=== PATIENT | male | born 1950 | race Caucasian/White ===

== ENCOUNTER 2020-04-18 15:51 | Observation (INO) ==
[2020-04-18] MEDS ORDERED: SODIUM CHLORIDE 0.9% 500 ML IV SCH (16:15)
--- NOTE | 2020-04-18 16:15 | Emergency Department Note ---
Impression & Plan Diverticulitis, Abdominal pain, Hernia, umbilical ED Provider Note NAME: EMILY NARAYANAN AGE: 69 SEX: M : 1950 ARRIVES VIA: Walk-In INFORMANT: Patient, ED PROVIDER(S): Mati Hubbard DO CHIEF COMPLAINT: Abdominal pain HPI: The patient is a 69-year-old male who presented to the emergency department for an evaluation of abdominal pain. The patient started noticing periumbilical abdominal pain approximately 3 days ago. He states his abdominal pain appears to be centered over his abdomen but also radiates into his lower abdomen. He denies having any vomiting but does have nausea. He is noticed decreased bowel movements. He also has been noticing some difficulty urinating. He does not have any fever. He denies having any back pain or chest pain. He called his primary care physician and was referred to the emergency department. The patient states the pain is moderate to severe especially with ambulating and palpation over the lower abdomen. He denies having any hematuria. The patient did not take any medication for this pain. ROS: See above HPI for pertinent positives & negatives. A total of 10 systems reviewed and were otherwise negative. PAST MEDICAL HISTORY: See Below PAST SURGICAL HISTORY: See Below FAMILY HISTORY: See Below SOCIAL HISTORY: See Below HOME MEDICATIONS: See Below ALLERGIES: See Below VITALS: See Below PHYSICAL EXAMINATION: GENERAL: The patient is awake and alert. He is very uncomfortable appearing. EYES: The conjunctivae are clear. The pupils are round and reactive. EARS, NOSE, MOUTH AND THROAT: The nose is without any evidence of any deformity. Mucous membranes are moist. Tongue is midline. NECK: The neck is nontender and supple. RESPIRATORY: Normal respiratory effort is noted there is no evidence of wheezing rhonchi or rales CARDIOVASCULAR: Regular rate and rhythm noted there no murmurs rubs or gallops normal S1 normal S2. GASTROINTESTINAL: The abdomen is moderately distended and diffusely tender. There is specific periumbilical tenderness as well as umbilical tenderness. No definite hernia could be appreciated but the patient is having severe pain which limits the exam. MUSCULOSKELETAL/EXTREMITIES: There is no evidence of gross deformity full range of motion is noted in the hips and shoulders. SKIN: There is no obvious evidence of any rash. Trace pedal edema was noted bilaterally. NEUROLOGIC: Patient is awake alert and oriented x3. MEDICAL DECISION MAKING: The patient is a 69-year-old male who presented to the emergency department for an evaluation of upper abdominal pain. The patient had periumbilical abdominal pain and a possible small umbilical hernia. He also had lower abdominal tenderness to palpation as well. Radiographic studies appear to be consistent with diverticulitis. He also has a slight umbilical hernia but there is no bowel involvement according to the CT report. I discussed the patient's laboratory and radiographic studies with him. He did not want to have any pain medication. He was treated with IV antibiotics. Given his use of methotrexate for his rheumatoid arthritis I felt it may be prudent for the patient to be observed for IV antibiotics. I discussed his case with the on-call [facility] hospitalist group as well as the on-call surgeon. The patient was agreeable to this plan. Triage Nursing notes reviewed. Prior medical records reviewed Vital Signs: reviewed and remarkable for elevated blood pressure. Differential diagnosis: Etiologies such as appendicitis, diverticulitis, obstruction, inflammatory bowel disease, renal colic, PUD, biliary pathology, pancreatitis, mesenteric ischemia, aortic pathology, infections, genitourinary, UTI, perforated viscus, as well as others were entertained. ER treatment provided: See below Diagnostics interpreted by me: ECG: EKG was obtained in the emergency department. My interpretation is sinus rhythm at 69 bpm. Frequent PVCs were noted. LVH was noted by voltage criteria. No previous EKG was available for comparison. Cardiac Monitoring: An order was placed for continuous cardiac monitoring. The monitor shows a rate of 62 bpm with sinus rhythm. Laboratory studies: As stated above and show below. Imaging studies: See below Consultation(s): 1710: I discussed this case with the on-call general surgeon, Dr. Jonas. 1800: I discussed this case with the [facility] hospitalist group. Past Med/Surg History Medical History (Updated 04/18/20 @ 21:59 by Mati Hubbard DO) CAD (coronary artery disease) CKD (chronic kidney disease), stage III High cholesterol History of heart attack Hyperlipidemia Hypertension Rheumatoid arthritis Sigmoid diverticulitis Surgical History (Updated 04/18/20 @ 18:18 by Keyanna Kovacs PA-C) H/O carotid endarterectomy S/P tonsillectomy Status post surgical removal of neoplasm of skin Family History (Updated 04/18/20 @ 18:18 by Keyanna Kovacs PA-C) Mother Coronary heart disease Father Cancer Brain- at age 36 Social History (Updated 04/18/20 @ 18:19 by Keyanna Kovacs PA-C) Smoking Status: Former smoker Hx Alcohol Use: No Hx Substance Use: No Preferred Language: Belarusian Communication Ability: Effective Page Designer Required: No Beliefs That Will Affect Care: None Current Living Situation: Significant Other Feels Safe at Home: Yes Safety Concerns: Feels Safe At This Time Allergies Allergies Allergy/AdvReac Type Severity Reaction Status Date / Time evolocumab AdvReac Severe Dizziness Unverified 04/18/20 17:08 [From Repatha SureClick] icosapent ethyl AdvReac Severe Dizziness Unverified 04/18/20 17:08 [From Vascepa] lidocaine AdvReac Severe patient Verified 04/18/20 18:26 "dies" Edksujb-Vna-Bux Reductase AdvReac Severe arthritis Unverified 04/18/20 17:08 Inhibitor Home Meds Home Medications Medication Instructions Recorded Confirmed amlodipine 5 mg PO QAM 04/18/20 04/18/20 ascorbic acid (vitamin C) [Vitamin 500 mg PO DAILY 04/18/20 04/18/20 C] aspirin 325 mg PO HS 04/18/20 04/18/20 folic acid 1 mg PO BID 04/18/20 04/18/20 losartan 25 mg PO QAM 04/18/20 04/18/20 methotrexate sodium 15 mg PO MO 04/18/20 04/18/20 tijgokew-hqu-EL-lycopen-lutein 1 tab PO QAM 04/18/20 04/18/20 [Centrum Silver Ultra Men's] omega 9-nys-jho-fish oil [Fish Oil] 1 cap PO BID 04/18/20 04/18/20 vitamin E 400 unit PO HS 04/18/20 04/18/20 Results & Data (ED) Vital Signs Vital Signs - 24 hr 04/18/20 15:55 04/18/20 17:04 04/18/20 17:39 Temperature 36.7 C Temperature Source Oral Pulse Rate 67 Pulse Rate [Right Finger] 64 60 Respiratory Rate 20 19 19 Respiratory Effort / Characteristics Non-Labored Spontaneous Respiratory Depth Normal Respiratory Pattern Regular Blood Pressure 170/76 H Blood Pressure [Right Arm] 132/91 155/76 H Blood Pressure Mean 107 Blood Pressure Mean [Right Arm] 104 102 Pulse Oximetry 98 100 97 Oxygen Delivery Method Room Air Sepsis Recent Fever Within 48 Hours No Sepsis New/Unexplained Change in Mental Status No Sepsis Action Taken by Nursing No Action Required Home Medications Current Medication List: was personally reviewed by me Laboratory Data Attestation: I reviewed the patient's lab results. Result diagrams: 04/18/20 16:03 04/18/20 16:03 Lab Results 04/18/20 04/18/20 04/18/20 Range/Units 16:03 16:03 16:03 WBC 8.14 (4.8-10.8) K/uL RBC 4.57 L (4.7-6.1) M/uL Hgb 15.0 (14.0-18.0) g/dL POC Hgb (14.0-18.0) g/dl Hct 43.8 (42-52) % POC Hct (42-52) % MCV 95.8 (80-100) fL MCH 32.8 (25-34) pg MCHC 34.2 (32-36) g/dL RDW Std Deviation 50.4 H (36.4-46.3) fL RDW Coeff of Ottoniel 14.5 (11.5-14.5) % Plt Count 193 (130-400) K/uL MPV 9.9 (7.4-10.4) fL Immature Gran % (Auto) 0.4 % Neut % (Auto) 58.0 % Lymph % (Auto) 20.5 % [place] % (Auto) 19.4 % Eos % (Auto) 1.6 % Baso % (Auto) 0.1 % Neut # (Auto) 4.72 (1.4-6.5) K/uL Lymph # (Auto) 1.67 (1.2-3.4) K/uL [place] # (Auto) 1.58 H (0.11-0.59) K/uL Eos # (Auto) 0.13 (0-0.5) K/uL Baso # (Auto) 0.01 (0-0.2) K/uL Immature Gran # (Auto) 0.03 H (0.00-0.02) K/uL PT 10.7 (9.0-12.0) Seconds INR 1.0 (0.9-1.1) APTT 31.5 H (21.0-31.0) Seconds PTT Ratio 1.1 POC Sodium (135-144) mmol/L Sodium 141 (136-145) mmol/L POC Potassium (3.3-5.0) mmol/L Potassium 3.9 (3.5-5.1) mmol/L POC Chloride (101-112) mmol/L Chloride 105 (98-107) mmol/L Carbon Dioxide 26 (21-32) mmol/L POC Total CO2 (24-31) mmol/L Anion Gap 10.0 (3-11) POC Anion Gap (16-25) mmol/L POC BUN (7-18) mg/dl BUN 20 H (7-18) mg/dl Creatinine 1.30 (0.6-1.4) mg/dl POC Creatinine (0.6-1.3) mg/dl Est Cr Clr Drug Dosing 63.4 ml/min Est GFR ( Amer) 63.6 Est GFR (Non-Af Amer) 54.9 BUN/Creatinine Ratio 15.1 (10-20) Glucose 99 (70-99) mg/dl POC Glucose (other) (70-99) mg/dl Calcium 9.5 (8.5-10.1) mg/dl POC Ioniz Calcium Morteza (1.12-1.32) mmol/l Total Bilirubin 0.5 (0.2-1) mg/dl AST 11 L (15-37) U/L ALT 18 (12-78) U/L Alkaline Phosphatase 65 (45-117) U/L Troponin I < 0.015 (0-0.045) ng/ml Total Protein 7.1 (6.4-8.2) gm/dl Albumin 3.3 L (3.4-5.0) gm/dl Globulin 3.8 (2.5-4.0) gm/dl Albumin/Globulin Ratio 0.9 (0.9-2) Lipase 102 (73-393) U/L Urine Color Urine Appearance (Clear) Urine pH (4.5-7.5) Ur Specific [place] (1.000-1.030) Urine Protein (Negative) Urine Glucose (UA) (Negative) Urine Ketones (Negative) Urine Blood (Negative) Urine Nitrite (Negative) Urine Bilirubin (Negative) Urine Urobilinogen (Negative) Ur Leukocyte Esterase (Negative) 04/18/20 04/18/20 Range/Units 16:14 16:19 WBC (4.8-10.8) K/uL RBC (4.7-6.1) M/uL Hgb (14.0-18.0) g/dL POC Hgb 14.6 (14.0-18.0) g/dl Hct (42-52) % POC Hct 43 (42-52) % MCV (80-100) fL MCH (25-34) pg MCHC (32-36) g/dL RDW Std Deviation (36.4-46.3) fL RDW Coeff of Ottoniel (11.5-14.5) % Plt Count (130-400) K/uL MPV (7.4-10.4) fL Immature Gran % (Auto) % Neut % (Auto) % Lymph % (Auto) % [place] % (Auto) % Eos % (Auto) % Baso % (Auto) % Neut # (Auto) (1.4-6.5) K/uL Lymph # (Auto) (1.2-3.4) K/uL [place] # (Auto) (0.11-0.59) K/uL Eos # (Auto) (0-0.5) K/uL Baso # (Auto) (0-0.2) K/uL Immature Gran # (Auto) (0.00-0.02) K/uL PT (9.0-12.0) Seconds INR (0.9-1.1) APTT (21.0-31.0) Seconds PTT Ratio POC Sodium 139 (135-144) mmol/L Sodium (136-145) mmol/L POC Potassium 3.9 (3.3-5.0) mmol/L Potassium (3.5-5.1) mmol/L POC Chloride 104 (101-112) mmol/L Chloride (98-107) mmol/L Carbon Dioxide (21-32) mmol/L POC Total CO2 25 (24-31) mmol/L Anion Gap (3-11) POC Anion Gap 16.0 (16-25) mmol/L POC BUN 20 H (7-18) mg/dl BUN (7-18) mg/dl Creatinine (0.6-1.4) mg/dl POC Creatinine 1.3 (0.6-1.3) mg/dl Est Cr Clr Drug Dosing ml/min Est GFR ( Amer) Est GFR (Non-Af Amer) BUN/Creatinine Ratio (10-20) Glucose (70-99) mg/dl POC Glucose (other) 100 H (70-99) mg/dl Calcium (8.5-10.1) mg/dl POC Ioniz Calcium Morteza 1.23 (1.12-1.32) mmol/l Total Bilirubin (0.2-1) mg/dl AST (15-37) U/L ALT (12-78) U/L Alkaline Phosphatase (45-117) U/L Troponin I (0-0.045) ng/ml Total Protein (6.4-8.2) gm/dl Albumin (3.4-5.0) gm/dl Globulin (2.5-4.0) gm/dl Albumin/Globulin Ratio (0.9-2) Lipase (73-393) U/L Urine Color Yellow Urine Appearance Clear (Clear) Urine pH 5.0 (4.5-7.5) Ur Specific Christoval 1.022 (1.000-1.030) Urine Protein Negative (Negative) Urine Glucose (UA) Negative (Negative) Urine Ketones Negative (Negative) Urine Blood Negative (Negative) Urine Nitrite Negative (Negative) Urine Bilirubin Negative (Negative) Urine Urobilinogen Negative (Negative) Ur Leukocyte Esterase Negative (Negative) Administered Medications Aspirin (Aspirin 325 Mg Ectab) 325 mg PO HS MARC Stop: 05/18/20 20:59 Last Admin: 04/18/20 21:57 Dose: 325 mg Documented by: [id number] Enoxaparin Sodium (Enoxaparin Inj 40 Mg/0.4 Ml Syr) 40 mg SQ Q12H MARC Stop: 05/18/20 20:59 Last Admin: 04/18/20 21:56 Dose: Not Given Documented by: [id number] Fish Oil ([place]-3 (Purified Fish Oil) 1 Gm Cap) 1 gm PO BID MARC Stop: 05/18/20 20:59 Last Admin: 04/18/20 21:57 Dose: 1 gm Documented by: [id number] Folic Acid (Folic Acid 1 Mg Tab) 1 mg PO BID MARC Stop: 05/18/20 20:59 Last Admin: 04/18/20 21:57 Dose: 1 mg Documented by: [id number] Metronidazole (Flagyl) 500 mg in 100 mls @ 100 mls/hr IV Q8H MARC Stop: 04/28/20 21:59 Last Admin: 04/18/20 21:57 Dose: 100 mls/hr Documented by: [id number] Ciprofloxacin (Cipro / D5w) 400 mg in 200 mls @ 100 mls/hr IV Q12H MARC Stop: 04/28/20 21:59 Last Admin: 04/18/20 21:57 Dose: 100 mls/hr Documented by: [id number] Discontinued Medications Sodium Chloride (Nss) 500 mls @ 999 mls/hr IV .Q31M MARC Stop: 04/18/20 16:45 Last Infusion: 04/18/20 17:01 Dose: 0 mls/hr Documented by: [id number] Admin: 04/18/20 16:18 Dose: 999 mls/hr Documented by: [id number] Piperacillin Sod/Tazobactam Sod (Zosyn) 4.5 gm in 120 mls @ 240 mls/hr IV NOW ONE Stop: 04/18/20 17:31 Last Infusion: 04/18/20 17:35 Dose: 0 mls/hr Documented by: [id number] Admin: 04/18/20 17:07 Dose: 240 mls/hr Documented by: [id number] Ioversol (Ioversol 100ml) 93 ml IV ONCE ONE Stop: 04/18/20 16:32 Last Admin: 04/18/20 16:32 Dose: 93 ml Documented by: [id number] Imaging Data Radiologist's Impression: ABDOMEN AND PELVIS CT WITH IV CONTRAST CT DOSE: 1051.32 mGy.cm HISTORY: Lower abdominal pain. TECHNIQUE: Multiaxial CT images of the abdomen and pelvis were performed following the use of intravenous contrast. A dose lowering technique was utilized adhering to the principles of ALARA. COMPARISON STUDY: None. FINDINGS: Small fat-containing right-sided Bochdalek hernia. No pneumoperitoneum. No pneumatosis. No suspicious lytic or blastic osseous lesions. Mild hepatic steatosis. A 4 mm hypodense lesion within the left hepatic lobe. This is technically too small to characterize. Cholelithiasis. No gallbladder wall thickening. The pancreas, spleen, adrenal glands, and kidneys are unremarkable. No hydronephrosis. No retroperitoneal lymphadenopathy. Moderate atherosclerotic plaque within the normal caliber abdominal aorta and iliac arteries. No evidence for an inguinal hernia. Mild thickening and pericolonic fat stranding within the proximal sigmoid colon there are multiple diverticula at this location. Findings likely represent acute diverticulitis. No perforation or abscess identified. There is moderate thickening of the bladder dome which may be reactive to the adjacent diverticulitis. No evidence for bowel obstruction. No pelvic lymphadenopathy. The prostate gland is normal in size. Mild subcutaneous fat stranding surrounding the tiny fat-containing umbilical hernia. The main portal vein is patent. IMPRESSION: 1. Acute sigmoid diverticulitis. No perforation or abscess at this time. Follow- up colonoscopy should be performed once the diverticulitis has resolved to exclude the less likely possibility of an underlying colonic lesion. 2. Moderate thickening of the bladder dome. This is likely reactive to the adjacent diverticulitis. No fistula identified. 3. Cholelithiasis. No gallbladder wall thickening. 4. Additional findings as described above. ACT 112: Negative or not required by law. Electronically signed by: Mario Street M.D. 04/18/2020 5:00 PM Dictated: 04/18/201653 Transcribed: 04/18/201653 Blood Pressure Blood Pressure Findings: Elevated blood pressure Blood Pressure Disposition: further management by hospitalist Discharge Plan Visit Data Chief Complaint: Abdominal Pain Stated Complaint: abd pain ED Provider: Mati Hubbard Discharge Problem: Diverticulitis, Abdominal pain, Hernia, umbilical Patient Disposition: Admitted As Inpatient Condition: Good Discharge Instructions Interventions: ED Discharge Assessment Last Done: 04/18/20 18:36
[2020-04-18] MEDS ORDERED: IOVERSOL 100ml IV ONE (16:31)
[2020-04-18 16:32] LABS: iSTAT Creatinine 1.3 mg/dl (0.6-1.3); iSTAT Hemoglobin 14.6 g/dl (14.0-18.0); iSTAT Ionized Calcium 1.23 mmol/l (1.12-1.32); iSTAT Potassium 3.9 mmol/L (3.3-5.0)
[2020-04-18 16:37] LABS: Basophils # (auto) 0.01 K/uL (0-0.2); Basophils % (auto) 0.1 %; Eosinophils # (auto) 0.13 K/uL (0-0.5); Eosinophils % (auto) 1.6 %; Hematocrit (blood only) 43.8 % (42-52); Immature Granulocytes # (auto) 0.03 K/uL (0.00-0.02); Immature Granulocytes % (auto) 0.4 %; Lymphocytes # (auto) 1.67 K/uL (1.2-3.4); Lymphocytes % (auto) 20.5 %; Mean Corpuscular Hemoglobin 32.8 pg (25-34); Mean Corpuscular Hgb Conc 34.2 g/dL (32-36); Mean Corpuscular Volume 95.8 fL (80-100); Mean Platelet Volume 9.9 fL (7.4-10.4); Monocytes # (auto) 1.58 K/uL (0.11-0.59); Monocytes % (auto) 19.4 %; Neutrophils # (auto) 4.72 K/uL (1.4-6.5); Platelet Count 193 K/uL (130-400); RDW Coefficient of Variation 14.5 % (11.5-14.5); RDW Standard Deviation 50.4 fL (36.4-46.3); Red Blood Count 4.57 M/uL (4.7-6.1); White Blood Count 8.14 K/uL (4.8-10.8)
[2020-04-18 16:39] LABS: Partial Thromboplastin Ratio 1.1; Partial Thromboplastin Time 31.5 Seconds (21.0-31.0); Prothrombin Time 10.7 Seconds (9.0-12.0)
[2020-04-18 16:46] LABS: Alanine Aminotransferase 18 U/L (12-78); Albumin Level 3.3 gm/dl (3.4-5.0); Aspartate Aminotransferase 11 U/L (15-37); BUN Creatinine Ratio 15.1 (10-20); Blood Urea Nitrogen 20 mg/dl (7-18); Calcium 9.5 mg/dl (8.5-10.1); Carbon Dioxide 26 mmol/L (21-32); Chloride 105 mmol/L (98-107); Creatinine Clr Calc Pharmacy 63.4 ml/min; Est GFR (African American) 63.6; Est GFR (Non-African American) 54.9; Glucose 99 mg/dl (70-99); Lipase 102 U/L (73-393); Potassium 3.9 mmol/L (3.5-5.1); Sodium 141 mmol/L (136-145)
[2020-04-18 16:51] LABS: Albumin Globulin Ratio 0.9 (0.9-2); Alkaline Phosphatase 65 U/L (45-117); Bilirubin,Total 0.5 mg/dl (0.2-1); Globulin 3.8 gm/dl (2.5-4.0); Total Protein 7.1 gm/dl (6.4-8.2); Troponin I < 0.015 ng/ml (0-0.045)
--- NOTE | 2020-04-18 17:01 | CT Scan Report ---
ABDOMEN AND PELVIS CT WITH IV CONTRAST CT DOSE: 1051.32 mGy.cm HISTORY: Lower abdominal pain. TECHNIQUE: Multiaxial CT images of the abdomen and pelvis were performed following the use of intrave nous contrast. A dose lowering technique was utilized adhering to the principles of ALARA. COMPARISON STUDY: None. FINDINGS: Small fat-containing right-sided Bochdalek hernia. No pneumoperitoneum. No pneumatosis. No suspicious lytic or blastic osseous lesions. Mild hepatic steatosis. A 4 mm hypodense lesion within t he left hepatic lobe. This is technically too small to characterize. Cholelithiasis. No gallbladder w all thickening. The pancreas, spleen, adrenal glands, and kidneys are unremarkable. No hydronephrosis . No retroperitoneal lymphadenopathy. Moderate atherosclerotic plaque within the normal caliber abdom inal aorta and iliac arteries. No evidence for an inguinal hernia. Mild thickening and pericolonic fa t stranding within the proximal sigmoid colon there are multiple diverticula at this location. Findin gs likely represent acute diverticulitis. No perforation or abscess identified. There is moderate thi ckening of the bladder dome which may be reactive to the adjacent diverticulitis. No evidence for bow el obstruction. No pelvic lymphadenopathy. The prostate gland is normal in size. Mild subcutaneous fa t stranding surrounding the tiny fat-containing umbilical hernia. The main portal vein is patent. IMPRESSION: 1. Acute sigmoid diverticulitis. No perforation or abscess at this time. Follow-up colonoscopy should be performed once the diverticulitis has resolved to exclude the less likely possibility of an under lying colonic lesion. 2. Moderate thickening of the bladder dome. This is likely reactive to the adjacent diverticulitis. N o fistula identified. 3. Cholelithiasis. No gallbladder wall thickening. 4. Additional findings as described above. ACT 112: Negative or not required by law. Electronically signed by: Mario Street M.D. 04/18/2020 5:00 PM
[2020-04-18] MEDS ORDERED: PIPERACILLIN/TAZOBACTAM 4.5 GM/120 ML BAG IV ONE (17:02)
[2020-04-18] MEDS ORDERED: PIPERACILL/TAZOBAC CONSULT ACTIVE PRN (17:02)
[2020-04-18 17:07] LABS: Appearance Urine Clear (Clear); Bilirubin Urine Negative (Negative); Blood Urine Negative (Negative); Color Urine Yellow; Glucose Urine UA Negative (Negative); Ketones Urine Negative (Negative); Leukocyte Esterase Urine Negative (Negative); Nitrite Urine Negative (Negative); Protein Urine Negative (Negative); Specific Gravity Urine 1.022 (1.000-1.030); Urobilinogen Urine Negative (Negative)
--- NOTE | 2020-04-18 18:21 | History & Physical Report ---
Date of Service April 18, 2020 Assessment & Plan (1) Sigmoid diverticulitis: (2) Rheumatoid arthritis: Patient with acute sigmoid diverticulitis. Because the patient also has some mild erythema and warmth around the umbilicus, question mild cellulitis versus inflammation from underlying diverticulitis. With chronic methotrexate use & acute infection, it was recommended that the patient be observed overnight Admit to Med/Surg for Observation. IV Zosyn for now- hopefully if improved tomorrow, can transition to PO Cipro/Flagyl Clear Liquid diet. Encourage PO fluid intake. Continue home medications. Monitor vitals closely. Consider General Surgery consult if symptoms do not improve Miralax PRN constipation (3) CKD (chronic kidney disease), stage III: Repeat BMP in AM. Labs stable from outpatient. Tylenol for pain. (4) DVT prophylaxis: Lovenox History of Present Illness Chief Complaint: Acute Diverticulitis Primary Care Provider: Roel Brown MD Patient is a 69 yo male presenting to the ED with complaints of abdominal pain x 3 days. The patient states that he has had pain around the umbilicus for the past 3 days along with constipation. He felt that he had the urge to move his bowels but couldn't until this morning. He had a normal BM this morning. No melena or hematochezia. He does note that the pain radiates into the lower abdomen. No N/V. He denies SOB, chest pain, or fever. The patient had a colonoscopy in 2015 which showed sigmoid diverticulosis. Since presentation, the patient had a CT scan of the Abd/Pelvis which showed acute sigmoid diverticulosis with mild thickening and pericolonic fat stranding of the proximal colon. No perforation or abscess noted. He was noted to have a small, fat-containing diaphragmatic hernia, cholelithiasis, and moderate thickening of the bladder dome- likely reactive secondary to adjacent diverticulitis. WBC count within normal. No left shift. BUN/Creatinine stable from outpatient. GFR 54%. Pain is currently improved slightly. He does feel that his abdomen is slightly distended. Patient is also on chronic Methotrexate for his RA. He recently had multiple arthritic nodules removed from his hand and feet. Allergies Allergy/AdvReac Type Severity Reaction Status Date / Time evolocumab AdvReac Severe Dizziness Unverified 04/18/20 17:08 [From Repatha SureClick] icosapent ethyl AdvReac Severe Dizziness Unverified 04/18/20 17:08 [From Vascepa] lidocaine AdvReac Severe patient Verified 04/18/20 18:26 "dies" Dovtvpa-Sjn-Cbv Reductase AdvReac Severe arthritis Unverified 04/18/20 17:08 Inhibitor Home Medications Home Medications Medication Instructions Recorded Confirmed Type amlodipine 5 mg PO QAM 04/18/20 04/18/20 History ascorbic acid (vitamin C) [Vitamin 500 mg PO DAILY 04/18/20 04/18/20 History C] aspirin 325 mg PO HS 04/18/20 04/18/20 History folic acid 1 mg PO BID 04/18/20 04/18/20 History losartan 25 mg PO QAM 04/18/20 04/18/20 History methotrexate sodium 15 mg PO MO 04/18/20 04/18/20 History phxqdymo-oeu-ZT-lycopen-lutein 1 tab PO QAM 04/18/20 04/18/20 History [Centrum Silver Ultra Men's] omega 2-ioh-gqs-fish oil [Fish Oil] 1 cap PO BID 04/18/20 04/18/20 History vitamin E 400 unit PO HS 04/18/20 04/18/20 History Past Med/Surg History Medical History (Updated 04/18/20 @ 18:09 by Keyanna Kovacs PA-C) CAD (coronary artery disease) CKD (chronic kidney disease), stage III High cholesterol History of heart attack Hyperlipidemia Hypertension Rheumatoid arthritis Sigmoid diverticulitis Surgical History (Updated 04/18/20 @ 18:18 by Keyanna Kovacs PA-C) H/O carotid endarterectomy S/P tonsillectomy Status post surgical removal of neoplasm of skin Family History (Updated 04/18/20 @ 18:18 by Keyanna Kovacs PA-C) Mother Coronary heart disease Father Cancer Brain- at age 36 Social History (Updated 04/18/20 @ 18:19 by Keyanna Kovacs PA-C) Smoking Status: Former smoker Hx Alcohol Use: No Hx Substance Use: No Feels Safe at Home: Yes Review of Systems Review of Systems: All systems reviewed & are unremarkable except as noted in HPI & below Physical Exam Constitutional: WD/WN, vitals as above Eyes: PERRL, conjunctivae normal, anicteric sclerae ENMT: external ear and nose normal, oropharynx normal Neck: trachea midline, no thyromegaly Respiratory: normal respiratory effort, lungs clear to auscultation Auscultation: + diminished lung sounds (B/L Bases) Cardiovascular: RRR, no murmur, no edema Gastrointestinal (Abdomen): Inspection/Auscultation: abdomen normal to inspection, + abdomen distended and normal bowel sounds Percussion/Palpation: + abdomen tender (Around umbilicus and LLQ) and abdomen soft; abdomen not rigid and no abdominal mass Musculoskeletal: Head/Neck/Chest: normocephalic, head atraumatic and neck supple B/L feet with HERMINIO bandages and soft boots Skin: no rashes, no lesions and no ulcers Very mild erythema and warmth around the umbilicus Neurologic: PERRL, EOMI, accommodation nl, no face palsy, no dysarthria CN's II-XI intact bilaterally Psychiatric: A+Ox3, euthymic affect Results & Data Results & Data ([facility]) Vital Signs (Past 12 Hours) Vital Signs Temp Pulse Pulse Resp BP BP Pulse Ox 04/18/20 17:39 60 19 155/76 H 97 04/18/20 17:04 64 19 132/91 100 04/18/20 15:55 36.7 C 67 20 170/76 H 98 Laboratory Results Laboratory Results - last 24 hr 04/18/20 04/18/20 04/18/20 16:03 16:03 16:03 WBC 8.14 RBC 4.57 L Hgb 15.0 POC Hgb Hct 43.8 POC Hct MCV 95.8 MCH 32.8 MCHC 34.2 RDW Std Deviation 50.4 H RDW Coeff of Ottoniel 14.5 Plt Count 193 MPV 9.9 Immature Gran % (Auto) 0.4 Neut % (Auto) 58.0 Lymph % (Auto) 20.5 [place] % (Auto) 19.4 Eos % (Auto) 1.6 Baso % (Auto) 0.1 Neut # (Auto) 4.72 Lymph # (Auto) 1.67 [place] # (Auto) 1.58 H Eos # (Auto) 0.13 Baso # (Auto) 0.01 Immature Gran # (Auto) 0.03 H PT 10.7 INR 1.0 APTT 31.5 H PTT Ratio 1.1 POC Sodium Sodium 141 POC Potassium Potassium 3.9 POC Chloride Chloride 105 Carbon Dioxide 26 POC Total CO2 Anion Gap 10.0 POC Anion Gap POC BUN BUN 20 H Creatinine 1.30 POC Creatinine Est Cr Clr Drug Dosing 63.4 Est GFR ( Amer) 63.6 Est GFR (Non-Af Amer) 54.9 BUN/Creatinine Ratio 15.1 Glucose 99 POC Glucose (other) Calcium 9.5 POC Ioniz Calcium Morteza Total Bilirubin 0.5 AST 11 L ALT 18 Alkaline Phosphatase 65 Troponin I < 0.015 Total Protein 7.1 Albumin 3.3 L Globulin 3.8 Albumin/Globulin Ratio 0.9 Lipase 102 Urine Color Urine Appearance Urine pH Ur Specific Sebastian Urine Protein Urine Glucose (UA) Urine Ketones Urine Blood Urine Nitrite Urine Bilirubin Urine Urobilinogen Ur Leukocyte Esterase 04/18/20 04/18/20 16:14 16:19 WBC RBC Hgb POC Hgb 14.6 Hct POC Hct 43 MCV MCH MCHC RDW Std Deviation RDW Coeff of Ottoniel Plt Count MPV Immature Gran % (Auto) Neut % (Auto) Lymph % (Auto) [place] % (Auto) Eos % (Auto) Baso % (Auto) Neut # (Auto) Lymph # (Auto) [place] # (Auto) Eos # (Auto) Baso # (Auto) Immature Gran # (Auto) PT INR APTT PTT Ratio POC Sodium 139 Sodium POC Potassium 3.9 Potassium POC Chloride 104 Chloride Carbon Dioxide POC Total CO2 25 Anion Gap POC Anion Gap 16.0 POC BUN 20 H BUN Creatinine POC Creatinine 1.3 Est Cr Clr Drug Dosing Est GFR ( Amer) Est GFR (Non-Af Amer) BUN/Creatinine Ratio Glucose POC Glucose (other) 100 H Calcium POC Ioniz Calcium Morteza 1.23 Total Bilirubin AST ALT Alkaline Phosphatase Troponin I Total Protein Albumin Globulin Albumin/Globulin Ratio Lipase Urine Color Yellow Urine Appearance Clear Urine pH 5.0 Ur Specific Sebastian 1.022 Urine Protein Negative Urine Glucose (UA) Negative Urine Ketones Negative Urine Blood Negative Urine Nitrite Negative Urine Bilirubin Negative Urine Urobilinogen Negative Ur Leukocyte Esterase Negative Diagnostic Findings CT ABD/PELVIS: IMPRESSION: 1. Acute sigmoid diverticulitis. No perforation or abscess at this time. Follow- up colonoscopy should be performed once the diverticulitis has resolved to exclude the less likely possibility of an underlying colonic lesion. 2. Moderate thickening of the bladder dome. This is likely reactive to the adjacent diverticulitis. No fistula identified. 3. Cholelithiasis. No gallbladder wall thickening. 4. Additional findings as described above. Code Status & VTE Plan VTE Prophylaxis Plan VTE Prophylaxis will be ordered: Yes Supervising Physician Co-Signing Physician Notes I saw this patient with the physician assistant store director, I participated in the history, physical, review of systems, and physical exam. I reviewed the medications with the patient and the physician assistant store director and helped reconcile the medications. I helped take a detailed family and social history as well. I formulated the assessment and plan personally with the physician assistant store director and went over it with the patient. Physical Exam Gen-AAO x 3, NAD, Afebrile Head-NCAT, EOMI, PERRLA, Anicteric Sclera, No Posterior Pharyngeal Erythema Neck-Supple, No JVD, No Thyromegaly, No Masses, No LAD, No Bruits Lungs-Clear to Auscultation Bilaterally, No Rales, No Rhonchi, No Wheezing, No Crepitus Chest-No S4, +S1, +S2, No S3, No Murmurs, No Rubs, No Gallops, No Ectopy Abdomen-Soft, Bowel Sounds Present, Tender, Distended, No Hepatomegaly, No Splenomegaly, No Palpable Masses, No Rebound, No Rigidity, No Guarding Musculoskeletal-Full Range of Motion Bilaterally, No CVAT Extremities-No Cyanosis, No Clubbing, No Edema Nuero-Cranial Nerves II-XII grossly intact, Motor WNL, DTRs WNL, Strength WNL, Non Focal Psych-Normal Mood
[2020-04-18] MEDS ORDERED: ACETAMINOPHEN 325 MG TAB PO PRN (19:21)
[2020-04-18] MEDS ORDERED: ONDANSETRON INJ 2 MG/ML 2 ML VIAL IV PRN (19:21)
[2020-04-18] MEDS ORDERED: POLYETHYLENE (MIRALAX) 17 GM PACK PO PRN (19:21)
[2020-04-18] MEDS ORDERED: ASPIRIN 325 MG ECTAB PO SCH (21:00)
[2020-04-18] MEDS: ENOXAPARIN INJ 40 MG/0.4 ML SYR SQ SCH (21:56)
[2020-04-18] MEDS: metroNIDAZOLE 500 MG/100 ML BAG IV SCH (21:57)
[2020-04-18] MEDS: OMEGA-3 (PURIFIED FISH OIL) 1 GM CAP PO SCH (21:57)
[2020-04-18] MEDS: FOLIC ACID 1 MG TAB PO SCH (21:57)
[2020-04-18] MEDS: CIPROFLOXACIN / D5W 400 MG/200 ML BAG IV SCH (21:57)
[2020-04-18] MEDS ORDERED: PIPERACILLIN/TAZOBACTAM 3.375 GM in DEXTROSE 5% 100 ML IV SCH (22:00)
[2020-04-19] MEDS: metroNIDAZOLE 500 MG/100 ML BAG IV SCH ×3 (05:34→21:05)
[2020-04-19 06:35] LABS: Basophils # (auto) 0.02 K/uL (0-0.2); Basophils % (auto) 0.3 %; Eosinophils # (auto) 0.11 K/uL (0-0.5); Eosinophils % (auto) 1.6 %; Hemoglobin 14.5 g/dL (14.0-18.0); Immature Granulocytes # (auto) 0.03 K/uL (0.00-0.02); Immature Granulocytes % (auto) 0.4 %; Lymphocytes # (auto) 1.76 K/uL (1.2-3.4); Lymphocytes % (auto) 25.3 %; Mean Corpuscular Hemoglobin 31.9 pg (25-34); Mean Corpuscular Volume 96.7 fL (80-100); Mean Platelet Volume 9.6 fL (7.4-10.4); Monocytes # (auto) 1.02 K/uL (0.11-0.59); Monocytes % (auto) 14.7 %; Neutrophils # (auto) 4.02 K/uL (1.4-6.5); Neutrophils % (auto) 57.7 %; Platelet Count 195 K/uL (130-400); RDW Coefficient of Variation 14.8 % (11.5-14.5); Red Blood Count 4.55 M/uL (4.7-6.1); White Blood Count 6.96 K/uL (4.8-10.8)
[2020-04-19 07:10] LABS: Albumin Level 3.1 gm/dl (3.4-5.0); BUN Creatinine Ratio 13.2 (10-20); Calcium 8.8 mg/dl (8.5-10.1); Creatinine Clr Calc Pharmacy 68.3 ml/min; Est GFR (African American) 69.4; Est GFR (Non-African American) 59.9; Potassium 3.9 mmol/L (3.5-5.1)
[2020-04-19 07:13] LABS: Bilirubin,Total 0.6 mg/dl (0.2-1); Total Protein 6.1 gm/dl (6.4-8.2)
[2020-04-19] MEDS: AMLODIPINE BESYLATE 5 MG TAB PO SCH (07:46)
[2020-04-19] MEDS: LOSARTAN POTASSIUM 25 MG TAB PO SCH (07:46)
[2020-04-19] MEDS: MULTIVITAMIN TAB PO SCH (07:46)
[2020-04-19] MEDS: ASCORBIC ACID 500 MG TAB PO SCH (07:47)
[2020-04-19] MEDS: ENOXAPARIN INJ 40 MG/0.4 ML SYR SQ SCH (07:47)
[2020-04-19] MEDS: OMEGA-3 (PURIFIED FISH OIL) 1 GM CAP PO SCH ×2 (07:47→20:19)
[2020-04-19] MEDS: FOLIC ACID 1 MG TAB PO SCH ×2 (07:47→20:19)
[2020-04-19] MEDS ORDERED: metHOTREXate sodium 2.5 MG TAB PO SCH (09:00)
--- NOTE | 2020-04-19 09:18 | Electrocardiogram Report ---
Test Reason : Blood Pressure : / mmHG Vent. Rate : 069 BPM Atrial Rate : 069 BPM P-R Int : 204 ms QRS Dur : 086 ms QT Int : 396 ms P-R-T Axes : 035 -12 026 degrees QTc Int : 424 ms Sinus rhythm with frequent Premature ventricular complexes in a pattern of tigeminy Otherwise normal ECG No previous ECGs available Confirmed by Rafael Dominguez ([id number]) on 04/19/2020 9:18:22 AM Referred By: REFERRED SELF Confirmed By:Rafael Dominguez
[2020-04-19] MEDS: CIPROFLOXACIN / D5W 400 MG/200 ML BAG IV SCH ×2 (09:55→21:06)
[2020-04-19] MEDS: SODIUM CHLORIDE 0.9% 1000ML 1,000 ML IV SCH ×2 (13:08→22:19)
--- NOTE | 2020-04-19 14:01 | Gastrointestinal Consultation ---
Date of Consultation April 19, 2020 Assessment & Plan (1) Diverticulitis: (2) Hernia, umbilical: Pt is a 69 y/o male w c/o abd pain at umbilical and across lower quadrants. CT abd/pelvis showed suspected sigmoid diverticulitis w/o perforation/abscess. + mid fat stranding on subcutaneous umbilical hernia area. He reports regular BM until few days ago associated w narcotic use after RA nodules excision. This is his first diverticulitis episode. Last colonoscopy in 2015 w findings of adenomatous polyp. - Cipro/Flagyl antibx IV, may transition to oral - Advance diet as tolerated - Surgery consult to eval umbilical hernia - Repeat colonoscopy in 4-6 weeks time to r/o polyps, malignancy Attg add: I interviewed and examined pt, reviewed chart and labs. Pt with constipation from narcs, followed by abd pain with CT showing ? tic-itis, ? hernia incarceration. Agree with recommendations as above. History of Present Illness Reason for Consultation: Diverticulitis Requesting Physician: Dr. Malou Ray Attending Physician: Dr. Ke Lawrence History of Present Illness Pt is a 69 yo male, w hx of RA on Methotrexate, CAD, HTN, CKD, hx of PA, TIA who presented to ED w c/o umbilical area and lower abd pain x 3 days. Denies n/v. He had rheumatoid nodules exicision by Ortho on 04/09 and 04/16. Received antibx and narcotics post procedures. He had mild temp 100.2F about 24 hr after procedures. He also noticed he had been slightly constipated in last few days. He initially thought he had a strangulated umbilical hernia. CT abd/pelvis w contrast however showed small fat-containing right-sided [place]chdalek hernia, mild subcutanesou fat stranding around tiny fat containing umbilical hernia. No pneumoperitoneum. No pneumatosis. There's mild thickening and pericolonic fat stranding within proximal simgoid colon and there are multiple diverticula in this location - finiding likely representing acute diverticulitis w/o perforation or abscess. He denies family hx of colorectal ca Colonoscopy in 2015 w findings of adenomatous colon polyp, L sided div erticulosis, int hemorrhoids Allergies Allergy/AdvReac Type Severity Reaction Status Date / Time evolocumab AdvReac Severe Dizziness Unverified 04/18/20 17:08 [From Nghia Glaser] icosapent ethyl AdvReac Severe Dizziness Unverified 04/18/20 17:08 [From Vascepa] lidocaine AdvReac Severe patient Verified 04/18/20 18:26 "dies" Svzrbbu-Eqt-Ezu Reductase AdvReac Severe arthritis Unverified 04/18/20 17:08 Inhibitor Home Medications Home Medications Medication Instructions Recorded Confirmed Type amlodipine 5 mg PO QAM 04/18/20 04/18/20 History ascorbic acid (vitamin C) [Vitamin 500 mg PO DAILY 04/18/20 04/18/20 History C] aspirin 325 mg PO HS 04/18/20 04/18/20 History folic acid 1 mg PO BID 04/18/20 04/18/20 History losartan 25 mg PO QAM 04/18/20 04/18/20 History methotrexate sodium 15 mg PO MO 04/18/20 04/18/20 History emykxruv-sto-VO-lycopen-lutein 1 tab PO QAM 04/18/20 04/18/20 History [Centrum Silver Ultra Men's] omega 4-hmn-xek-fish oil [Fish Oil] 1 cap PO BID 04/18/20 04/18/20 History vitamin E 400 unit PO HS 04/18/20 04/18/20 History ciprofloxacin HCl 500 mg PO BID 8 Days #16 tab 04/20/20 Rx metronidazole 500 mg PO TID 8 Days #24 tab 04/20/20 Rx Patient History Medical History CAD (coronary artery disease) CKD (chronic kidney disease), stage III High cholesterol History of heart attack Hyperlipidemia Hypertension Rheumatoid arthritis Sigmoid diverticulitis Surgical History H/O carotid endarterectomy S/P tonsillectomy Status post surgical removal of neoplasm of skin Family History Mother Coronary heart disease Father Cancer Brain- at age 36 Social History Smoking Status: Former smoker Hx Alcohol Use: No Hx Substance Use: No Preferred Language: Greek Communication Ability: Effective 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 Equipment 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: No Beliefs That Will Affect Care: None Current Living Situation: Significant Other Feels Safe at Home: Yes Safety Concerns: Feels Safe At This Time Assistive Devices: Glasses Review of Systems Review of Systems: All systems reviewed & are unremarkable except as noted in HPI & below Physical Exam Constitutional: WD/WN, vitals as above well groomed, cooperative and comfortable Eyes: PERRL, conjunctivae normal, anicteric sclerae ENMT: external ear and nose normal, oropharynx normal Respiratory: normal respiratory effort, lungs clear to auscultation Cardiovascular: RRR, no murmur, no edema Gastrointestinal (Abdomen): TTP umbilical area - small hernia noted, unable to reduce. TTP across lower abd Skin: no rashes, warm and dry no jaundice Psychiatric: A+Ox3, euthymic affect Lymphatic: no lymphedema Results & Data ([facility]) Vital Signs (Past 12 Hours) Vital Signs Temp Pulse Resp BP Pulse Ox 04/19/20 07:21 36.4 C L 55 L 16 139/71 95 (1) Hernia, umbilical Obstruction and gangrene presence: without obstruction or gangrene Qualified Code(s): K42.9 - Umbilical hernia without obstruction or gangrene
--- NOTE | 2020-04-19 15:42 | Surgery Consultation ---
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 Brar-longstanding umbilical hernia containing fat-somewhat sensitive to palpation No evidence of any erythema. We will follow-up with patient in my office Repair his hernia at some point in the future History of Present Illness Attending Physician: Malou Ray MD History of Present Illness 69 y/o male had rheumatoid nodules removed about 10 days ago, took a few pain pills after. Had not moved his bowels for several days, then felt bloated and had some abdominal pain. Began having small BMs. Was seen in ED last night for abdominal pain, admitted by medicine for diverticulitis. Umbilical hernia also noted on CT. Hernia has been present for years, is unchanged in size, not reducible, and only painful if pushed on. Allergies Allergy/AdvReac Type Severity Reaction Status Date / Time evolocumab AdvReac Severe Dizziness Unverified 04/18/20 17:08 [From Repatha SureClick] icosapent ethyl AdvReac Severe Dizziness Unverified 04/18/20 17:08 [From Vascepa] lidocaine AdvReac Severe patient Verified 04/18/20 18:26 "dies" Vxfnrqe-Txk-Zyh Reductase AdvReac Severe arthritis Unverified 04/18/20 17:08 Inhibitor Home Medications Home Medications Medication Instructions Recorded Confirmed Type amlodipine 5 mg PO QAM 04/18/20 04/18/20 History ascorbic acid (vitamin C) [Vitamin 500 mg PO DAILY 04/18/20 04/18/20 History C] aspirin 325 mg PO HS 04/18/20 04/18/20 History folic acid 1 mg PO BID 04/18/20 04/18/20 History losartan 25 mg PO QAM 04/18/20 04/18/20 History methotrexate sodium 15 mg PO MO 04/18/20 04/18/20 History teaepyvm-mgf-CJ-lycopen-lutein 1 tab PO QAM 04/18/20 04/18/20 History [Centrum Silver Ultra Men's] omega 0-afm-hbt-fish oil [Fish Oil] 1 cap PO BID 09/20/20 09/20/20 History vitamin E 400 unit PO HS 04/18/20 04/18/20 History Patient History Medical History CAD (coronary artery disease) CKD (chronic kidney disease), stage III High cholesterol History of heart attack Hyperlipidemia Hypertension Rheumatoid arthritis Sigmoid diverticulitis Surgical History H/O carotid endarterectomy S/P tonsillectomy Status post surgical removal of neoplasm of skin Family History Mother Coronary heart disease Father Cancer Brain- at age 36 Social History Smoking Status: Former smoker Hx Alcohol Use: No Hx Substance Use: No Preferred Language: Croatian Communication Ability: Effective Child Nutrition Assistant Required: No Beliefs That Will Affect Care: None Current Living Situation: Significant Other Feels Safe at Home: Yes Safety Concerns: Feels Safe At This Time Assistive Devices: None Review of Systems Gastrointestinal: + abdominal pain and + constipation; no nausea and no vomiting Physical Exam Constitutional: WD/WN, vitals as above Gastrointestinal (Abdomen): Inspection/Auscultation: + visible herniation (small umbilical hernia, nonreducible, mildly tender, skin normal); abdomen not distended Percussion/Palpation: + abdomen tender (mild suprapubic>LLQ) and abdomen soft Results & Data ([facility]) Vital Signs (Past 12 Hours) Vital Signs Temp Pulse Resp BP Pulse Ox 04/19/20 15:08 36.7 C 55 L 18 122/55 L 95 04/19/20 07:21 36.4 C L 55 L 16 139/71 95 PG Care Time/CCT Total # of Minutes Spent Total Time Spent with Patient: Total time spent is greater than 50% in coordination of care (as documented) at patient's floor/unit and/or counseling patient: Coding Level of Care Code 08112 Initial Inpt Care Lvl 1 Diagnoses Hernia, umbilical K42.9 Obstruction and gangrene presence: without obstruction or gangrene (1) Hernia, umbilical Obstruction and gangrene presence: without obstruction or gangrene Qualified Code(s): K42.9 - Umbilical hernia without obstruction or gangrene
--- NOTE | 2020-04-19 17:40 | Hospitalist Progress Note ---
Date of Service April 19, 2020 Assessment & Plan (1) Sigmoid diverticulitis: Presented with abdomen pain, CT abdomen pelvis shows acute sigmoid diverticulitis No evidence of perforation or sepsis Continue antibiotic with Cipro and Flagyl Appreciate input from GI, Outpatient colonoscopy in 4 to 6 weeks Umbilical hernia: Surgery eval appreciated, no evidence of incarceration, Conservative approach for now Clinic follow-up in 3 weeks, to schedule elective hernia repair (2) Rheumatoid arthritis: Hold methotrexate when acute illness (3) CKD (chronic kidney disease), stage III: Creatinine at baseline (4) DVT prophylaxis: Lovenox Patient to be discharged home in next 1 to 2 days when medically stable: Admission and Anticipated Discharge Date Admission Date: April 18, 2020 Physical Exam Constitutional: WD/WN, vitals as above Eyes: PERRL, conjunctivae normal, anicteric sclerae ENMT: external ear and nose normal, oropharynx normal Neck: trachea midline, no thyromegaly Respiratory: normal respiratory effort, lungs clear to auscultation Cardiovascular: RRR, no murmur, no edema Gastrointestinal (Abdomen): Percussion/Palpation: + abdomen tender and abdomen soft Musculoskeletal: no cyanosis or clubbing, extremities motor strength 5/5 Skin: no rashes, warm and dry Neurologic: PERRL, EOMI, accommodation nl, no face palsy, no dysarthria Psychiatric: A+Ox3, euthymic affect Results & Data Results & Data ([facility]) Vital Signs (Past 12 Hours) Vital Signs Temp Pulse Resp BP Pulse Ox 04/19/20 15:08 36.7 C 55 L 18 122/55 L 95 04/19/20 07:21 36.4 C L 55 L 16 139/71 95
[2020-04-19] MEDS ORDERED: TOCOPHERYL, DL-ALPHA 400 UNITS CAP PO SCH (21:00)
[2020-04-20] MEDS: metroNIDAZOLE 500 MG/100 ML BAG IV SCH (06:10)
--- NOTE | 2020-04-20 07:58 | Communication Note ---
Date of Service: April 20, 2020 A.m. labs, and vitals reviewed, no spike of temperature, no leukocytosis, stable vitals We will change antibiotic to p.o., DC IV fluids, continue low fiber diet Plan to discharge home later this afternoon is patient able to tolerate diet. Will need GI follow-up in 4-6 weeks for colonoscopy Surgery follow-up in the clinic for discussion of management of umbilical hernia. Malou Ray MD
[2020-04-20] MEDS: metroNIDAZOLE 500 MG TAB PO SCH ×2 (08:33→13:16)
[2020-04-20] MEDS: FOLIC ACID 1 MG TAB PO SCH (08:33)
[2020-04-20] MEDS: LOSARTAN POTASSIUM 25 MG TAB PO SCH (08:34)
[2020-04-20] MEDS: OMEGA-3 (PURIFIED FISH OIL) 1 GM CAP PO SCH (08:34)
[2020-04-20] MEDS: AMLODIPINE BESYLATE 5 MG TAB PO SCH (08:34)
[2020-04-20] MEDS: MULTIVITAMIN TAB PO SCH (08:34)
[2020-04-20] MEDS: ASCORBIC ACID 500 MG TAB PO SCH (08:35)
--- NOTE | 2020-04-20 08:40 | Gastroenterology Progress Note ---
Date of Service April 20, 2020 Assessment & Plan (1) Diverticulitis: (2) Hernia, umbilical: Pt is a 69 y/o male w c/o abd pain at umbilical and across lower quadrants. CT abd/pelvis showed suspected sigmoid diverticulitis w/o perforation/abscess. + mid fat stranding on subcutaneous umbilical hernia area. He reports regular BM until few days ago associated w narcotic use after RA nodules excision. This is his first diverticulitis episode. Last colonoscopy in 2016 w findings of adenomatous polyp. BM last night, felt a lot better - no longer having abd pain, no n/v. - Cipro/Flagyl antibx transition to oral x 7 days - Surgery consult to eval umbilical hernia -> f/u outpt for elective surgery - Repeat colonoscopy in 4-6 weeks time to r/o polyps, malignancy - GI to sign off; no contraindication for DC home Admission and Anticipated Discharge Date Admission Date: April 18, 2020 Supervising Physician Co-Signing Physician Notes Attg add: I interviewed and examined pt, reviewed chart and labs. Pt with marked improvement in symptoms. No pain. Rec oral abx to complete 7 d course. Outpt csocpyin 4-6 weeks. Call with questions. Subjective Pt feels well. Had large BM last night and no longer having abd pain. Denies n/v, this AM eating solid breakfast Review of Systems Review of Systems: All systems reviewed & are unremarkable except as noted in HPI & below Physical Exam Constitutional: WD/WN, vitals as above well groomed, cooperative and comfortable Eyes: PERRL, conjunctivae normal, anicteric sclerae ENMT: external ear and nose normal, oropharynx normal Respiratory: normal respiratory effort, lungs clear to auscultation Cardiovascular: RRR, no murmur, no edema Gastrointestinal (Abdomen): normal bowel sounds, soft, nontender, no hepatosplenomegaly Skin: no rashes, warm and dry no jaundice Psychiatric: A+Ox3, euthymic affect Lymphatic: no lymphedema Results & Data ([facility]) Vital Signs (Past 12 Hours) Vital Signs Temp Pulse Resp BP Pulse Ox 04/20/20 07:15 36.4 C L 52 L 18 126/70 92 04/19/20 23:44 37.1 C 55 L 18 112/68 93 (1) Hernia, umbilical Obstruction and gangrene presence: without obstruction or gangrene Qualified Code(s): K42.9 - Umbilical hernia without obstruction or gangrene
[2020-04-20] MEDS ORDERED: CIPROFLOXACIN 500 MG TAB PO SCH (09:00)
[2020-04-20] MEDS ORDERED: ENOXAPARIN INJ 40 MG/0.4 ML SYR SQ SCH (09:00)
--- NOTE | 2020-04-20 15:45 | Discharge Summary ---
Date of Service April 20, 2020 Admission HPI Per Admitting Provider Patient is a 69 yo male presenting to the ED with complaints of abdominal pain x 3 days. The patient states that he has had pain around the umbilicus for the past 3 days along with constipation. He felt that he had the urge to move his bowels but couldn't until this morning. He had a normal BM this morning. No melena or hematochezia. He does note that the pain radiates into the lower abdomen. No N/V. He denies SOB, chest pain, or fever. The patient had a colonoscopy in 2016 which showed sigmoid diverticulosis. Since presentation, the patient had a CT scan of the Abd/Pelvis which showed acute sigmoid diverticulosis with mild thickening and pericolonic fat stranding of the proximal colon. No perforation or abscess noted. He was noted to have a small, fat-containing diaphragmatic hernia, cholelithiasis, and moderate thickening of the bladder dome- likely reactive secondary to adjacent diverticulitis. WBC count within normal. No left shift. BUN/Creatinine stable from outpatient. GFR 54%. Pain is currently improved slightly. He does feel that his abdomen is slightly distended. Patient is also on chronic Methotrexate for his RA. He recently had multiple arthritic nodules removed from his hand and feet. Principal Diagnosis ACUTE SIGMOID DIVERTICULITIS UMBILLICAL HERNIA Discharge Exam Constitutional WD/WN, vitals as above Eyes PERRL, conjunctivae normal, anicteric sclerae ENMT external ear and nose normal, oropharynx normal Neck trachea midline, no thyromegaly Respiratory normal respiratory effort, lungs clear to auscultation Cardiovascular RRR, no murmur, no edema Gastrointestinal (Abdomen) Percussion/Palpation: + abdomen tender and abdomen soft Musculoskeletal no cyanosis or clubbing, extremities motor strength 5/5 Skin no rashes, warm and dry Neurologic PERRL, EOMI, accommodation nl, no face palsy, no dysarthria Psychiatric A+Ox3, euthymic affect Discharge Data Allergies Allergy/AdvReac Type Severity Reaction Status Date / Time evolocumab AdvReac Severe Dizziness Unverified 04/18/20 17:08 [From Repatha SureClick] icosapent ethyl AdvReac Severe Dizziness Unverified 04/18/20 17:08 [From Vascepa] lidocaine AdvReac Severe patient Verified 04/18/20 18:26 "dies" Qagxjmj-Rwk-Kic Reductase AdvReac Severe arthritis Unverified 04/18/20 17:08 Inhibitor Consultations 04/18/20 17:40 ED Decision to Admit Stat 04/18/20 19:21 Consult Case Management - Discharge Planning Routine 04/19/20 12:21 Consult Gastroenterology Routine 04/19/20 14:30 Consult General Surgery Routine Ordered Studies 04/18/20 16:02 CT abd pelvis IV con only Stat Hospital Course (1) Sigmoid diverticulitis: Presented with abdomen pain, CT abdomen pelvis shows acute sigmoid diverticulitis No evidence of perforation or sepsis Continue antibiotic with Cipro and Flagyl has tolerated solid well no complain of abdominal pain , no nausea no diarrhea discharged home with PO cipro/Flagyl Appreciate input from GI, Outpatient colonoscopy in 4 to 6 weeks Umbilical hernia: Surgery eval appreciated, no evidence of incarceration, Clinic follow-up in 3 weeks, to schedule elective hernia repair (2) Rheumatoid arthritis: Hold methotrexate when acute illness (3) CKD (chronic kidney disease), stage III: Creatinine at baseline (4) DVT prophylaxis: Lovenox Patient is discharged home Total Time Total Time Spent Total Time Spent (In Minutes): 35mins Total Time Includes: Discharge Planning and Medication Reconciliation Discharge Plan Discharge Items Patient Disposition: Home - Self-Care Reason For Visit: DIVERTICULITIS Discharge Diagnosis: Acute sigmoid diverticulitis Umbilical hernia Condition on Discharge: Good Activity: Resume your previous activity Non-emergency contact: Primary Care Provider Call non-emergency contact if: you have any medication questions Follow-up/Referrals: Du Brar MD, FACS [Physician] - (call to make an appointment for 3-4 weeks) Ke Lawrence [Physician] - (Follow-up for colonoscopy in 4-6 weeks Gastroenterology office to call you with an appointment) Roel Brown MD [Primary Care Provider] - 04/26/20 11:20 am (Date & Time 04/26/2020 11:20 AM Provider Roel Brown MD Department Internal Medicine [facility] ) Diet: Low Fiber Addtl Attending Provider Instructions: Follow-up with family physician in a week Continue low fiber diet for next 1 week Surgery follow-up in the clinic for management of umbilical hernia Return to ER, with any recurrence of abdominal pain, fever Follow-up with GI for colonoscopy in 4-6 weeks Pending Studies at Discharge: No Stand-Alone Forms: My [facility], Smoking Cessation Medications and DC Order Prescriptions: New metronidazole 500 mg Tablet 500 mg PO TID 8 Days Qty: 24 RF: 0 ciprofloxacin HCl 500 mg Tablet 500 mg PO BID 8 Days Qty: 16 RF: 0 Continued aspirin 325 mg Tablet 325 mg PO HS RF: 0 amlodipine 5 mg tablet 5 mg PO QAM RF: 0 methotrexate sodium 2.5 mg tablet 15 mg PO MO RF: 0 losartan 25 mg tablet 25 mg PO QAM RF: 0 folic acid 1 mg tablet 1 mg PO BID RF: 0 vitamin E 400 unit Capsule 400 unit PO HS RF: 0 omega 0-evh-qbb-fish oil [Fish Oil] 1,000 mg (120 mg-180 mg) Capsule 1 cap PO BID RF: 0 Centrum Silver Ultra Men's 300-600-300 mcg Tablet 1 tab PO QAM RF: 0 ascorbic acid (vitamin C) [Vitamin C] 500 mg Tablet 500 mg PO DAILY RF: 0 Discharge Orders: Discharge Order (Routine); Ordered 04/20/20 Ordered By: Malou Scruggs/Other Patient Handouts: Low-Fiber Diet Admission Data Admit Date/Time: 04/18/20 18:05 Attending Provider: Malou Ray Admit Provider: Tai Haywood Primary Care Provider: Roel Brown Other Providers: Tai Haywood ; Lima Verdugo ; Leighann Coffey ; Jaimie Pollock ; Deanne Joshi ; Xavier Small ; Henna Dotson ; Ke Lawrence ; Concepcion Rodas ; Mati Bob ; Fabrice Quintero ; Meaghan Garg ; Janay Peñaloza ; Sarika Holder ; Bryanna Burgos ; Charlie Obrien ; Du Brar Other Interventions: Discharge Summary Assessment (RN) Last Done: 04/20/20 12:47
== END 2020-04-20 14:21 | disposition home or self-care (01) ==
LOC: ED 15:51 → 2N 15:51 → SUATTDRO 18:05 → 2N 18:36

== ENCOUNTER 2023-04-27 16:25 | Inpatient (IN) ==
[2023-04-27 17:31] LABS: Hematocrit (blood only) 47.9 % (42.0-52.0); Hemoglobin 15.3 g/dl (14.0-18.0); Mean Corpuscular Hemoglobin 29.2 pg (25.0-34.0); Mean Corpuscular Hgb Conc 31.9 g/dL (32.0-36.0); Mean Corpuscular Volume 91.4 fL (80.0-100.0); Mean Platelet Volume 9.7 fL (9.4-12.4); Platelet Count 272 K/uL (130-400); RDW Coefficient of Variation 14.7 % (11.5-14.5); RDW Standard Deviation 49.1 fL (36.4-46.3); Red Blood Count 5.24 M/uL (4.70-6.10); White Blood Count 7.61 K/ul (4.8-10.8)
--- NOTE | 2023-04-27 17:32 | CT Scan Report ---
CT head/brain wo con CLINICAL HISTORY: 72 years-old Male with Neuro deficit, acute, stroke suspected. Acute stroke like s ymptoms TECHNIQUE: Multiple axial CT images of the head were obtained without contrast. A dose lowering tech nique was utilized adhering to the principles of ALARA. CT DOSE: 547.75 mGy.cm COMPARISON: None. FINDINGS: No acute intracranial hemorrhage, midline shift, intracranial mass, hydrocephalus, territorial ischem ia or abnormal extra-axial collection. Riley cisterna magna. Involutional changes with suggestion of m ild chronic microvascular ischemic disease. 1.1 cm hypodense focus noted within the left caudate nucl eus. Additional similar-appearing hypodensities noted within the left lentiform nucleus and thalamus. The calvarium is intact. Mild mucosal thickening of the ethmoid air cells. The mastoid air cells ar e clear. IMPRESSION: 1. No acute intracranial hemorrhage, midline shift or acute territorial infarct. 2. Likely chronic infarcts within the left basal ganglia. ACT 112: Negative or not required by law. The above report was generated using voice recognition software. It may contain grammatical, syntax o r spelling errors. Electronically signed by: Herberth Broussard M.D. 04/27/2023 5:31 PM
[2023-04-27 17:46] LABS: Alanine Aminotransferase 8 U/L (7-52); Albumin Globulin Ratio 1.5 (0.9-2); Albumin Level 4.3 gm/dl (3.4-5.0); Alkaline Phosphatase 79 U/L (34-104); Anion Gap 7 (3-11); Aspartate Aminotransferase 15 U/L (13-39); Bilirubin,Total 0.3 mg/dl (0.2-1.0); Blood Urea Nitrogen 16 mg/dl (6-23); Calcium 9.9 mg/dl (8.6-10.3); Carbon Dioxide 26 mmol/L (21-32); Chloride 105 mmol/L (98-107); Est GFR (African American) 78.8 ml/min; Globulin 2.8 gm/dl (2.5-4.0); Glucose 91 mg/dl (70-99(Fasting)); Magnesium 2.1 mg/dl (1.7-2.4); Sodium 138 mmol/L (136-145); Total Protein 7.1 gm/dl (6.0-8.3)
[2023-04-27 17:58] LABS: Partial Thromboplastin Time 28.8 Seconds (21.0-31.0); Prothrombin Time 10.5 Seconds (9.0-12.0)
--- NOTE | 2023-04-27 18:23 | Emergency Department Note ---
History of Present Illness General Chief complaint: TIA Symptoms Stated complaint: LOSS OF BALANCE, TINGLINESS Time Seen by Provider: 04/27/23 18:00 Source: patient, family ( and stepdaughter who are at the bedside), RN notes reviewed, old records reviewed and police Mode of arrival: ambulatory Limitations: no limitations History of Present Illness Maximum Pain Intensity: 0 This patient is a 82-year-old male who has a history of TIAs and hypertension among other medical problems comes in after having tingling in his right face right arm and leg for 3 days its been there consistently. He has had TIAs befor e but they went away this 1 did not go away says. Initially has some trouble speaking but that is now resolved he does feel like his tongue feels numb at times. No change in vision. no headache, neck pain or stiffness. no recent fall. No chest pain or shortness of breath no fever chills. He is on Plavix he believes. Home Medications Medication Instructions Recorded Confirmed Type ascorbic acid (vitamin C) 500 mg 500 mg PO DAILY 04/18/20 04/27/23 History tablet (Vitamin C) losartan 25 mg tablet 25 mg PO QAM 04/18/20 04/27/23 History hzfjhaps-iw-uwyfv 300 mcg-K 60 1 tab PO QAM 04/18/20 04/27/23 History mcg-lycop 600 mcg-lutein 300 mcg tablet (Centrum Silver Ultra Men's) omega 6-sfd-jdu-fish oil 1,000 mg 1 cap PO BID 04/18/20 04/27/23 History (120 mg-180 mg) capsule (Fish Oil) aspirin 81 mg tablet,delayed 81 mg PO DAILY 04/27/23 04/27/23 History release clopidogrel 75 mg tablet 75 mg PO DAILY 04/27/23 04/27/23 History ezetimibe 10 mg tablet 10 mg PO DAILY 04/27/23 04/27/23 History leflunomide 10 mg tablet 10 mg PO DAILY 04/27/23 04/27/23 History metoprolol succinate 50 mg 50 mg PO DAILY 04/27/23 04/27/23 History tablet,extended release 24 hr Allergies Allergy/AdvReac Type Severity Reaction Status Date / Time evolocumab AdvReac Severe Dizziness Unverified 04/18/20 17:08 [From Repatha SureClick] icosapent ethyl AdvReac Severe Dizziness Unverified 04/18/20 17:08 [From Vascepa] lidocaine AdvReac Severe patient Verified 04/18/20 18:26 "dies" Ojvuopk-XBA-KvA Reductase AdvReac Severe arthritis Unverified 04/18/20 17:08 Inhibitor [Ewborll-Lur-Tey Reductase Inhibitor] Past Med/Surg History Medical History CAD (coronary artery disease) CKD (chronic kidney disease), stage III High cholesterol History of heart attack History of TIA (transient ischemic attack) Hyperlipidemia Hypertension Pacemaker Rheumatoid arthritis Sigmoid diverticulitis SSS (sick sinus syndrome) Surgical History H/O carotid endarterectomy S/P tonsillectomy Status post surgical removal of neoplasm of skin Family History Mother Coronary heart disease Father Cancer Brain- at age 36 Social History Smoking Status: Former smoker Second Hand Exposure: No; Do You Dip or Chew Tobacco: No; Tobacco Cessation Education Requested by Patient: No Hx Alcohol Use: No Hx Substance Use: No Preferred Language: Marshallese Communication Ability: Effective 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 Organ 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 Required: No Beliefs That Will Affect Care: None Current Living Situation: Significant Other Current Living Situation Comment: is caretaker grounds for significant other Other Information That Helps Us Care for You: No Feels Safe at Home: Yes Safety Concerns: Feels Safe At This Time Assistive Devices: None Review of Systems A total of 10 systems reviewed and were otherwise negative Physical Exam Vital Signs Vital Signs - 24 hr 04/27/23 16:35 04/27/23 17:16 04/27/23 18:40 Temperature 36.8 C Temperature Source Temporal Artery Scan Pulse Rate 61 87 Pulse Rate [Apical] 68 Respiratory Rate 18 20 Blood Pressure 146/79 H Blood Pressure [Left Arm] 163/94 H Blood Pressure Mean 101 Blood Pressure Mean [Left Arm] 117 Pulse Oximetry 97 95 Oxygen Delivery Method Room Air Room Air Sepsis Recent Fever Within 48 Hours No Sepsis New/Unexplained Change in Mental Status No Sepsis Action Taken by Nursing No Action Required General: Well developed well nourished older male who appears in no acute distress, breathing comfortably on room air. Normal speech HEENT: Normal cephalic atraumatic. Pupils are equal round and reactive to light. Extraocular movements are intact. Oropharynx is pink with moist mucous membranes. No swelling of the mouth lips or tongue. No facial asymmetry or droop. Hearing aid in the right ear canal Neck: Supple with a midline trachea. No meningeal signs or stiffness, no JVD or bruits. No Stridor. Chest: Clear to auscultation bilaterally. No wheezes or rhonchi. No increased work of breathing. Heart: Regular rate and rhythm without murmurs or gallops. Abdomen: Soft nontender, nondistended without rebound guarding or rigidity. Extremities: No cyanosis clubbing or edema. No calf tenderness or assymetry. The right fingertips appear to be slightly paler than the left however he is got bounding radial and ulnar pulses. He had no pain or redness Spine/Back. Non tender to palpation. No CVA tenderness Skin: Good turgor without rashes. Neurologic exam: Cranial nerves two through 12 are intact. Motor is intact throughout. He says sensation to light touch is different in the right hand and forearm as well as the right face. He is able to ambulate without ataxia but has small shuffling gait Course Administered Medications Discontinued Medications Ioversol (Optiray 320 125ml) 115 ml IV ONCE ONE Stop: 04/27/23 19:38 Last Admin: 04/27/23 19:40 Dose: 115 ml Documented By: ADITIK Medical Decision Making Differential Diagnosis Stroke, TIA, electrolyte or metabolic abnormality, acute coronary syndrome, infection, anemia Medical Records Attestation: I reviewed the patient's medical records. Home Medications Current Medication List: was personally reviewed by me Laboratory Data Attestation: I reviewed the patient's lab results. 04/27/23 17:00 04/27/23 17:00 Lab Results 04/27/23 04/27/23 04/27/23 Range/Units 16:59 17:00 17:00 WBC 7.61 (4.8-10.8) K/ul RBC 5.24 (4.70-6.10) M/uL Hgb 15.3 (14.0-18.0) g/dl Hct 47.9 (42.0-52.0) % MCV 91.4 (80.0-100.0) fL MCH 29.2 (25.0-34.0) pg MCHC 31.9 L (32.0-36.0) g/dL RDW Std Deviation 49.1 H (36.4-46.3) fL RDW Coeff of Ottoniel 14.7 H (11.5-14.5) % Plt Count 272 (130-400) K/uL MPV 9.7 (9.4-12.4) fL ESR (0-20) mm/hr PT 10.5 (9.0-12.0) Seconds INR 1.0 (0.9-1.1) APTT 28.8 (21.0-31.0) Seconds PTT Ratio 1.0 Sodium (136-145) mmol/L Potassium (3.5-5.1) mmol/L Chloride (98-107) mmol/L Carbon Dioxide (21-32) mmol/L Anion Gap (3-11) BUN (6-23) mg/dl Creatinine (0.6-1.4) mg/dl Est Cr Clr Drug Dosing Est GFR ( Amer) ml/min Est GFR (Non-Af Amer) ml/min BUN/Creatinine Ratio (10-20) Glucose (70-99(Fasting)) mg/dl POC Glucose 87 (70-99) mg/dl Calcium (8.6-10.3) mg/dl Magnesium (1.7-2.4) mg/dl Total Bilirubin (0.2-1.0) mg/dl AST (13-39) U/L ALT (7-52) U/L Alkaline Phosphatase (34-104) U/L Troponin I High Sens (0-20) pg/ml C-Reactive Protein (0-0.5) mg/dl Total Protein (6.0-8.3) gm/dl Albumin (3.4-5.0) gm/dl Globulin (2.5-4.0) gm/dl Albumin/Globulin Ratio (0.9-2) Vitamin B12 (180-914) pg/ml TSH (0.300-4.500) uIu/ml Lyme Disease IgG Ab (Negative) Lyme Disease IgM Ab (Negative) 04/27/23 04/27/23 04/27/23 Range/Units 17:00 17:00 17:00 WBC (4.8-10.8) K/ul RBC (4.70-6.10) M/uL Hgb (14.0-18.0) g/dl Hct (42.0-52.0) % MCV (80.0-100.0) fL MCH (25.0-34.0) pg MCHC (32.0-36.0) g/dL RDW Std Deviation (36.4-46.3) fL RDW Coeff of Ottoniel (11.5-14.5) % Plt Count (130-400) K/uL MPV (9.4-12.4) fL ESR 29 H (0-20) mm/hr PT (9.0-12.0) Seconds INR (0.9-1.1) APTT (21.0-31.0) Seconds PTT Ratio Sodium 138 (136-145) mmol/L Potassium 4.0 (3.5-5.1) mmol/L Chloride 105 (98-107) mmol/L Carbon Dioxide 26 (21-32) mmol/L Anion Gap 7 (3-11) BUN 16 (6-23) mg/dl Creatinine 1.07 (0.6-1.4) mg/dl Est Cr Clr Drug Dosing Not Reportable Est GFR ( Amer) 78.8 ml/min Est GFR (Non-Af Amer) 68.0 ml/min BUN/Creatinine Ratio 15.0 (10-20) Glucose 91 (70-99(Fasting)) mg/dl POC Glucose (70-99) mg/dl Calcium 9.9 (8.6-10.3) mg/dl Magnesium 2.1 (1.7-2.4) mg/dl Total Bilirubin 0.3 (0.2-1.0) mg/dl AST 15 (13-39) U/L ALT 8 (7-52) U/L Alkaline Phosphatase 79 (34-104) U/L Troponin I High Sens 10.4 (0-20) pg/ml C-Reactive Protein 2.90 H (0-0.5) mg/dl Total Protein 7.1 (6.0-8.3) gm/dl Albumin 4.3 (3.4-5.0) gm/dl Globulin 2.8 (2.5-4.0) gm/dl Albumin/Globulin Ratio 1.5 (0.9-2) Vitamin B12 (180-914) pg/ml TSH 1.206 (0.300-4.500) uIu/ml Lyme Disease IgG Ab (Negative) Lyme Disease IgM Ab (Negative) 04/27/23 04/27/23 Range/Units 17:00 17:00 WBC (4.8-10.8) K/ul RBC (4.70-6.10) M/uL Hgb (14.0-18.0) g/dl Hct (42.0-52.0) % MCV (80.0-100.0) fL MCH (25.0-34.0) pg MCHC (32.0-36.0) g/dL RDW Std Deviation (36.4-46.3) fL RDW Coeff of Ottoniel (11.5-14.5) % Plt Count (130-400) K/uL MPV (9.4-12.4) fL ESR (0-20) mm/hr PT (9.0-12.0) Seconds INR (0.9-1.1) APTT (21.0-31.0) Seconds PTT Ratio Sodium (136-145) mmol/L Potassium (3.5-5.1) mmol/L Chloride (98-107) mmol/L Carbon Dioxide (21-32) mmol/L Anion Gap (3-11) BUN (6-23) mg/dl Creatinine (0.6-1.4) mg/dl Est Cr Clr Drug Dosing Est GFR ( Amer) ml/min Est GFR (Non-Af Amer) ml/min BUN/Creatinine Ratio (10-20) Glucose (70-99(Fasting)) mg/dl POC Glucose (70-99) mg/dl Calcium (8.6-10.3) mg/dl Magnesium (1.7-2.4) mg/dl Total Bilirubin (0.2-1.0) mg/dl AST (13-39) U/L ALT (7-52) U/L Alkaline Phosphatase (34-104) U/L Troponin I High Sens (0-20) pg/ml C-Reactive Protein (0-0.5) mg/dl Total Protein (6.0-8.3) gm/dl Albumin (3.4-5.0) gm/dl Globulin (2.5-4.0) gm/dl Albumin/Globulin Ratio (0.9-2) Vitamin B12 688 (180-914) pg/ml TSH (0.300-4.500) uIu/ml Lyme Disease IgG Ab Negative (Negative) Lyme Disease IgM Ab Negative (Negative) Imaging Data Attestation: I personally reviewed and interpreted this imaging study as follows: My Impression: Head CTno acute hemorrhage or mass effect. There are hypodensities within the left caudate Radiologist's Impression: Head CT 04/27/23 16:41 CT head/brain wo con CLINICAL HISTORY: 72 years-old Male with Neuro deficit, acute, stroke suspected. Acute stroke like symptoms TECHNIQUE: Multiple axial CT images of the head were obtained without contrast. A dose lowering technique was utilized adhering to the principles of ALARA. CT DOSE: 547.75 mGy.cm COMPARISON: None. FINDINGS: No acute intracranial hemorrhage, midline shift, intracranial mass, hydrocephalus, territorial ischemia or abnormal extra-axial collection. Riley cisterna magna. Involutional changes with suggestion of mild chronic microvascular ischemic disease. 1.1 cm hypodense focus noted within the left caudate nucleus. Additional similar-appearing hypodensities noted within the left lentiform nucleus and thalamus. The calvarium is intact. Mild mucosal thickening of the ethmoid air cells. The mastoid air cells are clear. IMPRESSION: 1. No acute intracranial hemorrhage, midline shift or acute territorial infarct. 2. Likely chronic infarcts within the left basal ganglia. ACT 112: Negative or not required by law. The above report was generated using voice recognition software. It may contain grammatical, syntax or spelling errors. Electronically signed by: Herberth Broussard M.D. 04/27/2023 5:31 PM ECG Data Attestation: I personally reviewed and interpreted this ECG as follows: Indication: + weakness Rate (beats per minute): 68 Rhythm: + normal sinus ECG Intervals/blocks: + First degree AV block, + Normal QRS and + Normal QT ECG [place]: + Normal ECG ST segments: + Normal ST segments ECG Findings: no PACs or no PVCs Comparison ECG Date: no prior available MDM Narrative This patient comes in as described above. He had orders placed by protocol and when I saw him most the work-up had come back including the CAT scan of his head. On my exam. he has some subjective numbness/tingling in the right face and hand and also the lower extremity. I am concerned about stroke. His symptom s have been going on for 3 days and therefore he is outside the window for thrombolytics or neuro intervention. On his CAT scan, there is no hemorrhage or mass effect however on the left side there is abnormalities the basal ganglia which are thought to be chronic I do not have old CAT scan from comparison however this does correspond with the symptoms so I suspect he has had an acute stroke. He tells me he had 3 TIAs before but they lasted very briefly had no residual deficits. EKG does not show ischemic changes or ectopy. He has no significant acrylate or metabolic abnormalities. He has nothing to suggest infection. Have consulted the [facility] hospitalist to see him for further neur ologic work-up and evaluation Continuous cardiac monitoring: Orders placed in EMR for continuous cardiac monitoring: Upon my evaluation patient already in normal sinus rhythm rate 65 Impression & Plan Acute CVA (cerebrovascular accident), Numbness on right side, care home (current) use of antithrombotics/antiplatelets, Dizziness Discharge Plan Visit Data Chief Complaint: TIA Symptoms Stated Complaint: LOSS OF BALANCE, TINGLINESS ED Provider: Andriy Metcalf Discharge Problem: Acute CVA (cerebrovascular accident), Numbness on right side, care home (cur rent) use of antithrombotics/antiplatelets, Dizziness Patient Disposition: Admitted As Inpatient Discharge Instructions Interventions: ED Discharge Assessment Last Done: 04/27/23 21:00
[2023-04-27 18:28] LABS: Appearance Urine Clear (Clear); Bilirubin Urine Negative (Negative); Blood Urine Negative (Negative); Color Urine Yellow; Glucose Urine UA Negative (Negative); Ketones Urine Negative (Negative); Leukocyte Esterase Urine Negative (Negative); Nitrite Urine Negative (Negative); Protein Urine Negative (Negative); Specific Gravity Urine 1.009 (1.000-1.030); Urobilinogen Urine Negative (Negative); pH Urine 5.5 (4.5-7.5)
[2023-04-27 18:42] LABS: Troponin I High Sensitivity 10.4 pg/ml (0-20)
--- NOTE | 2023-04-27 19:03 | History & Physical Report ---
Date of Service April 27, 2023 Assessment & Plan (1) Paresthesias: (2) History of TIA (transient ischemic attack): Plan: Patient is 72 y/o M with PMH HTN, HLD, CAD, chronic diastolic heart failure, SSS, s/p pacemaker, CKD III, RA presented to ER with c/o right sided paresthesias, unsteady gait x 3 days In ER vitals stable. No leukocytosis, no significant electrolyte abnormality, high-sensitivity troponin negative, UA negative CT head: No acute intracranial hemorrhage, midline shift or acute territorial infarct. Likely chronic infarcts within the left basal ganglia. DDx: CVA, B12 deficiency, Lyme disease, thyroid disease, among others Tele to monitor for arrhythmias EKG in am Lipid panel, A1c, TSH, B12, Lyme pending CTA head and neck pending MRI brain if pacer compatible Echo with bubble study Fall precautions, aspiration precautions PT/OT consult Continue aspirin, Plavix Patient intolerant to statins in past. Will continue Zetia Neurology consult (3) Lower extremity edema: Plan: RLE edema times several days. Denies injury or trauma Venous Doppler to rule out DVT (4) Hypertension: Plan: Continue losartan, metoprolol succinate (5) Hyperlipidemia: Plan: History intolerance to statins in past Continue Zetia (6) CAD (coronary artery disease): Plan: History reported GA in past Continue aspirin, metoprolol succinate, Zetia (7) SSS (sick sinus syndrome): Plan: S/P pacemaker Pacemaker interrogation (8) CKD (chronic kidney disease), stage III: Plan: Cr: 1.07. Baseline Cr~1.0 Monitor renal functions, avoid nephrotoxic agents when possible (9) Rheumatoid arthritis: Plan: Continue leflunomide Follows with rheumatology, Dr Wolf DVT Prophylaxis SCDs for now Full Code as per discussion with pt Follows with Dr Brown for routine care Pt was seen and care coordinated with Dr Gaston. See addendum History of Present Illness Chief Complaint: Tingling Primary Care Provider: Roel Brown MD Patient is 72 y/o M with PMH HTN, HLD, CAD, chronic diastolic heart failure, SSS, s/p pacemaker, CKD III, RA presented to ER with c/o right sided paresthesias x 3 days. States symptoms for past 3 days. History obtained from patient, patient family and chart review. Patient states been having tingling of right forearm and right hand. Also c/o tingling to right lower leg and foot. Been having tingling right side of face. He thinks he may have decreased taste also. He noted swelling to right leg past couple of days. Having dizziness with standing and feels unsteady with walking. Denies fall. Reports history TIA in past and was seen at [facility] and at that time symptoms lasted a day and resolved. He states had asprin 81mg and Plavix today and denies missing doses. H/O foot nodule removed several weeks ago. Denies LEE, syncope, speech changes, vision changes. Denies injury or trauma. Denies fever/chills, diaphoresis, N/V/D/C, neck pain, CP, SOB, palpitations, cough, rhinorrhea, abdominal pain, extremity weakness, other extremity edema, extremity erythema, rashes, urinary symptoms. Denies known tick bite or recent travel. Allergies Allergy/AdvReac Type Severity Reaction Status Date / Time evolocumab AdvReac Severe Dizziness Unverified 04/18/20 17:08 [From Repathmary SureGeronimoick] icosapent ethyl AdvReac Severe Dizziness Unverified 04/18/20 17:08 [From Vascepa] lidocaine AdvReac Severe patient Verified 04/18/20 18:26 "dies" Gwvurtk-RDS-EjW Reductase AdvReac Severe arthritis Unverified 04/18/20 17:08 Inhibitor [Zdthmxq-Wjc-Jfd Reductase Inhibitor] Home Medications Medication Instructions Recorded Confirmed Type ascorbic acid (vitamin C) 500 mg 500 mg PO DAILY 04/18/20 04/27/23 History tablet (Vitamin C) losartan 25 mg tablet 25 mg PO QAM 04/18/20 04/27/23 History pibtovbv-nx-sialp 300 mcg-K 60 1 tab PO QAM 04/18/20 04/27/23 History mcg-lycop 600 mcg-lutein 300 mcg tablet (Centrum Silver Ultra Men's) omega 6-puw-zhl-fish oil 1,000 mg 1 cap PO BID 04/18/20 04/27/23 History (120 mg-180 mg) capsule (Fish Oil) aspirin 81 mg tablet,delayed 81 mg PO DAILY 04/27/23 04/27/23 History release clopidogrel 75 mg tablet 75 mg PO DAILY 04/27/23 04/27/23 History ezetimibe 10 mg tablet 10 mg PO DAILY 04/27/23 04/27/23 History leflunomide 10 mg tablet 10 mg PO DAILY 04/27/23 04/27/23 History metoprolol succinate 50 mg 50 mg PO DAILY 04/27/23 04/27/23 History tablet,extended release 24 hr Past Med/Surg History Medical History (Updated 04/27/23 @ 19:48 by Ning Heller PA-C) CAD (coronary artery disease) CKD (chronic kidney disease), stage III High cholesterol History of heart attack History of TIA (transient ischemic attack) Hyperlipidemia Hypertension Pacemaker Rheumatoid arthritis Sigmoid diverticulitis SSS (sick sinus syndrome) Surgical History H/O carotid endarterectomy S/P tonsillectomy Status post surgical removal of neoplasm of skin Family History Mother Coronary heart disease Father Cancer Brain- at age 36 Social History Smoking Status: Never smoker Hx Alcohol Use: No Hx Substance Use: No Preferred Language: Swazi Communication Ability: Effective Industrial Cleaner Required: No Beliefs That Will Affect Care: None Current Living Situation: Significant Other Feels Safe at Home: Yes Assistive Devices: Glasses Review of Systems Review of Systems: All systems reviewed & are unremarkable except as noted in HPI & below Physical Exam Physical Exam: PE per Dr Gaston. See addendum. Results & Data Results & Data Vital Signs (Past 12 Hours) Vital Signs Temp Pulse Pulse Resp BP BP Pulse Ox 04/27/23 18:40 68 20 163/94 H 95 04/27/23 17:16 87 04/27/23 16:35 36.8 C 61 18 146/79 H 97 O2 Del Method 04/27/23 18:40 Room Air 04/27/23 17:16 04/27/23 16:35 Room Air Laboratory Results Short CBC 04/27/23 Range/Units 17:00 WBC 7.61 (4.8-10.8) K/ul Hgb 15.3 (14.0-18.0) g/dl Hct 47.9 (42.0-52.0) % Plt Count 272 (130-400) K/uL BMP 04/27/23 17:00 Sodium 138 Potassium 4.0 Chloride 105 Carbon Dioxide 26 BUN 16 Creatinine 1.07 Glucose 91 Calcium 9.9 Liver Function 04/27/23 Range/Units 17:00 Total Bilirubin 0.3 (0.2-1.0) mg/dl AST 15 (13-39) U/L ALT 8 (7-52) U/L Alkaline Phosphatase 79 (34-104) U/L Albumin 4.3 (3.4-5.0) gm/dl Urine 04/27/23 Range/Units Unknown Urine Color Yellow Urine Appearance Clear (Clear) Urine pH 5.5 (4.5-7.5) Ur Specific Cast[place] 1.009 (1.000-1.030) Urine Protein Negative (Negative) Urine Glucose (UA) Negative (Negative) Diagnostic Findings Head CT 04/27/23 16:41 CT head/brain wo con CLINICAL HISTORY: 72 years-old Male with Neuro deficit, acute, stroke suspected. Acute stroke like symptoms TECHNIQUE: Multiple axial CT images of the head were obtained without contrast. A dose lowering technique was utilized adhering to the principles of ALARA. CT DOSE: 547.75 mGy.cm COMPARISON: None. FINDINGS: No acute intracranial hemorrhage, midline shift, intracranial mass, hydrocephalus, territorial ischemia or abnormal extra-axial collection. Riley cisterna magna. Involutional changes with suggestion of mild chronic microvascular ischemic disease. 1.1 cm hypodense focus noted within the left caudate nucleus. Additional similar-appearing hypodensities noted within the left lentiform nucleus and thalamus. The calvarium is intact. Mild mucosal thickening of the ethmoid air cells. The mastoid air cells are clear. IMPRESSION: 1. No acute intracranial hemorrhage, midline shift or acute territorial infarct. 2. Likely chronic infarcts within the left basal ganglia. ACT 112: Negative or not required by law. The above report was generated using voice recognition software. It may contain grammatical, syntax or spelling errors. Electronically signed by: Herberth Broussard M.D. 04/27/2023 5:31 PM ECG Additional Comments: Paced rhythm, rate 68 per my interpretation Supervising Physician Co-Signing Physician Notes Patient seen and examined at bedside. Discussed with above provider. Patient is a 72-year-old male with multiple comorbidities who presents with a hospital due to tingling sensation on his right side of the body and dizziness He reports that he has been having tingling sensation on the right forearm, right leg and right side of the face. He reports being unsteady on his feet. Stroke work-up including CTA head and neck, MRI brain without contrast Obtain Lyme screen test, vitamin B12 level Continue on aspirin, Plavix. On physical exam; Constitutional: Alert orient x3; not in distress. Respiratory: Bilateral basal breath sounds; no added sound. Cardiovascular: RRR, no murmur, no edema Vessels: no JVD or carotid bruit Chest: normal inspection of chest Abdomen: normal bowel sounds, soft, nontender, no hepatosplenomegaly Musculoskeletal: no cyanosis or clubbing, extremities motor strength 5/5 Skin: no rashes, warm and dry normal turgor Neurologic: PERRL, EOMI, accommodation nl, no face palsy, no dysarthria CN's II-XI intact bilaterally and moves all extremities Gait unsteady Psychiatric: A+Ox3, euthymic affect
[2023-04-27] MEDS ORDERED: OPTIRAY 320 125ml IV ONE (19:37)
[2023-04-27 20:27] LABS: Lyme Ab IgG w/WB Rflx Negative (Negative)
[2023-04-27 20:28] LABS: Lyme Ab IgM w/WB Rflx Negative (Negative)
[2023-04-27 21:01] LABS: C Reactive Protein 2.9 mg/dl (0-0.5)
[2023-04-27 21:20] LABS: Thyroid Stimulating Hormone 1.206 uIu/ml (0.300-4.500)
[2023-04-27] MEDS ORDERED: PHARMACIST DISCHARGE MED REC CONSULT PRN (21:28)
[2023-04-27] MEDS ORDERED: ACETAMINOPHEN 325 MG TAB PO PRN (21:28)
[2023-04-27] MEDS ORDERED: ONDANSETRON INJ 2 MG/ML 2 ML VIAL IV PRN (21:28)
[2023-04-27] MEDS ORDERED: POLYETHYLENE (MIRALAX) 17 GM PACK PO PRN (21:28)
--- NOTE | 2023-04-27 21:32 | CT Scan Report ---
Exam(s): CTA HEAD With Contrast IV Amt: optiray 320 115ml EXAM: CT Angiography Head With Intravenous Contrast CLINICAL HISTORY: Reason for exam: tia/stroke. TECHNIQUE: Axial computed tomographic angiography images of the head with intravenous contrast. CTDI is stenosis is the with you appreciable is 31. 14 mGy and DLP is 15.57 mGy-cm. Automated exposure control was utilized for the study. A dose lowering technique was utilized adhering to the principles of ALARA. MIP reconstructed images were created and reviewed. CONTRAST: Patient received optiray 320 115ml of IV contrast COMPARISON: No relevant prior studies available. FINDINGS: Right internal carotid artery: No acute findings. Intracranial segment is patent with no significant stenosis. No aneurysm. Right anterior cerebral artery: Unremarkable. No occlusion or significant stenosis. No aneurysm. Right middle cerebral artery: Unremarkable. No occlusion or significant stenosis. No aneurysm. Right posterior cerebral artery: Unremarkable. No occlusion or significant stenosis. No aneurysm. Right vertebral artery: Unremarkable as visualized. Left internal carotid artery: No acute findings. Intracranial segment is patent with no significant stenosis. No aneurysm. Left anterior cerebral artery: Unremarkable. No occlusion or significant stenosis. No aneurysm. Left middle cerebral artery: Unremarkable. No occlusion or significant stenosis. No aneurysm. Left posterior cerebral artery: Unremarkable. No occlusion or significant stenosis. No aneurysm. Left vertebral artery: The proximal left intracranial vertebral artery is occluded. There is retrograde filling of the left distal intracranial vertebral artery cranial vertebral artery. Basilar artery: Unremarkable. No occlusion or significant stenosis. No aneurysm. IMPRESSION: Occluded left proximal intracranial vertebral artery with retrograde filling of the left distal intracranial vertebral artery. This arterial occlusion is of indeterminate age. Communications: Verify Receipt Electronically signed by: Brian Bazan MD 04/27/23 21:31 PM
--- NOTE | 2023-04-27 21:40 | CT Scan Report ---
Exam(s): CTA NECK With Contrast IV Amt: optiray 320 115ml EXAM: CT Angiography Neck With Intravenous Contrast CLINICAL HISTORY: Reason for exam: tia/stroke. TECHNIQUE: Routine carotid CT angiography protocol was performed with intravenous contrast. NASCET criteria using the distal ICAs for comparison were used for evaluation of stenoses. CTDI is 13.02 mGy and DLP is 498.38 mGy-cm. Automated exposure control was utilized for the study. A dose lowering technique was utilized adhering to the principles of ALARA. MIP reconstructed images were created and reviewed. CONTRAST: Patient received optiray 320 115ml of IV contrast COMPARISON: None. FINDINGS: VASCULATURE: Right common carotid artery: Unremarkable. No occlusion or significant stenosis. No dissection. Right internal carotid artery: Unremarkable. Extracranial segment is patent with no occlusion or significant stenosis. No dissection. Right external carotid artery: Unremarkable. No occlusion. Right vertebral artery: Unremarkable. No occlusion or significant stenosis. No dissection. Left common carotid artery: Unremarkable. No occlusion or significant stenosis. No dissection. Left internal carotid artery: There is complete occlusion of the cervical left internal carotid artery approximately 1 cm beyond its origin. Left external carotid artery: Unremarkable. No occlusion. Left vertebral artery: The left cervical vertebral artery is hypoplastic . No dissection. NECK: Bones/joints: Unremarkable. Soft tissues: There is a penetrating ulcer seen on the left anterior aspect of the aortic arch with aneurysmal changes. Lung apices: Clear. CAROTID STENOSIS REFERENCE USING NASCET CRITERIA: % ICA stenosis = (1 - narrowest ICA diameter/diameter of distal cervical ICA) x 100. Mild - <50% stenosis. Moderate - 50-69% stenosis. Severe - 70-94% stenosis. Near occlusion - 95-99% stenosis. Occluded - 100% stenosis. IMPRESSION: 1. Complete occlusion of the left internal carotid artery, 1 cm beyond its origin 2. Hypoplastic left vertebral artery 3. 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 A CTA chest is suggested for further assessment. Electronically signed by: Brian Bazan MD 04/27/23 21:38 PM
--- NOTE | 2023-04-27 21:45 | Ultrasound Report ---
Exam(s): US VENOUS RIGHT LOWER EXTREMITY EXAM: US Duplex Right Lower Extremity Veins CLINICAL HISTORY: Reason for exam: r/o dvt. RLE edema. TECHNIQUE: Real-time duplex ultrasound scan of the right lower extremity veins integrating B-mode two-dimensional vascular structure, Doppler spectral analysis, color flow Doppler imaging and compression. COMPARISON: No relevant prior studies available. FINDINGS: Deep veins: Unremarkable. No DVT in the visualized common femoral, femoral, proximal deep femoral or popliteal veins. The veins demonstrate normal color flow, are normally compressible, with normal phasic flow and/or augmentation response. Superficial veins: Unremarkable. No thrombus in the visualized great saphenous vein. Soft tissues: 8.4 x 13.8 x 2.7 cm complex cyst seen in the popliteal fossa, and distal thigh. There is 8.4 cm complex cystic area also seen extending from the popliteal fossa into the proximal calf. IMPRESSION: 1. No evidence of DVT in the right lower 2 complex cystic lesions in the popliteal fossa Electronically signed by: Brian Bazan MD 04/27/23 21:44 PM
[2023-04-28 06:21] LABS: Hematocrit (blood only) 42.8 % (42.0-52.0); Mean Corpuscular Hemoglobin 29.5 pg (25.0-34.0); Mean Corpuscular Hgb Conc 32.7 g/dL (32.0-36.0); Mean Corpuscular Volume 90.1 fL (80.0-100.0); Mean Platelet Volume 9.5 fL (9.4-12.4); Platelet Count 238 K/uL (130-400); RDW Coefficient of Variation 14.6 % (11.5-14.5); RDW Standard Deviation 48.8 fL (36.4-46.3); Red Blood Count 4.75 M/uL (4.70-6.10); White Blood Count 8.62 K/ul (4.8-10.8)
[2023-04-28 06:32] LABS: Calcium 9.1 mg/dl (8.6-10.3); Chol HDL Ratio 5.7 (0-5); Creatinine Clr Calc Pharmacy 75.9 ml/min; Est GFR (African American) 85.6 ml/min; Est GFR (Non-African American) 73.8 ml/min; Potassium 4.1 mmol/L (3.5-5.1)
[2023-04-28 07:44] LABS: Estimated Average Glucose 117 mg/dl; Hemoglobin A1C 5.7 % (4.5-5.6)
[2023-04-28] MEDS: LOSARTAN POTASSIUM 25 MG TAB PO SCH (08:58)
[2023-04-28] MEDS: CLOPIDOGREL BISULFATE 75 MG TAB PO SCH (08:58)
[2023-04-28] MEDS: EZETIMIBE 10 MG TAB PO SCH (08:58)
[2023-04-28] MEDS: METOPROLOL SUCC 50MG EXT REL TAB PO SCH (08:58)
[2023-04-28] MEDS: ASPIRIN 81 MG ECTAB PO SCH (08:58)
[2023-04-28] MEDS: LEFLUNOMIDE 10 MG TAB PO SCH (09:24)
--- NOTE | 2023-04-28 10:11 | Neurology Consultation ---
Date of Consultation April 28, 2023 Assessment & Plan (1) Acute CVA (cerebrovascular accident): (2) Numbness and tingling of right arm and leg: (3) Gait disturbance: (4) Left carotid artery occlusion: (5) Occlusion of left vertebral artery: Plan This patient likely had an acute stroke involving small-vessel ischemic disease in the left hemisphere. This has resulted in some right-sided dysesthesias and some clumsiness distally the right hand and foot. This may be a thalamic stroke. It did not show up on initial CT scan however. The patient had this event on both aspirin and Plavix. He has multiple risk factors for stroke including hypertension. CT angiography reveals a left vertebral artery occlusion distally and a left carotid artery occlusion proximally. There is also a ulcer in the aortic arch. Recommendations: 1. CT angiography of the chest to further evaluate the aortic arch ulcer 2. Continue 81 mg aspirin and 75 mg clopidogrel daily. There is no indication for an anticoagulant at this time. 3. See if pacemaker is MRI compatible. I would like to get an MRI of the brain without contrast if possible. If not then repeat the CT of the head without contrast later today to see if a small lesion shows now 4. Increase activity as able and obtain physical, occupational, and speech therapy consults. 5. Control blood pressure as you are doing, aim for a mean arterial pressure of 95-100. 6. Check fasting lipid profile if not already done and additional recommendations will be made after this. 7. Awaiting Echocardiogram 8. Depending on his clinical course and above tests, consider conferring with [facility] neurovascular surgery to see if there is any other treatment option in this patient considering his CT angiography findings. Overall, I spent a total of 75 minutes with this case including review of records, review of CT films, direct evaluation the patient's bedside, report generation, and discussion of the case with the patient and RN at bedside, and Dr. Mart including differential diagnosis and treatment options. History of Present Illness Reason for Consultation: Patient is a 72-year-old, who I was asked to see at the request of alejandro Heller PA-C, for neurologic consultation regarding probable stroke Requesting Physician: Alejandro Heller PA-C Attending Physician: Dao Mart MD History of Present Illness This patient has a history of hypertension, CKD 3, dyslipidemia, rheumatoid arthritis, coronary disease, and sick sinus syndrome post pacemaker placed September of 2021. The patient tells me that he is had 3 TIAs in the past including recently. He went to [facility] for these and about 2 months ago after 1 such admission for TIA, he was put on both 81 mg aspirin and clopidogrel 75 mg a day. I do not have any of these records. On April 25 noted numbness and tingling in his right foot. This progressed throughout the day to include the whole right leg from the mid thigh down, the right upper extremity from the mid upper arm down to the hand, and the right face around the mouth including the tongue. This numbness and tingling was unaccompanied by pain and he had no headache. His balance was poor and he wondered about weakness in his leg. This remained unchanged for 3 days. He arrived at the emergency room April 27 at 4:35 p.m. with a temperature 36.8, pulse 61 and regular, respiratory rate 18, blood pressure 146/79, and O2 saturation 97%. On exam he had some decreased sensation to pin and touch in the right face and arm. His gait was shuffling. CBC and Chem profile were largely unremarkable. Sed rate was 29 and CRP was 2.9. Troponin was 10.4 and TSH 1.2. B12 was 688 and Lyme antibody titers were unremarkable. CT scan of the head showed no acute changes but there were 2 tiny old left basal ganglia lacunes. I reviewed these films. CT angiography of the neck revealed a complete occlusion of the left internal carotid artery 1 cm beyond the origin. 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 CT angiography of the head revealed an occluded left vertebral artery intracranially of indeterminate age. The rest of the uterus cerebral circulation was unremarkable. Venous Doppler showed no right lower extremity DVT. The patient has had no change in his symptoms and no other new problems. CBC was unremarkable as was Chem profile. Hemoglobin A1c was 5.7. Triglycerides 133 and total cholesterol 143. Allergies Allergy/AdvReac Type Severity Reaction Status Date / Time evolocumab AdvReac Severe Dizziness Unverified 04/18/20 17:08 [From Repatha SureClick] icosapent ethyl AdvReac Severe Dizziness Unverified 04/18/20 17:08 [From Vascepa] lidocaine AdvReac Severe patient Verified 04/18/20 18:26 "dies" Jgqysok-UOF-YkH Reductase AdvReac Severe arthritis Unverified 04/18/20 17:08 Inhibitor [Mtnapwk-Saz-Lce Reductase Inhibitor] Home Medications Medication Instructions Recorded Confirmed Type ascorbic acid (vitamin C) 500 mg 500 mg PO DAILY 04/18/20 04/27/23 History tablet (Vitamin C) losartan 25 mg tablet 25 mg PO QAM 04/18/20 04/27/23 History gpyxecxc-bt-hlrlg 300 mcg-K 60 1 tab PO QAM 04/18/20 04/27/23 History mcg-lycop 600 mcg-lutein 300 mcg tablet (Centrum Silver Ultra Men's) omega 9-jxh-pta-fish oil 1,000 mg 1 cap PO BID 04/18/20 04/27/23 History (120 mg-180 mg) capsule (Fish Oil) aspirin 81 mg tablet,delayed 81 mg PO DAILY 04/27/23 04/27/23 History release clopidogrel 75 mg tablet 75 mg PO DAILY 04/27/23 04/27/23 History ezetimibe 10 mg tablet 10 mg PO DAILY 04/27/23 04/27/23 History leflunomide 10 mg tablet 10 mg PO DAILY 04/27/23 04/27/23 History metoprolol succinate 50 mg 50 mg PO DAILY 04/27/23 04/27/23 History tablet,extended release 24 hr Patient History Medical History CAD (coronary artery disease) CKD (chronic kidney disease), stage III High cholesterol History of heart attack History of TIA (transient ischemic attack) Hyperlipidemia Hypertension Pacemaker Rheumatoid arthritis Sigmoid diverticulitis SSS (sick sinus syndrome) Surgical History H/O carotid endarterectomy S/P tonsillectomy Status post surgical removal of neoplasm of skin Family History Mother , age 89 Coronary heart disease Father , age 36 of brain tumor Cancer Brain- at age 36 Social History Smoking Status: Former smoker Age Started Using Tobacco: 12; Age Quit Using Tobacco: 48; packs per day: 0.2; Second Hand Exposure: No; Do You Dip or Chew Tobacco: No; Tobacco Cessation Education Requested by Patient: No Hx Alcohol Use: No Hx Substance Use: No Preferred Language: Guatemalan Communication Ability: Effective Cooperative Education Coordinator Required: No Beliefs That Will Affect Care: None Current Living Situation: Significant Other Current Living Situation Comment: 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 current occupational status: retired 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62 Other Information That Helps Us Care for You: No Feels Safe at Home: Yes Safety Concerns: Feels Safe At This Time Assistive Devices: None Review of Systems Constitutional: no fever, no fatigue and no weakness Eyes: no diplopia, no eye pain and no worsening vision Ear, Nose, Mouth, Throat: no ear pain, no tinnitus, no hearing loss, no dizziness, no snoring, no hoarseness and no dysphagia Respiratory: no cough and no dyspnea Cardiovascular: no chest pain, no palpitations and no lightheadedness Gastrointestinal: no abdominal pain, no nausea and no vomiting Musculoskeletal: no back pain, no neck pain, no radicular pain, no joint pain and no myalgia Integumentary: no rash and no lesions Neurologic: + gait abnormality and + numbness; no localized weakness, no generalized weakness, no tingling, no tremor(s), no abnormal movements, no headache(s), no abnormal speech, no confusion and no memory loss Psychiatric: no depression, no irritability, no anxiety, no difficulty concent rating, no confusion and no hallucinations Endocrine: no fatigue and no flushing Hematologic / Lymphatic: no easy bleeding and no easy bruising Allergy / Immunological: no urticaria and no problem reported Exam (Neuro) Physical Exam: The patient is right-handed. The patient is awake, alert, and attentive. Speech is normal without any aphasia or dysarthria. The patient can name objects, repeat phrases, and has normal spo ntaneous speech. Mentation and thought processes are intact, with orientation to person, place and time, and normal fund of knowledge. Attention and concentration are normal. Mood and affect are normal and appropriate. General appearance and grooming are normal. Short and long-term memory are intact. Pupils are 3 mm bilaterally and reactive to light. Extraocular eye muscles are intact without nystagmus. Visual acuity and visual robles seem normal grossly to confrontation. There are no deficits to sensation in the face in all 3 distributions of the fifth cranial nerve bilaterally. Corneal reflexes are positive bilaterally. Facial strength and symmetry was normal bilaterally. Hearing seems normal bilaterally. Palate moves well without asymmetry. There is normal sternocleidomastoid and trapezius (shoulder shrug) strength bilaterally. Tongue is midline with good strength bilaterally. Neck has a full range of motion without discomfort. There are no cervical bruits bilaterally. There are no cranial or ocular bruits. Heart is without murmur. There is a regular rhythm and rate. Cervical, thoracic, and lumbar spine are nontender to palpation. Gait is slightly wide-based, slow and cautious. He favors his right leg some. He needs the assistance of 1. Stands with feet together eyes open is reasonable With outstretched arms there is no drift. There are no resting, postural, or action tremors. There is no ataxia with finger to nose testing. There may be some very mild dysmetria/clumsiness of the right hand compared to the left. Right foot is a little clumsier than left foot also. No other abnormal involuntary movements are noted. Motor strength is 5/5 diffusely in the arms bilaterally including deltoids, biceps, triceps, brachioradialis, wrist flexors and extensors, ecosystem ecology professor, and intrinsic hand muscles. Motor strength is 5/5 diffusely in the legs bilaterally including hip flexors, quadriceps, hamstrings, gastrocnemius, tibialis anterior, tibialis posterior, and Peroneii muscles. Toe extensors are normal and there is good bulk in the extensor digitorum brevis muscles bilaterally. The limbs have good tone without rigidity or spasticity. There is no atrophy noted in the muscles. Muscle bulk is normal, there is no tenderness to palpation, no myotonia to percussion, and no fasciculations seen. Sensory examination reveals some stocking pinprick excess loss to the mid lower legs bilaterally. Reflexes are 1/4 in the biceps, triceps, brachioradialis, and quadriceps tendons bilaterally. Achilles tendon reflexes were absent bilaterally. There is no clonus bilaterally. Toes are downgoing with plantar stimulation on the left and equivocal on the right Peripheral pulses are present and of normal quality distally in all 4 limbs. There is no peripheral edema noted in the limbs. Results & Data Vital Signs (Past 12 Hours) Vital Signs Temp Pulse Pulse Pulse Resp BP Pulse Ox 04/28/23 08:34 36.7 C 62 18 157/88 H 97 04/28/23 07:15 59 L 04/28/23 04:49 36.8 C 62 18 130/69 95 04/27/23 22:01 36.7 C 82 18 141/82 H 98 O2 Del Method 04/28/23 08:34 Room Air 04/28/23 07:15 04/28/23 04:49 Room Air 04/27/23 22:01 Room Air PG Care Time/CCT Total # of Minutes Spent Total Time Spent with Patient: Total time spent is greater than 50% in coordination of care (as documented) at patient's floor/unit and/or counseling patient: Coding Level of Care Code 18101 INT INP/OBS CARE 3/75MIN Diagnoses Acute CVA (cerebrovascular accident) I63.9 Numbness and tingling of right arm and leg R20.0; R20.2 Gait disturbance R26.9 Left carotid artery occlusion I65.22 Occlusion of left vertebral artery I65.02 Time Spent (min) 75
--- NOTE | 2023-04-28 14:32 | Hospitalist Progress Note ---
Date of Service April 28, 2023 Assessment & Plan (1) Paresthesias: (2) History of TIA (transient ischemic attack): Plan: Patient is 72 y/o M with PMH HTN, HLD, CAD, chronic diastolic heart failure, SSS, s/p pacemaker, CKD III, RA presented to ER with c/o right sided paresthesias, unsteady gait x 3 days In ER vitals stable. No leukocytosis, no significant electrolyte abnormality, high-sensitivity troponin negative, UA negative CT head: No acute intracranial hemorrhage, midline shift or acute territorial infarct. Likely chronic infarcts within the left basal ganglia. Chronic infarct in left basal ganglia DDx: CVA, B12 deficiency, Lyme disease, thyroid disease, among others The monitor is not showing any arrhythmias EKG in am-paced rhythm Lipid panel-unremarkable A1c-5.7, TSH, B12 and Lyme titer unremarkable CTA head and neck pending-noted as below MRI brain if pacer compatible-pending. Otherwise we can get repeat CAT scan tomorrow Echo with bubble study-EF of 65 to 70%, aortic valve sclerosis mild without significant aortic valvular stenosis, trace tricuspid regurgitation, Doppler findings do not suggest pulmonary hypertension, grade 1 diastolic dysfunction and injection of contrast documented no in the atrial shunt Fall precautions, aspiration precautions PT/OT consult Continue aspirin, Plavix Patient intolerant to statins in past. Will continue Zetia Appreciate neurology input and recommendation-possibly has stroke and will need to get an MRI if it is compatible with the pacemaker otherwise CT scan of the head to be repeated later this afternoon/evening Complete occlusion of the left internal carotid artery, 1 cm beyond its origin Hypoplastic left vertebral artery and Questionable penetrating ulcer arising from the aortic arch, incompletely included on the study We will get a CTA chest to evaluate further tomorrow to avoid complication with contrast (3) Lower extremity edema: Plan: RLE edema times several days. Denies injury or trauma Venous Doppler to rule out DVT-no DVT but has popliteal cyst (4) Hypertension: Plan: Continue losartan, metoprolol succinate Blood pressure is reasonable at 160/83 (5) Hyperlipidemia: Plan: History intolerance to statins in past Continue Zetia (6) CAD (coronary artery disease): Plan: History reported PR in past Continue aspirin, metoprolol succinate, Zetia (7) SSS (sick sinus syndrome): Plan: S/P pacemaker Pacemaker interrogation (8) CKD (chronic kidney disease), stage III: Plan: Cr: 1.07. Baseline Cr~1.0 Monitor renal functions, avoid nephrotoxic agents when possible (9) Rheumatoid arthritis: Plan: Continue leflunomide Follows with rheumatology, Dr Wolf DVT Prophylaxis SCDs for now If MRI and/or CT of the head is not showing any bleeding we can start prophylactic anticoagulation Full Code as per discussion with pt Follows with Dr Brown for routine care Admission and Anticipated Discharge Date Admission Date: April 27, 2023 Subjective 04/28/2023 The patient was seen and examined in medical telemetry unit He was admitted with numbness involving around the mouth and the right side of check, numbness in the right hand and weakness involving the right hand mainly for the last 3 to 4 days Denies any significance problem with speech and or swallowing and no other neurological symptoms Review of Systems Review of Systems: All systems reviewed and are unremarkable except as noted below Physical Exam Physical Exam: Lying in bed comfortably Constitutional: well developed, well nourished, + ill appearing and + obese Eyes: PERRL, conjunctivae normal, anicteric sclerae ENMT: external ear and nose normal, oropharynx normal Neck: trachea midline, no thyromegaly Respiratory: no respiratory distress Auscultation: lungs clear to auscultation bilaterally Cardiovascular: Rate/Rhythm: regular rate and regular rhythm; not tachycardic Heart Sounds: normal S1 and normal S2; no murmur Extremities: no edema Gastrointestinal (Abdomen): Inspection/Auscultation: normal bowel sounds; abdomen not distended Percussion/Palpation: + abdomen tender and abdomen soft Musculoskeletal: No acute arthritis involving any of the joint Neurologic: normal touch/pain/proprioception, moves all extremities and + focal motor deficit (Slight decrease in power involving the right upper extremity) Psychiatric: A+Ox3, euthymic affect Lymphatic: no cervical or axillary lymphadenopathy Results & Data Results & Data Vital Signs (Past 12 Hours) Vital Signs Temp Pulse Pulse Resp BP Pulse Ox O2 Del Method 04/28/23 12:03 37.0 C 62 18 160/83 H 96 Room Air 04/28/23 08:34 36.7 C 62 18 157/88 H 97 Room Air 04/28/23 07:15 59 L 04/28/23 04:49 36.8 C 62 18 130/69 95 Room Air Laboratory Results Short CBC 04/27/23 04/28/23 Range/Units 17:00 05:52 WBC 7.61 8.62 (4.8-10.8) K/ul Hgb 15.3 14.0 (14.0-18.0) g/dl Hct 47.9 42.8 (42.0-52.0) % Plt Count 272 238 (130-400) K/uL BMP 04/27/23 04/28/23 17:00 05:52 Sodium 138 140 Potassium 4.0 4.1 Chloride 105 108 H Carbon Dioxide 26 26 BUN 16 15 Creatinine 1.07 1.00 Glucose 91 99 Calcium 9.9 9.1 Liver Function 04/27/23 Range/Units 17:00 Total Bilirubin 0.3 (0.2-1.0) mg/dl AST 15 (13-39) U/L ALT 8 (7-52) U/L Alkaline Phosphatase 79 (34-104) U/L Albumin 4.3 (3.4-5.0) gm/dl Urine 04/27/23 Range/Units Unknown Urine Color Yellow Urine Appearance Clear (Clear) Urine pH 5.5 (4.5-7.5) Ur Specific [place] 1.009 (1.000-1.030) Urine Protein Negative (Negative) Urine Glucose (UA) Negative (Negative) Medications Administered Current Inpatient Medications Acetaminophen (Acetaminophen 325 Mg Tab) 650 mg PO Q4H PRN PRN Reason: Pain or Fever Stop: 05/27/23 21:27 Aspirin (Aspirin 81 Mg Ectab) 81 mg PO DAILY MARC Stop: 05/28/23 08:59 Last Admin: 04/28/23 08:58 Dose: 81 mg Clopidogrel Bisulfate (Clopidogrel Bisulfate 75 Mg Tab) 75 mg PO DAILY MARC Stop: 05/28/23 08:59 Last Admin: 04/28/23 08:58 Dose: 75 mg Ezetimibe (Ezetimibe 10 Mg Tab) 10 mg PO DAILY MARC Stop: 05/28/23 08:59 Last Admin: 04/28/23 08:58 Dose: 10 mg Leflunomide (Leflunomide 10 Mg Tab) 10 mg PO DAILY MARC Stop: 05/28/23 08:59 Last Admin: 04/28/23 09:24 Dose: 10 mg Losartan Potassium (Losartan Potassium 25 Mg Tab) 25 mg PO QAM MARC Stop: 05/28/23 08:59 Last Admin: 04/28/23 08:58 Dose: 25 mg Metoprolol Succinate (Metoprolol Succ 50mg Ext Rel Tab) 50 mg PO DAILY [facility] Stop: 05/28/23 08:59 Last Admin: 04/28/23 08:58 Dose: 50 mg Miscellaneous Information (Pharmacist Discharge Med Rec Consult) 1 each N/A UD PRN PRN Reason: Consult Stop: 05/27/23 21:27 Ondansetron HCl (Ondansetron Inj 2 Mg/Ml 2 Ml Vial) 4 mg IV Q6H PRN PRN Reason: Nausea Stop: 05/27/23 21:27 Polyethylene Glycol (Polyethylene (Miralax) 17 Gm Pack) 17 gm PO DAILY PRN PRN Reason: Constipation Stop: 05/27/23 21:27
--- NOTE | 2023-04-28 18:02 | CT Scan Report ---
CT OF THE HEAD WITHOUT CONTRAST CLINICAL HISTORY: R/O stroke COMPARISON STUDY: Head CT and CTA of the head April 27, 2023. CT DOSE: 625.80 mGy.cm TECHNIQUE: Helical axial images of the head were obtained without IV contrast. Automated exposure con trol was utilized for the study. A dose lowering technique was utilized adhering to the principles o f ALARA. FINDINGS: No acute intracranial hemorrhage, midline shift or mass effect is present. The ventricular system is unremarkable. The basal cisterns are patent. No extra-axial collections are present. There are no findings to suggest acute dural sinus thrombosis or acute territorial infarct. Left basal gang nils infarcts measuring up to 1.1 cm, are again noted. These are unchanged in appearance since prior h ead CT. IMPRESSION: 1. No acute intracranial hemorrhage or mass effect 2. No change in appearance of the small left basal ganglia infarcts. Although probably chronic, these are technically age indeterminate. ACT 112: Negative or not required by law. Electronically signed by: Mick Vázquez M.D. 04/28/2023 5:59 PM
--- NOTE | 2023-04-28 22:48 | Electrocardiogram Report ---
Test Reason : Blood Pressure : / mmHG Vent. Rate : 068 BPM Atrial Rate : 068 BPM P-R Int : 210 ms QRS Dur : 088 ms QT Int : 392 ms P-R-T Axes : -08 -21 059 degrees QTc Int : 416 ms Atrial-paced rhythm with prolonged AV conduction Abnormal ECG When compared with ECG of 14-SEP-2021 13:45, Nonspecific T wave abnormality, improved in Lateral leads Confirmed by Gurpreet Herring ([id number]) on 04/28/2023 10:48:00 PM Referred By: REFERRED SELF Confirmed By:Gurpreet Herring
[2023-04-29] MEDS: LEFLUNOMIDE 10 MG TAB PO SCH (07:58)
--- NOTE | 2023-04-29 09:36 | Neurology Progress Note ---
Date of Service April 29, 2023 Assessment & Plan (1) Acute CVA (cerebrovascular accident): (2) Numbness and tingling of right arm and leg: (3) Gait disturbance: (4) Left carotid artery occlusion: (5) Occlusion of left vertebral artery: Plan This patient likely had an acute stroke involving small-vessel ischemic disease in the left hemisphere. This has resulted in some right-sided dysesthesias and some clumsiness distally the right hand and foot. Currently he is improved with his symptoms although not quite back to baseline. This may be a thalamic stroke. It did not show up on initial CT scan however. The patient had this event on both aspirin and Plavix. He has multiple risk factors for stroke including hypertension. CT angiography reveals a left vertebral artery occlusion distally and a left carotid artery occlusion proximally. There is also a ulcer in the aortic arch. Recommendations: 1. CT angiography of the chest to further evaluate the aortic arch ulcer 2. Continue 81 mg aspirin and 75 mg clopidogrel daily. There is no indication for an anticoagulant at this time-echocardiogram was unremarkable. 3. Since his pacemaker is not MRI compatible, then consider repeating CT scan of the head without contrast today. 4. Increase activity as able and obtain physical, occupational, and speech therapy consults-this patient may be a good rehabilitation hospital candidate.. 5. Control blood pressure as you are doing, aim for a mean arterial pressure of 95-100. 6. Lipids were quite good. He does not need a stat this time. 7. Depending on his clinical course, consider conferring with [facility] neurovascular surgery to see if there is any other treatment option in this patient considering his CT angiography findings-this could be done as an outpatient. Overall, I spent a total of 35 minutes with this case including review of records, direct evaluation the patient's bedside, report generation, and discussion of the case with the patient and RN at bedside, and Dr. Mart including differential diagnosis and treatment options. Admission and Anticipated Discharge Date Admission Date: April 27, 2023 Subjective The patient feels better today with less numbness and tingling in his right foot and right upper extremity. He has no numbness or tingling in his face or tongue currently. He has no headache or other issues Blood pressure is 160/71 and he is afebrile. Echocardiogram was largely unremarkable Nursing reports that his gait is still a little unstable Results & Data Vital Signs (Past 12 Hours) Vital Signs Temp Pulse Resp BP Pulse Ox O2 Del Method 04/29/23 02:51 36.8 C 69 18 160/71 H 98 Room Air 04/28/23 23:10 37.1 C 73 18 172/81 H 95 Room Air Exam (Neuro) Physical Exam: He is awake alert. Speech is without obvious aphasia or dysarthria. Mood and affect seem normal appropriate. Thought processes are intact to conversation. He is pleasant and cooperative and follows commands well Extraocular eye muscles are intact without nystagmus. There is no facial droop tongue is midline. Coordination seems normal in the arms without tremor or ataxia strength is symmetrical in the limbs. He is sitting up in chair difficulty. Apparently is pacemaker is not MRI compatible. PG Care Time/CCT Total # of Minutes Spent Total Time Spent with Patient: Total time spent is greater than 50% in coordination of care (as documented) at patient's floor/unit and/or counseling patient: Coding Level of Care Code 75030 SUB INP/OBS CARE 2/35MIN Diagnoses Acute CVA (cerebrovascular accident) I63.9 Numbness and tingling of right arm and leg R20.0; R20.2 Gait disturbance R26.9 Left carotid artery occlusion I65.22 Occlusion of left vertebral artery I65.02 Time Spent (min) 35
[2023-04-29] MEDS: ASPIRIN 81 MG ECTAB PO SCH (09:48)
[2023-04-29] MEDS: CLOPIDOGREL BISULFATE 75 MG TAB PO SCH (09:49)
[2023-04-29] MEDS: EZETIMIBE 10 MG TAB PO SCH (09:52)
[2023-04-29] MEDS: LOSARTAN POTASSIUM 25 MG TAB PO SCH (09:53)
[2023-04-29] MEDS: METOPROLOL SUCC 50MG EXT REL TAB PO SCH (09:54)
[2023-04-29] MEDS ORDERED: OPTIRAY 320 125ml IV ONE (11:58)
--- NOTE | 2023-04-29 12:02 | Hospitalist Progress Note ---
Date of Service April 29, 2023 Assessment & Plan (1) Paresthesias: (2) History of TIA (transient ischemic attack): Plan: Patient is 72 y/o M with PMH HTN, HLD, CAD, chronic diastolic heart failure, SSS, s/p pacemaker, CKD III, RA presented to ER with c/o right sided paresthesias, unsteady gait x 3 days In ER vitals stable. No leukocytosis, no significant electrolyte abnormality, high-sensitivity troponin negative, UA negative CT head: No acute intracranial hemorrhage, midline shift or acute territorial infarct. Likely chronic infarcts within the left basal ganglia. CT angiogram revealed left vertebral artery occlusion distally and left carotid occlusion proximally. Also, also in aortic arch Vitamin B12 within normal limits Lyme serology negative Echo with bubble study-EF of 65 to 70%, aortic valve sclerosis mild without significant aortic valvular stenosis, trace tricuspid regurgitation, Doppler findings do not suggest pulmonary hypertension, grade 1 diastolic dysfunction and injection of contrast documented no in the atrial shunt Appreciate neurology input; will obtain CT angio of the chest to evaluate for aortic arch ulcer. MRI brain without contrast ordered for tomorrow. MRI can only be done from Sunday to Sunday for people with pacemaker. Continue on aspirin and Plavix Continue zetia PT OT recommends acute rehab; patient interested in that. Appreciate case management input. (3) Lower extremity edema: Plan: RLE edema times several days. Denies injury or trauma Venous Doppler to rule out DVT-no DVT but has popliteal cyst (4) Hypertension: Plan: Includes losartan to 50 mg twice daily Continue metoprolol (5) Hyperlipidemia: Plan: History intolerance to statins in past Continue Zetia (6) CAD (coronary artery disease): Plan: History reported [place] in past Continue aspirin, metoprolol succinate, Zetia (7) SSS (sick sinus syndrome): Plan: S/P pacemaker (8) CKD (chronic kidney disease), stage III: Plan: Cr: 1.07. Baseline Cr~1.0 Monitor renal functions, avoid nephrotoxic agents when possible (9) Rheumatoid arthritis: Plan: Continue leflunomide Follows with rheumatology, Dr Wolf DVT Prophylaxis Heparin Full code Time spent evaluating patient, direct bedside care, chart review, placing orders, interpretation of diagnostic studies, discussion with consultants, patient, and family members, as well as other required patient management activities is 60 minutes Please note the above document was generated using voice recognition software. It may contain grammatical, syntax or spelling errors. Any formal questions or concerns about the content, text or information contained within the body of this dictation should be directly addressed to the provider for clarification Admission and Anticipated Discharge Date Admission Date: April 27, 2023 Subjective Patient seen and examined at bedside. He reports that he is feeling better compared to yesterday. He reports that he has been going in and out of the bathroom; reports being more steady compared to admission Review of Systems Review of Systems: All systems reviewed & are unremarkable except as noted in Subjective Physical Exam Physical Exam: Constitutional: Alert orient x3; not in distress. Respiratory: Bilateral basal breath sounds; no added sound. Cardiovascular: RRR, no murmur, no edema Vessels: no JVD or carotid bruit Chest: normal inspection of chest Abdomen: normal bowel sounds, soft, nontender, no hepatosplenomegaly Musculoskeletal: no cyanosis or clubbing, extremities motor strength 5/5 Skin: no rashes, warm and dry normal turgor Neurologic: PERRL, EOMI, accommodation nl, no face palsy, no dysarthria CN's II-XI intact bilaterally and moves all extremities Gait unsteady Psychiatric: A+Ox3, euthymic affect Results & Data Results & Data Vital Signs (Past 12 Hours) Vital Signs Temp Pulse Pulse Resp BP Pulse Ox O2 Del Method 04/29/23 07:00 60 04/29/23 11:23 Room Air 04/29/23 09:47 71 151/78 H 04/29/23 02:51 36.8 C 69 18 160/71 H 98 Room Air Laboratory Results Laboratory Results WBC 8.62 K/ul (4.8-10.8) 04/28/23 05:52 RBC 4.75 M/uL (4.70-6.10) 04/28/23 05:52 Hgb 14.0 g/dl (14.0-18.0) 04/28/23 05:52 Hct 42.8 % (42.0-52.0) 04/28/23 05:52 MCV 90.1 fL (80.0-100.0) 04/28/23 05:52 MCH 29.5 pg (25.0-34.0) 04/28/23 05:52 MCHC 32.7 g/dL (32.0-36.0) 04/28/23 05:52 RDW Std Deviation 48.8 fL (36.4-46.3) H 04/28/23 05:52 RDW Coeff of Ottoniel 14.6 % (11.5-14.5) H 04/28/23 05:52 Plt Count 238 K/uL (130-400) 04/28/23 05:52 MPV 9.5 fL (9.4-12.4) 04/28/23 05:52 ESR 29 mm/hr (0-20) H 04/27/23 17:00 PT 10.5 Seconds (9.0-12.0) 04/27/23 17:00 INR 1.0 (0.9-1.1) 04/27/23 17:00 APTT 28.8 Seconds (21.0-31.0) 04/27/23 17:00 PTT Ratio 1.0 04/27/23 17:00 Sodium 140 mmol/L (136-145) 04/28/23 05:52 Potassium 4.1 mmol/L (3.5-5.1) 04/28/23 05:52 Chloride 108 mmol/L (98-107) H 04/28/23 05:52 Carbon Dioxide 26 mmol/L (21-32) 04/28/23 05:52 Anion Gap 6 (3-11) 04/28/23 05:52 BUN 15 mg/dl (6-23) 04/28/23 05:52 Creatinine 1.00 mg/dl (0.6-1.4) 04/28/23 05:52 Est Cr Clr Drug Dosing 75.9 ml/min 04/28/23 05:52 Est GFR ( Amer) 85.6 ml/min 04/28/23 05:52 Est GFR (Non-Af Amer) 73.8 ml/min 04/28/23 05:52 BUN/Creatinine Ratio 15.0 (10-20) 04/28/23 05:52 Glucose 99 mg/dl (70-99(Fasting)) 04/28/23 05:52 POC Glucose 87 mg/dl (70-99) 04/27/23 16:59 Estimat Average Glucose 117 mg/dl 04/28/23 05:52 Hemoglobin A1c 5.7 % (4.5-5.6) H 04/28/23 05:52 Calcium 9.1 mg/dl (8.6-10.3) 04/28/23 05:52 Magnesium 2.1 mg/dl (1.7-2.4) 04/27/23 17:00 Total Bilirubin 0.3 mg/dl (0.2-1.0) 04/27/23 17:00 AST 15 U/L (13-39) 04/27/23 17:00 ALT 8 U/L (7-52) 04/27/23 17:00 Alkaline Phosphatase 79 U/L (34-104) 04/27/23 17:00 Troponin I High Sens 10.4 pg/ml (0-20) 04/27/23 17:00 C-Reactive Protein 2.90 mg/dl (0-0.5) H 04/27/23 17:00 Total Protein 7.1 gm/dl (6.0-8.3) 04/27/23 17:00 Albumin 4.3 gm/dl (3.4-5.0) 04/27/23 17:00 Globulin 2.8 gm/dl (2.5-4.0) 04/27/23 17:00 Albumin/Globulin Ratio 1.5 (0.9-2) 04/27/23 17:00 Triglycerides 133 mg/dl (0-150) 04/28/23 05:52 Cholesterol 143 mg/dl (0-200) 04/28/23 05:52 LDL Cholesterol, Calc 91 mg/dl 04/28/23 05:52 VLDL Cholesterol, Calc 27 mg/dl (0-30) 04/28/23 05:52 HDL Cholesterol 25 mg/dl 04/28/23 05:52 Cholesterol/HDL Ratio 5.7 (0-5) H 04/28/23 05:52 Vitamin B12 688 pg/ml (180-914) 04/27/23 17:00 TSH 1.206 uIu/ml (0.300-4.500) 04/27/23 17:00 Urine Color Yellow 04/27/23 Unknown Urine Appearance Clear (Clear) 04/27/23 Unknown Urine pH 5.5 (4.5-7.5) 04/27/23 Unknown Ur Specific [place] 1.009 (1.000-1.030) 04/27/23 Unknown Urine Protein Negative (Negative) 04/27/23 Unknown Urine Glucose (UA) Negative (Negative) 04/27/23 Unknown Urine Ketones Negative (Negative) 04/27/23 Unknown Urine Blood Negative (Negative) 04/27/23 Unknown Urine Nitrite Negative (Negative) 04/27/23 Unknown Urine Bilirubin Negative (Negative) 04/27/23 Unknown Urine Urobilinogen Negative (Negative) 04/27/23 Unknown Ur Leukocyte Esterase Negative (Negative) 04/27/23 Unknown Lyme Disease IgG Ab Negative (Negative) 04/27/23 17:00 Lyme Disease IgM Ab Negative (Negative) 04/27/23 17:00 Impressions Head CTA 04/27/23 19:28 CR Exam(s): CTA HEAD With Contrast IV Amt: optiray 320 115ml EXAM: CT Angiography Head With Intravenous Contrast CLINICAL HISTORY: Reason for exam: tia/stroke. TECHNIQUE: Axial computed tomographic angiography images of the head with intravenous contrast. CTDI is stenosis is the with you appreciable is 31. 14 mGy and DLP is 15.57 mGy-cm. Automated exposure control was utilized for the study. A dose lowering technique was utilized adhering to the principles of ALARA. MIP reconstructed images were created and reviewed. CONTRAST: Patient received optiray 320 115ml of IV contrast COMPARISON: No relevant prior studies available. FINDINGS: Right internal carotid artery: No acute findings. Intracranial segment is patent with no significant stenosis. No aneurysm. Right anterior cerebral artery: Unremarkable. No occlusion or significant stenosis. No aneurysm. Right middle cerebral artery: Unremarkable. No occlusion or significant stenosis. No aneurysm. Right posterior cerebral artery: Unremarkable. No occlusion or significant stenosis. No aneurysm. Right vertebral artery: Unremarkable as visualized. Left internal carotid artery: No acute findings. Intracranial segment is patent with no significant stenosis. No aneurysm. Left anterior cerebral artery: Unremarkable. No occlusion or significant stenosis. No aneurysm. Left middle cerebral artery: Unremarkable. No occlusion or significant stenosis. No aneurysm. Left posterior cerebral artery: Unremarkable. No occlusion or significant stenosis. No aneurysm. Left vertebral artery: The proximal left intracranial vertebral artery is occluded. There is retrograde filling of the left distal intracranial vertebral artery cranial vertebral artery. Basilar artery: Unremarkable. No occlusion or significant stenosis. No aneurysm. IMPRESSION: Occluded left proximal intracranial vertebral artery with retrograde filling of the left distal intracranial vertebral artery. This arterial occlusion is of indeterminate age. Communications: Verify Receipt Electronically signed by: Brian Bazan MD 04/27/23 21:31 PM Neck CTA 04/27/23 19:28 Exam(s): CTA NECK With Contrast IV Amt: optiray 320 115ml EXAM: CT Angiography Neck With Intravenous Contrast CLINICAL HISTORY: Reason for exam: tia/stroke. TECHNIQUE: Routine carotid CT angiography protocol was performed with intravenous contrast. NASCET criteria using the distal ICAs for comparison were used for evaluation of stenoses. CTDI is 13.02 mGy and DLP is 498.38 mGy-cm. Automated exposure control was utilized for the study. A dose lowering technique was utilized adhering to the principles of ALARA. MIP reconstructed images were created and reviewed. CONTRAST: Patient received optiray 320 115ml of IV contrast COMPARISON: None. FINDINGS: VASCULATURE: Right common carotid artery: Unremarkable. No occlusion or significant stenosis. No dissection. Right internal carotid artery: Unremarkable. Extracranial segment is patent with no occlusion or significant stenosis. No dissection. Right external carotid artery: Unremarkable. No occlusion. Right vertebral artery: Unremarkable. No occlusion or significant stenosis. No dissection. Left common carotid artery: Unremarkable. No occlusion or significant stenosis. No dissection. Left internal carotid artery: There is complete occlusion of the cervical left internal carotid artery approximately 1 cm beyond its origin. Left external carotid artery: Unremarkable. No occlusion. Left vertebral artery: The left cervical vertebral artery is hypoplastic . No dissection. NECK: Bones/joints: Unremarkable. Soft tissues: There is a penetrating ulcer seen on the left anterior aspect of the aortic arch with aneurysmal changes. Lung apices: Clear. CAROTID STENOSIS REFERENCE USING NASCET CRITERIA: % ICA stenosis = (1 - narrowest ICA diameter/diameter of distal cervical ICA) x 100. Mild - <50% stenosis. Moderate - 50-69% stenosis. Severe - 70-94% stenosis. Near occlusion - 95-99% stenosis. Occluded - 100% stenosis. IMPRESSION: 1. Complete occlusion of the left internal carotid artery, 1 cm beyond its origin 2. Hypoplastic left vertebral artery 3. 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 A CTA chest is suggested for further assessment. Electronically signed by: Brian Bazan MD 04/27/23 21:38 PM Venous Doppler Study 04/27/23 19:29 Exam(s): US VENOUS RIGHT LOWER EXTREMITY EXAM: US Duplex Right Lower Extremity Veins CLINICAL HISTORY: Reason for exam: r/o dvt. RLE edema. TECHNIQUE: Real-time duplex ultrasound scan of the right lower extremity veins integrating B-mode two-dimensional vascular structure, Doppler spectral analysis, color flow Doppler imaging and compression. COMPARISON: No relevant prior studies available. FINDINGS: Deep veins: Unremarkable. No DVT in the visualized common femoral, femoral, proximal deep femoral or popliteal veins. The veins demonstrate normal color flow, are normally compressible, with normal phasic flow and/or augmentation response. Superficial veins: Unremarkable. No thrombus in the visualized great saphenous vein. Soft tissues: 8.4 x 13.8 x 2.7 cm complex cyst seen in the popliteal fossa, and distal thigh. There is 8.4 cm complex cystic area also seen extending from the popliteal fossa into the proximal calf. IMPRESSION: 1. No evidence of DVT in the right lower 2 complex cystic lesions in the popliteal fossa Electronically signed by: Brian aBzan MD 04/27/23 21:[address] 04/28/23 16:58 CT OF THE HEAD WITHOUT CONTRAST CLINICAL HISTORY: R/O stroke COMPARISON STUDY: Head CT and CTA of the head April 27, 2023. CT DOSE: 625.80 mGy.cm TECHNIQUE: Helical axial images of the head were obtained without IV contrast. Automated exposure control was utilized for the study. A dose lowering technique was utilized adhering to the principles of ALARA. FINDINGS: No acute intracranial hemorrhage, midline shift or mass effect is present. The ventricular system is unremarkable. The basal cisterns are patent. No extra-axial collections are present. There are no findings to suggest acute dural sinus thrombosis or acute territorial infarct. Left basal ganglia infarcts measuring up to 1.1 cm, are again noted. These are unchanged in appearance since prior head CT. IMPRESSION: 1. No acute intracranial hemorrhage or mass effect 2. No change in appearance of the small left basal ganglia infarcts. Although probably chronic, these are technically age indeterminate. ACT 112: Negative or not required by law. Electronically signed by: Mick Vázquez M.D. 04/28/2023 5:59 PM
--- NOTE | 2023-04-29 12:20 | CT Scan Report ---
CT ANGIOGRAPHY OF THE CHEST CLINICAL HISTORY: Evaluate aortic arch ulcer. COMPARISON STUDY: CTA of the neck April 27, 2023. Chest radiograph September 14, 2021. TECHNIQUE: Helical axial images of the chest were obtained during arterial phase following intravenou s injection of 120 cc of Optiray 320 IV. Sagittal and coronal reconstructions were viewed as well as maximal intensity projections on an independent 3-D workstation. Automated exposure control was utili [employer] for the study. A dose lowering technique was utilized adhering to the principles of ALARA. FINDINGS: The caliber of the thoracic aorta is normal. There is excessive plaque of the aortic arch. Note is made of an ulcerated plaque along the inferior aspect of the aortic arch. There is no thoraci c aortic dissection. No intramural hematoma is noted. Moderate coronary artery calcification is prese nt. A left subclavian pacer is in place. There is no pericardial effusion. No pneumothorax or pleural effusion is present. There is no consolidation to suggest pneumonia. A 6 mm right upper lobe nodule on image 50 of 241 is noted. There is a 3 mm left upper lobe nodule on image 52. Additional 3 mm left upper lobe nodules are present. Prominent bilateral axillary lymph nodes are noted. Index right axil nadya node on image 48 measures 1.6 x 1.4 cm. This is slightly enlarged but contains a fatty hilum. Th ere are prominent bilateral hilar nodes. Index right hilar node on image 122 measures 1.5 x 1.1 cm. U pper abdomen is unremarkable. IMPRESSION: 1. Normal caliber thoracic aorta. No thoracic aortic dissection or intramural hematoma. 2. Extensive irregular plaque of the aortic arch. This favors ulcerated plaque. A penetrating ulcer could appear similar although is considered less likely, particularly in the absence of chest pain. T his finding is probably chronic. A follow-up CTA of the chest in 3 months could be obtained to ensure stability. 3. Several pulmonary nodules which measure up to 6 mm. Although likely benign, these are indeterminat e and should be assessed on follow-up exam. 4. Prominent mediastinal and bilateral hilar lymph nodes which can be assessed on follow-up exams to ensure stability. ACT 112: Negative or not required by law. Electronically signed by: Mick Vázquez M.D. 04/29/2023 12:18 PM
[2023-04-29] MEDS: HEPARIN SOD 5,000 UNIT/0.5 ML VIAL SQ SCH ×2 (15:29→20:27)
[2023-04-29] MEDS: LOSARTAN POTASSIUM 50 MG TAB PO SCH (20:26)
[2023-04-30] MEDS: HEPARIN SOD 5,000 UNIT/0.5 ML VIAL SQ SCH ×2 (05:57→13:19)
[2023-04-30 06:46] LABS: Basophils # (auto) 0.05 K/uL (0.00-0.20); Basophils % (auto) 0.7 %; Eosinophils # (auto) 0.24 K/uL (0.00-0.50); Eosinophils % (auto) 3.2 %; Hematocrit (blood only) 45.3 % (42.0-52.0); Hemoglobin 14.5 g/dl (14.0-18.0); Immature Granulocytes # (auto) 0.04 K/uL (0.01-0.20); Immature Granulocytes % (auto) 0.5 %; Lymphocytes # (auto) 1.68 K/uL (1.20-3.40); Lymphocytes % (auto) 22.7 %; Mean Corpuscular Hemoglobin 29.1 pg (25.0-34.0); Mean Corpuscular Volume 90.8 fL (80.0-100.0); Mean Platelet Volume 9.5 fL (9.4-12.4); Monocytes # (auto) 0.94 K/uL (0.11-0.59); Monocytes % (auto) 12.7 %; Neutrophils # (auto) 4.46 K/uL (1.40-6.50); Neutrophils % (auto) 60.2 %; Platelet Count 225 K/uL (130-400); RDW Coefficient of Variation 14.6 % (11.5-14.5); RDW Standard Deviation 49.1 fL (36.4-46.3); Red Blood Count 4.99 M/uL (4.70-6.10); White Blood Count 7.41 K/ul (4.8-10.8)
[2023-04-30 07:01] LABS: BUN Creatinine Ratio 13.3 (10-20); Calcium 9.1 mg/dl (8.6-10.3); Creatinine Clr Calc Pharmacy 66.5 ml/min; Est GFR (African American) 73.8 ml/min; Est GFR (Non-African American) 63.7 ml/min
--- NOTE | 2023-04-30 08:32 | Pharmacy Report ---
- Date of Service April 30, 2023 - Pharmacy CVA/TIA Medication Review Medications to Prevent Stroke handout has been added to the patients discharge packet. Antiplatelet(s) * Aspirin + Plavix Cholesterol * High intensity statin deferred due to intolerance DVT Prophylaxis * Heparin SQ Therapeutic Anticoagulation * No history of Afib/Aflutter noted Type 2 Diabetes * Patient does not have T2DM
[2023-04-30] MEDS: LOSARTAN POTASSIUM 50 MG TAB PO SCH (09:03)
[2023-04-30] MEDS: CLOPIDOGREL BISULFATE 75 MG TAB PO SCH (09:03)
[2023-04-30] MEDS: METOPROLOL SUCC 50MG EXT REL TAB PO SCH (09:03)
[2023-04-30] MEDS: LEFLUNOMIDE 10 MG TAB PO SCH (09:03)
[2023-04-30] MEDS: ASPIRIN 81 MG ECTAB PO SCH (09:03)
[2023-04-30] MEDS: EZETIMIBE 10 MG TAB PO SCH (09:03)
--- NOTE | 2023-04-30 14:50 | Discharge Summary ---
Date of Service April 30, 2023 Admission HPI Per Admitting Provider Patient is 72 y/o M with PMH HTN, HLD, CAD, chronic diastolic heart failure, SSS, s/p pacemaker, CKD III, RA presented to ER with c/o right sided paresthesias x 3 days. States symptoms for past 3 days. History obtained from patient, patient family and chart review. Patient states been having tingling of right forearm and right hand. Also c/o tingling to right lower leg and foot. Been having tingling right side of face. He thinks he may have decreased taste also. He noted swelling to right leg past couple of days. Having dizziness with standing and feels unsteady with walking. Denies fall. Reports history TIA in past and was seen at [facility] and at that time symptoms lasted a day and resolved. He states had asprin 81mg and Plavix today and denies missing doses. H/O foot nodule removed several weeks ago. Denies LEE, syncope, speech changes, vision changes. Denies injury or trauma. Denies fever/chills, diaphoresis, N/V/D/C, neck pain, CP, SOB, palpitations, cough, rhinorrhea, abdominal pain, extremity weakness, other extremity edema, extremity erythema, rashes, urinary symptoms. Denies known tick bite or recent travel. Admission Exam Per Admitting Provider Constitutional: Alert orient x3; not in distress. Respiratory: Bilateral basal breath sounds; no added sound. Cardiovascular: RRR, no murmur, no edema Vessels: no JVD or carotid bruit Chest: normal inspection of chest Abdomen: normal bowel sounds, soft, nontender, no hepatosplenomegaly Musculoskeletal: no cyanosis or clubbing, extremities motor strength 5/5 Skin: no rashes, warm and dry normal turgor Neurologic: PERRL, EOMI, accommodation nl, no face palsy, no dysarthria CN's II-XI intact bilaterally and moves all extremities Gait unsteady Psychiatric: A+Ox3, euthymic affect Principal Diagnosis Transient ischemic attack Discharge Exam Constitutional: WD/WN, vitals as above, NAD, sitting up in bed, pleasant, conversing easily Respiratory: normal respiratory effort, lungs clear to auscultation, no wheeze, rales, rhonchi. Normal insp/exp effort, no accessory muscle use Cardiovascular: RRR, no murmur, no edema Vessels: no JVD or carotid bruit Chest: normal inspection of chest Abdomen: normal bowel sounds, soft, nontender, no hepatosplenomegaly Musculoskeletal: no cyanosis or clubbing, extremities motor strength 5/5 Skin: no rashes, warm and dry normal turgor Neurologic: PERRL, EOMI, accommodation nl, no face palsy, no dysarthria CN's II- XI intact bilaterally and moves all extremities Psychiatric: A+Ox3, euthymic affect Discharge Data Allergies Allergy/AdvReac Type Severity Reaction Status Date / Time evolocumab AdvReac Severe Dizziness Unverified 04/18/20 17:08 [From Repatha SureClick] icosapent ethyl AdvReac Severe Dizziness Unverified 04/18/20 17:08 [From Vascepa] lidocaine AdvReac Severe patient Verified 04/18/20 18:26 "dies" Mhsdiko-OTW-FaZ Reductase AdvReac Severe arthritis Unverified 04/18/20 17:08 Inhibitor [Ctyqklo-Lvk-Czr Reductase Inhibitor] Consultations 04/27/23 18:35 ED Decision to Admit Stat 04/27/23 21:28 Consult Neurology Routine Ordered Studies 04/27/23 16:41 CT head/brain wo con Stat 04/27/23 19:28 CT angio head w con Routine CT angio neck with con Routine 04/27/23 19:29 US venous doppler LE RT Urgent 04/28/23 16:58 CT head/brain wo con Routine 04/29/23 11:15 CT angio chest w con Routine 04/30/23 09:00 MRI Brain [MR brain wo con] Routine Hospital Course (1) TIA (transient ischemic attack): (2) Occlusion of left vertebral artery: (3) Left carotid artery occlusion: Plan Patient is 72 y/o M with PMH HTN, HLD, CAD, chronic diastolic heart failure, SSS, s/p pacemaker, CKD III, RA presented to ER with c/o right sided paresthesias, unsteady gait x 3 days In ER vitals stable. No leukocytosis, no significant electrolyte abnormality, high-sensitivity troponin negative, UA negative CT head: No acute intracranial hemorrhage, midline shift or acute territorial infarct. Likely chronic infarcts within the left basal ganglia. CT angiogram revealed left vertebral artery occlusion distally and left carotid occlusion proximally. Also, also in aortic arch Vitamin B12 within normal limits Lyme serology negative Echo with bubble study-EF of 65 to 70%, aortic valve sclerosis mild without significant aortic valvular stenosis, trace tricuspid regurgitation, Doppler findings do not suggest pulmonary hypertension, grade 1 diastolic dysfunction and injection of contrast documented no in the atrial shunt During the hospitalization, patient underwent CTA chest to evaluate for aortic arch ulcer. The CTA chest confirmed the finding of the ulcerated plaque; thought to be chronic as per radiology read. Is recommended to have follow-up CTA chest in 3 months. Also, found to have several pulmonary nodules which will require follow-up. MRI brain was done which showed a few tiny foci of restricted diffusion in the left basal ganglia and periventricular white matter. PT OT evaluation recommended rehab. However, patient preferred to go home with home PT OT which was set up at discharge. Patient was continued on aspirin and Plavix as recommended by neurology. And to follow-up with PCP and obtain vascular surgery referral for evaluation of left vertebral artery occlusion and left carotid occlusion. Also, to be evaluated for aortic arch ulcer as well. Losartan was increased to 50 mg twice daily for better control of high blood pressure. Total Time Total Time Spent Total Time Spent (In Minutes): 45 Total Time Includes: Examination of the Patient, Discharge Planning, Medication Reconciliation, Communication With Other Providers and Other Discharge Plan Discharge Items Patient Disposition: Home - Home Health Services Reason For Visit: PARESTHESIAS Discharge Diagnosis: Transient ischemic attack Activity: Resume your previous activity Non-emergency contact: Primary Care Provider Call non-emergency contact if: you have any medication questions and your symptoms worsen Follow-up/Referrals: Roel Brown MD [Primary Care Provider] - (Date & Time 05/03/2023 1:50 PM Provider Keyanna Kovacs PA-C Department Family Medicine [facility] ) Diet: Regular Addtl Attending Provider Instructions: You were admitted to the hospital due to transient ischemic attack. You underwent various multiple imaging including CT head, CTA head and neck and MRI brain. CTA chest showed extensive ulcerated plaque in the aortic arch. The findings are most likely chronic as per the radiology reading. You need CT chest with contrast in 3 months to ensure stability. It also showed multiple pulmonary nodules including prominent mediastinal and bilateral hilar lymph nodes measuring up to 6 mm. You will need follow-up CT to make sure they are stable. The CTA head and neck showed complete occlusion of left intracranial artery was seen. An appointment will be set up with your primary care doctor. You will need vascular surgery evaluation for the occlusion of the left intracranial artery and the CTA chest. A referral will be reported by your primary care doctor. Your blood pressure was found to be on the higher side. You are prescribed losartan 50 mg to be taken twice daily. Please continue to take your other medication as prescribed before. Pending Studies at Discharge: No Stand-Alone Forms: My [facility], Smoking Cessation Medications and DC Order Prescriptions: New losartan 50 mg Tablet 50 mg PO BID Qty: 60 0RF Continued omega 8-twq-hor-fish oil [Fish Oil] 1,000 mg (120 mg-180 mg) Capsule 1 cap PO BID Centrum Silver Ultra Men's 300-600-300 mcg Tablet 1 tab PO QAM ascorbic acid (vitamin C) [Vitamin C] 500 mg Tablet 500 mg PO DAILY aspirin 81 mg Tablet,Delayed Release (Dr/Ec) 81 mg PO DAILY metoprolol succinate 50 mg tablet extended release 24 hr 50 mg PO DAILY leflunomide 10 mg tablet 10 mg PO DAILY clopidogrel 75 mg tablet 75 mg PO DAILY ezetimibe 10 mg tablet 10 mg PO DAILY Discontinued losartan 25 mg tablet 25 mg PO QAM Admission Data Admit Date/Time: 04/27/23 19:05 Attending Provider: Bi Gaston Admit Provider: Bi Gaston Primary Care Provider: Roel Brown Other Providers: Bi Gaston ; Gera Owen ; Dao Mart
--- NOTE | 2023-04-30 15:33 | Magnetic Resonance Report ---
MR brain wo con CLINICAL HISTORY: Rule out stroke TECHNIQUE: Multiplanar and multisequence MR images of the brain were obtained without intravenous con trast. Comparison: Comparison is made to CT head 04/28/2023 FINDINGS: Multiple punctate foci of restricted diffusion are seen in the left basal ganglia and white matter. F oci of T2 and FLAIR hyperintensity are noted in the paraventricular areas consistent with chronic sma ll vessel ischemic disease. Ex vacuo ventriculomegaly and sulcal enlargement is noted compatible with diffuse volume loss. No mass is seen. There is no mass effect or midline shift. There is no evidence of acute intraparenchymal hemorrhage. No extra axial fluid collections are seen. The corpus callosum , pituitary gland, and cerebellar tonsils appear grossly unremarkable. Flow voids of the major intracranial arterial vessels are identified. The imaged portions of the para nasal sinuses, mastoid air cells, and orbits are unremarkable. IMPRESSION: A few tiny foci of restricted diffusion are seen in the left basal ganglia and periventricular white matter. ACT 112: Negative or not required by law. Electronically signed by: Sammy Dunn M.D. 04/30/2023 3:32 PM
[2023-04-30] MEDS ORDERED: STROKE PATIENT DISCHARGE STA (15:48)
--- NOTE | 2023-05-02 10:17 | Pharmacy Report ---
Pharmacist Stroke Counseling - Date of Service May 02, 2023 - Scope: Pharmacy has been consulted to provide medication discharge counseling for this patient admitted with transient ischemic attack as per the Pharmacist Discharge Counseling for Stroke Patients Protocol. - Medications on Discharge: Home Medications Medication Instructions Recorded Confirmed ascorbic acid (vitamin C) 500 mg 500 mg PO DAILY 04/18/20 04/27/23 tablet (Vitamin C) [id number]-qg-[id number] 300 mcg-K 60 1 tab PO QAM 04/18/20 04/27/23 mcg-lycop 600 mcg-lutein 300 mcg tablet (Centrum Silver Ultra Men's) omega 4-uuy-vgn-fish oil 1,000 mg 1 cap PO BID 04/18/20 04/27/23 (120 mg-180 mg) capsule (Fish Oil) aspirin 81 mg tablet,delayed 81 mg PO DAILY 04/27/23 04/27/23 release clopidogrel 75 mg tablet 75 mg PO DAILY 04/27/23 04/27/23 ezetimibe 10 mg tablet 10 mg PO DAILY 04/27/23 04/27/23 leflunomide 10 mg tablet 10 mg PO DAILY 04/27/23 04/27/23 metoprolol succinate 50 mg 50 mg PO DAILY 04/27/23 04/27/23 tablet,extended release 24 hr New Rx's Medication Instructions Recorded losartan 50 mg tablet 50 mg PO BID #60 tabs 04/30/23 - Action: The above medications, specifically ones for stroke treatment/prophylaxis, have been reviewed in detail with the patient and/or patient order entry representative(s) prior to discharge. This includes indication, common adverse reactions, drug interactions, and medication administration. Medication counseling has been employed using the teach-back method to ensure understanding. - Outcome: The patient and/or patient order entry representative(s) have demonstrated understanding of the medications. Additional comments: - Patient confirmed that he picked up his increased dose of losartan from the pharmacy. Dose was increased significantly from 25 mg daily to 50 mg twice daily. Encouraged patient to obtain blood pressure cuff to self-monitor blood pressure and to be aware of signs of low blood pressure. He will discuss this medication change with his primary care doctor (he was going to schedule that appointment later today). - Patient reports that he takes aspirin 81 mg daily, aspirin 325 mg HS (for ar thritis pain), and clopidogrel 75 mg daily. I explained that we did not have the aspirin 325 mg on his med rec and inquired about whether or not his primary care doctor was aware he was on both doses of aspirin. He said he made the decision to start the 325 mg dose due to pain and was willing to stop taking it. Patient is going to trial discontinuation of the 325 mg dose and discuss with his primary care doctor. Thank you for allowing pharmacy to be involved in the care of this patient. Please call [phone] with any additional questions
== END 2023-04-30 16:23 | disposition home health service (06) | DRG 65 ==
LOC: ED 16:25 → 2N 19:05 → SUATTDRO 19:05 → 2N 21:00

== ENCOUNTER 2023-09-15 10:38 | Inpatient (IN) ==
--- NOTE | 2023-09-15 11:57 | Emergency Department Note ---
Impression & Plan Central retinal artery occlusion of left eye, History of TIA (transient ischemic attack), Left carotid artery occlusion, Hypertension ED Provider Note NAME: EMILY NARAYANAN AGE: 72 SEX: M ARRIVES VIA: Walk-In INFORMANT: Patient ED PROVIDER(S): Sony Le MD CHIEF COMPLAINT: Vision changes referred. PLAN: Disposition: Admit MEDICAL DECISION MAKING: The patient is a pleasant 72-year gentleman with a past medical history of CAD, CKD, rheumatoid arthritis, hypertension, hyperlipidemia, TIA, carotid artery stenosis on Plavix, sick sinus syndrome status post PPM who presents to the emergency department via walk-in for evaluation of acute onset left eye vision changes that occurred afternoon when he was watching TV. 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 Otherwise he denies any fevers, chills, cough, congestion, GI or symptoms. He denies any difficulty with balance, trouble speaking, extremity weakness. Patient reports he follows with [facility] ophthalmology and has a history of bilateral cataract removal and bilateral lens replacement. On evaluation the patient no acute distress, afebrile with blood pressure 180s/70s and vital signs otherwise stable. He has no focal neurologic deficits. Pupils equal and reactive light bilaterally. Gross vision intact bilaterally however visual acuity is diminished on the left, with complete loss of acuity of the left eye nasal superior and inferior field of vision. Case was discussed with ophthalmology on-call, Dr. Clark. He was able to review retinal scan images sent via [employer]. Appreciate consultation/recommendations. He does appreciate central retinal artery occlusion possible several areas noted. Given symptoms ongoing since no acute therapies are available. Agrees with further stroke evaluation and minimization of stroke risk factors. EKG without overt acute ischemia. CXR negative for acute cardiopulmonary process per my personal preliminary review/interpretation. WBC, H/H and platelets within normal limits. Chemistry without metabolic acidosis. Electrolytes LFTs are unremarkable. High-sensitivity troponin 12.7, within normal limits. UA without evidence of infection. CT of the head and CT of the head and neck were performed and demonstrates stable prior findings including several [place] related to subacute to chronic left frontal lobe, left basal ganglia and thalamic lacunar infarcts which were acute on brain MRI of 04/30/2023. Otherwise there is unchanged appearance of chronic occlusion of left ICA and unchanged appearance of multi focal high-grade stenosis throughout the left vertebral artery. Patient agrees plan for admission for further management. Case was discussed with Dr. Heck, [facility] hospitalist, who will evaluate the patient for admission. Further management per admitting team. Triage Nursing notes reviewed and agree them. Prior/external medical records reviewed Vital Signs: reviewed Differential diagnosis: Conjunctivitis, trauma, corneal abrasion, hyphema, glaucoma, iritis, corneal ulcer, dendrite, CRAO, CRVO, vitreous detachment, retinal detachment, as well as other pathologies. ER treatment provided: See below. Diagnostics interpreted by me: ECG: Sinus rhythm first-degree AV block, 62 bpm, no ectopy, no overt ST ovation or depression, QTc 418, QRS 92 Cardiac Monitoring: An order for continuous cardiac monitoring was placed and demonstrated Sinus rhythm first-degree AV block, 62 bpm, no ectopy. Laboratory studies: See below Imaging studies: See below Consultation(s): Dr. Clark, ophthalmology. Dr. Heck, [facility] hospitalist. HPI: The patient is a pleasant 72-year gentleman with a past medical history of CAD, CKD, rheumatoid arthritis, hypertension, hyperlipidemia, TIA, carotid artery stenosis on Plavix, sick sinus syndrome status post PPM who presents to the emergency department via walk-in for evaluation of acute onset left eye vision changes that occurred afternoon when he was watching TV. 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 Otherwise he denies any fevers, chills, cough, congestion, GI or symptoms. He denies any difficulty with balance, trouble speaking, extremity weakness. Patient reports he follows with [facility] ophthalmology and has a history of bilateral cataract removal and bilateral lens replacement. ROS: See above HPI for pertinent positives & negatives. A total of 10 systems reviewed and were otherwise negative. VITALS:See Below PHYSICAL EXAMINATION: GENERAL: Awake, alert, well-appearing, in no distress HENT: Normocephalic, atraumatic. Oropharynx unremarkable. EYES: Normal conjunctiva. Sclera non-icteric. Pupils equal and reactive light bilaterally. Visual acuity is diminished on the left, with complete loss of acuity of the left eye nasal superior and inferior field of vision. NECK: Supple. No nuchal rigidity. FROM. No JVD. RESPIRATORY: Clear to auscultation. CARDIAC: Regular rate, normal rhythm. Extremities warm and well perfused. Pulses equal. ABDOMEN: Soft, non-distended. No tenderness to palpation. No rebound or guarding. No masses. RECTAL: Deferred. MUSCULOSKELETAL: Chest examination reveals no tenderness. The back is symmetrical on inspection without obvious abnormality. There is no CVA tenderness to palpation. No joint edema. LOWER EXTREMITIES: Calves are equal size bilaterally and non-tender. No edema. No discoloration. NEURO: 5/5 strength and SILT x 4 extremities. Cerebellar function intact including oztomd-go-vfcr, alternating palms, isor-uo-awak. SKIN: No rash or jaundice noted. Sony Le MD Past Med/Surg History Medical History Left-sided carotid artery occlusion without cerebral infarction Carotid stenosis, bilateral First degree heart block Occlusion of left vertebral artery History of TIA (transient ischemic attack) Pacemaker SSS (sick sinus syndrome) CAD (coronary artery disease) Sigmoid diverticulitis CKD (chronic kidney disease), stage III Hyperlipidemia High cholesterol Hypertension History of heart attack Rheumatoid arthritis Surgical History Status post cardiac pacemaker procedure S/P cataract extraction and insertion of intraocular lens Status post surgical removal of neoplasm of skin S/P tonsillectomy H/O carotid endarterectomy s/p thromboendarterectomy with patch, neck excision (left) 09/07/2012 Family History Mother , age 89 Coronary heart disease Father , age 36 of brain tumor Cancer Brain- at age 36 Social History Smoking Status: Never smoker Age Started Using Tobacco: 12; Age Quit Using Tobacco: 48; packs per day: 0.2; Second Hand Exposure: No; Do You Dip or Chew Tobacco: No; Hx Alcohol Use: No Hx Substance Use: No Preferred Language: Danish Communication Ability: Effective Sound Installation Worker Required: No Beliefs That Will Affect Care: None Current Living Situation: Significant Other Current Living Situation Comment: is 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 current occupational status: retired 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62 Feels Safe at Home: Yes Assistive Devices: Hearing Aid - Bilateral and Walker Allergies Allergies Allergy/AdvReac Type Severity Reaction Status Date / Time evolocumab AdvReac Severe Dizziness Unverified 09/15/23 15:18 [From Repatha SureClick] icosapent ethyl AdvReac Severe Dizziness Unverified 09/15/23 15:18 [From Vascepa] lidocaine AdvReac Severe patient Verified 09/15/23 15:18 "dies" Sfaqyaw-KTL-UsZ Reductase AdvReac Severe arthritis Unverified 09/15/23 15:18 Inhibitor [Euhkoae-Ivw-Gfg Reductase Inhibitor] Home Meds Home Medications Medication Instructions Recorded Confirmed ascorbic acid (vitamin C) 500 mg 500 mg PO DAILY 04/18/20 09/15/23 tablet (Vitamin C) uxbvospc-qz-swdhl 300 mcg-K 60 1 tab PO QAM 04/18/20 09/15/23 mcg-lycop 600 mcg-lutein 300 mcg tablet (Centrum Silver Ultra Men's) omega 8-sjt-wrk-fish oil 1,000 mg 1 cap PO DAILY 04/18/20 09/15/23 (120 mg-180 mg) capsule (Fish Oil) clopidogrel 75 mg tablet 75 mg PO DAILY 04/27/23 09/15/23 ezetimibe 10 mg tablet 10 mg PO DAILY 04/27/23 09/15/23 leflunomide 10 mg tablet 10 mg PO DAILY 04/27/23 09/15/23 aspirin 325 mg tablet 325 mg PO BID 09/15/23 09/15/23 gabapentin 100 mg capsule 100 mg PO BID 09/15/23 09/15/23 naproxen sodium 220 mg tablet 220 mg PO HS 09/15/23 09/15/23 (Aleve) Previous Rx's Medication Instructions Recorded losartan 50 mg tablet 50 mg PO BID #60 tabs 04/30/23 Results & Data (ED) Vital Signs Vital Signs - 24 hr 09/15/23 10:40 09/15/23 13:04 09/15/23 14:31 Temperature 36.6 C Temperature Source Temporal Artery Scan Pulse Rate 84 60 Pulse Rate [Apical] 60 Respiratory Rate 20 18 Respiratory Effort / Characteristics Non-Labored Spontaneous Respiratory Depth Normal Respiratory Pattern Regular Blood Pressure 181/77 H Blood Pressure [Right Arm] 154/78 H Blood Pressure Mean 111 Blood Pressure Mean [Right Arm] 103 Blood Pressure Position Sitting Pulse Oximetry 98 98 Oxygen Delivery Method Room Air Room Air Sepsis Recent Fever Within 48 Hours No Sepsis New/Unexplained Change in Mental Status N/A Sepsis Action Taken by Nursing No Action Required 09/15/23 15:49 Temperature Temperature Source Pulse Rate Pulse Rate [Apical] 60 Respiratory Rate 17 Respiratory Effort / Characteristics Respiratory Depth Respiratory Pattern Blood Pressure Blood Pressure [Right Arm] 177/85 H Blood Pressure Mean Blood Pressure Mean [Right Arm] 115 Blood Pressure Position Pulse Oximetry 99 Oxygen Delivery Method Room Air Sepsis Recent Fever Within 48 Hours Sepsis New/Unexplained Change in Mental Status Sepsis Action Taken by Nursing Laboratory Data Attestation: I reviewed the patient's lab results. 09/15/23 13:15 09/15/23 13:15 Lab Results 09/15/23 09/15/23 Range/Units 13:15 13:30 WBC 8.45 (4.8-10.8) K/ul RBC 4.95 (4.70-6.10) M/uL Hgb 14.5 (14.0-18.0) g/dl Hct 44.7 (42.0-52.0) % MCV 90.3 (80.0-100.0) fL MCH 29.3 (25.0-34.0) pg MCHC 32.4 (32.0-36.0) g/dL RDW Std Deviation 45.0 (36.4-46.3) fL RDW Coeff of Ottoniel 13.7 (11.5-14.5) % Plt Count 240 (130-400) K/uL MPV 9.3 L (9.4-12.4) fL Immature Gran % (Auto) 0.5 % Neut % (Auto) 68.3 % Lymph % (Auto) 17.3 % [place] % (Auto) 9.7 % Eos % (Auto) 3.4 % Baso % (Auto) 0.8 % Neut # (Auto) 5.77 (1.40-6.50) K/uL Lymph # (Auto) 1.46 (1.20-3.40) K/uL [place] # (Auto) 0.82 H (0.11-0.59) K/uL Eos # (Auto) 0.29 (0.00-0.50) K/uL Baso # (Auto) 0.07 (0.00-0.20) K/uL Immature Gran # (Auto) 0.04 (0.01-0.20) K/uL PT 10.5 (9.0-12.0) Seconds INR 1.0 (0.9-1.1) APTT 32 H (21-31) Seconds PTT Ratio 1.1 Sodium 139 (136-145) mmol/L Potassium 4.4 (3.5-5.1) mmol/L Chloride 107 (98-107) mmol/L Carbon Dioxide 25 (21-32) mmol/L Anion Gap 7 (3-11) BUN 20 (6-23) mg/dl Creatinine 1.07 (0.6-1.4) mg/dl Est Cr Clr Drug Dosing 70.8 ml/min Est GFR ( Amer) 78.8 ml/min Est GFR (Non-Af Amer) 68.0 ml/min BUN/Creatinine Ratio 18.7 (10-20) Glucose 86 (70-99(Fasting)) mg/dl Calcium 9.7 (8.6-10.3) mg/dl Magnesium 2.2 (1.7-2.4) mg/dl Total Bilirubin 0.4 (0.2-1.0) mg/dl AST 13 (13-39) U/L ALT 9 (7-52) U/L Alkaline Phosphatase 77 (34-104) U/L Troponin I High Sens 12.7 (0-20) pg/ml Total Protein 7.0 (6.0-8.3) gm/dl Albumin 3.9 (3.4-5.0) gm/dl Globulin 3.1 (2.5-4.0) gm/dl Albumin/Globulin Ratio 1.3 (0.9-2) Urine Color Yellow Urine Appearance Clear (Clear) Urine pH 6.0 (4.5-7.5) Ur Specific [place] 1.011 (1.000-1.030) Urine Protein Negative (Negative) Urine Glucose (UA) Negative (Negative) Urine Ketones Negative (Negative) Urine Blood Negative (Negative) Urine Nitrite Negative (Negative) Urine Bilirubin Negative (Negative) Urine Urobilinogen Negative (Negative) Ur Leukocyte Esterase Negative (Negative) Administered Medications Discontinued Medications Sodium Chloride (Nss) 1,000 mls @ 999 mls/hr IV .Q1H1M ONE Stop: 09/15/23 14:03 Last Admin: 09/15/23 13:42 Dose: 999 mls/hr Documented By: HADLEY Ioversol (Optiray 320 125ml) 112 ml IV ONCE ONE Stop: 09/15/23 14:06 Last Admin: 09/15/23 14:05 Dose: 112 ml Documented By: AUTUMN Imaging Data Radiologist's Impression: Chest X-Ray 09/15/23 13:03 XR chest 1V portable HISTORY: 72 years-old Male neuro deficit, acute stroke suspected COMPARISON: CTA chest 04/29/2023 TECHNIQUE: AP view of the chest FINDINGS: Left subclavian pacer. Pulmonary nodules are better seen on the comparison CTA of the chest. No pneumothorax, pleural effusion or airspace consolidation. Chronic interstitial coarsening. A surgical clip projects over the left neck. Bones appear grossly intact. IMPRESSION: No acute process. ACT 112: Negative or not required by law. The above report was generated using voice recognition software. It may contain grammatical, syntax or spelling errors. Electronically signed by: Herberth Broussard M.D. 09/15/2023 1:[address] 09/15/23 13:03 CT angio head w con, CT head/brain wo con, CT angio neck with con CLINICAL HISTORY: 72 years-old Male with CRAO. Acute strokelike symptoms with left eye vision loss COMPARISON STUDY: 04/30/2023, CTA head and neck 04/27/2023. TECHNIQUE: Unenhanced axial CT scan of the brain is performed. Subsequently, following the IV administration of 112 cc of Optiray, CT angiogram of the head and neck was performed from the aortic arch to skull apex. Images are reviewed in the axial, sagittal, and coronal planes. 3-D MIPS images are created and assessed. IV contrast was administered without complication. All measurements were obtained according to NASCET criteria. A dose lowering technique was utilized adhering to the principles of ALARA. CT DOSE: 1165.64 mGy.cm FINDINGS: CT BRAIN: There is no acute intracranial hemorrhage, midline shift, hydrocephalus, intracranial mass, territorial ischemia or abnormal extra-axial collections. Involutional changes with suggestion of mild chronic microvascular ischemic disease. Encephalomalacia related to the subacute to chronic left frontal lobe hewitt radiata, left basal ganglia and thalamic lacunar infarcts. No abnormal intra-axial or extra-axial enhancement. Mastoid air cells are clear. There is mild mucosal thickening of the ethmoid air cells. No calvarial fracture. Paranasal sinuses are clear. CT ANGIOGRAM OF THE HEAD AND NECK: There is chronic irregular atherosclerosis/ulcerative plaque of the thoracic aortic arch which measures up to 3.7 cm transversely on image 25. Partially imaged left subclavian pacer leads. Patency of the innominate and imaged subclavian arteries. Moderate atherosclerosis of the patent common carotid arteries. Atherosclerosis of the right carotid bulb and proximal cervical segment right ICA results in less than 50% stenosis. Unchanged appearance of the chronic occlusion of the left ICA beginning at the origin of the cervical segment. There is reconstitution within the supraclinoid segment secondary to the igiugig of [place] with irregular diminutive flow seen within the ophthalmic branch. Mostly mild multifocal stenoses of the middle and anterior cerebral arteries which are patent. The dominant and widely patent right vertebral artery. Developmentally diminutive left vertebral artery demonstrates multifocal areas of high-grade stenoses which are unchanged prior study. The basilar and posterior cerebral arteries are patent. Dural sinuses appear patent. Lung apices are clear. Unremarkable soft tissues. No acute fracture. IMPRESSION: 1. No acute intracranial abnormality. 2. Encephalomalacia related to the subacute to chronic left frontal lobe hewitt radiata, left basal ganglia and thalamic lacunar infarcts which were acute on the brain MRI from 04/30/2023. 3. Unchanged appearance of the chronic occlusion of the left internal carotid artery. 4. Unchanged appearance of the multifocal high-grade stenoses throughout the left vertebral artery. ACT 112: Negative or not required by law. The above report was generated using voice recognition software. It may contain grammatical, syntax or spelling errors. Electronically signed by: Herberth Broussard M.D. 09/15/2023 2:44 PM Head CTA 09/15/23 13:03 CT angio head w con, CT head/brain wo con, CT angio neck with con CLINICAL HISTORY: 72 years-old Male with CRAO. Acute strokelike symptoms with left eye vision loss COMPARISON STUDY: 04/30/2023, CTA head and neck 04/27/2023. TECHNIQUE: Unenhanced axial CT scan of the brain is performed. Subsequently, following the IV administration of 112 cc of Optiray, CT angiogram of the head and neck was performed from the aortic arch to skull apex. Images are reviewed in the axial, sagittal, and coronal planes. 3-D MIPS images are created and assessed. IV contrast was administered without complication. All measurements were obtained according to NASCET criteria. A dose lowering technique was utilized adhering to the principles of ALARA. CT DOSE: 1165.64 mGy.cm FINDINGS: CT BRAIN: There is no acute intracranial hemorrhage, midline shift, hydrocephalus, intracranial mass, territorial ischemia or abnormal extra-axial collections. Involutional changes with suggestion of mild chronic microvascular ischemic disease. Encephalomalacia related to the subacute to chronic left frontal lobe hewitt radiata, left basal ganglia and thalamic lacunar infarcts. No abnormal intra-axial or extra-axial enhancement. Mastoid air cells are clear. There is mild mucosal thickening of the ethmoid air cells. No calvarial fracture. Paranasal sinuses are clear. CT ANGIOGRAM OF THE HEAD AND NECK: There is chronic irregular atherosclerosis/ulcerative plaque of the thoracic aortic arch which measures up to 3.7 cm transversely on image 25. Partially imaged left subclavian pacer leads. Patency of the innominate and imaged subclavian arteries. Moderate atherosclerosis of the patent common carotid arteries. Atherosclerosis of the right carotid bulb and proximal cervical segment right ICA results in less than 50% stenosis. Unchanged appearance of the chronic occlusion of the left ICA beginning at the origin of the cervical segment. There is reconstitution within the supraclinoid segment secondary to the igiugig of [place] with irregular diminutive flow seen within the ophthalmic branch. Mostly mild multifocal stenoses of the middle and anterior cerebral arteries which are patent. The dominant and widely patent right vertebral artery. Developmentally diminutive left vertebral artery demonstrates multifocal areas of high-grade stenoses which are unchanged prior study. The basilar and posterior cerebral arteries are patent. Dural sinuses appear patent. Lung apices are clear. Unremarkable soft tissues. No acute fracture. IMPRESSION: 1. No acute intracranial abnormality. 2. Encephalomalacia related to the subacute to chronic left frontal lobe hewitt radiata, left basal ganglia and thalamic lacunar infarcts which were acute on the brain MRI from 04/30/2023. 3. Unchanged appearance of the chronic occlusion of the left internal carotid artery. 4. Unchanged appearance of the multifocal high-grade stenoses throughout the left vertebral artery. ACT 112: Negative or not required by law. The above report was generated using voice recognition software. It may contain grammatical, syntax or spelling errors. Electronically signed by: Herberth Broussard M.D. 09/15/2023 2:44 PM Neck CTA 09/15/23 13:03 CT angio head w con, CT head/brain wo con, CT angio neck with con CLINICAL HISTORY: 72 years-old Male with CRAO. Acute strokelike symptoms with left eye vision loss COMPARISON STUDY: 04/30/2023, CTA head and neck 04/27/2023. TECHNIQUE: Unenhanced axial CT scan of the brain is performed. Subsequently, following the IV administration of 112 cc of Optiray, CT angiogram of the head and neck was performed from the aortic arch to skull apex. Images are reviewed in the axial, sagittal, and coronal planes. 3-D MIPS images are created and assessed. IV contrast was administered without complication. All measurements were obtained according to NASCET criteria. A dose lowering technique was utilized adhering to the principles of ALARA. CT DOSE: 1165.64 mGy.cm FINDINGS: CT BRAIN: There is no acute intracranial hemorrhage, midline shift, hydrocephalus, intracranial mass, territorial ischemia or abnormal extra-axial collections. Involutional changes with suggestion of mild chronic microvascular ischemic disease. Encephalomalacia related to the subacute to chronic left frontal lobe hewitt radiata, left basal ganglia and thalamic lacunar infarcts. No abnormal intra-axial or extra-axial enhancement. Mastoid air cells are clear. There is mild mucosal thickening of the ethmoid air cells. No calvarial fracture. Paranasal sinuses are clear. CT ANGIOGRAM OF THE HEAD AND NECK: There is chronic irregular atherosclerosis/ulcerative plaque of the thoracic aortic arch which measures up to 3.7 cm transversely on image 25. Partially imaged left subclavian pacer leads. Patency of the innominate and imaged subclavian arteries. Moderate atherosclerosis of the patent common carotid arteries. Atherosclerosis of the right carotid bulb and proximal cervical segment right ICA results in less than 50% stenosis. Unchanged appearance of the chronic occlusion of the left ICA beginning at the origin of the cervical segment. There is reconstitution within the supraclinoid segment secondary to the igiugig of [place] with irregular diminutive flow seen within the ophthalmic branch. Mostly mild multifocal stenoses of the middle and anterior cerebral arteries which are patent. The dominant and widely patent right vertebral artery. Developmentally diminutive left vertebral artery demonstrates multifocal areas of high-grade stenoses which are unchanged prior study. The basilar and posterior cerebral arteries are patent. Dural sinuses appear patent. Lung apices are clear. Unremarkable soft tissues. No acute fracture. IMPRESSION: 1. No acute intracranial abnormality. 2. Encephalomalacia related to the subacute to chronic left frontal lobe hewitt radiata, left basal ganglia and thalamic lacunar infarcts which were acute on the brain MRI from 04/30/2023. 3. Unchanged appearance of the chronic occlusion of the left internal carotid artery. 4. Unchanged appearance of the multifocal high-grade stenoses throughout the left vertebral artery. ACT 112: Negative or not required by law. The above report was generated using voice recognition software. It may contain grammatical, syntax or spelling errors. Electronically signed by: Herberth Broussard M.D. 09/15/2023 2:44 PM Discharge Plan Visit Data Chief Complaint: Eye Problems Stated Complaint: REF BY DOC, EYE PROBLEMS ED Provider: Sony Le Discharge Problem: Central retinal artery occlusion of left eye, History of TIA (transient ischemic attack), Left carotid artery occlusion, Hypertension Forms Stand Alone Forms: My [facility] Prescriptions Prescriptions: No Action omega 7-yqy-ofv-fish oil [Fish Oil] 1,000 mg (120 mg-180 mg) Capsule 1 cap PO DAILY Centrum Silver Ultra Men's 300-600-300 mcg Tablet 1 tab PO QAM ascorbic acid (vitamin C) [Vitamin C] 500 mg Tablet 500 mg PO DAILY leflunomide 10 mg tablet 10 mg PO DAILY clopidogrel 75 mg tablet 75 mg PO DAILY ezetimibe 10 mg tablet 10 mg PO DAILY losartan 50 mg Tablet 50 mg PO BID Qty: 60 0RF naproxen sodium [Aleve] 220 mg Tablet 220 mg PO HS gabapentin 100 mg capsule 100 mg PO BID aspirin 325 mg Tablet 325 mg PO BID Referrals Referrals: Roel Brown MD [Primary Care Provider] - Discharge Problem: Hypertension Qualifiers: Hypertension type: unspecified Qualified Code(s): I10 - Essential (primary) hypertension
--- NOTE | 2023-09-15 13:28 | XRay Report ---
XR chest 1V portable HISTORY: 72 years-old Male neuro deficit, acute stroke suspected COMPARISON: CTA chest 04/29/2023 TECHNIQUE: AP view of the chest FINDINGS: Left subclavian pacer. Pulmonary nodules are better seen on the comparison CTA of the chest. No pneum othorax, pleural effusion or airspace consolidation. Chronic interstitial coarsening. A surgical clip projects over the left neck. Bones appear grossly intact. IMPRESSION: No acute process. ACT 112: Negative or not required by law. The above report was generated using voice recognition software. It may contain grammatical, syntax o r spelling errors. Electronically signed by: Herberth Broussard M.D. 09/15/2023 1:27 PM
[2023-09-15 13:38] LABS: Basophils # (auto) 0.07 K/uL (0.00-0.20); Basophils % (auto) 0.8 %; Eosinophils # (auto) 0.29 K/uL (0.00-0.50); Eosinophils % (auto) 3.4 %; Hematocrit (blood only) 44.7 % (42.0-52.0); Hemoglobin 14.5 g/dl (14.0-18.0); Immature Granulocytes # (auto) 0.04 K/uL (0.01-0.20); Immature Granulocytes % (auto) 0.5 %; Lymphocytes # (auto) 1.46 K/uL (1.20-3.40); Lymphocytes % (auto) 17.3 %; Mean Corpuscular Hemoglobin 29.3 pg (25.0-34.0); Mean Corpuscular Hgb Conc 32.4 g/dL (32.0-36.0); Mean Corpuscular Volume 90.3 fL (80.0-100.0); Mean Platelet Volume 9.3 fL (9.4-12.4); Monocytes # (auto) 0.82 K/uL (0.11-0.59); Monocytes % (auto) 9.7 %; Neutrophils # (auto) 5.77 K/uL (1.40-6.50); Neutrophils % (auto) 68.3 %; Platelet Count 240 K/uL (130-400); RDW Coefficient of Variation 13.7 % (11.5-14.5); Red Blood Count 4.95 M/uL (4.70-6.10); White Blood Count 8.45 K/ul (4.8-10.8)
[2023-09-15] MEDS: SODIUM CHLORIDE 0.9% 1,000 ML IV ONE (13:42)
--- OUTSIDE RECORDS SUMMARY | 2023-09-15 13:44 | External Medical Summary | Summary of Care ---
Author Name Unknown Organization [facility] Address [address] [place] [address] Phone [phone] Care Team Providers Care Spotter Name Role Phone Roel Brown MD Primary Care Provider [phone] Encounter Details Date Type Department Care Team (Late st Contact Info) Description 05/28/2023 Telephone Orthopaedics [facility] [address] [place] [place] [address] Evelyn Deleon DPM [address] [place] [address] Allergies Active Allergy Reactions Criticality Noted Date Comments Atorvastatin Muscle pain 04/02/2018 Codeine 02/17/2022 Lidocaine Neuro complications (Please comment) High 06/30/2016 Syncope. Pt passes out and will be extremely exhausted for an hour DO NOT USE Evolocumab 05/14/2020 Dizziness documented as of this encounter (statuses as of 08/24/2023) Medications Medication Sig Dispensed Refills Start Date End Date Status Multiple Vitamins-Minerals (CENTRUM SILVER) Tablet Take 1 Tablet by mouth in the morning. 0 12/03/2015 Active fish oil concentrate (OMEGA-3) 1000 MG CAPS Take 1,200 mg by mouth 2 times a day. 60 Cap 5 09/19/2016 Active Vitamin E 100 units Tablet Take by mouth daily . 450 mg a day 0 Active Turmeric 500 MG Oral Capsule Take 1 Capsule by mouth in the morning. 2 tabs a day . 0 Active QC Aspirin Low Dose 81 MG Oral Tablet Delayed Release daily. 0 12/21/2022 Active Losartan Potassium 50 MG Oral Tablet (Cozaar) Take 1 Tablet by mouth in the morning and 1 Tablet before bedtime. 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 05/05/2022 Chronic heart failure with preserved ejection fr action 05/05/2022 Carotid stenosis, bilateral 05/05/2022 Enlarged aorta 05/05/2022 Cardiac pacemaker in situ 05/05/2022 History of PA (myocardial infarction) 05/05/2022 Primary hypertension 12/01/2021 SSS (sick sinus syndrome) 09/07/2021 First degree heart block 05/27/2021 Encounter for long-term (current) drug use 08/20 Rheumatoid arthritis involvi ng multiple sites with positive rheumatoid factor 05/08/2017 Sigmoid diverticulosis 07/11/2016 Overview: sigmoid and descending colon Coronary artery disease invo lving [place] coronary artery of [place] heart without angina pectoris 05/24/2016 ADVANCE DIRECTIVE INFORMATION 01/08/2006 Overview: No, Advance Directive brochure given to patient at prior appointment. 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, left 03/21/2005 12/03/2015 TENNIS ELBOW (EPICONDYLITIS) 03/21/2005 12/03/2015 Coronary artery disease 08/31 Essential hypertension with goal blood pressure less than 140/90 05/08/2017 CKD (chronic kidney disease), stage III 06/10/2020 Overview: GFR 55.7 Carotid artery disease 06/06 Overview: right documented as of this encounter (statuses as of 08/24/2023) Immunizations Name Administration Dates Next Due COVID-19 mRNA, LNP-s, No Pre serve, 2-Dose Series (Moderna) 08/30/2021,08/02/2021 Covid-19, Mrna, Lnp-s, Pf, B ivalent, 30 Mcg, IM, 12 yrs and above (Pfizer) 06/13/2022 Pneumococcal Conjugate Vacc, 13 Valent (Prevnar) 12/03/2015 Pneumococcal Polysaccharide PPV23 (Pneumovax) 11/28/2016 Season Influenza, Quad, PF, Adjuvanted, 65+ Yrs, IM (FLUAD) 04/26/2020 Seasonal Influenza Virus Vac cine, Unspecified Formulation 07/03/2019,07/03/2018,08/20/2017 Seasonal Influenza, PF, 6 M & above, IM , (FluLaval or Fluzone) 06/01/2021,07/03/2019,07/03/2018,08/20 Seasonal Influenza, Quadriva lent Hd (Fluzone Hd) 04/03/2023,03/30/2022 TDAP (age 10 and older)(Boostrix) 12/03/2015,08/2010 documented as of this encounter Social History Tobacco Use Types Packs/Day Years Used Date Smoking Tobacco: Former Cigarettes 0.5 25 Q uit: 01/26/1990 Pipe Cigars Smokeless Tobacco: Current Snuff Comments:a can every 2 days Alcohol Use Standard Drinks/Week Comments No 0 (1 standard drink = 0.6 oz pur e alcohol) PHQ-2 Answer Date Recorded PHQ Adult Total Score 0 04/03/2023 Hunger Vital Sign Answer Date Recorded Within the past 12 months, y ou worried that your food would run out before you got the money to buy more. Never true 04/03/20 23 Within the past 12 months, t he food you bought just didn't last and you didn't have money to get more. Never true 04/03/2023 Sex and Gender Information Value Date Recorded Sex Assigned at Male 03/29/2021 10:13 AM EDT Gender Identity Male 03/29/2021 10:13 AM EDT Sexual Orientation Straight 03/29/2021 10 :13 AM EDT Job Start Date Occupation Industry Not on file Not on file Not on file documented as of this encounter Miscellaneous Notes * Telephone Encounter - Cady Wilkerson LPN - 05/28/2023 4:12 PM EDT Called pt for more info, states incision area was painful and he was unable to walk Sunday afternoon, he started to rub it, the area 'broke open' and 'a bunch of pus came out'. Then used epsom salt soak and is applying iodine and sterile gauze. Now has 'a little pain', not assevere as it was. Has redness, no streaks. Reports had a stroke since the foot surgery in February, has not regained all feeling in the foot yet. Has pins and needles feeling. Asked pt to please send a picture through MyG if able, aware will forward to provider; pt agreeableto seek care urgently if severe pain, increased symptoms of infection. documented in this encounter Plan of Treatment Upcoming Encounters Date Type Department Care Team (Late st Contact Info) Description 11/28/2023 9:00 AM EDT Office Visit Family Medicine [facility] [place] [place] [phone] Alejandro Pete MD [address] [place] [address] [place] [address] 12/18/2023 10:00 AM EDT Cardiac Studies Cardiology, [facility] [address] [facility] [place] [address] [facility] [address] [place] [address] 04/04/2024 10:00 AM EDT Nurse Only Ancillary [address] [place] [address] [place], Nurse Annual [address] [place] [address] 06/23/2024 3:20 PM EST Office Visit Rheumatology [address] [place] [phone] Andriy Cespedes MD [address] [place] [facility] [address] Health Maintenance Due Date Last Done Comments Zoster Vaccines (1 of 2) 10[birth year]10/1969 COLONOSCOPY-EVERY 5 YRS AGES 18-100 07/11/2021 07/11/2016, 07/11/2016 COVID-19 Vaccine (2022- season) 2023 06/13/2022, 08/30/2021, 08/02/2021 Albumin/Creatinine Ratio 05/26/202305/26/2 022, 09/28/2017, 12/03/2015 GFR 11/16/2023 05/17/2023, 05/0 03/2023, 10/20/2022, Additional history exists Depression Screening 04/03/2024 04/03/2023 CKD HGB USE SMARTSET 00230 05/17/202405/17, 05/17/2023, 12/05/2022, Additional history exists CKD PHOS USE SMARTSET 51441 05/17/202404/29, 05/30/2021, 06/08/2020, Additional history exists DTaP,Tdap,and Td Vaccines (3 - Td or Tdap) 12/02/2025 12/03/2015, 12/29/2010 AAA Screening Completed 06/13/2016 Pneumococcal Vaccine: 65+ Years Completed 11/28/2016, 12/03/2015 Influenza Vaccine (FLU shot) Completed 11/2022, 03/30/2022, 06/01/2021, Additional history exists GARDASIL-HPV IMMUNIZATION SERIES Aged Out No longer eligible based on patient's age to complete this topic Hepatitis B Aged Out No longer eligi ble based on patient's age to complete this topic MENINGOCOCCAL (MENACTRA/MENVEO) Aged Out No longer eligible based on patient's age to complete this topic documented as of this encounter Medical Devices Implanted Type Area Recycling Assistant Device Identifier Shelf Expiration Date Model / Serial / Lot Lens Intraoc 25.5 - [id number] - [id number] Implanted:Qty: 1 on 05/11/2022 by Ishmael Malcolm MD at OR [facility] Right: Eye [employer] 09/26/2026 [id number] / [id number] / [id number] Lens Intraoc 26.0 - [id number] - [id number] Implanted:Qty: 1 on 05/18/2022 by Ishmael Malcolm MD at OR [facility] Left: Eye [employer] 10/27/2025 [id number] / [id number] / [id number] documented as of this encounter Advance Directives Latest Code Status on File Code Status Date Activated Date Inactivated Comments No Code 05/18/2022 10:43 AM 05/18/2022 4:39 PM Th is order reflects the patients wishes and were consensually agreed upon. Question Answer Comments Discussion of Advance Directives occurred with: Patient Does the patient have a Living Will? No Does the patient have Health Care Power of Systems Security Analyst? No Code Status History Code Status Date Activated Date Inactivated Comments No Code 05/11/2022 11:54 AM 05/11/2022 6:22 PM Th is order reflects the patients wishes and were consensually agreed upon. Question Answer Comments Discussion of Advance Directives occurred with: Patient Does the patient have a Living Will? No Does the patient have Health Care Power of Systems Security Analyst? No Full Code 04/09/2020 1:05 PM 04/09/2020 7:00 PM This order reflects the patients wishes and were consensually agreed upon. Care Teams Spotter Relationship Specialty Start Date End Date Roel Brown MD [address] [place] [address] [place] [phone] PCP - General Family Medicine 12/03/15 documented as of this encounter
--- OUTSIDE RECORDS SUMMARY | 2023-09-15 13:44 | External Medical Summary | Summary of Care ---
Author Name Unknown Organization [facility] Address [address] [place] [address] Phone [phone] Care Team Providers Care Dude Ranch Manager Name Role Phone Roel Brown MD Primary Care Provider [phone] Encounter Details Date Type Department Care Team (Late st Contact Info) Description 09/13/2023 Result Scan Unspecified Department Kartik Bray, DO [address] [place] [address] <No scans attached> Allergies Active Allergy Reactions Criticality Noted Date Comments Atorvastatin Muscle pain 04/02/2018 Codeine 02/17/2022 Lidocaine Neuro complications (Please comment) High 06/30/2016 Syncope. Pt passes out and will be extremely exhausted for an hour DO NOT USE Evolocumab 05/14/2020 Dizziness documented as of this encounter (statuses as of 09/13/2023) Medications Medication Sig Dispensed Refills Start Date [...] before bedtime. 180 Tablet 3 05/28/2023 Active Leflunomide 10 MG Oral Tablet (Arava)Indications: Rheumatoid arthritis involving multiple sites with positive rheumatoid factor (HCC) TAKE ONE TABLET BY MOUTH EVERY DAY IN THE MORNING 100 Tablet 1 06/18/2023 06/17/2024 Active Ezetimibe 10 MG Oral Tablet (Zetia)Indications: Coronary artery disease involving [place] coronary artery of [place] heart without angina pectoris,Hyperlipid emia LDL goal <100 TAKE ONE TABLET BY MOUTH EVERY MORNING 100 Tablet 1 06/30/2023 Active Clopidogrel Bisulfate 75 MG Oral Tablet (pLAVix)Indications :History of TIA (transient ischemic attack) TAKE ONE TABLET BY MOUTH EVERY DAY 100 Tablet 4 07/07/2023 07/06/2024 Active Gabapentin 100 MG Oral Capsule (Neurontin) Take 2 Capsules by mouth at bedtime. 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 05/05/2022 Chronic heart failure with preserved ejection fr action 05/05/2022 Carotid stenosis, bilateral 05/05/2022 Enlarged aorta 05/05/2022 Cardiac pacemaker in situ 05/05/2022 History of [place] (myocardial infarction) 05/05/2022 Primary hypertension 12/01/2021 SSS (sick sinus syndrome) 09/07/2021 First degree heart block 05/27/2021 Encounter for long-term (current) drug use 08/20 Rheumatoid arthritis involvi ng multiple sites with positive rheumatoid factor 05/08/2017 Sigmoid diverticulosis 07/11/2016 Overview: sigmoid and descending colon Coronary artery disease invo lving [place] coronary artery of [place] heart without angina pectoris 05/24/2016 ADVANCE DIRECTIVE INFORMATION 01/08/2006 Overview: No, Advance Directive brochure given to patient at prior appointment. Hyperlipidemia LDL goal <100 documented as of this encounter (statuses as of 09/13/2023) Resolved Problems Problem Noted Date Diagnosed Date [...] as of this encounter (statuses as of 09/13/2023) Immunizations Name Administration Dates Next Due COVID-19 [...] on file documented as of this encounter Plan of Treatment Upcoming Encounters Date Type Department Care Team (Late st Contact Info) Description 11/28/2023 9:00 AM EDT Office Visit Family Medicine [address] [place] [phone] Alejandro Pete MD [address] [place] [address] [place] [address] 12/18/2023 10:00 AM EDT Cardiac Studies Cardiology, [facility] [address] [facility] [place] [address] [facility] [address] [facility] [place] [address] 04/04/2024 10:00 AM EDT Nurse Only Ancillary [address] [place] [address] [place], Nurse Annual [address] [place] [address] 06/23/2024 3:20 PM EST Office Visit Rheumatology [address] [place] [phone] Andriy Cespedes MD [address] [place] [address] [place] [address] Health Maintenance Due Date Last Done Comments Zoster Vaccines (1 of 2) 10/10/1969 COLONOSCOPY-EVERY 5 YRS AGES 18-100 07/11/2021 07/11/2016, 07/11/2016 COVID-19 Vaccine ( season) 2023 06/13/2022, 08/30/2021, 08/02/2021 Albumin/Creatinine Ratio 05/26/2023 022, 09/28/2017, 12/03/2015 GFR 11/16/2023 05/17/2023, 0503/2023, 10/20/2022, Additional history exists Depression Screening 04/03/2024 04/03/2023 CKD HGB USE SMARTSET 36955 05/17/202405/17, 05/17/2023, 12/05/2022, Additional history exists CKD PHOS USE SMARTSET 33688 05/17/202404/29, 05/30/2021, 06/08/2020, Additional history exists DTaP,Tdap,and [...] this encounter Medical Devices Implanted Type Area Core Inspector Device Identifier Shelf Expiration Date Model / Serial / Lot Lens Intraoc 25.5 - [id number] - [id number] Implanted:Qty: 1 on 05/11/2022 by Ishmael Malcolm MD at OR [facility] Right: Eye [employer] 09/26/2026 [id number] / [id number] / [id number] Lens Intraoc 26.0 - [id number] - [id number] Implanted:Qty: 1 on 05/18/2022 by Ishmael Malcolm MD at OR [facility] Left: Eye [employer] 10/27/2025 [id number] / [id number] / [id number] documented as of this encounter Procedures Procedure Name Priority Date/Time Associated Diagnosis Comments CARDIOLOGY SCANNED RESULT 09/13/2023 documented in this encounter Results * CARDIOLOGY SCANNED RESULT (09/13/2023) 09/13/2023 Kartik Bray DO OTHER documented in this encounter Advance Directives Latest Code Status on File Code Status Date Activated Date Inactivated Comments No Code 05/18/2022 10:43 AM 05/18/2022 4:39 PM Th is order reflects the patients wishes and were consensually agreed upon. Question Answer Comments Discussion of Advance Directives occurred with: Patient Does the patient have a Living Will? No Does the patient have Health Care Power of Tractor Engine Assembler? No Code Status History Code Status Date Activated Date Inactivated Comments No Code 05/11/2022 11:54 AM 05/11/2022 6:22 PM Th is order reflects the patients wishes and were consensually agreed upon. Question Answer Comments Discussion of Advance Directives occurred with: Patient Does the patient have a Living Will? No Does the patient have Health Care Power of Tractor Engine Assembler? No Full Code 04/09/2020 1:05 PM 04/09/2020 7:00 PM This order reflects the patients wishes and were consensually agreed upon. Care Teams Dude Ranch Manager Relationship Specialty Start Date End Date Roel Brown MD [address] [place] [address] [place] [address] PCP - General Family Medicine 12/03/15 documented as of this encounter
--- OUTSIDE RECORDS SUMMARY | 2023-09-15 13:45 | External Medical Summary | Summary of Care ---
Author Name Unknown Organization [facility] Address [address] [place] [address] Phone [phone] Care Team Providers Care Nitrocellulose Operator Name Role Phone Roel Brown MD Primary Care Provider [phone] Reason for Visit * Reason Onset Date Comments Appointment 05/24/2023 Encounter Details Date Type Department Care Team ([facility] st Contact Info) Description 05/24/2023 Telephone Care Coordination [address] [place] [address] Sharri Chatterjee LPN [address] [place], [place] [id number] Appointment Allergies Active Allergy Reactions Criticality Noted Date Comments Atorvastatin Muscle pain 04/02/2018 Codeine 02/17/2022 Lidocaine Neuro complications (Please comment) High 06/30/2016 Syncope. Pt passes out and will be extremely exhausted for an hour DO NOT USE Evolocumab 05/14/2020 Dizziness documented as of this encounter (statuses as of 05/24/2023) Medications Medication Sig Dispensed Refills Start Date [...] Tablet Delayed Release daily. 0 12/21/2022 Active Clopidogrel Bisulfate 75 MG Oral Tablet (pLAVix)Indications: History of TIA (transient ischemic attack) TAKE ONE TABLET BY MOUTH EVERY DAY 100 Tablet 1 01/02/2023 01/02/2024 Active Leflunomide 10 MG Oral Tablet (Arava)Indications:R heumatoid arthritis involving multiple sites with positive rheumatoid factor (HCC) TAKE ONE TABLET BY MOUTH EVERY DAY IN THE MORNING 100 Tablet 1 12/05/2022 12/05/2023 Active Ezetimibe 10 MG Oral Tablet (Zetia)Indications:C oronary artery disease involving redding coronary artery of redding heart without angina pectoris,Hyperlipide nancy LDL goal <100 TAKE ONE TABLET BY MOUTH EVERY MORNING 100 Tablet 3 06/07/2022 07/08/2023 Active Losartan Potassium 50 MG Oral Tablet (Cozaar) Take 1 Tablet by mouth in the morning and 1 Tablet before bedtime. 0 04/30/2023 Active Gabapentin 100 MG Oral Capsule (Neurontin) Take 1 Capsule by mouth at bedtime. 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 05/05/2022 Chronic heart failure with preserved ejection fr action 05/05/2022 Carotid stenosis, bilateral 05/05/2022 Enlarged aorta 05/05/2022 Cardiac pacemaker in situ 05/05/2022 History of [place] (myocardial infarction) 05/05/2022 Primary hypertension 12/01/2021 SSS (sick sinus syndrome) 09/07/2021 First degree heart block 05/27/2021 Encounter for long-term (current) drug use 08/20 Rheumatoid arthritis involvi ng multiple sites with positive rheumatoid factor 05/08/2017 Sigmoid diverticulosis 07/11/2016 Overview: sigmoid and descending colon Coronary artery disease invo lving redding coronary artery of redding heart without angina pectoris 05/24/2016 ADVANCE DIRECTIVE INFORMATION 01/08/2006 Overview: No, Advance Directive brochure given to patient at prior appointment. Hyperlipidemia LDL goal <100 documented as of this encounter (statuses as of 05/24/2023) Resolved Problems Problem Noted Date Diagnosed Date [...] as of this encounter (statuses as of 05/24/2023) Immunizations Name Administration Dates Next Due COVID-19 mRNA, LNP-s, No Pre serve, 2-Dose Series (Moderna) 08/30/2021,08/02/2021 Covid-19, Mrna, Lnp-s, Pf, B ivalent, 30 Mcg, IM, 12 yrs and above (Pfizer) 06/13/2022 Pneumococcal Conjugate Vacc, 13 Valent (Prevnar) 12/03/2015 Pneumococcal Polysaccharide PPV23 (Pneumovax) 11/28/2016 SEASONAL INFLUENZA, PF, 6 M & Above, IM , (FLULAVAL or FLUZONE) 06/01/2021,07/03/2019,07/03/2018,08/20 Season Influenza, Quad, PF, Adjuvanted, 65+ Yrs, IM (FLUAD) 04/26/2020 Seasonal Influenza Virus Vac cine, Unspecified Formulation 07/03/2019,07/03/2018,08/20/2017 Seasonal Influenza, Quadriva lent Hd (Fluzone Hd) [...] encounter Miscellaneous Notes * Telephone Encounter - Nadia Howell - 05/24/2023 12:19 PM EDT Scheduled for first available appt with Dr. Deleon on 06/19 * Telephone Encounter - Sharri Chatterjee LPN - 05/24/2023 10:42 AM EDT Per note from FLOOR LAYER APPRENTICE: "Spoke to patient in response to IVR alerts for unsteadiness when walking, new pain and swelling. - Patient stated that before he had his stroke, he had surgery on his right foot to remove a rheumatoid arthritis nodule. Patient stated the feeling in coming back on his right foot and he has increased pain and swelling on the incision. Patient stated he isn't able to wear shoes. Patient stated there seems to be a "bump on the incision"." Can someone assist with scheduling please. Thank you. documented in this encounter Plan of Treatment Upcoming Encounters Date Type Department Care Team (Late st Contact Info) Description 06/11/2023 10:00 AM EST Office Visit Family Medicine [address] [place] [phone] Roel Brown MD [address] [place] [address] [place] [address] 06/19/2023 2:00 PM EST Office Visit Podiatry [facility] [address] [place] [address] Evelyn Deleon DPM 132 [facility] [place] [address] 06/22/2023 9:40 AM EST Office Visit Rheumatology [address] [place] [phone] Andriy Cespedes MD [address] [place], [place] [address] [address] 11/28/2023 9:00 AM EDT Office Visit Family Medicine [address] [place] [phone] Alejandro Pete MD [address] [place] [address] [place] [address] 12/18/2023 10:00 AM EDT Cardiac Studies Cardiology, [facility] [address] [place] [address] [facility] [address] [place] [address] 04/04/2024 10:00 AM EDT Nurse Only Ancillary [facility] [address] [place] [address] Marcellus, Nurse [address] [place] [address] Health Maintenance Due Date Last Done Comments Zoster Vaccines (1 of 2) 10[birth year]10/1969 COLONOSCOPY-EVERY 5 YRS AGES 18-100 07/11/2021 07/11/2016, 07/11/2016 COVID-19 Vaccine (2022- season) 2023 06/13/2022, 08/30/2021, 08/02/2021 Albumin/Creatinine Ratio 05/26/2023 022, 09/28/2017, 12/03/2015 GFR 11/16/2023 05/17/2023, 050 03/2023, 10/20/2022, Additional history exists Depression Screening 04/03/2024 04/03/2023 CKD HGB USE SMARTSET 57070 05/17/202405/17, 05/17/2023, 12/05/2022, Additional history exists CKD PHOS USE SMARTSET 04487 05/17/202404/29, 05/30/2021, 06/08/2020, Additional history exists DTaP,Tdap,and [...] this encounter Medical Devices Implanted Type Area Manufacturing Executive Device Identifier Shelf Expiration Date Model / Serial / Lot Lens Intraoc 25.5 - [id number] - [id number] Implanted:Qty: 1 on 05/11/2022 by Ishmael Malcolm MD at OR [facility] Right: Eye [employer] 09/26/2026 [id number] / [id number] / [id number] Lens Intraoc 26.0 - [id number] - [id number] Implanted:Qty: 1 on 05/18/2022 by Ishmael Malcolm MD at OR [facility] Left: Eye [employer]OM[employer] 10/27/2025 [id number] / [id number] / [id number] documented as of this encounter Advance Directives [...] the patient have Health Care Power of Insurance Verification Clerk? No Code Status History Code Status Date Activated Date Inactivated Comments No Code 05/11/2022 11:54 AM 05/11/2022 6:22 PM Th is order reflects the patients wishes and were consensually agreed upon. Question Answer Comments Discussion of Advance Directives occurred with: Patient Does the patient have a Living Will? No Does the patient have Health Care Power of Insurance Verification Clerk? No Full Code 04/09/2020 1:05 PM 04/09/2020 7:00 PM This order reflects the patients wishes and were consensually agreed upon. Care Teams Nitrocellulose Operator Relationship Specialty Start Date End Date Roel Brown MD [address] [place] [address] [place] [address] PCP - General Family Medicine 12/03/15 documented as of this encounter
--- OUTSIDE RECORDS SUMMARY | 2023-09-15 13:45 | External Medical Summary | Summary of Care ---
Author Name Unknown Organization [facility] Address [address] [place] [address] Phone [phone] Care Team Providers Care Muffler Tender Name Role Phone Roel Brown MD Primary Care Provider [phone] Encounter Details Date Type Department Care Team (Late st Contact Info) Description 05/28/2023 Orders Only Cardiology, [facility] [address] [place] [address] Stacia Soto CRNP [address] [facility] [place] [address] Allergies Active Allergy Reactions Criticality Noted Date Comments Atorvastatin Muscle pain 04/02/2018 Codeine 02/17/2022 Lidocaine Neuro complications (Please comment) High 06/30/2016 Syncope. Pt passes out and will be extremely exhausted for an hour DO NOT USE Evolocumab 05/14/2020 Dizziness documented as of this encounter (statuses as of 05/28/2023) Medications Medication Sig Dispensed Refills Start Date [...] Active Clopidogrel Bisulfate 75 MG Oral Tablet (pLAVix)Indication s:History of TIA (transient ischemic attack) TAKE ONE TABLET BY MOUTH EVERY DAY 100 Tablet 1 01/02/2023 01/02/2024 Active Leflunomide 10 MG Oral Tablet (Arava)Indications :Rheumatoid arthritis involving multiple sites with positive rheumatoid factor (HCC) TAKE ONE TABLET BY MOUTH EVERY DAY IN THE MORNING 100 Tablet 1 12/05/2022 12/05/2023 Active Ezetimibe 10 MG Oral Tablet (Zetia)Indications :Coronary artery disease involving [place] coronary artery of caddo heart without angina pectoris,Hyperlipi demia LDL goal <100 TAKE ONE TABLET BY MOUTH EVERY MORNING 100 Tablet 3 06/07/2022 07/08/2023 Active Gabapentin 100 MG Oral Capsule (Neurontin) Take 1 Capsule by mouth at bedtime. 90 Capsule 0 05/07/2023 Active Losartan Potassium 50 MG Oral Tablet (Cozaar) Take 1 Tablet by mouth in the morning and 1 Tablet before bedtime. 180 Tablet 3 05/28/2023 Active Losartan Potassium 50 MG Oral Tablet (Cozaar) Take 1 Tablet by mouth in the morning and 1 Tablet before bedtime. 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 05/05/2022 Chronic heart failure with preserved ejection fr action 05/05/2022 Carotid stenosis, bilateral 05/05/2022 Enlarged aorta 05/05/2022 Cardiac pacemaker in situ 05/05/2022 History of [place] (myocardial infarction) 05/05/2022 Primary hypertension 12/01/2021 SSS (sick sinus syndrome) 09/07/2021 First degree heart block 05/27/2021 Encounter for long-term (current) drug use 08/20 Rheumatoid arthritis involvi ng multiple sites with positive rheumatoid factor 05/08/2017 Sigmoid diverticulosis 07/11/2016 Overview: sigmoid and descending colon Coronary artery disease invo lving caddo coronary artery of caddo heart without angina pectoris 05/24/2016 ADVANCE DIRECTIVE INFORMATION 01/08/2006 Overview: No, Advance Directive brochure given to patient at prior appointment. Hyperlipidemia LDL goal <100 documented as of this encounter (statuses as of 05/28/2023) Resolved Problems Problem Noted Date Diagnosed Date [...] as of this encounter (statuses as of 05/28/2023) Immunizations Name Administration Dates Next Due COVID-19 [...] 10:00 AM EST Office Visit Family Medicine [address] [place] [phone] Roel Brown MD [address] [place] [address] [place] [address] 06/19/2023 2:00 PM EST Office Visit Podiatry [facility] [address] [place] [address] Evelyn Deleon DPM 132 [facility] [place] [address] 06/22/2023 9:40 AM EST Office Visit Rheumatology [address] [place] [phone] Andriy Cespedes MD [address] [place] [address] 11/28/2023 9:00 AM EDT Office Visit Family Medicine [address] [place] [phone] Alejandro Pete MD [address] [place] [address] [place] [address] 12/18/2023 10:00 AM EDT Cardiac Studies Cardiology, [facility] [address] [facility] [place] [address] Marcellus, Pacer Clinic [facility] [address] [facility] [place] [address] 04/04/2024 10:00 AM EDT Nurse Only Ancillary [address] [place] [address] Marcellus, Nurse Annual [address] [place] [address] Health Maintenance Due Date Last Done Comments Zoster Vaccines (1 of 2) 10/10/1969 COLONOSCOPY-EVERY 5 YRS AGES 18-100 07/11/2021 07/11/2016, 07/11/2016 COVID-19 Vaccine (2022- season) 2023 06/13/2022, 08/30/2021, 08/02/2021 Albumin/Creatinine Ratio 05/26/202305/26/2 022, 09/28/2017, 12/03/2015 GFR 11/16/2023 05/17/2023, 05/0 03/2023, 10/20/2022, Additional history exists Depression Screening 04/03/2024 04/03/2023 CKD HGB USE SMARTSET 88117 05/17/202405/17, 05/17/2023, 12/05/2022, Additional history exists CKD PHOS USE SMARTSET 69543 05/17/202404/29, 05/30/2021, 06/08/2020, Additional history exists DTaP,Tdap,and [...] this encounter Medical Devices Implanted Type Area Band Log Mill And Carriage Operator Device Identifier Shelf Expiration Date Model / Serial / Lot Lens Intraoc 25.5 - [id number] - [id number] Implanted:Qty: 1 on 05/11/2022 by Ishmael Malcolm MD at OR [facility] Right: Eye [employer]OM[employer] 09/26/2026 [id number] / [id number] / [id number] Lens Intraoc 26.0 - [id number] - [id number] Implanted:Qty: 1 on 05/18/2022 by Ishmael Malcolm MD at OR [facility] Left: Eye [employer]CH [employer] LOMB 10/27/2025 [id number] / [id number] / [id number] documented as of this encounter Advance Directives [...] the patient have Health Care Power of Generator Switchboard Operator? No Code Status History Code Status Date Activated Date Inactivated Comments No Code 05/11/2022 11:54 AM 05/11/2022 6:22 PM Th is order reflects the patients wishes and were consensually agreed upon. Question Answer Comments Discussion of Advance Directives occurred with: Patient Does the patient have a Living Will? No Does the patient have Health Care Power of Generator Switchboard Operator? No Full Code 04/09/2020 1:05 PM 04/09/2020 7:00 PM This order reflects the patients wishes and were consensually agreed upon. Care Teams Muffler Tender Relationship Specialty Start Date End Date Roel Brown MD [address] [place] [address] [place] [address] PCP - General Family Medicine 12/03/15 documented as of this encounter
--- OUTSIDE RECORDS SUMMARY | 2023-09-15 13:45 | External Medical Summary | Summary of Care ---
Author Name Unknown Organization [facility] Address [address] [place] [address] Phone [phone] Care Team Providers Care Editing Intern Name Role Phone Roel Choi MD Primary Care Provider [phone] Reason for Visit * Reason Comments Medication Refill Encounter Details Date Type Department Care Team (Late st Contact Info) Description 07/07/2023 Refill Family Medicine [address] [phone] Roel Choi MD [address] [place] [address] [place] [address] History of TIA (transient ischemic attack) Allergies Active Allergy Reactions Criticality Noted Date Comments Atorvastatin Muscle pain 04/02/2018 Codeine 02/17/2022 Lidocaine Neuro complications (Please comment) High 06/30/2016 Syncope. Pt passes out and will be extremely exhausted for an hour DO NOT USE Evolocumab 05/14/2020 Dizziness documented as of this encounter (statuses as of 07/07/2023) Medications Medication Sig Dispensed Refills Start Date [...] Tablet Delayed Release daily. 0 12/21/2022 Active Gabapentin 100 MG Oral Capsule (Neurontin) Take 1 Capsule by mouth at bedtime. 90 Capsule 0 05/07/2023 Active Losartan Potassium 50 MG Oral Tablet (Cozaar) Take 1 Tablet by mouth in the morning and 1 Tablet before bedtime. 180 Tablet 3 05/28/2023 Active Leflunomide 10 MG Oral Tablet (Arava)Indications :Rheumatoid arthritis involving multiple sites with positive rheumatoid factor (HCC) TAKE ONE TABLET BY MOUTH EVERY DAY IN THE MORNING 100 Tablet 1 06/18/2023 06/17/2024 Active Ezetimibe 10 MG Oral Tablet (Zetia)Indications :Coronary artery disease involving [place] coronary artery of hyd[place] heart without angina pectoris,Hyperlipi demia LDL goal <100 TAKE ONE TABLET BY MOUTH EVERY MORNING 100 Tablet 1 06/30/2023 Active Clopidogrel Bisulfate 75 MG Oral Tablet (pLAVix)Indication s:History of TIA (transient ischemic attack) TAKE ONE TABLET BY MOUTH EVERY DAY 100 Tablet 4 07/07/2023 07/06/2024 Active Clopidogrel Bisulfate 75 MG Oral Tablet (pLAVix)Indication s:History of TIA (transient ischemic attack) TAKE ONE TABLET BY MOUTH EVERY DAY 100 Tablet 1 01/02/2023 07/07/2023 Discontinued (Refill) documented as of this encounter (statuses as of 07/07/2023) Active Problems Problem Noted Date Diagnosed Date Carotid artery occlusion without infarction, lef t 04/27/2023 Overview: TIA [facility] Vertebral artery occlusion, left 04/27/2023 Overview: [facility] H/O TIA (transient ischemic attack) and stroke 0 12/20/2022 CKD (chronic kidney disease), stage II Overview: EGFR 67 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 05/05/2022 Chronic heart failure with preserved ejection fr action 05/05/2022 Carotid stenosis, bilateral 05/05/2022 Enlarged aorta 05/05/2022 Cardiac pacemaker in situ 05/05/2022 History of [place] (myocardial infarction) 05/05/2022 Primary hypertension 12/01/2021 SSS (sick sinus syndrome) 09/07/2021 First degree heart block 05/27/2021 Encounter for long-term (current) drug use 08/20 Rheumatoid arthritis involvi ng multiple sites with positive rheumatoid factor 05/08/2017 Sigmoid diverticulosis 07/11/2016 Overview: sigmoid and descending colon Coronary artery disease invo lving [place] coronary artery of [place] heart without angina pectoris 05/24/2016 ADVANCE DIRECTIVE INFORMATION 01/08/2006 Overview: No, Advance Directive brochure given to patient at prior appointment. Hyperlipidemia LDL goal <100 documented as of this encounter (statuses as of 07/07/2023) Resolved Problems Problem Noted Date Diagnosed Date [...] as of this encounter (statuses as of 07/07/2023) Immunizations Name Administration Dates Next Due COVID-19 [...] encounter Miscellaneous Notes * Telephone Encounter - Sharri Metz [facility] - 07/07/2023 6:06 AM ESTSigned Prescriptions: Disp Refills Clopidogrel Bisulfate 75 MG Oral Tablet (p*100 Ta*4 Sig: TAKE ONE TABLET BY MOUTH EVERY DAYAuthorizing Provider: ROEL CHOI User: SHARRI METZ documented in this encounter Plan of Treatment Upcoming Encounters Date Type Department Care Team (Late st Contact Info) Description 11/28/2023 9:00 AM EDT Office Visit Family Medicine [address] [place] [phone] Alejandro Pete MD [address] [place] [address] [place] [address] 12/18/2023 10:00 AM EDT Cardiac Studies [facility], [facility] [address] [facility] [address] [place], Pac[facility] [address] [facility] [place] [address] 04/04/2024 10:00 AM EDT Nurse Only Ancillary [address] [place] [address] Marcellus, Nurse Annual [address] [place] [address] 06/23/2024 3:20 PM EST Office Visit Rheumatology [address] [place] [phone] Andriy Cespedes MD [facility] [place] [address] Health Maintenance Due Date Last Done Comments Zoster Vaccines (1 of 2) 10/10/1969 COLONOSCOPY-EVERY 5 YRS AGES 18-100 07/11/2021 07/11/2016, 07/11/2016 COVID-19 Vaccine (2022- season) 2023 06/13/2022, 08/30/2021, 08/02/2021 Albumin/Creatinine Ratio 05/26/2023 022, 09/28/2017, 12/03/2015 GFR 11/16/2023 05/17/2023, 05/0 03/2023, 10/20/2022, Additional history exists Depression Screening 04/03/2024 04/03/2023 CKD HGB USE SMARTSET 12892 05/17/202405/17, 05/17/2023, 12/05/2022, Additional history exists CKD PHOS USE SMARTSET 81379 05/17/202404/29, 05/30/2021, 06/08/2020, Additional history exists DTaP,Tdap,and [...] this encounter Medical Devices Implanted Type Area Motor Route Carrier Device Identifier Shelf Expiration Date Model / Serial / Lot Lens Intraoc 25.5 - [id number] - [id number] Implanted:Qty: 1 on 05/11/2022 by Ishmael Malcolm MD at OR [facility] Right: Eye [employer] 09/26/2026 [id number] / [id number] / [id number] Lens Intraoc 26.0 - [id number] - [id number] Implanted:Qty: 1 on 05/18/2022 by Ishmael Malcolm MD at OR [facility] Left: Eye [employer]OM[employer] 10/27/2025 [id number] / [id number] / [id number] documented as of this encounter Visit Diagnoses Diagnosis History of TIA (transient ischemic attack) Transient ischemic attack (TIA), and cerebral infarction without residual deficits documented in this encounter Advance Directives Latest [...] the patient have Health Care Power of Corporate General Manager? No Code Status History Code Status Date Activated Date Inactivated Comments No Code 05/11/2022 11:54 AM 05/11/2022 6:22 PM Th is order reflects the patients wishes and were consensually agreed upon. Question Answer Comments Discussion of Advance Directives occurred with: Patient Does the patient have a Living Will? No Does the patient have Health Care Power of Corporate General Manager? No Full Code 04/09/2020 1:05 PM 04/09/2020 7:00 PM This order reflects the patients wishes and were consensually agreed upon. Care Teams Editing Intern Relationship Specialty Start Date End Date Roel hCoi MD [address] [place] [address] [place] [phone] PCP - General Family Medicine 12/03/15 documented as of this encounter
--- OUTSIDE RECORDS SUMMARY | 2023-09-15 13:45 | External Medical Summary | Summary of Care ---
Author Name Unknown Organization [facility] Address [address] [place] [address] Phone [phone] Care Team Providers Care Supervisor Sawmill Name Role Phone Roel Choi MD Primary Care Provider [phone] Reason for Visit * Reason Comments Medication Refill Encounter Details Date Type Department Care Team (Late st Contact Info) Description 06/15/2023 Refill Family Medicine [address] [phone] Roel Choi MD [address] [place] [address] [place] [address] Rheumatoid arthritis involving multiple sites with positive rheumatoid factor (HCC) Allergies Active Allergy Reactions Criticality Noted Date Comments Atorvastatin Muscle pain 04/02/2018 Codeine 02/17/2022 Lidocaine Neuro complications (Please comment) High 06/30/2016 Syncope. Pt passes out and will be extremely exhausted for an hour DO NOT USE Evolocumab 05/14/2020 Dizziness documented as of this encounter (statuses as of 06/18/2023) Medications Medication Sig Dispensed Refills Start Date [...] DAY 100 Tablet 1 01/02/2023 01/02/2024 Active Ezetimibe 10 MG Oral Tablet (Zetia)Indications :Coronary artery disease involving [place] coronary artery of [place] heart without angina pectoris,Hyperlipi demia LDL goal [...] MORNING 100 Tablet 1 06/18/2023 06/17/2024 Active Leflunomide 10 MG Oral Tablet (Arava)Indications :Rheumatoid arthritis involving multiple sites with positive rheumatoid factor (HCC) TAKE ONE TABLET BY MOUTH EVERY DAY IN THE MORNING 100 Tablet 1 12/05/2022 06/15/2023 Discontinued (Refill) documented as of this encounter (statuses as of 06/18/2023) Active Problems Problem Noted Date Diagnosed Date Carotid artery occlusion without infarction, lef t 04/27/2023 Overview: TIA [facility] Vertebral artery occlusion, left 04/27/2023 Overview: [facility] H/O TIA (transient ischemic attack) and stroke 0 12/20/2022 CKD (chronic kidney disease), stage II Overview: EGFR 67 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 05/05/2022 Chronic heart failure with preserved ejection fr action 05/05/2022 Carotid stenosis, bilateral 05/05/2022 Enlarged aorta 05/05/2022 Cardiac pacemaker in situ 05/05/2022 History of [place] (myocardial infarction) 05/05/2022 Primary hypertension 12/01/2021 SSS (sick sinus syndrome) 09/07/2021 First degree heart block 05/27/2021 Encounter for long-term (current) drug use 08/20 Rheumatoid arthritis involvi ng multiple sites with positive rheumatoid factor 05/08/2017 Sigmoid diverticulosis 07/11/2016 Overview: sigmoid and descending colon Coronary artery disease invo lving [place] coronary artery of [place] heart without angina pectoris 05/24/2016 ADVANCE DIRECTIVE INFORMATION 01/08/2006 Overview: No, Advance Directive brochure given to patient at prior appointment. Hyperlipidemia LDL goal <100 documented as of this encounter (statuses as of 06/18/2023) Resolved Problems Problem Noted Date Diagnosed Date [...] as of this encounter (statuses as of 06/18/2023) Immunizations Name Administration Dates Next Due COVID-19 [...] encounter Miscellaneous Notes * Telephone Encounter - Roel Choi MD - 06/18/2023 7:59 AM ESTSigned Prescriptions: Disp Refills Leflunomide 10 MG Oral Tablet (Arava) 100 Ta*1 Sig: TAKE ONE TABLET BY MOUTH EVERY DAY IN THE MORNING Authorizing Provider: ROEL CHOI * Telephone Encounter - Malaika Salgado [facility] - 06/15/2023 12:05 PM EST Pending Prescriptions: Disp Refills Leflunomide 10 MG Oral Tablet (Arava) 100 Ta*1 Sig: TAKE ONE TABLET BY MOUTH EVERY DAY IN THE MORNING * Telephone Encounter - Malaika Salgado [facility] - 06/15/2023 12:05 PM EST Pending Prescriptions: Disp Refills Leflunomide 10 MG Oral Tablet (Arava) 100 Ta*1 Sig: TAKE ONE TABLET BY MOUTH EVERY DAY IN THE MORNING 06/11/2023 (in office), Visit date not found (telemedicine) 11/28/2023 If no future appointments scheduled, and last appointment is greater than a year ago, please schedule patient for a follow-up appointment Last date the medication was ordered: 12/05/22 Pharmacy: [facility] Is this request for a controlled substance?No Urine Drug Screen:No results found for this or any previous visit. Patient Phone Numbers Labs: Lab Results Component Value Date/Time CREAT 1.2 05/17/2023 02:06 PM CREAT 1.4 (H) 06/08/2020 08:26 AM POTASSIUM 4.7 05/17/2023 02:06 PM POTASSIUM 4.5 06/08/2020 08:26 AM TSH 0.33 12/05/2022 01:33 PM TSH 1.20 02/05/2018 12:23 PM LDLCALC 109 03/06/2022 09:22 AM LDLCALC 107 05/05/2019 01:45 PM LDLDIRECT 25 12/11/2019 11:17 AM ALT 12 05/17/2023 02:06 PM ALT 18 04/06/2020 03:30 PM HGBA1C 5.6 03/14/2018 04:51 AM documented in this encounter Plan of Treatment Upcoming Encounters Date Type Department Care Team (Late st Contact Info) Description 06/22/2023 9:40 AM EST Office Visit Rheumatology [address] [place] [phone] Andriy Cespedes MD [address] [place] [address] [place] [address] 11/28/2023 9:00 AM EDT Office Visit Family Medicine [address] [place] [phone] Alejandro Pete MD [address] [place] [address] [place] [address] 12/18/2023 10:00 AM EDT Cardiac Studies Cardiology, [facility] [address] [facility] [address] [facility] [address] [facility] [place] [address] 04/04/2024 10:00 AM EDT Nurse Only Ancillary [address] [place] [address] [place] Nurse Annual [address] [place] [address] Health Maintenance Due Date Last Done Comments Zoster Vaccines (1 of 2) 10[birth year]10/1969 COLONOSCOPY-EVERY 5 YRS AGES 18-100 07/11/2021 07/11/2016, 07/11/2016 COVID-19 Vaccine ( season) 2023 06/13/2022, 08/30/2021, 08/02/2021 Albumin/Creatinine Ratio 05/26/2023 022, 09/28/2017, 12/03/2015 GFR 11/16/2023 05/17/2023, 0503/2023, 10/20/2022, Additional history exists Depression Screening 04/03/2024 04/03/2023 CKD HGB USE SMARTSET 50907 05/17/202405/17, 05/17/2023, 12/05/2022, Additional history exists CKD PHOS USE SMARTSET 79863 05/17/202404/29, 05/30/2021, 06/08/2020, Additional history exists DTaP,Tdap,and [...] this encounter Medical Devices Implanted Type Area Second Hand Device Identifier Shelf Expiration Date Model / Serial / Lot Lens Intraoc 25.5 - [id number] - [id number] Implanted:Qty: 1 on 05/11/2022 by Ishmael Malcolm MD at OR [facility] Right: Eye [employer] 09/26/2026 [id number] / [id number] / [id number] Lens Intraoc 26.0 - [id number] - [id number] Implanted:Qty: 1 on 05/18/2022 by Ishmael Malcolm MD at [facility] Left: Eye [employer]OM[employer] 10/27/2025 [id number] / [id number] / [id number] documented as of this encounter Visit Diagnoses Diagnosis Rheumatoid arthritis involving multiple sites with positive rheumatoid factor (HCC) documented in this encounter Advance Directives Latest [...] the patient have Health Care Power of Rn Emergency Room? No Code Status History Code Status Date Activated Date Inactivated Comments No Code 05/11/2022 11:54 AM 05/11/2022 6:22 PM Th is order reflects the patients wishes and were consensually agreed upon. Question Answer Comments Discussion of Advance Directives occurred with: Patient Does the patient have a Living Will? No Does the patient have Health Care Power of Rn Emergency Room? No Full Code 04/09/2020 1:05 PM 04/09/2020 7:00 PM This order reflects the patients wishes and were consensually agreed upon. Care Teams Supervisor Sawmill Relationship Specialty Start Date End Date Roel Choi MD [address] [place] [address] [place] [address] PCP - General Family Medicine 12/03/15 documented as of this encounter
--- OUTSIDE RECORDS SUMMARY | 2023-09-15 13:45 | External Medical Summary | Summary of Care ---
Author Name Unknown Organization [facility] Address [address] [place] [address] Phone [phone] Care Team Providers Care Sampler Radioactive Waste Name Role Phone Roel Brown MD Primary Care Provider [phone] Encounter Details Date Type Department Care Team (Late st Contact Info) Description 06/06/2023 Result Scan Unspecified Department Kartik Bray, DO [address] [place] [address] <No scans attached> Allergies Active Allergy Reactions Criticality Noted Date Comments Atorvastatin Muscle pain 04/02/2018 Codeine 02/17/2022 Lidocaine Neuro complications (Please comment) High 06/30/2016 Syncope. Pt passes out and will be extremely exhausted for an hour DO NOT USE Evolocumab 05/14/2020 Dizziness documented as of this encounter (statuses as of 06/06/2023) Medications Medication Sig Dispensed Refills Start Date [...] Oral Tablet (Zetia)Indications:C oronary artery disease involving [place] coronary artery of [place] heart without angina pectoris,Hyperlipide nancy LDL goal [...] as of this encounter (statuses as of 06/06/2023) Active Problems Problem Noted Date Diagnosed Date [...] Cardiac pacemaker in situ 05/05/2022 History of [place] (myocardial infarction) 05/05/2022 Primary hypertension 12/01/2021 SSS (sick sinus syndrome) 09/07/2021 First degree heart block 05/27/2021 Encounter for long-term (current) drug use 08/20 Rheumatoid arthritis involvi ng multiple sites with positive rheumatoid factor 05/08/2017 Sigmoid diverticulosis 07/11/2016 Overview: sigmoid and descending colon Coronary artery disease invo lving [place] coronary artery of [place] heart without angina pectoris 05/24/2016 ADVANCE DIRECTIVE INFORMATION 01/08/2006 Overview: No, Advance Directive brochure given to patient at prior appointment. Hyperlipidemia LDL goal <100 documented as of this encounter (statuses as of 06/06/2023) Resolved Problems Problem Noted Date Diagnosed Date [...] as of this encounter (statuses as of 06/06/2023) Immunizations Name Administration Dates Next Due COVID-19 [...] 10:00 AM EST Office Visit Family Medicine [address] [phone] Roel Brown MD [address] [place] [address] [place] [address] 06/22/2023 9:40 AM EST Office Visit Rheumatology [address] [place] [phone] Andriy Cespedes MD [address] [place] [address] [place] [address] 11/28/2023 9:00 AM EDT Office Visit Family Medicine [address] [phone] Alejandro Pete MD [address] [place] [address] [place] [address] 12/18/2023 10:00 AM EDT Cardiac Studies Cardiology, [facility] [address] [place] [address] [place], Pacer Clinic [facility] [address] [place] [address] 04/04/2024 10:00 AM EDT Nurse Only Ancillary [address] [place] [address] [place], Nurse [address] [place] [address] Health Maintenance Due Date Last Done Comments Zoster Vaccines (1 of 2) 10[birth year]10/1969 COLONOSCOPY-EVERY 5 YRS AGES 18-100 07/11/2021 07/11/2016, 07/11/2016 COVID-19 Vaccine (2022- season) 2023 06/13/2022, 08/30/2021, 08/02/2021 Albumin/Creatinine Ratio 05/26/20232 022, 09/28/2017, 12/03/2015 GFR 11/16/2023 05/17/2023, 0503/2023, 10/20/2022, Additional history exists Depression Screening 04/03/2024 04/03/2023 CKD HGB USE SMARTSET 33084 05/17/202405/17, 05/17/2023, 12/05/2022, Additional history exists CKD PHOS USE SMARTSET 02935 05/17/202404/29, 05/30/2021, 06/08/2020, Additional history exists DTaP,Tdap,and [...] this encounter Medical Devices Implanted Type Area Butt Maker Device Identifier Shelf Expiration Date Model / Serial / Lot Lens Intraoc 25.5 - [id number] - [id number] Implanted:Qty: 1 on 05/11/2022 by Ishmael Malcolm MD at OR [facility] Right: Eye [employer] 09/26/2026 [id number] / [id number] / [id number] Lens Intraoc 26.0 - [id number] - [id number] Implanted:Qty: 1 on 05/18/2022 by Ishmael Malcolm MD at OR [facility] Left: Eye [employer] 10/27/2025 [id number] / [id number] / [id number] documented as of this encounter Procedures Procedure Name Priority Date/Time Associated Diagnosis Comments CARDIOLOGY SCANNED RESULT 06/06/2023 documented in this encounter Results * CARDIOLOGY SCANNED RESULT (06/06/2023) 06/06/2023 Kartik MOSHER documented in this encounter Advance Directives Latest [...] the patient have Health Care Power of Hoof And Shoe Inspector? No Code Status History Code Status Date Activated Date Inactivated Comments No Code 05/11/2022 11:54 AM 05/11/2022 6:22 PM Th is order reflects the patients wishes and were consensually agreed upon. Question Answer Comments Discussion of Advance Directives occurred with: Patient Does the patient have a Living Will? No Does the patient have Health Care Power of Hoof And Shoe Inspector? No Full Code 04/09/2020 1:05 PM 04/09/2020 7:00 PM This order reflects the patients wishes and were consensually agreed upon. Care Teams Sampler Radioactive Waste Relationship Specialty Start Date End Date Roel Brown MD [address] [place] [address] [place] [phone] PCP - General Family Medicine 12/03/15 documented as of this encounter
--- OUTSIDE RECORDS SUMMARY | 2023-09-15 13:45 | External Medical Summary | Summary of Care ---
Author Name Unknown Organization [facility] Address [address] [place] [address] Phone [phone] Care Team Providers Care Home Organizer Name Role Phone Roel Choi MD Primary Care Provider [phone] Reason for Visit * Reason Comments Medication Refill Encounter Details Date Type Department Care Team (Late st Contact Info) Description 06/30/2023 Refill Family Medicine [address] [phone] Roel Choi MD [address] [place] [address] [place] [address] Coronary artery disease involving [place] coronary artery of [place] heart without angina pectoris; Hyperlipidemia LDL goal <100 Allergies Active Allergy Reactions Criticality Noted Date Comments Atorvastatin Muscle pain 04/02/2018 Codeine 02/17/2022 Lidocaine Neuro complications (Please comment) High 06/30/2016 Syncope. Pt passes out and will be extremely exhausted for an hour DO NOT USE Evolocumab 05/14/2020 Dizziness documented as of this encounter (statuses as of 06/30/2023) Medications Medication Sig Dispensed Refills Start Date [...] DAY 100 Tablet 1 01/02/2023 01/02/2024 Active Gabapentin 100 MG Oral Capsule (Neurontin) [...] Oral Tablet (Zetia)Indications :Coronary artery disease involving [place] coronary artery of [place] heart without angina pectoris,Hyperlipi demia LDL goal <100 TAKE ONE TABLET BY MOUTH EVERY MORNING 100 Tablet 1 06/30/2023 Active Ezetimibe 10 MG Oral Tablet (Zetia)Indications :Coronary artery disease involving [place] coronary artery of [place] heart without angina pectoris,Hyperlipi demia LDL goal <100 TAKE ONE TABLET BY MOUTH EVERY MORNING 100 Tablet 3 06/07/2022 06/30/2023 Discontinued (Refill) documented as of this encounter (statuses as of 06/30/2023) Active Problems Problem Noted Date Diagnosed Date Carotid artery occlusion without infarction, lef t 04/27/2023 Overview: TIA [facility] Vertebral artery occlusion, left 04/27/2023 Overview: [facility] H/O TIA (transient ischemic attack) and stroke 0 12/20/2022 CKD (chronic kidney disease), stage II Overview: EGFR 67 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 05/05/2022 Chronic heart failure with preserved ejection fr action 05/05/2022 Carotid stenosis, bilateral 05/05/2022 Enlarged aorta 05/05/2022 Cardiac pacemaker in situ 05/05/2022 History of [place] (myocardial infarction) 05/05/2022 Primary hypertension 12/01/2021 SSS (sick sinus syndrome) 09/07/2021 First degree heart block 05/27/2021 Encounter for long-term (current) drug use 08/20 Rheumatoid arthritis involvi ng multiple sites with positive rheumatoid factor 05/08/2017 Sigmoid diverticulosis 07/11/2016 Overview: sigmoid and descending colon Coronary artery disease invo lving [place] coronary artery of [place] heart without angina pectoris 05/24/2016 ADVANCE DIRECTIVE INFORMATION 01/08/2006 Overview: No, Advance Directive brochure given to patient at prior appointment. Hyperlipidemia LDL goal <100 documented as of this encounter (statuses as of 06/30/2023) Resolved Problems Problem Noted Date Diagnosed Date [...] as of this encounter (statuses as of 06/30/2023) Immunizations Name Administration Dates Next Due COVID-19 [...] encounter Miscellaneous Notes * Telephone Encounter - Kelvin Garcia, [facility] - 06/30/2023 3:08 PM ESTSigned Prescriptions: Disp Refills Ezetimibe 10 MG Oral Tablet (Zetia) 100 Ta*1 Sig: TAKE ONE TABLET BY MOUTH EVERY MORNINGAuthorizing Provider: ROEL CHOI User: KELVIN BARAJAS------ * Telephone Encounter - Kelvin Garcia [facility] - 06/30/2023 3:08 PM EST Provided 90 days supply with 1 refill(s) until upcoming appointment. Per refill protocol patient should have Lipid panel on file within past year. Reviewed AMP report, Care Gaps/Health Maintenance, medications list, and for any routine labs typically ordered for this patient. Lab orders placed. Please contact patient to advise of labs ordered for blood draw. Fasting is not required. Advise toobtain labs before his scheduled office visit 11/28/2023. Thank You, Kelvin Barajas [facility] Clinical Pharmacist [facility] ([facility]) (formerly Telepharmacy) 06/30/2023, 3:08 PM * Telephone Encounter - Kelvin Garcia [facility] - 06/30/2023 3:06 PM EST Pending Prescriptions: Disp Refills Ezetimibe 10 MG Oral Tablet (Zetia) 100 Ta*3 Sig: TAKE ONE TABLET BY MOUTH EVERY MORNING Last Visit: 06/11/2023 (in office), Visit date not found (telemedicine) Next Visit: 11/28/2023 If no future appointments scheduled, and last appointment is greater than a year ago, please schedule patient for a follow-up appointment Last date the medication was ordered: 06/07/22 Pharmacy: [facility] Is this request for a controlled substance? No Urine Drug Screen:No results found for this [...] 9:00 AM EDT Office Visit Family Medicine [address] [place] [phone] Alejandro Pete MD [address] [place] [address] [place] [address] 12/18/2023 10:00 AM EDT Cardiac Studies Cardiology, [facility] [address] [place] [address] [place] [facility] [address] [place] [address] 04/04/2024 10:00 AM EDT Nurse Only Ancillary [address] [place] [address] [place], Nurse [address] [place] [address] 06/23/2024 3:20 PM EST Office Visit Rheumatology [address] [place] [phone] Andriy Cespedes MD [address] [place] [address] Scheduled Orders Name Type Priority Associated Diagnoses Orde r Schedule LIPID PANEL WITH DIRECT LDL IF TG IS HIGH Lab Routine Hyperlipidemia LDL goal <100 Expected: 06/30/2023 (Approximate), Expires: 06/30/2024 Health Maintenance Due Date Last Done Comments Zoster Vaccines (1 of 2) 10[birth year]10/1969 COLONOSCOPY-EVERY 5 YRS AGES 18-100 07/11/2021 07/11/2016, 07/11/2016 COVID-19 Vaccine ( season) 2023 06/13/2022, 08/30/2021, 08/02/2021 Albumin/Creatinine Ratio 05/26/2023 022, 09/28/2017, 12/03/2015 GFR 11/16/2023 05/17/2023, 05/0 03/2023, 10/20/2022, Additional history exists Depression Screening 04/03/2024 04/03/2023 CKD HGB USE SMARTSET 00888 05/17/202405/17, 05/17/2023, 12/05/2022, Additional history exists CKD PHOS USE SMARTSET 30984 05/17/202404/29, 05/30/2021, 06/08/2020, Additional history exists DTaP,Tdap,and [...] this encounter Medical Devices Implanted Type Area Space Studies Faculty Member Device Identifier Shelf Expiration Date Model / Serial / Lot Lens Intraoc 25.5 - [id number] - [id number] Implanted:Qty: 1 on 05/11/2022 by Ishmael Malcolm MD at OR [facility] Right: Eye [employer] 09/26/2026 [id number] / [id number] / [id number] Lens Intraoc 26.0 - [id number] - [id number] Implanted:Qty: 1 on 05/18/2022 by Ishmael Malcolm MD at OR [facility] Left: Eye [employer]OM[employer] 10/27/2025 [id number] / [id number] / [id number] documented as of this encounter Visit Diagnoses Diagnosis Coronary artery disease involving [place] coronary artery of [place] heart without angina pectoris Hyperlipidemia LDL goal <100 Other and unspecified hyperlipidemia documented in this encounter Advance Directives Latest [...] the patient have Health Care Power of Passenger Car Upholsterer Apprentice? No Code Status History Code Status Date Activated Date Inactivated Comments No Code 05/11/2022 11:54 AM 05/11/2022 6:22 PM Th is order reflects the patients wishes and were consensually agreed upon. Question Answer Comments Discussion of Advance Directives occurred with: Patient Does the patient have a Living Will? No Does the patient have Health Care Power of Passenger Car Upholsterer Apprentice? No Full Code 04/09/2020 1:05 PM 04/09/2020 7:00 PM This order reflects the patients wishes and were consensually agreed upon. Care Teams Home Organizer Relationship Specialty Start Date End Date Roel Choi MD [address] [place] [address] [place] [phone] PCP - General Family Medicine 12/03/15 documented as of this encounter
--- OUTSIDE RECORDS SUMMARY | 2023-09-15 13:45 | External Medical Summary | Summary of Care ---
Author Name Unknown Organization [facility] Address [address] [place] [address] Phone [phone] Care Team Providers Care Film Coater Name Role Phone Roel Brown MD Primary Care Provider [phone] Reason for Visit * Reason Comments Rheum Follow Up Follow up - RA Encounter Details Date Type Department Care Team ([facility] st Contact Info) Description 06/22/2023 9:40 AM EST Office Visit Rheumatology [address] [place] [phone] Andriy Cespedes MD [address] [facility] [place] [address] Rheumatoid arthritis involving multiple sites with positive rheumatoid factor (HCC)*; Encounter for long-term (current) drug use Allergies Active Allergy Reactions Criticality Noted Date Comments Atorvastatin Muscle pain 04/02/2018 Codeine 02/17/2022 Lidocaine Neuro complications (Please comment) High 06/30/2016 Syncope. Pt passes out and will be extremely exhausted for an hour DO NOT USE Evolocumab 05/14/2020 Dizziness documented as of this encounter (statuses as of 06/22/2023) Medications Medication Sig Dispensed Refills Start Date [...] 01/02/2024 Active Ezetimibe 10 MG Oral Tablet (Zetia)Indications:C oronary artery disease involving [place] coronary artery of [place] heart without angina pectoris,Hyperlipide nancy LDL goal [...] 05/28/2023 Active Leflunomide 10 MG Oral Tablet (Arava)Indications:R heumatoid arthritis involving multiple sites with positive rheumatoid factor (HCC) TAKE ONE TABLET BY MOUTH EVERY DAY IN THE MORNING 100 Tablet 1 06/18/2023 06/17/2024 Active documented as of this encounter (statuses as of 06/22/2023) Active Problems Problem Noted Date Diagnosed Date Carotid artery occlusion without infarction, lef t 04/27/2023 Overview: TIA [facility] Vertebral artery occlusion, left 04/27/2023 Overview: [facility] H/O TIA (transient ischemic attack) and stroke 0 12/20/2022 CKD (chronic kidney disease), stage II Overview: EGFR 67 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 05/05/2022 Chronic heart failure with preserved ejection fr action 05/05/2022 Carotid stenosis, bilateral 05/05/2022 Enlarged aorta 05/05/2022 Cardiac pacemaker in situ 05/05/2022 History of [place] (myocardial infarction) 05/05/2022 Primary hypertension 12/01/2021 SSS (sick sinus syndrome) 09/07/2021 First degree heart block 05/27/2021 Encounter for long-term (current) drug use 08/20 Rheumatoid arthritis involvi ng multiple sites with positive rheumatoid factor 05/08/2017 Sigmoid diverticulosis 07/11/2016 Overview: sigmoid and descending colon Coronary artery disease invo lving [place] coronary artery of [place] heart without angina pectoris 05/24/2016 ADVANCE DIRECTIVE INFORMATION 01/08/2006 Overview: No, Advance Directive brochure given to patient at prior appointment. Hyperlipidemia LDL goal <100 documented as of this encounter (statuses as of 06/22/2023) Resolved Problems Problem Noted Date Diagnosed Date [...] as of this encounter (statuses as of 06/22/2023) Immunizations Name Administration Dates Next Due COVID-19 [...] on file documented as of this encounter Last Filed Vital Signs Vital Sign Reading Time Taken Comments Blood Pressure - - Pulse - - Temperature 36.4 C (97.5 F) 06/22/2023 10:[address] Respiratory Rate - - Oxygen Saturation - - Inhaled Oxygen Concentration - - Weight 94.3 kg (208 lb) 06/22/2023 10:01 AM EST Height - - Body Mass Index 29.84 04/03/2023 10:10 AM EDT documented in this encounter Progress Notes * Andriy Cespedes MD - 06/22/2023 10:04 AM EST Images from the original note were not included. Assessment and Plan Rheumatoid arthritis involving multiple sites with positive rheumatoid factor (HCC) - XR Knee 1-2 views - CBC with WBC Differential; Standing - Comprehensive Metabolic Panel; Standing Encounter for long-term (current) drug use - XR Knee 1-2 views - CBC with WBC Differential; Standing - Comprehensive Metabolic Panel; Standing His RA itself is doing well. Knee pains likely osteoarthritis and will get some x-rays. Will continue with current meds for RA. Continue with labs every 3 months. His discomfort is more related to neuropathy will try increasing gabapentin as well. Return to clinic in 1 year. Rheumatology Synopsis: [facility] RA SYNOPSIS Date of RA Diagnosis: 05/08/17 (06/22/2023 10:00 AM) Current Treatment: LEF (06/22/2023 10:00 AM) Previous Treatment: MTX (06/22/2023 10:00 AM) 2009 Classification Criteria: Y (06/22/2023 10:00 AM) Seropositive or seronegative: Seropositive (06/22/2023 10:00 AM) RF and/or CCP: RF+ (06/22/2023 10:00 AM) Disease activity: Controlled Patient History History of Present Illness HPI:72 year old male presented to rheumatology clinic for Rheum Follow Up (Follow up - RA) He developed a stroke in early April and was at [facility]. He started with numbness around his mouth, then trouble speech and weakness tot he right side. After discharged saw a provider in [place] to open left carotid but this had been done years ago when he had heart attack so they would not open itup again. Treating it with medications. He still deals with numbness to the right hand and foot. 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 He has 2 falls prior to his stroke. Prior tot he stroke ahd a RA nodule removed from his foot by Dr Deleon that healed well. ROS: Review of Systems was asked and the following other significant symptoms are present: neuropathy Subjective Patient's past history, medications, and allergies were reviewed. Medications: Current Outpatient Medications Medication Instructions Clopidogrel Bisulfate 75 MG Oral Tablet (pLAVix) TAKE ONE TABLET BY MOUTH EVERY DAY Ezetimibe 10 MG Oral Tablet (Zetia) TAKE ONE TABLET BY MOUTH EVERY MORNING fish oil concentrate (OMEGA-3) 1,200 mg, Oral, BID (.AM/PM) Gabapentin (NEURONTIN) 100 mg, Oral, HS Leflunomide 10 MG Oral Tablet (Arava) TAKE ONE TABLET BY MOUTH EVERY DAY IN THE MORNING losartan (COZAAR) 50 mg, Oral, BID (.AM/PM) Multiple Vitamins-Minerals (CENTRUM SILVER) Tablet 1 Tablet, Oral, Daily(AM) QC Aspirin Low Dose 81 MG Oral Tablet Delayed Release Daily(AM) Turmeric 500 mg, Oral, Daily(AM), 2 tabs a day Vitamin E 100 units Tablet Oral, Daily(AM), 450 mg a day Objective Physical Exam Temp 36.4 C (97.5 F) (Infrared ) | Wt 94.3 kg (208 lb) | BMI 29.84 kg/m | BSA 2.16 m Constitutional: no acute distress HEENT: normal: normocephalic, atraumatic; no masses, tenderness, or adenopathy Eyes: PERRLA, sclera and conjunctiva normal Neck: supple, no adenopathy CV: Normal rate and rhythm, no gallops Chest: normal respiratory effort, lungs clear to auscultation and percussion Abdomen: normal: soft, bowel sounds normal, no masses, tenderness or organomegaly Musculoskeletal: Can not fully extend either elbow, RA nodule noted on right elbow and right 2nd MCP. No active synovitis. Discomfort with exam of both knees without effusions. MSK/Joint exam (Homunculus) MSK Exam findings: Homunculus exam Studies: Labs and Imaging studies reviewed with pertinent findings noted below: Disease Treatment Response CDAI Scoring Patient Global: 30 mm Provider Global: 10 mm Tender (COATES-28): 2 / 28 Swollen (COATES-28): 0 / 28 CDAI: 6 CDAI (Clinical Disease Activity Index) [facility] Outcomes measures: Serial CDAI: Synopsis SmartLink 06/22/2023 09:40 CDAI CDAI 6 - Serial CDAI: - No - Remission: - Yes - low disease activity Currently on csDMARD: Yes Currently on Biologic DMARD: No Vaccination status: COVID: Vaccine and/or Health maintenance status Incomplete Influenza:Vaccine complete for this season Pneumococcal:Vaccine Series complete Zoster:Vaccine and/or Health Maintainance Incomplete Last Hepatitis and TB testing: Hepatitis B: Tested, result reviewed Hepatitis C: Tested, result reviewed PPD or TB-Gold: Not Tested, results not available Lab Results Component Value Date HBSAG NEGATIVE 05/08/2017 HEPB NEGATIVE 05/08/2017 HCVAB NEGATIVE 05/08/2017 No results found for: "TB GOLD AG NIL", "TB GOLD MITOGEN NIL", "PPD INDURATION", "PPD-OUTSIDE LAB","QUANTIFERON GOLD TB", "QUANTIFERON-TB PLUS", "QUANTIFERON-TB PLUS,1T", "QUANTIFERON-TB PLUS,4T" Follow-up: Return in about 1 year (around 06/22/2024). | Check-out note: RA documented in this encounter Nursing Notes * Linette Nicolas LPN - 06/22/2023 10:00 AM EST Chief Complaint Patient presents with Rheum Follow Up Follow up - RA Pt reported having a stroke 1 month ago. 2 falls in the past 6 months, no major injuries from falls documented in this encounter Plan of Treatment Upcoming Encounters Date Type Department Care Team (Late st Contact Info) Description 11/28/2023 9:00 AM EDT Office Visit Family Medicine [address] [place] [phone] Alejandro Pete MD [address] [place] [address] [place] [address] 12/18/2023 10:00 AM EDT Cardiac Studies Cardiology, [facility] [address] [facility] [place] [address] [facility] [address] [facility] [place] [address] 04/04/2024 10:00 AM EDT Nurse Only Ancillary [address] [place] [address] [place], Nurse Annual [address] [place] [address] 06/23/2024 3:20 PM EST Office Visit Rheumatology [address] [place] [phone] Andriy Cespedes MD [facility] [place] [address] Pending Results Name Type Priority Associated Diagnoses Date /Time XR KNEE 1-2 VIEWS Medical Imaging Routine Rheumatoid arthritis involving multiple sites with positive rheumatoid factor (HCC) Encounter for long-term (current) drug use 06/22/2023 10:53 AM EST Scheduled Orders Name Type Priority Associated Diagnoses Orde r Schedule CBC WITH WBC DIFFERENTIAL Lab Routine Rheumatoid arthritis involving multiple sites with positive rheumatoid factor (HCC) Encounter for long-term (current) drug use Every 3 Months for 999 Occurrences starting 06/22/2023 until 06/22/2024 COMPREHENSIVE METABOLIC PANEL Lab Routine Rheumatoid arthritis involving multiple sites with positive rheumatoid factor (HCC) Encounter for long-term (current) drug use Every 3 Months for 999 Occurrences starting 06/22/2023 until 06/22/2024 Health Maintenance Due Date Last Done Comments Zoster Vaccines (1 of 2) 10/10/1969 COLONOSCOPY-EVERY 5 YRS AGES 18-100 07/11/2021 07/11/2016, 07/11/2016 COVID-19 Vaccine ( season) 2023 06/13/2022, 08/30/2021, 08/02/2021 Albumin/Creatinine Ratio 05/26/202305/26/2 022, 09/28/2017, 12/03/2015 GFR 11/16/2023 05/17/2023, 05/0 03/2023, 10/20/2022, Additional history exists Depression Screening 04/03/2024 04/03/2023 CKD HGB USE SMARTSET 49949 05/17/202405/17, 05/17/2023, 12/05/2022, Additional history exists CKD PHOS USE SMARTSET 46471 05/17/202404/29, 05/30/2021, 06/08/2020, Additional history exists DTaP,Tdap,and [...] this encounter Medical Devices Implanted Type Area Excellence Specialist Device Identifier Shelf Expiration Date Model / Serial / Lot Lens Intraoc 25.5 - [id number] - [id number] Implanted:Qty: 1 on 05/11/2022 by Ishmael Malcolm MD at [facility] Right: Eye [employer] 09/26/2026 [id number] / [id number] / [id number] Lens Intraoc 26.0 - [id number] - [id number] Implanted:Qty: 1 on 05/18/2022 by Ishmael Malcolm MD at OR [facility] Left: Eye [employer] 10/27/2025 [id number] / [id number] / [id number] documented as of this encounter Visit Diagnoses Diagnosis Rheumatoid arthritis involving multiple sites with positive rheumatoid factor (HCC)- Primary Encounter for long-term (current) drug use Encounter for long-term (current) use of other medications documented in this encounter Advance Directives Latest [...] the patient have Health Care Power of Event Security Officer? No Code Status History Code Status Date Activated Date Inactivated Comments No Code 05/11/2022 11:54 AM 05/11/2022 6:22 PM Th is order reflects the patients wishes and were consensually agreed upon. Question Answer Comments Discussion of Advance Directives occurred with: Patient Does the patient have a Living Will? No Does the patient have Health Care Power of Event Security Officer? No Full Code 04/09/2020 1:05 PM 04/09/2020 7:00 PM This order reflects the patients wishes and were consensually agreed upon. Care Teams Film Coater Relationship Specialty Start Date End Date Roel Brown MD [address] [place] [address] [place] [phone] PCP - General Family Medicine 12/03/15 documented as of this encounter
--- OUTSIDE RECORDS SUMMARY | 2023-09-15 13:45 | External Medical Summary | Summary of Care ---
Author Name Unknown Organization [facility] Address [address] [place] [address] Phone [phone] Care Team Providers Care Astrochemist Name Role Phone Roel Choi MD Primary Care Provider [phone] Reason for Visit * Reason Onset Date Comments Medication Refill 08/03/2023 Encounter Details Date Type Department Care Team (Late st Contact Info) Description 08/03/2023 Refill Care Coordination [address] [place] [address] Keyanna Kovacs, PA-C [address] [place] [address] Allergies Active Allergy Reactions Criticality Noted Date Comments Atorvastatin Muscle pain 04/02/2018 Codeine 02/17/2022 Lidocaine Neuro complications (Please comment) High 06/30/2016 Syncope. Pt passes out and will be extremely exhausted for an hour DO NOT USE Evolocumab 05/14/2020 Dizziness documented as of this encounter (statuses as of 08/06/2023) Medications Medication Sig Dispensed Refills Start Date [...] Oral Tablet (Zetia)Indications :Coronary artery disease involving [place] coronary artery of [place] heart without angina pectoris,Hyperlipi demia LDL goal <100 TAKE ONE TABLET BY MOUTH EVERY MORNING 100 Tablet 1 06/30/2023 Active Clopidogrel Bisulfate 75 MG Oral Tablet (pLAVix)Indication s:History of TIA (transient ischemic attack) TAKE ONE TABLET BY MOUTH EVERY DAY 100 Tablet 4 07/07/2023 07/06/2024 Active Gabapentin 100 MG Oral Capsule (Neurontin) Take 1 Capsule by mouth at bedtime. 90 Capsule 1 08/06/2023 Active Gabapentin 100 MG Oral Capsule (Neurontin) Take 1 Capsule by mouth at bedtime. 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 05/05/2022 Chronic heart failure with preserved ejection fr action 05/05/2022 Carotid stenosis, bilateral 05/05/2022 Enlarged aorta 05/05/2022 Cardiac pacemaker in situ 05/05/2022 History of [place] (myocardial infarction) 05/05/2022 Primary hypertension 12/01/2021 SSS (sick sinus syndrome) 09/07/2021 First degree heart block 05/27/2021 Encounter for long-term (current) drug use 08/20 Rheumatoid arthritis involvi ng multiple sites with positive rheumatoid factor 05/08/2017 Sigmoid diverticulosis 07/11/2016 Overview: sigmoid and descending colon Coronary artery disease invo lving [place] coronary artery of [place] heart without angina pectoris 05/24/2016 ADVANCE DIRECTIVE INFORMATION 01/08/2006 Overview: No, Advance Directive brochure given to patient at prior appointment. Hyperlipidemia LDL goal <100 documented as of this encounter (statuses as of 08/06/2023) Resolved Problems Problem Noted Date Diagnosed Date [...] as of this encounter (statuses as of 08/06/2023) Immunizations Name Administration Dates Next Due COVID-19 [...] Telephone Encounter - Roel Choi MD - 08/06/2023 7:34 AM ESTSigned Prescriptions: Disp Refills Gabapentin 100 MG Oral Capsule (Neurontin) 90 Cap*1 Sig: Take 1 Capsule by mouth at bedtime. Authorizing Provider: ROEL CHOI * Telephone Encounter - Maribel [place] RN - 08/06/2023 7:13 AM ESTPending Prescriptions: Disp Refills Gabapentin 100 MG Oral Capsule (Neurontin) 90 Cap*1 Sig: Take 1 Capsule by mouth at bedtime. * Telephone Encounter - Maribel [place] RN - 08/06/2023 7:12 AM EST Pending Prescriptions: Disp Refills Gabapentin 100 MG Oral Capsule (Neurontin)90 Cap*0 Sig: Take 1 Capsule by mouth at bedtime. Last Visit: Visit date not found (in office),06-28-23 Next Visit: 11/28/23 Last date the medication was ordered: 05-07-23 Patient Active Problem List Diagnosis Code ADVANCE DIRECTIVE INFORMATION Coronary artery disease involving [place] coronary artery of [place] heart without angina pectoris I25.10 Hyperlipidemia LDL goal <100 E78.5 Sigmoid diverticulosis K57.30 Rheumatoid arthritis involving multiple sites with positive rheumatoid factor ([facility]) M05.79 Encounter for long-term (current) drug use Z79.899 First degree heart block I44.0 SSS (sick sinus syndrome) ([facility]) I49.5 Primary hypertension I10 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 ([facility]) I13.10, N18.31 Chronic heart failure with preserved ejection fraction ([facility]) I50.32 Carotid stenosis, bilateral I65.23 Enlarged aorta ([facility]) I77.89 Cardiac pacemaker in situ Z95.0 History of [place] (myocardial infarction) I25.2 CKD (chronic kidney disease), stage II N18.2 H/O TIA (transient ischemic attack) and stroke Z86.73 Carotid artery occlusion without infarction, left I65.22 Vertebral artery occlusion, left I65.02 Labs: Lab Results Component Value Date/Time CREATININE - [facility] 1.2 05/17/2023 02:06 PM CREATININE - [facility] 1.4 (H) 06/08/2020 08:26 AM CREATININE, RANDOM URINE - [facility] 58 05/26/2022 01:36 PM CREATININE, RANDOM URINE - [facility] 50 09/28/2017 02:59 PM CREATININE-OUTSIDE LAB 1.28 07/19/2018 12:00 AM Lab Results Component Value Date/Time POTASSIUM - [facility] 4.7 05/17/2023 02:06 PM POTASSIUM - [facility] 4.5 06/08/2020 08:26 AM POTASSIUM-OUTSIDE LAB 4.0 07/19/2018 12:00 AM Lab Results Component Value Date/Time TSH - [facility] 0.33 12/05/2022 01:33 PM TSH - [facility] 1.20 02/05/2018 12:23 PM Lab Results Component Value Date/Time LDL (CALCULATED)-OUTSIDE LAB 81 03/14/2018 12:00 AM LDL CHOLESTEROL (CALCULATED) - [facility] 109 03/06/2022 09:22 AM LDL CHOLESTEROL (CALCULATED) - [facility] 107 05/30/2021 09:45 AM LDL CHOLESTEROL (CALCULATED) - [facility] 107 05/05/2019 01:45 PM LDL CHOLESTEROL (CALCULATED) - [facility] UNINTERPRETABLE RESULT 08/26/2018 08:59 AM LDL CHOLESTEROL (DIRECT MEASURE) - [facility] 25 12/11/2019 11:17 AM LDL CHOLESTEROL (DIRECT MEASURE) - [facility] NOT APPLICABLE 05/05/2019 01:45 PM LDL CHOLESTEROL-OUTSIDE LAB 81 03/14/2018 04:51 AM Lab Results Component Value Date/Time ALT - [facility] 12 05/17/2023 02:06 PM ALT - [facility] 18 04/06/2020 03:30 PM Hemoglobin AIC Results: No results found for: "HEMOGLOBIN A1C" * Telephone Encounter - Lou Ruiz OSA - 08/03/2023 1:11 PM ESTPending Prescriptions: Disp Refills Gabapentin 100 MG Oral Capsule (Neurontin) 90 Cap*0 Sig: Take 1Capsule by mouth at bedtime. documented in this encounter Plan of Treatment Upcoming Encounters Date Type Department Care Team (Late st Contact Info) Description 11/28/2023 9:00 AM EDT Office Visit Family Medicine [address] [place] [phone] Alejandro Pete MD [address] [place] [address] [place] [address] 12/18/2023 10:00 AM EDT Cardiac Studies Cardiology, [facility] [address] [place] [address] [place], [facility] [address] [facility] [place] [address] 04/04/2024 10:00 AM EDT Nurse Only Ancillary [address] [place] [address] [place], Nurse Annual [address] [place] [address] 06/23/2024 3:20 PM EST Office Visit Rheumatology [address] [place] [phone] Andriy Cespedes MD [address] [place] [address] Health Maintenance Due Date Last Done Comments Zoster Vaccines (1 of 2) 10/10/1969 COLONOSCOPY-EVERY 5 YRS AGES 18-100 07/11/2021 07/11/2016, 07/11/2016 COVID-19 Vaccine ( season) 2023 06/13/2022, 08/30/2021, 08/02/2021 Albumin/Creatinine Ratio 05/26/2023 022, 09/28/2017, 12/03/2015 GFR 11/16/2023 05/17/2023, 0503/2023, 10/20/2022, Additional history exists Depression Screening 04/03/2024 04/03/2023 CKD HGB USE SMARTSET 72446 05/17/202405/17, 05/17/2023, 12/05/2022, Additional history exists CKD PHOS USE SMARTSET 46443 05/17/202404/29, 05/30/2021, 06/08/2020, Additional history exists DTaP,Tdap,and [...] this encounter Medical Devices Implanted Type Area Tin Assorter Device Identifier Shelf Expiration Date Model / Serial / Lot Lens Intraoc 25.5 - [id number] - [id number] Implanted:Qty: 1 on 05/11/2022 by Ishmael Malcolm MD at OR [facility] Right: Eye [employer] 09/26/2026 [id number] / [id number] / [id number] Lens Intraoc 26.0 - [id number] - [id number] Implanted:Qty: 1 on 05/18/2022 by Ishmael Malcolm MD at OR [facility] Left: Eye [employer] 10/27/2025 [id number] / [id number] / [id number] documented as of this encounter Advance Directives [...] the patient have Health Care Power of Associate Property Manager? No Code Status History Code Status Date Activated Date Inactivated Comments No Code 05/11/2022 11:54 AM 05/11/2022 6:22 PM Th is order reflects the patients wishes and were consensually agreed upon. Question Answer Comments Discussion of Advance Directives occurred with: Patient Does the patient have a Living Will? No Does the patient have Health Care Power of Associate Property Manager? No Full Code 04/09/2020 1:05 PM 04/09/2020 7:00 PM This order reflects the patients wishes and were consensually agreed upon. Care Teams Astrochemist Relationship Specialty Start Date End Date Roel Choi MD [address] [place] [address] [place] [address] PCP - General Family Medicine 12/03/15 documented as of this encounter
--- OUTSIDE RECORDS SUMMARY | 2023-09-15 13:45 | External Medical Summary | Summary of Care ---
Author Name Unknown Organization [facility] Address [address] [place] [address] Phone [phone] Care Team Providers Care Welding Equipment Repairer Supervisor Name Role Phone Roel Brown MD Primary Care Provider [phone] Reason for Visit * Reason Onset Date Comments Hospital Follow-Up 04/30/2023 Encounter Details Date Type Department Care Team (Late st Contact Info) Description 04/30/2023 Telephone General Internal Medicine [facility] [address] [address] Roel Brown MD [address] [place] [address] [place] [address] Hospital Follow-Up Allergies Active Allergy Reactions Criticality Noted Date Comments Atorvastatin Muscle pain 04/02/2018 Codeine 02/17/2022 Lidocaine Neuro complications (Please comment) High 06/30/2016 Syncope. Pt passes out and will be extremely exhausted for an hour DO NOT USE Evolocumab 05/14/2020 Dizziness documented as of this encounter (statuses as of 07/30/2023) Medications Medication Sig Dispensed Refills Start Date [...] Tablet Delayed Release daily. 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 05/05/2022 Chronic heart failure with preserved ejection fr action 05/05/2022 Carotid stenosis, bilateral 05/05/2022 Enlarged aorta 05/05/2022 Cardiac pacemaker in situ 05/05/2022 History of VT (myocardial infarction) 05/05/2022 Primary hypertension 12/01/2021 SSS (sick sinus syndrome) 09/07/2021 First degree heart block 05/27/2021 Encounter for long-term (current) drug use 08/20 Rheumatoid arthritis involvi ng multiple sites with positive rheumatoid factor 05/08/2017 Sigmoid diverticulosis 07/11/2016 Overview: sigmoid and descending colon Coronary artery disease invo lving [place] coronary artery of [place] heart without angina pectoris 05/24/2016 ADVANCE DIRECTIVE INFORMATION 01/08/2006 Overview: No, Advance Directive brochure given to patient at prior appointment. Hyperlipidemia LDL goal <100 documented as of this encounter (statuses as of 07/30/2023) Resolved Problems Problem Noted Date Diagnosed Date [...] as of this encounter (statuses as of 07/30/2023) Immunizations Name Administration Dates Next Due COVID-19 [...] encounter Miscellaneous Notes * Telephone Encounter - Latrell Villarreal RN - 04/30/2023 2:31 PM EDT Patient discharged from [facility] today after treatment for TIA. 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 CTA reports faxed to [phone]. Please consider a vascular surgery referral. Patient has a follow up appointment with Keyanna Kovacs PA-C on 05/03. Thank you. documented in this encounter Plan of Treatment Upcoming Encounters Date Type Department Care Team (Late st Contact Info) Description 11/28/2023 9:00 AM EDT Office Visit Family Medicine [address] [place] [phone] Alejandro Pete MD [address] [place] [address] [place] [address] 12/18/2023 10:00 AM EDT Cardiac Studies Cardiology, [facility] [address] [facility] [place] [address] [facility] [address] [facility] [place] [address] 04/04/2024 10:00 AM EDT Nurse Only Ancillary [address] [place] [address] [place], Nurse Annual [facility] [address] [place] [address] [place] [address] 06/23/2024 3:20 PM EST Office Visit Rheumatology [address] [place] [phone] Andriy Cespedes MD [facility] [place] [address] Health Maintenance Due Date Last Done Comments Zoster Vaccines (1 of 2) 10[birth year]10/1969 COLONOSCOPY-EVERY 5 YRS AGES 18-100 07/11/2021 07/11/2016, 07/11/2016 COVID-19 Vaccine (2022- season) 2023 06/13/2022, 08/30/2021, 08/02/2021 Albumin/Creatinine Ratio 05/26/2023 022, 09/28/2017, 12/03/2015 GFR 11/16/2023 05/17/2023, 05/0 03/2023, 10/20/2022, Additional history exists Depression Screening 04/03/2024 04/03/2023 CKD HGB USE SMARTSET 39183 05/17/202405/17, 05/17/2023, 12/05/2022, Additional history exists CKD PHOS USE SMARTSET 69148 05/17/202404/29, 05/30/2021, 06/08/2020, Additional history exists DTaP,Tdap,and [...] this encounter Medical Devices Implanted Type Area Foreign Clerk Device Identifier Shelf Expiration Date Model / Serial / Lot Lens Intraoc 25.5 - [id number] - [id number] Implanted:Qty: 1 on 05/11/2022 by Ishmael Malcolm MD at OR [facility] Right: Eye [employer] 09/26/2026 [id number] / [id number] / [id number] Lens Intraoc 26.0 - [id number] - [id number] Implanted:Qty: 1 on 05/18/2022 by Ishmael Malcolm MD at OR [facility] Left: Eye [employer] 10/27/2025 [id number] / [id number] / [id number] documented as of this encounter Advance Directives [...] patient have Health Care Power of Associate Vice President? No Code Status History Code Status Date Activated Date Inactivated Comments No Code 05/11/2022 11:54 AM 05/11/2022 6:22 PM Th is order reflects the patients wishes and were consensually agreed upon. Question Answer Comments Discussion of Advance Directives occurred with: Patient Does the patient have a Living Will? No Does the patient have Health Care Power of Associate Vice President? No Full Code 04/09/2020 1:05 PM 04/09/2020 7:00 PM This order reflects the patients wishes and were consensually agreed upon. Care Teams Welding Equipment Repairer Supervisor Relationship Specialty Start Date End Date Roel Brown MD [address] [place] [address] [place] [address] PCP - General Family Medicine 12/03/15 documented as of this encounter
--- OUTSIDE RECORDS SUMMARY | 2023-09-15 13:45 | External Medical Summary | Summary of Care ---
Author Name Unknown Organization [facility] Address [address] [place] [address] Phone [phone] Care Team Providers Care Orthopedic Nurse Practitioner Name Role Phone Roel Choi MD Primary Care Provider [phone] Reason for Visit * Reason Comments Medication Refill Encounter Details Date Type Department Care Team ([facility] st Contact Info) Description 06/30/2023 Refill Family Medicine [address] [phone] Roel Choi MD [address] [place] [address] [place] [address] Coronary artery disease involving [place] coronary artery of [place] heart without angina pectoris; Hyperlipidemia LDL goal <100 Allergies Active Allergy Reactions Criticality Noted Date Comments Atorvastatin Muscle pain 04/02/2018 Codeine 02/17/2022 Lidocaine Neuro complications (Please comment) High 06/30/2016 Syncope. Pt passes out and will be extremely exhausted for an hour DO NOT USE Evolocumab 05/14/2020 Dizziness documented as of this encounter (statuses as of 08/10/2023) Medications Medication Sig Dispensed Refills Start Date [...] Oral Tablet (Zetia)Indications :Coronary artery disease involving [place] coronary artery of [place] heart without angina pectoris,Hyperlipi demia LDL goal <100 TAKE ONE TABLET BY MOUTH EVERY MORNING 100 Tablet 1 06/30/2023 Active Clopidogrel Bisulfate 75 MG Oral Tablet (pLAVix)Indication s:History of TIA (transient ischemic attack) TAKE ONE TABLET BY MOUTH EVERY DAY 100 Tablet 1 01/02/2023 07/07/2023 Discontinued (Refill) Ezetimibe 10 MG Oral Tablet (Zetia)Indications :Coronary artery disease involving [place] coronary artery of [place] heart without angina pectoris,Hyperlipi demia LDL goal <100 TAKE ONE TABLET BY MOUTH EVERY MORNING 100 Tablet 3 06/07/2022 06/30/2023 Discontinued (Refill) Gabapentin 100 MG Oral Capsule (Neurontin) Take 1 Capsule by mouth at bedtime. 90 Capsule 0 05/07/2023 08/03/2023 Discontinued (Refill) documented as of this encounter (statuses as of 08/10/2023) Active Problems Problem Noted Date Diagnosed Date Carotid artery occlusion without infarction, lef t 04/27/2023 Overview: TIA [facility] Vertebral artery occlusion, left 04/27/2023 Overview: [facility] H/O TIA (transient ischemic attack) [...] descending colon Coronary artery disease invo lving [place] coronary artery of [place] heart without angina pectoris 05/24/2016 ADVANCE DIRECTIVE INFORMATION 01/08/2006 Overview: No, Advance Directive brochure given to patient at prior appointment. Hyperlipidemia LDL goal <100 documented as of this encounter (statuses as of 08/10/2023) Resolved Problems Problem Noted Date Diagnosed Date [...] as of this encounter (statuses as of 08/10/2023) Immunizations Name Administration Dates Next Due COVID-19 [...] encounter Miscellaneous Notes * Telephone Encounter - [facility], Ambar Waite - 08/10/2023 9:20 AM EST Received message from [facility] regarding patient needing labs. Patient was notified. Successfully contacted patient and provided [facility] message. * Telephone Encounter - Kelvin Garcia [facility] - 06/30/2023 3:08 PM ESTSigned Prescriptions: Disp Refills Ezetimibe 10 MG Oral Tablet (Zetia) 100 Ta*1 Sig: TAKE ONE TABLET BY MOUTH EVERY MORNINGAuthorizing Provider: ROEL CHOI User: KELVIN BARAJAS------ * Telephone Encounter - Kelvin Garcia [facility] - 06/30/2023 3:08 PM EST Provided 90 [...] visit 11/28/2023. Thank You, Kelvin Barajas [facility] Clinical Pharmacist [facility] ([facility] (formerly Telepharmacy) 06/30/2023, 3:08 PM * Telephone Encounter - Kelvin Garcia [facility] - 06/30/2023 3:06 PM EST Pending Prescriptions: [...] date the medication was ordered: 06/07/22 Pharmacy: [facility] Is this request for [...] 9:00 AM EDT Office Visit Family Medicine [address] [place] [phone] Alejandro Pete MD [address] [place] [address] [place] [address] 12/18/2023 10:00 AM EDT Cardiac Studies Cardiology, [facility] [address] [place] [address] [facility] [address] [place] [address] 04/04/2024 10:00 AM EDT Nurse Only Ancillary [address] [place] [address] [place], Nurse Annual [address] [place] [address] 06/23/2024 3:20 PM EST Office Visit Rheumatology [address] [place] [phone] Andriy Cespedes MD [facility] [place] [address] Scheduled Orders Name Type Priority Associated Diagnoses [...] Screening 04/03/2024 04/03/2023 CKD HGB USE SMARTSET 05018 05/17/202405/17, 05/17/2023, 12/05/2022, Additional history exists CKD PHOS USE SMARTSET 47852 05/17/202404/29, 05/30/2021, 06/08/2020, Additional history exists DTaP,Tdap,and [...] this encounter Medical Devices Implanted Type Area Brine Purifier Device Identifier Shelf Expiration Date Model / Serial / Lot Lens Intraoc 25.5 - [id number] - [id number] Implanted:Qty: 1 on 05/11/2022 by Ishmael Malcolm MD at OR [facility] Right: Eye [employer] 09/26/2026 [id number] / [id number] / [id number] Lens Intraoc 26.0 - [id number] - [id number] Implanted:Qty: 1 on 05/18/2022 by Ishmael Malcolm MD at OR [facility] Left: Eye [employer]OM[employer] 10/27/2025 [id number] / [id number] / [id number] documented as of this encounter Visit Diagnoses Diagnosis Coronary artery disease involving [place] coronary artery of [place] heart without angina pectoris Hyperlipidemia LDL goal [...] the patient have Health Care Power of Binitrotoluene Operator? No Code Status History Code Status Date Activated Date Inactivated Comments No Code 05/11/2022 11:54 AM 05/11/2022 6:22 PM Th is order reflects the patients wishes and were consensually agreed upon. Question Answer Comments Discussion of Advance Directives occurred with: Patient Does the patient have a Living Will? No Does the patient have Health Care Power of Binitrotoluene Operator? No Full Code 04/09/2020 1:05 PM 04/09/2020 7:00 PM This order reflects the patients wishes and were consensually agreed upon. Care Teams Orthopedic Nurse Practitioner Relationship Specialty Start Date End Date Roel Choi MD [address] [place] [address] [place] [address] PCP - General Family Medicine 12/03/15 documented as of this encounter
--- OUTSIDE RECORDS SUMMARY | 2023-09-15 13:45 | External Medical Summary | Summary of Care ---
Author Name Unknown Organization [facility] Address [address] [place] [address] Phone [phone] Care Team Providers Care Art Objects Repairer Name Role Phone Roel Brown MD Primary Care Provider + [phone] Reason for Visit * Reason Comments Re-Check Encounter Details Date Type Department Care Team ([facility] st Contact Info) Description 06/11/2023 1:00 PM EST Office Visit Family Medicine [address] [phone] Roel Brown MD [address] [place] [phone] CKD (chronic kidney disease), stage II*; Rheumatoid arthritis involving multiple sites with positive rheumatoid factor (HCC); Carotid artery occlusion without infarction, left; Cardiac pacemaker in situ; Coronary artery disease involving [place] coronary artery of [place] heart without angina pectoris; Primary hypertension; Hyperlipidemia LDL goal <100 Allergies Active Allergy Reactions Criticality Noted Date Comments Atorvastatin Muscle pain 04/02/2018 Codeine 02/17/2022 Lidocaine Neuro complications (Please comment) High 06/30/2016 Syncope. Pt passes out and will be extremely exhausted for an hour DO NOT USE Evolocumab 05/14/2020 Dizziness documented as of this encounter (statuses as of 06/11/2023) Medications Medication Sig Dispensed Refills Start Date [...] Oral Tablet (Zetia)Indications:C oronary artery disease involving [place] coronary artery of [place] heart without angina pectoris,Hyperlipide nancy LDL goal [...] as of this encounter (statuses as of 06/11/2023) Active Problems Problem Noted Date Diagnosed Date Carotid artery occlusion without infarction, lef t 04/27/2023 Overview: TIA [facility] Vertebral artery occlusion, left 04/27/2023 Overview: [facility] H/O TIA (transient ischemic attack) and [...] descending colon Coronary artery disease invo lving [place] coronary artery of [place] heart without angina pectoris 05/24/2016 ADVANCE DIRECTIVE INFORMATION 01/08/2006 Overview: No, Advance Directive brochure given to patient at prior appointment. Hyperlipidemia LDL goal <100 documented as of this encounter (statuses as of 06/11/2023) Resolved Problems Problem Noted Date Diagnosed Date [...] as of this encounter (statuses as of 06/11/2023) Immunizations Name Administration Dates Next Due COVID-19 [...] Taken Comments Blood Pressure - - Pulse 86 06/11/2023 2:57 PM EST Temperature 35.8 C (96.4 F) 06/11/2023 2:57 PM ES T Respiratory Rate 16 06/11/2023 2:57 PM EST Oxygen Saturation 100% 06/11/2023 2:57 PM EST Inhaled Oxygen Concentration - - Weight 93.1 kg (205 lb 4 oz) 06/11/2023 2:57 PM EST Height - - Body Mass Index 29.45 04/03/2023 10:10 AM EDT documented in this encounter Progress Notes * Roel Brown MD - 06/11/2023 3:02 PM EST Cutting coffee has helped the neuropathy some. Lukasz has had another TIA and was admitted 04/27, found to have left vertebral artery and left carotid artery occlusion. Did not lose his speech and he is right handed. He says his strength is maintained. He had a CTA of chest and needs follow up for pulmonary nodules as well. They increased the losartan and that really helped. He Does not tolerate statins or Repatha. Health Maintenance addressed. Colonoscopy was 2016, 3 Covid shots, did get flu shot Past Medical History: Diagnosis Date Bilateral asymmetric sensorineural hearing loss L>R, bilateral hearing aids. BMI 31.0-31.9,adult 12/03/2015 224 Calculus of gallbladder without cholecystitis without obstruction CKD (chronic kidney disease), stage III (HCC) 2004 GFR 55.7 Coronary artery disease 2012 Dental caries extending into pulp Diastolic dysfunction without heart failure 05/27/2021 Garde I Essential hypertension with goal blood pressure less than 140/90 First degree heart block 05/27/2021 Hyperlipidemia LDL goal <100 Left tennis elbow 2005 Myocardial infarction (HCC) 2013 [facility] - stent x1 Need for hepatitis C screening test 12/03/2015 negative Pacemaker Sigmoid diverticulitis [facility] Sigmoid diverticulosis 07/11/2016 sigmoid and descending colon SSS (sick sinus syndrome) (HCC) TIA (transient ischemic attack) 03/14/2018 [facility] TIA (transient ischemic attack) 12/20/2022 [facility] Vasovagal near syncope 03/14/2018 [facility] Past Surgical History: Procedure Laterality Date ARM/ELBOW DEEP TUMOR REMOVAL, 5 CM OR MORE Right 04/09/2020 EXCISION, TUMOR, SOFT TISSUE OF UPPER ARM OR ELBOW AREA, SUBFASCIAL (EG, INTRAMUSCULAR); 5 CM OR GREATER performed by Iftikhar Sargent DO at OR [facility] COLONOSCOPY, DIAGNOSTIC (RECTUM) 07/11/2016 adenomatous polyp, diverticulosis, repeat 5 yrs/COLONOSCOPY FLEXIBLE PROXIMAL DIAGNOSTIC performed by Xavier Small MD at ENDOSCOPY [facility] CT ABDOMEN WO IV AND W ORAL CONTRAST N/A 04/18/2020 acute sigmoid divertulitis, cholelithiasis, CT HEAD/BRAIN 03/14/2018 no acute reversible or irreversible vascular ischemic insult CTA HEAD W CONTRAST 03/14/2018 50% stenosis of distal right CCA, left vertebral artery V3/V4 junstion and V4 segment completely occluded, reconstituted distally mostly via reflux from basilar artery FLUORO BARIUM ENEMA 1970s negative FOOT/TOE SUBQ TUMOR REMOVAL, 1.5 CM OR MORE Bilateral 04/09/2020 EXCISION FOOT/TOE SUBQ TUMOR, 1.5 CM OR MORE performed by Evelyn Deleon DPM at OR [facility] FOOT/TOE SUBQ TUMOR REMOVAL, UNDER 1.5 CM Right 03/23/2023 EXCISION TUMOR FOOT SUBCUTANEOUS performed by Evelyn Deleon DPM at OR [facility] INSERT HEART ELECTRODE, DUAL CHAMBR 09/14/2021 Dr Thakur MRI BRAIN WITHOUT CONTRAST 03/14/2018 left vertebral artery occlusion, 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 REMOVAL OF TONSILS, AGE 12+ age 12 REMOVE CATARACT, INSERT LENS PROSTH Right 05/11/2022 right EXTRACAPSULAR CATARACT REMOVAL WITH INTRAOCULAR LENS performed by Ishmael Malcolm MD at OR [facility] REMOVE CATARACT, INSERT LENS PROSTH Left 05/18/2022 left EXTRACAPSULAR CATARACT REMOVAL WITH INTRAOCULAR LENS performed by Ishmael Malcolm MD at OR [facility] REMOVE TENDON SHEATH LESION, HAND Right 04/09/2020 EXCISION LESION TENDON SHEATH OR CAPSULE HAND OR FINGER performed by Iftikhar Sargent DO at OR [facility] THROMBOENDARECTOMY W/PATCH,NECK INCISION Left 09/07/2012 [facility] US AAA SCREEN, VASCULAR LAB N/A 06/13/2016 2.7 cm max diameter, iliac ectasia 1.6 cm, no AAA VASC DUPLEX CAROTID BILAT Bilateral 09/25/2016 <50% ICA stenosis bilaterally, vertebral flow antegrade VASC DUPLEX CAROTID BILAT Bilateral 11/18/2020 50-69% bilateral stenosis Review of patient's allergies indicates: Allergen Reactions Lidocaine Neuro complications (Please comment) Syncope. Pt passes out and will be extremely exhausted for an hour DO NOT USE Atorvastatin Muscle pain Codeine Repatha [Evolocumab] Dizziness Social History Socioeconomic History Marital status: Spouse name: Not on file Number of children: 3 Years of education: Not on file Highest education level: Not on file Occupational History Not on file Tobacco Use Smoking status: Former Packs/day: 0.50 Years: 25.00 Additional pack years: 0.00 Total pack years: 12.50 Types: Cigarettes, Pipe, Cigars Quit date: 01/26/1990 Years since quittin.3 Smokeless tobacco: Current Types: Snuff Tobacco comments: a can every 2 days Vaping Use Vaping Use: Never used Substance and Sexual Activity Alcohol use: No Drug use: No Sexual activity: Not Currently Partners: Female Other Topics Concern Not on file Social History Narrative SO, Social Determinants of Health Financial Resource Strain: Not on file Food Insecurity: No Food Insecurity (04/03/2023) Hunger Vital Sign Worried About Running Out of Food in the Last Year: Never true Ran Out of Food in the Last Year: Never true Transportation Needs: Not on file Physical Activity: Not on file Stress: Not on file Social Connections: Not on file Intimate Partner Violence: Not on file Housing Stability: Not on file Current Outpatient Medications Medication Sig Dispense Refill Multiple Vitamins-Minerals (CENTRUM SILVER) Tablet Take 1 Tablet by mouth in the morning. fish oil concentrate (OMEGA-3) 1000 MG CAPS Take 1,200 mg by mouth 2 times a day. 60 Cap 5 Vitamin E 100 units Tablet Take by mouth daily . 450 mg a day Turmeric 500 MG Oral Capsule Take 1 Capsule by mouth in the morning. 2 tabs a day . QC Aspirin Low Dose 81 MG Oral Tablet Delayed Release daily. Clopidogrel Bisulfate 75 MG Oral Tablet (pLAVix) TAKE ONE TABLET BY MOUTH EVERY DAY 100 Tablet 1 Leflunomide 10 MG Oral Tablet (Arava) TAKE ONE TABLET BY MOUTH EVERY DAY IN THE MORNING 100 Tablet 1 Ezetimibe 10 MG Oral Tablet (Zetia) TAKE ONE TABLET BY MOUTH EVERY MORNING 100 Tablet 3 Gabapentin 100 MG Oral Capsule (Neurontin) Take 1 Capsule by mouth at bedtime. 90 Capsule 0 Losartan Potassium 50 MG Oral Tablet (Cozaar) Take 1 Tablet by mouth in the morning and 1 Tablet before bedtime. 180 Tablet 3 No current facility-administered medications for this visit. Immunization History Administered Date(s) Administered COVID-19 mRNA, LNP-s, No Preserve, 2-Dose Series (Moderna) 08/02/2021, 08/30/2021 Covid-19, Mrna, Lnp-s, Pf, Bivalent, 30 Mcg, IM, 12 yrs and above (Pfizer) 06/13/2022 Pneumococcal Conjugate Vacc, 13 Valent (Prevnar) 12/03/2015 Pneumococcal Polysaccharide PPV23 (Pneumovax) 11/28/2016 SEASONAL INFLUENZA, PF, 6 M & Above, IM , (FLULAVAL or FLUZONE) 08/20/2017, 07/03/2018, 07/03/2019, 06/01/2021 Season Influenza, Quad, PF, Adjuvanted, 65+ Yrs, IM (FLUAD) 04/26/2020 Seasonal Influenza Virus Vaccine, Unspecified Formulation 08/20/2017, 07/03/2018, 07/03/2019 Seasonal Influenza, Quadrivalent Hd (Fluzone Hd) 03/30/2022, 04/03/2023 TDAP (age 10 and older)(Boostrix) 12/29/2010, 12/03/2015 Lab Results Component Value Date/Time PSA - [facility] 0.36 12/05/2022 01:33 PM PSA SCREENING 0.37 12/03/2015 11:59 AM PSA SCREENING 0.14 01/12/2005 04:13 PM PSA SCREENING RESULTS RECHECKED 01/12/2005 04:13 PM Results for orders placed or performed in visit on 05/17/23 COMPREHENSIVE METABOLIC PANEL Result Value Ref Range BUN 13 6 - 20 mg/dL Creatinine 1.2 0.6 - 1.2 mg/dL Estimated Glomerular Filtration Rate 67 >=60 mL/min Sodium 139 135 - 146 mmol/L Potassium 4.7 3.5 - 5.1 mmol/L Chloride 103 98 - 107 mmol/L CO2 25 22 - 32 mmol/L Anion Gap 11 7 - 15 mmol/L Glucose 65 (L) 70 - 120 mg/dL Albumin 4.4 3.8 - 5.0 g/dL AST 13 10 - 50 U/L Alkaline Phosphatase 84 35 - 130 U/L Bilirubin, Total 0.4 <=1.2 mg/dL Calcium 10.0 8.4 - 10.2 mg/dL Protein 7.0 6.0 - 8.3 g/dL ALT 12 10 - 50 U/L Results for orders placed or performed in visit on 03/06/22 LIPID PANEL WITH DIRECT LDL IF TG IS HIGH Result Value Ref Range Triglycerides 168 <=174 mg/dL Cholesterol 184 <200 mg/dL HDL Cholesterol 41 >39 mg/dL Non-HDL Cholesterol 143 <=159 mg/dL LDL Cholesterol 109 <=129 mg/dL Lab Results Component Value Date/Time TSH - [facility] 0.33 12/05/2022 01:33 PM TSH - [facility] 1.06 11/29/2020 01:08 PM TSH - [facility] 1.20 02/05/2018 12:23 PM TSH - [facility] 2.37 03/13/2017 11:03 AM TSH - [facility] 2.33 06/06/2016 10:16 AM CBC Results: Results for orders placed or performed in visit on 05/17/23 CBC Result Value Ref Range WBC 8.83 4.00 - 10.80 K/uL RBC 5.20 4.50 - 5.25 M/uL HGB 15.4 14.0 - 16.8 g/dL HCT 49.3 (H) 40.0 - 48.4 % MCV 94.8 82.0 - 99.5 fL MCH 29.6 27.0 - 34.0 pg MCHC 31.2 32.0 - 36.0 g/dL RDW 14.5 11.5 - 15.5 % PLT 270 140 - 400 K/uL MPV 9.5 6.6 - 11.1 fL nRBCs 0 <=0 /100 WBCs O: Pulse 86, temperature 35.8 C (96.4 F), temperature source Tympanic, resp. rate 16, weight 93.1 kg (205 lb 4 oz), SpO2 100%. General appearance: well developed, well nourished and in no acute distress. Neck is supple without adenopathy or thyromegaly. Chest is symmetrical and moves normally. The lungs are clear without wheezes, rales, rhonchi or rubs, and the heart is regular without murmurs or gallops, or ectopy. PMI not displaced. A: CKD (chronic kidney disease), stage II (Primary) Rheumatoid arthritis involving multiple sites with positive rheumatoid factor (HCC) Carotid artery occlusion without infarction, left Cardiac pacemaker in situ Coronary artery disease involving [place] coronary artery of [place] heart without angina pectoris Primary hypertension Hyperlipidemia LDL goal <100 Continue other meds as before. Follow Up: Return if symptoms worsen or fail to improve. documented in this encounter Nursing Notes * Pari Rosado LPN - 06/11/2023 2:54 PM EST 6 month recheck Outside right foot with sore. Had a stroke a couple weeks ago. Was at [facility]. Saw Dr Pradhan, associate account manager. documented in this encounter Plan of Treatment Upcoming Encounters Date Type Department Care Team (Late st Contact Info) Description 06/22/2023 9:40 AM EST Office Visit Rheumatology [address] [place] [phone] Andriy Cespedes MD [facility] [address] 11/28/2023 9:00 AM EDT Office Visit Family Medicine [address] [place] [phone] Alejandro Pete MD [address] [place] [address] [place] [address] 12/18/2023 10:00 AM EDT Cardiac Studies Cardiology, [facility] [place] [address] [facility] [address] [facility] [place] [address] 04/04/2024 10:00 AM EDT Nurse Only Ancillary [address] [place] [address] [place], Nurse Annual Wellness [address] [place] [address] [place] [id number] Health Maintenance Due Date Last Done Comments Zoster Vaccines (1 of 2) 10/10/1969 COLONOSCOPY-EVERY 5 YRS AGES 18-100 07/11/2021 07/11/2016, 07/11/2016 COVID-19 Vaccine ( season) 2023 06/13/2022, 08/30/2021, 08/02/2021 Albumin/Creatinine Ratio 05/26/20232 022, 09/28/2017, 12/03/2015 GFR 11/16/2023 05/17/2023, 0503/2023, 10/20/2022, Additional history exists Depression Screening 04/03/2024 04/03/2023 CKD HGB USE SMARTSET 20431 05/17/202405/17, 05/17/2023, 12/05/2022, Additional history exists CKD PHOS USE SMARTSET 99014 05/17/202404/29, 05/30/2021, 06/08/2020, Additional history exists DTaP,Tdap,and [...] this encounter Medical Devices Implanted Type Area Buncher Hand Device Identifier Shelf Expiration Date Model / Serial / Lot Lens Intraoc 25.5 - [id number] - [id number] Implanted:Qty: 1 on 05/11/2022 by Ishmael Malcolm MD at OR [facility] Right: Eye [employer] 09/26/2026 [id number] / [id number] / [id number] Lens Intraoc 26.0 - [id number] - [id number] Implanted:Qty: 1 on 05/18/2022 by Ishmael Malcolm MD at OR [facility] Left: Eye [employer] 10/27/2025 [id number] / [id number] / [id number] documented as of this encounter Visit Diagnoses Diagnosis CKD (chronic kidney disease), stage II- Primary Chronic kidney disease, Stage II (mild) Rheumatoid arthritis involving multiple sites with positive rheumatoid factor (HCC) Carotid artery occlusion without infarction, left Cardiac pacemaker in situ Coronary artery disease involving [place] coronary artery of [place] heart without angina pectoris Primary hypertension Unspecified essential hypertension Hyperlipidemia LDL goal <100 Other and unspecified [...] the patient have Health Care Power of Strainer Mill Operator? No Code Status History Code Status Date Activated Date Inactivated Comments No Code 05/11/2022 11:54 AM 05/11/2022 6:22 PM Th is order reflects the patients wishes and were consensually agreed upon. Question Answer Comments Discussion of Advance Directives occurred with: Patient Does the patient have a Living Will? No Does the patient have Health Care Power of Strainer Mill Operator? No Full Code 04/09/2020 1:05 PM 04/09/2020 7:00 PM This order reflects the patients wishes and were consensually agreed upon. Care Teams Art Objects Repairer Relationship Specialty Start Date End Date Roel Brown MD [address] [place] [address] [place] [address] PCP - General Family Medicine 12/03/15 documented as of this encounter
--- OUTSIDE RECORDS SUMMARY | 2023-09-15 13:45 | External Medical Summary | Summary of Care ---
Author Name Unknown Organization [facility] Address [address] [place] [address] Phone [phone] Care Team Providers Care Handkerchief Folder Name Role Phone Roel Brown MD Primary Care Provider [phone] Reason for Visit * Reason Onset Date Comments [facility] Care Coordination Services 05/23/2023 Encounter Details Date Type Department Care Team (Late st Contact Info) Description 05/23/2023 Telephone Care Coordination [address], [place] [phone] Lou Mike, [facility] Room Clerk [address], [place] [phone] [facility] Care Coordination Services Allergies Active Allergy Reactions Criticality Noted Date Comments Atorvastatin Muscle pain 04/02/2018 Codeine 02/17/2022 Lidocaine Neuro complications (Please comment) High 06/30/2016 Syncope. Pt passes out and will be extremely exhausted for an hour DO NOT USE Evolocumab 05/14/2020 Dizziness documented as of this encounter (statuses as of 05/23/2023) Medications Medication Sig Dispensed Refills Start Date [...] Oral Tablet (Zetia)Indications:C oronary artery disease involving [place] coronary artery of [place] heart without angina pectoris,Hyperlipide nancy LDL goal [...] as of this encounter (statuses as of 05/23/2023) Active Problems Problem Noted Date Diagnosed Date [...] Cardiac pacemaker in situ 05/05/2022 History of [place] (myocardial infarction) 05/05/2022 Primary hypertension 12/01/2021 SSS (sick sinus syndrome) 09/07/2021 First degree heart block 05/27/2021 Encounter for long-term (current) drug use 08/20 Rheumatoid arthritis involvi ng multiple sites with positive rheumatoid factor 05/08/2017 Sigmoid diverticulosis 07/11/2016 Overview: sigmoid and descending colon Coronary artery disease invo lving [place] coronary artery of [place] heart without angina pectoris 05/24/2016 ADVANCE DIRECTIVE INFORMATION 01/08/2006 Overview: No, Advance Directive brochure given to patient at prior appointment. Hyperlipidemia LDL goal <100 documented as of this encounter (statuses as of 05/23/2023) Resolved Problems Problem Noted Date Diagnosed Date [...] as of this encounter (statuses as of 05/23/2023) Immunizations Name Administration Dates Next Due COVID-19 [...] encounter Miscellaneous Notes * Telephone Encounter - Lou Mike, [facility] Health [facility] Room Clerk - 05/23/2023 4:10 PM EDT JIMMY-A: - Spoke to patient in response to IVR alerts [...] seems to be a "bump on the incision". - JIMMY-A sent Teams message to [facility] CM requesting call to patient. If unable to call today, request is for CM to contact patient after 2 PM tomorrow. - JIMMY-A instructed patient to contact his doctor if the symptoms get worse or if he develops a fever in the meantime. - Patient had no further questions. ANGELLA Harman JIMMY-A [phone] Electronically signed by Lou Mike, [facility] Health Supply Room Clerk at 05/23/2023 4:11 PM EDT documented in this encounter Plan of Treatment Upcoming Encounters Date Type Department Care Team (Late st Contact Info) Description 06/11/2023 10:00 AM EST Office Visit Family Medicine [address] [place] [phone] Roel Brown MD [address] [place] [address] [place] [address] 06/22/2023 9:40 AM EST Office Visit Rheumatology [address] [place] [phone] Andriy Cespedes MD [address] [place] [address] [place] [address] 11/28/2023 9:00 AM EDT Office Visit Family Medicine [address] [place] [phone] Alejandro Pete MD [address] [place] [address] [place] [address] 12/18/2023 10:00 AM EDT Cardiac Studies Cardiology, [facility] [address] [facility] [place] [address] [facility] 132 [facility] [place] [address] 04/04/2024 10:00 AM EDT Nurse Only Ancillary [address] [place] [address] Mar[place], Nurse [address] [place] [address] Health Maintenance Due Date Last Done Comments Zoster Vaccines (1 of 2) 10/10/1969 COLONOSCOPY-EVERY 5 YRS AGES 18-100 07/11/2021 07/11/2016, 07/11/2016 COVID-19 Vaccine (4 - 2022- season) 2023 06/13/2022, 08/30/2021, 08/02/2021 Albumin/Creatinine Ratio 05/26/2023 022, 09/28/2017, 12/03/2015 GFR 11/16/2023 05/17/2023, 05/0 03/2023, 10/20/2022, Additional history exists Depression Screening 04/03/2024 04/03/2023 CKD HGB USE SMARTSET 25294 05/17/202405/17, 05/17/2023, 12/05/2022, Additional history exists CKD PHOS USE SMARTSET 96150 05/17/202404/29, 05/30/2021, 06/08/2020, Additional history exists DTaP,Tdap,and [...] this encounter Medical Devices Implanted Type Area Commercial Floor Covering Installer Device Identifier Shelf Expiration Date Model / Serial / Lot Lens Intraoc 25.5 - [id number] - [id number] Implanted:Qty: 1 on 05/11/2022 by Ishmael Malcolm MD at OR [facility] Right: Eye [employer] 09/26/2026 [id number] / [id number] / [id number] Lens Intraoc 26.0 - [id number] - [id number] Implanted:Qty: 1 on 05/18/2022 by Ishmael Malcolm MD at [facility] Left: Eye [employer]OM[employer] 10/27/2025 [id number] / [id number] / [id number] documented as of this encounter Advance Directives [...] patient have Health Care Power of Associate Professor Of Radiology? No Code Status History Code Status Date Activated Date Inactivated Comments No Code 05/11/2022 11:54 AM 05/11/2022 6:22 PM Th is order reflects the patients wishes and were consensually agreed upon. Question Answer Comments Discussion of Advance Directives occurred with: Patient Does the patient have a Living Will? No Does the patient have Health Care Power of Associate Professor Of Radiology? No Full Code 04/09/2020 1:05 PM 04/09/2020 7:00 PM This order reflects the patients wishes and were consensually agreed upon. Care Teams Handkerchief Folder Relationship Specialty Start Date End Date Roel Brown MD [address] [place] [address] [place] [phone] PCP - General Family Medicine 12/03/15 documented as of this encounter
--- OUTSIDE RECORDS SUMMARY | 2023-09-15 13:45 | External Medical Summary | Summary of Care ---
Author Name Unknown Organization [facility] Address [address] [place] [address] Phone [phone] Care Team Providers Care Time Stamp Assembler Name Role Phone Roel Brown MD Primary Care Provider [phone] Reason for Visit * Reason Comments Follow Up R foot Encounter Details Date Type Department Care Team (Late st Contact Info) Description 06/05/2023 3:00 PM EST Office Visit Podiatry [facility] [address] [place] [address] Evelyn Deleon DPM [address] [place] [address] Right foot pain*; Callus Allergies Active Allergy Reactions Criticality Noted Date Comments Atorvastatin Muscle pain 04/02/2018 Codeine 02/17/2022 Lidocaine Neuro complications (Please comment) High 06/30/2016 Syncope. Pt passes out and will be extremely exhausted for an hour DO NOT USE Evolocumab 05/14/2020 Dizziness documented as of this encounter (statuses as of 06/05/2023) Medications Medication Sig Dispensed Refills Start Date [...] Oral Tablet (Zetia)Indications:C oronary artery disease involving [place] coronary artery of [place] heart without angina pectoris,Hyperlipide nancy LDL goal [...] as of this encounter (statuses as of 06/05/2023) Active Problems Problem Noted Date Diagnosed Date [...] Cardiac pacemaker in situ 05/05/2022 History of NM (myocardial infarction) 05/05/2022 Primary hypertension 12/01/2021 SSS (sick sinus syndrome) 09/07/2021 First degree heart block 05/27/2021 Encounter for long-term (current) drug use 08/20 Rheumatoid arthritis involvi ng multiple sites with positive rheumatoid factor 05/08/2017 Sigmoid diverticulosis 07/11/2016 Overview: sigmoid and descending colon Coronary artery disease invo lving [place] coronary artery of [place] heart without angina pectoris 05/24/2016 ADVANCE DIRECTIVE INFORMATION 01/08/2006 Overview: No, Advance Directive brochure given to patient at prior appointment. Hyperlipidemia LDL goal <100 documented as of this encounter (statuses as of 06/05/2023) Resolved Problems Problem Noted Date Diagnosed Date [...] as of this encounter (statuses as of 06/05/2023) Immunizations Name Administration Dates Next Due COVID-19 [...] on file documented as of this encounter Progress Notes * Evelyn Deleon DPM - 06/05/2023 2:57 PM EST Podiatry Established Note [facility] Name: Lukasz Palacios : 1950 Date: 06/05/2023 REASON FOR VISIT: Right foot concern SUBJECTIVE: This patient is a 72 year old male who presents today with complaints of a right foot concern. Pt states a few weeks ago he noticed drainage from his right foot. He was seen by a hazardous waste remover in [place] who "ground this down". He has been applying betadine and a bandage daily. He has pain with pressure. present. Had a stroke. Denies any other complaints. 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 BMI 31.0-31.9,adult 12/03/2015 224 Calculus of gallbladder without cholecystitis without obstruction CKD (chronic kidney disease), stage III ([facility]) 2004 GFR 55.7 Coronary artery disease 2012 Dental caries extending into pulp Diastolic dysfunction without heart failure 05/27/2021 [place] Essential hypertension with goal blood pressure less than 140/90 First degree heart block 05/27/2021 Hyperlipidemia LDL goal <100 Left tennis elbow 2005 Myocardial infarction ([facility]) 2012 [facility] - stent x1 Need for hepatitis C screening test 12/03/2015 negative Pacemaker Sigmoid diverticulitis 04/18/2020 [facility], Juan R Hyman Sigmoid diverticulosis 07/11/2016 sigmoid and descending colon SSS (sick sinus syndrome) ([facility]) TIA (transient ischemic attack) 03/14/2018 [place] TIA (transient ischemic attack) 12/20/2022 [place] Vasovagal near syncope 03/14/2018 [place] ALLERGIES: Review of patient's allergies indicates: Allergen Reactions Lidocaine Neuro complications (Please comment) Syncope. Pt passes out and will be extremely exhausted for an hour DO NOT USE Atorvastatin Muscle pain Codeine Repatha [Evolocumab] Dizziness REVIEW OF SYSTEMS: CONSTITUTIONAL: No change in weight, No weakness, and No fatigue EYE: No recent significant change in vision and No eye pain, redness, discharge EARS: No ear pain and No recent change in hearing NOSE: No history of frequent colds or sinusitis and No nasal stuffiness PULMONARY: No cough, sputum, or hemoptysis and No recent change in breathing CARDIOVASCULAR: No chest pain and No shortness of breath EXTREMITIES: Right foot pain SKIN/INTEGUMENTARY: No edema, No rash, and No itching NEUROLOGIC: Normal balance, No headaches, No seizures, and No weakness PSYCHIATRIC: No depression, No anxiety, and No psychosis RIGHT FOCUSED PODIATRIC EXAM: Vitals: There were no vitals filed for this visit. General: Patient is awake alert oriented to person place time. No apparent distress. Vascular: DP/PT pulses palpable. CFT < 3 sec 1-5. No edema noted. Temperature gradient is normal warm to cold. Neurologic: Protective sensation intact to light touch. Sensation to sharp/dull is intact. There is no babinskiresponse elicited. Ankle clonus is absent. Dermatological: Skin is normal in appearance with no open lesions or interdigital macerations. Nails 1-5 are normalin length and thickness. Pedal hair is noted. Callus noted sub 5th met head with no open wound noted. Musculoskeletal: POP noted to the right foot. No pain with active or passive ROM of the digits or ankle joint. Muscle strength is 5/5 for all muscle groups of the lower extremity. DIAGNOSTIC STUDIES: None ASSESSMENT: Right foot pain Callus Hx of stroke PLAN: - Callus noted sub 5th metatarsal head was debrided with a 15 blade x1 - Cut out performed in shoe to help relieve some pressure. - No dressing required. - Activity to tolerance - Pt to RTC PRN. Instructed to call with any problems or questions. Evelyn Deleon DPM documented in this encounter Nursing Notes * Cady Wilkerson LPN - 06/05/2023 2:42 PM EST Pt presents for follow up R foot, states has some drainage from incision site; s/p excision RA nodule R foot 03/23/2023. Pt states he had a stroke approx 1 week after surgery, R side was affected, nowhas pins and needles feeling in the front of the R foot. documented in this encounter Plan of Treatment Upcoming Encounters Date Type Department Care Team (Late st Contact Info) Description 06/11/2023 10:00 AM EST Office Visit Family Medicine [address] [place] [phone] Roel Brown MD [address] [place] [address] [place] [address] 06/22/2023 9:40 AM EST Office Visit Rheumatology [address] [place] [phone] Andriy Cespedes MD [facility] [place] [address] 11/28/2023 9:00 AM EDT Office Visit Family Medicine [address] [place] [phone] Alejandro Pete MD [address] [place] [address] [place] [address] 12/18/2023 10:00 AM EDT Cardiac Studies Cardiology, [facility] 132 [facility] [place] [address] [place], Pacer Clinic [facility] [address] [facility] [place] [address] 04/04/2024 10:00 AM EDT Nurse Only Ancillary [address] [place] [address] [place], Nurse Annual Wellness [address] [place] [address] [place] [address] Health Maintenance Due Date Last Done Comments Zoster Vaccines (1 of 2) 10/10/1967 COLONOSCOPY-EVERY 5 YRS AGES 18-100 07/11/2021 07/11/2016, 07/11/2016 COVID-19 Vaccine ( season) 2023 06/13/2022, 08/30/2021, 08/02/2021 Albumin/Creatinine Ratio 05/26/202305/26/2 022, 09/28/2017, 12/03/2015 GFR 11/16/2023 05/17/2023, 05/03/2023, 10/20/2022, Additional history exists Depression Screening 04/03/2024 04/03/2023 CKD HGB USE SMARTSET 81222 05/17/202405/17, 05/17/2023, 12/05/2022, Additional history exists CKD PHOS USE SMARTSET 64233 05/17/202404/29, 05/30/2021, 06/08/2020, Additional history exists DTaP,Tdap,and [...] this encounter Medical Devices Implanted Type Area Flanger Device Identifier Shelf Expiration Date Model / Serial / Lot Lens Intraoc 25.5 - [id number] - [id number] Implanted:Qty: 1 on 05/11/2022 by Ishmael Malcolm MD at OR [facility] Right: Eye [employer] 09/26/2026 [id number] / [id number] / [id number] Lens Intraoc 26.0 - [id number] - [id number] Implanted:Qty: 1 on 05/18/2022 by Ishmael Malcolm MD at OR [facility] Left: Eye [employer] 10/27/2025 [id number] / [id number] / [id number] documented as of this encounter Visit Diagnoses Diagnosis Right foot pain- Primary Pain in limb Callus Corns and callosities documented in this encounter Advance Directives Latest [...] the patient have Health Care Power of Termite Control Servicer? No Code Status History Code Status Date Activated Date Inactivated Comments No Code 05/11/2022 11:54 AM 05/11/2022 6:22 PM Th is order reflects the patients wishes and were consensually agreed upon. Question Answer Comments Discussion of Advance Directives occurred with: Patient Does the patient have a Living Will? No Does the patient have Health Care Power of Termite Control Servicer? No Full Code 04/09/2020 1:05 PM 04/09/2020 7:00 PM This order reflects the patients wishes and were consensually agreed upon. Care Teams Time Stamp Assembler Relationship Specialty Start Date End Date Roel Brown MD [address] [place] [address] [place] [address] PCP - General Family Medicine 12/03/15 documented as of this encounter
--- OUTSIDE RECORDS SUMMARY | 2023-09-15 13:45 | External Medical Summary | Summary of Care ---
Author Name Unknown Organization [facility] Address [address] [place] [address] Phone [phone] Care Team Providers Care Court Worker Name Role Phone Roel Brown MD Primary Care Provider [phone] Reason for Visit * Reason Onset Date Comments Health Maintenance 06/15/2023 Encounter Details Date Type Department Care Team ([facility] st Contact Info) Description 06/15/2023 Telephone Family Medicine [address] [phone] Roel Brown MD [address] [place] [address] [place] [address] Health Maintenance Allergies Active Allergy Reactions Criticality Noted Date Comments Atorvastatin Muscle pain 04/02/2018 Codeine 02/17/2022 Lidocaine Neuro complications (Please comment) High 06/30/2016 Syncope. Pt passes out and will be extremely exhausted for an hour DO NOT USE Evolocumab 05/14/2020 Dizziness documented as of this encounter (statuses as of 06/15/2023) Medications Medication Sig Dispensed Refills Start Date [...] Oral Tablet (Zetia)Indications:C oronary artery disease involving [place] coronary artery of [place] heart without angina pectoris,Hyperlipide nancy LDL goal [...] as of this encounter (statuses as of 06/15/2023) Active Problems Problem Noted Date Diagnosed Date Carotid artery occlusion without infarction, lef t 04/27/2023 Overview: TIA [facility] Vertebral artery occlusion, left 04/27/2023 Overview: [facility] H/O TIA (transient ischemic attack) and stroke 0 12/20/2022 CKD (chronic kidney disease), stage II Overview: EGFR 67 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 05/05/2022 Chronic heart failure with preserved ejection fr action 05/05/2022 Carotid stenosis, bilateral 05/05/2022 Enlarged aorta 05/05/2022 Cardiac pacemaker in situ 05/05/2022 History of [place] (myocardial infarction) 05/05/2022 Primary hypertension 12/01/2021 SSS (sick sinus syndrome) 09/07/2021 First degree heart block 05/27/2021 Encounter for long-term (current) drug use 08/20 Rheumatoid arthritis involvi ng multiple sites with positive rheumatoid factor 05/08/2017 Sigmoid diverticulosis 07/11/2016 Overview: sigmoid and descending colon Coronary artery disease invo lving [place] coronary artery of [place] heart without angina pectoris 05/24/2016 ADVANCE DIRECTIVE INFORMATION 01/08/2006 Overview: No, Advance Directive brochure given to patient at prior appointment. Hyperlipidemia LDL goal <100 documented as of this encounter (statuses as of 06/15/2023) Resolved Problems Problem Noted Date Diagnosed Date [...] as of this encounter (statuses as of 06/15/2023) Immunizations Name Administration Dates Next Due COVID-19 [...] encounter Miscellaneous Notes * Telephone Encounter - Shayna Medina LPN - 06/15/2023 9:30 AM EST Care Gaps Comprehensive Care Outreach Last Office/Telemedicine Visit: 06/11/2023 (in office), Visit date not found (telemedicine) Next Office Visit: 11/28/2023 Hemoglobin AIC Results: No results found for: "HEMOGLOBIN A1C" Reviewed Health Maintenance below: Health Maintenance Topic Date Due Zoster Vaccines (1 of 2) Never done COLONOSCOPY-EVERY 5 YRS AGES 18-100 07/11/2021 COVID-19 Vaccine (4 - 2023-24 season) 2023 Albumin/Creatinine Ratio 05/26/2023 GFR 11/16/2023 Cologuard follow my g Urine already ordered Awv already done Care Gap Outreach Action Taken: Myportal message sent documented in this encounter Plan of Treatment Upcoming Encounters Date Type Department Care Team (Late st Contact Info) Description 06/22/2023 9:40 AM EST Office Visit Rheumatology [address] [place] [phone] Andriy Cespedes MD [facility] [place] [address] 11/28/2023 9:00 AM EDT Office Visit Family Medicine [address] [place] [phone] Alejandro Pete MD [address] [place] [address] [place] [address] 12/18/2023 10:00 AM EDT Cardiac Studies Cardiology, [facility] [address] [place], Pacer Clinic [facility] 132 [facility] [place] [address] 04/04/2024 10:00 AM EDT Nurse Only Ancillary [address] [place] [address] [place], Nurse Annual Wellness [address] [place] [address] [place] [phone] Health Maintenance Due Date Last Done Comments Zoster Vaccines (1 of 2) 10/10/1969 COLONOSCOPY-EVERY 5 YRS AGES 18-100 07/11/2021 07/11/2016, 07/11/2016 COVID-19 Vaccine ( season) 2023 06/13/2022, 08/30/2021, 08/02/2021 Albumin/Creatinine Ratio 05/26/2023 022, 09/28/2017, 12/03/2015 GFR 11/16/2023 05/17/2023, 05/0 03/2023, 10/20/2022, Additional history exists Depression Screening 04/03/2024 04/03/2023 CKD HGB USE SMARTSET 46378 05/17/202405/17, 05/17/2023, 12/05/2022, Additional history exists CKD PHOS USE SMARTSET 88684 05/17/202404/29, 05/30/2021, 06/08/2020, Additional history exists DTaP,Tdap,and [...] this encounter Medical Devices Implanted Type Area Network Security Officer Device Identifier Shelf Expiration Date Model / Serial / Lot Lens Intraoc 25.5 - [id number] - [id number] Implanted:Qty: 1 on 05/11/2022 by Ishmael Malcolm MD at OR [facility] Right: Eye [employer] 09/26/2026 [id number] / [id number] / [id number] Lens Intraoc 26.0 - [id number] - [id number] Implanted:Qty: 1 on 05/18/2022 by Ishmael Malcolm MD at OR [facility] Left: Eye [employer] 10/27/2025 [id number] / [id number] / [id number] documented as of this encounter Advance Directives [...] the patient have Health Care Power of Painter Ski Edge? No Code Status History Code Status Date Activated Date Inactivated Comments No Code 05/11/2022 11:54 AM 05/11/2022 6:22 PM Th is order reflects the patients wishes and were consensually agreed upon. Question Answer Comments Discussion of Advance Directives occurred with: Patient Does the patient have a Living Will? No Does the patient have Health Care Power of Painter Ski Edge? No Full Code 04/09/2020 1:05 PM 04/09/2020 7:00 PM This order reflects the patients wishes and were consensually agreed upon. Care Teams Court Worker Relationship Specialty Start Date End Date Roel Brown MD [address] [place] [address] [place] [address] PCP - General Family Medicine 12/03/15 documented as of this encounter
--- OUTSIDE RECORDS SUMMARY | 2023-09-15 13:46 | External Medical Summary | Summary of Care ---
Author Name Unknown Organization [facility] Address [address] [place] [address] Phone [phone] Care Team Providers Care Natural Gas Technician Name Role Phone Roel Brown MD Primary Care Provider [phone] Reason for Referral * Evaluate & Treat - Unlimited Visits (Within 3 days (urgent)) - Authorized Specialty Diagnoses / Procedures Referred By Neymar garcia Referred To Contact Software Recruiter Diagnoses Stroke with cerebral ischemia (HCC) Lou Mike, Community Health Prize Fighter [address] [place] [address] Referral ID Status Reason Start Date Expiration Date Visits Requested Visits Authorized [id number] Authorized Specialty Services Required 05/07/[phone] Question Answer Referral Priority Within 3 days (urgent) Where should this appointment be scheduled? [facility] Program Type Case Management Complex Case Management [facility] Device(s) Requested Other (See Comment) Comments Primary Software Recruiter: Maricel Brown Is the patient already enrolled with another [facility] device/service? (If no, will need to "push the button") No Does the patient have a physical address? (If no, provide physical address if requesting device) Yes Requested Devices/IVR: IVR Non complex [place] Start date: 05/09/2023 How many weeks: 3 If want time other than 9am, note time here: Reason for Visit * Reason Comments [facility] Care Coordination Services Encounter Details Date Type Department Care Team Description 05/07/2023 Documentation Care Coordination [address] [place] [address] Lou Mike, Community [facility] Prize Fighter [address] [place] [address] Stroke with cerebral ischemia (HCC)* Allergies Active Allergy Reactions Severity Noted Date Comments Atorvastatin Muscle pain 04/02/2018 Codeine 02/17/2022 Lidocaine Neuro complications (Please comment) High 06/30/2016 Syncope. Pt passes out and will be extremely exhausted for an hour DO NOT USE Evolocumab 05/14/2020 Dizziness documented as of this encounter (statuses as of 05/07/2023) Medications Medication Sig Dispensed Refills Start Date [...] Oral Tablet (Zetia)Indications:C oronary artery disease involving shawnee coronary artery of shawnee heart without angina pectoris,Hyperlipide nancy LDL goal <100 TAKE ONE TABLET BY MOUTH EVERY MORNING 100 Tablet 3 06/07/2022 07/08/2023 Active Losartan Potassium 50 MG Oral Tablet (Cozaar) Take 1 Tablet by mouth in the morning and 1 Tablet before bedtime. 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 05/05/2022 Chronic heart failure with preserved eje ction fraction 05/05/2022 Carotid stenosis, bilateral 05/05/2022 Enlarged aorta 05/05/2022 Cardiac pacemaker in situ 05/05/2022 History of [place] (myocardial infarction) Primary hypertension 12/01/2021 SSS (sick sinus syndrome) 09/07/2021 First degree heart block 05/27/2021 Encounter for long-term (current) drug u se 08/20/2017 Rheumatoid arthritis involvi ng multiple sites with positive rheumatoid factor 05/08/2017 Sigmoid diverticulosis 07/11/2016 Overview: sigmoid and descending colon Coronary artery disease invo lving shawnee coronary artery of shawnee heart without angina pectoris 05/24/2016 ADVANCE DIRECTIVE INFORMATION 01/08/2006 Overview: No, Advance Directive brochure given to patient at prior appointment. 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 Never true 04/03/2023 Within the past 12 months, t he food you bought just didn't last and you didn't have money to get more. Never true 04/03/2023 Sex Assigned at Date Recorded Male 03/29/2021 10:13 AM EDT Job Start Date Occupation Industry Not on file Not on file Not on file documented as of this encounter Progress Notes * Lou Mike, Community Health Prize Fighter - 05/07/2023 8:35 AM EDT [facility]: - Please Enroll in NON-COMPLEX [facility] IVR weekly x 3 weeks begin calls 05/09/23. Thank you. PCP: Roel Brown Dx: stroke CTN: [phone]. ANGELLA Harman [facility] [phone] documented in this encounter Plan of Treatment Upcoming Encounters Date Type Specialty Care Team Description 05/10/2023 Office Visit Vascular Surgery Gregorio Pradhan MD [address] [place] [address] 05/17/2023 Laboratory Laboratory [address] [place] [address] 05/24/2023 Imaging Radiology 06/06/2023 Telemedicine Family Medicine Roel Brown MD [address] [place] [address] [place] [address] 06/11/2023 Office Visit Family Medicine Reol Brown MD [address] [place] [address] [place] [address] 06/22/2023 Office Visit Rheumatology Andriy Cespedes MD [facility] [place] [address] 11/28/2023 Office Visit Family Medicine Alejandro Pete MD [address] [place] [address] [place] [address] 12/18/2023 Cardiac Studies [facility]iology [facility] [address] [place] [address] 04/04/2024 Nurse Only Ancillary Marcellus Nurse Annual [address] [place] [address] Scheduled Referrals Name Type Priority Associated Diagnoses Orde r Schedule REMOTE PATIENT MONITORING REFERRAL Referral Within 3 days (urgent) Stroke with cerebral ischemia (HCC) Ordered: 05/07/2023 Health Maintenance Due Date Last Done Comments Zoster Vaccines (1 of 2) 10/10/1969 COLONOSCOPY-EVERY 5 YRS AGES 18-100 07/11/2021 07/11/2016, 07/11/2016 CKD PHOS USE SMARTSET 34177 05/30/2022 11/0 07/2020, 06/08/2020, 09/28/2017, Additional history exists COVID-19 Vaccine ( season) 2023 06/13/2022, 08/30/2021, 08/02/2021 Albumin/Creatinine Ratio 05/26/2023 022, 09/28/2017, 12/03/2015 GFR 06/07/2023 12/05/2022, 09/28, 05/26/2022, Additional history exists CKD HGB USE SMARTSET 11208 12/06/202312/05, 12/05/2022, 10/20/2022, Additional history exists Depression Screening 04/03/2024 04/03/2023 DTaP,Tdap,and Td Vaccines (3 - Td or [...] this encounter Medical Devices Implanted Type Area Manager Civil Device Identifier Shelf Expiration Date Model / Serial / Lot Lens Intraoc 25.5 - [id number] - [id number] Implanted:Qty: 1 on 05/11/2022 by Ishmael Malcolm MD at OR [facility] Right: Eye [employer] 09/26/2026 [id number] / [id number] / [id number] Lens Intraoc 26.0 - [id number] - [id number] Implanted:Qty: 1 on 05/18/2022 by Ishmael Malcolm MD at OR [facility] Left: Eye [employer]CH [employer]OMB 10/27/2025 [id number] / [id number] / [id number] documented as of this encounter Visit Diagnoses Diagnosis Stroke with cerebral ischemia (HCC)- Primary Unspecified cerebral artery occlusion with cerebral infarction documented in this encounter Advance Directives Latest [...] the patient have Health Care Power of Egg And Spice Mixer? No Code Status History Code Status Date Activated Date Inactivated Comments No Code 05/11/2022 11:54 AM 05/11/2022 6:22 PM Th is order reflects the patients wishes and were consensually agreed upon. Question Answer Comments Discussion of Advance Directives occurred with: Patient Does the patient have a Living Will? No Does the patient have Health Care Power of Egg And Spice Mixer? No Full Code 04/09/2020 1:05 PM 04/09/2020 7:00 PM This order reflects the patients wishes and were consensually agreed upon. Care Teams Natural Gas Technician Relationship Specialty Start Date End Date Roel Brown MD [address] [place] [address] [place] [id number] PCP - General Family Medicine 12/03/15 documented as of this encounter
--- OUTSIDE RECORDS SUMMARY | 2023-09-15 13:46 | External Medical Summary | Summary of Care ---
Author Name Unknown Organization [facility] Address [address] [place] [address] Phone [phone] Care Team Providers Care Outbound Telemarketer Name Role Phone Roel Brown MD Primary Care Provider [phone] Encounter Details Date Type Department Care Team Description 05/04/2023 Health Technician Care Coordination [address] [place], [place] [phone] Sharri Chatterjee LPN [address] [place], [place] [phone] Medical home patient encounter* Allergies Active Allergy Reactions Severity Noted Date Comments Atorvastatin Muscle pain 04/02/2018 Codeine 02/17/2022 Lidocaine Neuro complications (Please comment) High 06/30/2016 Syncope. Pt passes out and will be extremely exhausted for an hour DO NOT USE Evolocumab 05/14/2020 Dizziness documented as of this encounter (statuses as of 05/04/2023) Medications Medication Sig Dispensed Refills Start Date [...] Oral Tablet (Zetia)Indications:C oronary artery disease involving seminole coronary artery of seminole heart without angina pectoris,Hyperlipide nancy LDL goal <100 TAKE ONE TABLET BY MOUTH EVERY MORNING 100 Tablet 3 06/07/2022 07/08/2023 Active Losartan Potassium 50 MG Oral Tablet (Cozaar) Take 1 Tablet by mouth in the morning and 1 Tablet before bedtime. 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 Hyperlipidemia LDL goal <100 documented as of this encounter (statuses as of 05/04/2023) Resolved Problems Problem Noted Date Resolved Date [...] as of this encounter (statuses as of 05/04/2023) Immunizations Name Administration Dates Next Due COVID-19 [...] as of this encounter Progress Notes * Sharri Chatterjee LPN - 05/04/2023 2:39 PM EDT Enrolled in [facility] IVR documented in this encounter Plan of Treatment Upcoming Encounters Date Type Specialty Care Team Description 05/10/2023 Office Visit Vascular Surgery Gregorio Pradhan MD [address] [place] [address] 05/17/2023 Laboratory Laboratory [address] [place] [address] 05/24/2023 Imaging Radiology 06/06/2023 Telemedicine Family Medicine Roel Brown MD [address] [place] [address] [place] [address] 06/11/2023 Office Visit Family Medicine Roel Brown MD [address] [place] [address] [place] [address] 06/22/2023 Office Visit Rheumatology Andriy Cespedes MD [address] [place] [address] 11/28/2023 Office Visit Family Medicine Alejandro Pete MD [address] [facility] [place] [address] 12/18/2023 Cardiac Studies Cardiology Marcellus, Pacer Clinic [facility] [address] [facility] [place] [address] 04/04/2024 Nurse Only Ancillary Marcellus, Nurse Annual Wellness [address] [place] [address] [place] [address] Health Maintenance Due Date Last Done Comments Zoster Vaccines (1 of 2) 10/10/1969 COLONOSCOPY-EVERY 5 YRS AGES 18-100 07/11/2021 07/11/2016, 07/11/2016 CKD PHOS USE SMARTSET 40661 05/30/2022 11/0 07/2020, 06/08/2020, 09/28/2017, Additional history exists COVID-19 Vaccine ( season) 2023 06/13/2022, 08/30/2021, 08/02/2021 Albumin/Creatinine Ratio 05/26/2023 022, 09/28/2017, 12/03/2015 GFR 06/07/2023 12/05/2022, 09/28, 05/26/2022, Additional history exists CKD HGB USE SMARTSET 77969 12/06/202312/05, 12/05/2022, 10/20/2022, Additional history exists Depression [...] this encounter Medical Devices Implanted Type Area Trimming Caser Device Identifier Shelf Expiration Date Model / Serial / Lot Lens Intraoc 25.5 - [id number] - [id number] Implanted:Qty: 1 on 05/11/2022 by Ishmael Malcolm MD at OR [facility] Right: Eye [employer]OM[employer] 09/26/2026 [id number] / [id number] / [id number] Lens Intraoc 26.0 - [id number] - [id number] Implanted:Qty: 1 on 05/18/2022 by Ishmael Malcolm MD at OR [facility] Left: Eye BAUSCH [employer] LOMB 10/27/2025 [id number] / [id number] / [id number] documented as of this encounter Visit Diagnoses Diagnosis Medical home patient encounter- Primary Other specified examination documented in this encounter Advance Directives Latest [...] the patient have Health Care Power of French Cord Binder? No Code Status History Code Status Date Activated Date Inactivated Comments No Code 05/11/2022 11:54 AM 05/11/2022 6:22 PM Th is order reflects the patients wishes and were consensually agreed upon. Question Answer Comments Discussion of Advance Directives occurred with: Patient Does the patient have a Living Will? No Does the patient have Health Care Power of French Cord Binder? No Full Code 04/09/2020 1:05 PM 04/09/2020 7:00 PM This order reflects the patients wishes and were consensually agreed upon. Care Teams Outbound Telemarketer Relationship Specialty Start Date End Date Roel Brown MD [address] [place] [address] [place] [address] PCP - General Family Medicine 12/03/15 documented as of this encounter
--- OUTSIDE RECORDS SUMMARY | 2023-09-15 13:46 | External Medical Summary | Summary of Care ---
Author Name Unknown Organization [facility] Address [address] [place] [address] Phone [phone] Care Team Providers Care Nitric Acid Plant Operator Name Role Phone Roel Brown MD Primary Care Provider [phone] Reason for Visit * Reason Onset Date Comments case management 05/04/2023 Encounter Details Date Type Department Care Team Description 05/04/2023 Telephone Care Coordination [address] [place] [address] Sharri Chatterjee LPN [address] [place], [place] [phone] case management Allergies Active Allergy Reactions Severity Noted Date [...] Cardiac pacemaker in situ 05/05/2022 History of [place] (myocardial infarction) Primary hypertension 12/01/2021 SSS (sick [...] encounter Miscellaneous Notes * Telephone Encounter - Janay May LPN - 05/07/2023 5:02 PM EDT Pt notified, verbalized understanding. * Telephone Encounter - Keyanna Kovacs PA-C - 05/07/2023 3:27 PM EDT Can try gabapentin at bedtime. Start with 100 mg x 7-10 days and then if no improvement, can increase to 300 mg at bedtime. Watch for dizziness. * Telephone Encounter - Sharri Chatterjee LPN - 05/04/2023 2:37 PM EDT Spoke with Pt, c/o sciatic pain. Says he has a stabbing/burning going down his right leg. Reviewed meds, is not taking anything for pain. Would you be agreeable to put something in for nerve pain? documented in this encounter Plan of Treatment Upcoming Encounters Date Type Specialty Care Team Description 05/10/2023 Office Visit [facility] [address] [facility] [address] 05/17/2023 Laboratory Laboratory [address] [place] [address] 05/24/2023 Imaging Radiology 06/06/2023 Telemedicine Family Medicine Roel Brown MD [address] [place] [address] [place] [address] 06/11/2023 Office Visit Family Medicine Roel Brown MD [address] [place] [address] [place] [address] 06/22/2023 Office Visit Rheumatology [facility]pedes [facility] [address] 11/28/2023 Office Visit Family Medicine Alejandro Pete MD [address] [place] [address] [place] [address] 12/18/2023 Cardiac Studies Cardiology [facility] [address] [facility] [place] [address] 04/04/2024 Nurse Only Ancillary Marcellus Nurse Annual Wellness [address] [place] [address] [place] [address] Health Maintenance Due Date Last Done Comments Zoster Vaccines (1 of 2) 10[birth year]10/1969 COLONOSCOPY-EVERY 5 YRS AGES 18-100 07/11/2021 07/11/2016, 07/11/2016 CKD PHOS USE SMARTSET 61099 05/30/2022 11/0 07/2020, 06/08/2020, 09/28/2017, Additional history exists COVID-19 Vaccine ( season) 2023 06/13/2022, 08/30/2021, 08/02/2021 Albumin/Creatinine Ratio 05/26/2023 022, 09/28/2017, 12/03/2015 GFR 06/07/2023 12/05/2022, 09/28, 05/26/2022, Additional history exists CKD HGB USE SMARTSET 38986 12/06/202312/05, 12/05/2022, 10/20/2022, Additional history exists Depression [...] this encounter Medical Devices Implanted Type Area Medical Massage Therapist Device Identifier Shelf Expiration Date Model / Serial / Lot Lens Intraoc 25.5 - [id number] - [id number] Implanted:Qty: 1 on 05/11/2022 by Ishmael Malcolm MD at OR [facility] Right: Eye [employer]OM[employer] 09/26/2026 [id number] / [id number] / [id number] Lens Intraoc 26.0 - [id number] - [id number] Implanted:Qty: 1 on 05/18/2022 by Ishmael Malcolm MD at OR [facility] Left: Eye BAUSCH [employer] LOMB 10/27/2025 [id number] / [id number] / [id number] documented as of this encounter Advance Directives [...] the patient have Health Care Power of Bail Attacher? No Code Status History Code Status Date Activated Date Inactivated Comments No Code 05/11/2022 11:54 AM 05/11/2022 6:22 PM Th is order reflects the patients wishes and were consensually agreed upon. Question Answer Comments Discussion of Advance Directives occurred with: Patient Does the patient have a Living Will? No Does the patient have Health Care Power of Bail Attacher? No Full Code 04/09/2020 1:05 PM 04/09/2020 7:00 PM This order reflects the patients wishes and were consensually agreed upon. Care Teams Nitric Acid Plant Operator Relationship Specialty Start Date End Date Roel Brown MD [address] [place] [address] [place] [address] PCP - General Family Medicine 12/03/15 documented as of this encounter
--- OUTSIDE RECORDS SUMMARY | 2023-09-15 13:46 | External Medical Summary ---
Author Name Unknown Address Unknown Organization K01:[facility] [place] [address] [facility] [address] Laboratory Report Ordering Provider Test Date Status WILLICHACHA 05/17/2023 14:06:46 Final Observation Date Value Abnormality Reference (Units ) Status BUN 05/17/2023 14:06:46 13 6-20 (mg/dL) Final Creatinine 05/17/2023 14:06:46 1.2 0.6-1.2 (mg/dL) Final Glomerular filtration rate/1.73 sq M.predicted [Volume Rate/Area] in Serum, Plasma or Blood by Creatinine-based formula (CKD-EPI) 05/17/2023 14:06:46 67 >=60 (mL/min) Final eGFR is calculated based on the CKD-EPI 2020 equation SODIUM 05/17/2023 14:06:46 139 135-146 (m mol/L) Final Potassium 05/17/2023 14:06:46 4.7 3.5-5.1 (m mol/L) Final Cl 05/17/2023 14:06:46 103 98-107 (mm ol/L) Final CO2 05/17/2023 14:06:46 25 22-32 (mmo l/L) Final Anion gap 05/17/2023 14:06:46 11 7-15 (mmol /L) Final Glucose 05/17/2023 14:06:46 65 Below low normal 70- 120 (mg/dL) Final Albumin 05/17/2023 14:06:46 4.4 3.8-5.0 (g /dL) Final AST (Aspartate aminotransferase) 05/17/2023 14:06:46 13 10-50 (U/L) Fin al Alk Phos 05/17/2023 14:06:46 84 35-130 (U/ L) Final Bilirubin, Total 05/17/2023 14:06:46 0.4 <=1 .2 (mg/dL) Final Calcium 05/17/2023 14:06:46 10.0 8.4-10.2 ( mg/dL) Final Protein 05/17/2023 14:06:46 7.0 6.0-8.3 (g /dL) Final ALT (Alanine aminotransferase) 05/17/2023 14:06:46 12 10-50 (U/L) Keo dai Performing Location [facility] [place] [address] [facility] [address]
--- OUTSIDE RECORDS SUMMARY | 2023-09-15 13:46 | External Medical Summary | Summary of Care ---
Author Name Unknown Organization [facility] Address [address] [place] [address] Phone [phone] Care Team Providers Care Gauge And Weigh Machine Operator Name Role Phone Roel Brown MD Primary Care Provider [phone] Encounter Details Date Type Department Care Team Description 04/27/2023 Result Scan Unspecified Department <No scans attached> Allergies Active Allergy Reactions Severity Noted Date Comments Atorvastatin Muscle pain 04/02/2018 Codeine 02/17/2022 Lidocaine Neuro complications (Please comment) High 06/30/2016 Syncope. Pt passes out and will be extremely exhausted for an hour DO NOT USE Evolocumab 05/14/2020 Dizziness documented as of this encounter (statuses as of 05/01/2023) Medications Medication Sig Dispensed Refills Start Date [...] 2 tabs a day . 0 Active Vitamin C 1000 MG Oral Tablet Take 1 Tablet by mouth in the morning. 0 Active QC Aspirin Low Dose 81 MG Oral Tablet Delayed Release daily. 0 12/21/2022 Active Clopidogrel Bisulfate 75 MG Oral Tablet (pLAVix)Indications: History of TIA (transient ischemic attack) TAKE ONE TABLET BY MOUTH EVERY DAY 100 Tablet 1 01/02/2023 01/02/2024 Active Metoprolol Succinate ER 50 MG Oral Tablet Extended Release 24 Hour (toPROL XL)Indications:Coron dylan artery disease involving [place] coronary artery of [place] heart without angina pectoris,Primary hypertension,Chronic heart failure with preserved ejection fraction (HCC) TAKE ONE TABLET BY MOUTH EVERY MORNING 100 Tablet 1 01/02/2023 01/02/2024 Active Leflunomide 10 MG Oral Tablet (Arava)Indications:R heumatoid arthritis involving multiple sites with positive rheumatoid factor (HCC) TAKE ONE TABLET BY MOUTH EVERY DAY IN THE MORNING 100 Tablet 1 12/05/2022 12/05/2023 Active Losartan Potassium 25 MG Oral Tablet (Cozaar)Indications: Coronary artery disease involving [place] coronary artery of [place] heart without angina pectoris TAKE ONE TABLET BY MOUTH EVERY MORNING 100 Tablet 3 08/03/2022 08/03/2023 Active Ezetimibe 10 MG Oral Tablet (Zetia)Indications:C oronary artery disease involving [place] coronary artery of [place] heart without angina pectoris,Hyperlipide nancy LDL goal <100 TAKE ONE TABLET BY MOUTH EVERY MORNING 100 Tablet 3 06/07/2022 07/08/2023 Active HYDROcodone-Acetamin ophen 5-325 MG Oral Tablet Take 1 Tablet by mouth every 4 hours as needed for Pain, Mild. 20 Tablet 0 03/23/2023 Active documented as of this encounter (statuses as of 05/01/2023) Active Problems Problem Noted Date H/O TIA [...] Cardiac pacemaker in situ 05/05/2022 History of [place] (myocardial infarction) Primary hypertension 12/01/2021 SSS (sick sinus syndrome) 09/07/2021 First degree heart block 05/27/2021 Encounter for long-term (current) drug u se 08/20/2017 Rheumatoid arthritis involvi ng multiple sites with positive rheumatoid factor 05/08/2017 Sigmoid diverticulosis 07/11/2016 Overview: sigmoid and descending colon Coronary artery disease invo lving [place] coronary artery of [place] heart without angina pectoris 05/24/2016 ADVANCE DIRECTIVE INFORMATION 01/08/2006 Overview: No, Advance Directive brochure given to patient at prior appointment. Hyperlipidemia LDL goal <100 documented as of this encounter (statuses as of 05/01/2023) Resolved Problems Problem Noted Date Resolved Date [...] as of this encounter (statuses as of 05/01/2023) Immunizations Name Administration Dates Next Due COVID-19 [...] Encounters Date Type Specialty Care Team Description 05/03/2023 Office Visit Family Medicine Keyanna Kovacs PA-C [address] [place] [address] [place] [address] 05/31/2023 Office Visit Cardiology Kartik Bray, DO [address] [place] [address] 06/06/2023 Telemedicine Family Medicine Roel Brown MD [address] [place] [address] [place] [address] 06/11/2023 Office Visit Family Medicine Roel Brown MD [address] [place] [address] [place] [address] 06/22/2023 Office Visit Rheumatology Andriy Cespedes MD [address] [place] [address] 11/28/2023 Office Visit Family Medicine Alejandro Pete MD [address] [facility] [place] [address] 12/18/2023 Cardiac Studies Cardiology Marcellus, Pacer Clinic [facility] [address] [facility] [place] [address] 04/04/2024 Nurse Only Ancillary Marcellus, Nurse Annual Wellness [address] [place] [address] [place] [address] Health Maintenance Due Date Last Done Comments Zoster Vaccines (1 of 2) 10[birth year]10/1969 COLONOSCOPY-EVERY 5 YRS AGES 18-100 07/11/2021 07/11/2016, 07/11/2016 CKD PHOS USE SMARTSET 70129 05/30/2022 11/0 07/2020, 06/08/2020, 09/28/2017, Additional history exists Albumin/Creatinine Ratio 05/26/2023 022, 09/28/2017, 12/03/2015 GFR 06/07/2023 12/05/2022, 09/28, 05/26/2022, Additional history exists CKD HGB USE SMARTSET 17505 12/06/202312/05, 12/05/2022, 10/20/2022, Additional history exists Depression Screening 04/03/2024 04/03/2023 DTaP,Tdap,and Td Vaccines (3 - Td or Tdap) 12/02/2025 12/03/2015, 12/29/2010 AAA Screening Completed 06/13/2016 Pneumococcal Vaccine: 65+ Years Completed 11/28/2016, 12/03/2015 COVID-19 Vaccine Completed 06/13/2022, 07/2021, 08/02/2021 Influenza Vaccine (FLU shot) Completed 11/2022, 03/30/2022, [...] this encounter Medical Devices Implanted Type Area Computational Geneticist Device Identifier Shelf Expiration Date Model / Serial / Lot Lens Intraoc 25.5 - [id number] - [id number] Implanted:Qty: 1 on 05/11/2022 by Ishmael Malcolm MD at [facility] Right: Eye [employer] 09/26/2026 [id number] / [id number] / [id number] Lens Intraoc 26.0 - [id number] - [id number] Implanted:Qty: 1 on 05/18/2022 by Ishmael Malcolm MD at OR [facility] Left: Eye [employer]OM[employer] 10/27/2025 [id number] / [id number] / [id number] documented as of this encounter Procedures Procedure Name Priority Date/Time Associated Diagnosis Comments RADIOLOGY SCANNED RESULT 04/27/2023 RADIOLOGY SCANNED RESULT 04/27/2023 documented in this encounter Results * RADIOLOGY SCANNED RESULT (04/27/2023) 04/27/2023 No Physician Data Unknown DIAGNOSTIC RAD IOLOGY SERVICES * RADIOLOGY SCANNED RESULT (04/27/2023) 04/27/2023 No Physician Data Unknown DIAGNOSTIC RAD IOLOGY SERVICES documented in this encounter Advance Directives Latest [...] the patient have Health Care Power of Pit Shoveler? No Code Status History Code Status Date Activated Date Inactivated Comments No Code 05/11/2022 11:54 AM 05/11/2022 6:22 PM Th is order reflects the patients wishes and were consensually agreed upon. Question Answer Comments Discussion of Advance Directives occurred with: Patient Does the patient have a Living Will? No Does the patient have Health Care Power of Pit Shoveler? No Full Code 04/09/2020 1:05 PM 04/09/2020 7:00 PM This order reflects the patients wishes and were consensually agreed upon. Care Teams Gauge And Weigh Machine Operator Relationship Specialty Start Date End Date Roel Brown MD [address] [place] [address] [place] [address] PCP - General Family Medicine 12/03/15 documented as of this encounter
--- OUTSIDE RECORDS SUMMARY | 2023-09-15 13:46 | External Medical Summary | Summary of Care ---
Author Name Unknown Organization [facility] Address [address] [place] [address] Phone [phone] Care Team Providers Care Piano Tuner Name Role Phone Roel Brown MD Primary Care Provider [phone] Reason for Visit * Reason Onset Date Comments [facility] Care Coordination Services 05/09/2023 Encounter Details Date Type Department Care Team Description 05/09/2023 Telephone Care Coordination [address] [place] [address] Maricel Brown [facility] Tele[facility] [address], [place] [id number] [facility] Care Coordination Services Allergies Active Allergy Reactions Severity Noted Date Comments Atorvastatin Muscle pain 04/02/2018 Codeine 02/17/2022 Lidocaine Neuro complications (Please comment) High 06/30/2016 Syncope. Pt passes out and will be extremely exhausted for an hour DO NOT USE Evolocumab 05/14/2020 Dizziness documented as of this encounter (statuses as of 05/09/2023) Medications Medication Sig Dispensed Refills Start Date [...] Oral Tablet (Zetia)Indications:C oronary artery disease involving [place] coronary artery of [place] heart without angina pectoris,Hyperlipide nancy LDL goal [...] as of this encounter (statuses as of 05/09/2023) Active Problems Problem Noted Date H/O TIA [...] situ 05/05/2022 History of [place] (myocardial infarction) Primary hypertension 12/01/2021 SSS (sick sinus syndrome) 09/07/2021 First degree heart block 05/27/2021 Encounter for long-term (current) drug u se 08/20/2017 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 Hyperlipidemia LDL goal <100 documented as of this encounter (statuses as of 05/09/2023) Resolved Problems Problem Noted Date Resolved Date [...] as of this encounter (statuses as of 05/09/2023) Immunizations Name Administration Dates Next Due COVID-19 [...] encounter Miscellaneous Notes * Telephone Encounter - [facility] Telecom [facility] - 05/09/2023 12:10 PM EDT JIMMY - A - Phone call concerning IVR alert for care for himself. - Patient states he pushed the wrong button. No alerts. No problems or concerns. documented in this encounter Plan of Treatment Upcoming Encounters Date Type Specialty Care Team Description 05/10/2023 Office Visit Vascular Surgery Gregorio Pradhan MD [address] [place] [address] 05/17/2023 Laboratory Laboratory [address] [place] [address] 05/22/2023 Office Visit Neurological Surgery Amarjit Conroy MD, PhD [address] [place] [address] 05/24/2023 Imaging Radiology 06/06/2023 Telemedicine Family Medicine Roel Brown MD [address] [place] [address] [place] [address] 06/11/2023 Office Visit Family Medicine Roel Brown MD [address] [place] [address] [place] [address] 06/22/2023 Office Visit Rheumatology Andriy Cespedes MD [facility] [place] [address] 11/28/2023 Office Visit Family Medicine Alejandro Pete MD [address] [place] [address] [place] [address] 12/18/2023 Cardiac Studies Cardiology [facility] [address] [place] [address] 04/04/2024 Nurse Only Ancillary Marcellus Nurse Annual Wellness [address] [place] [address] [place] [address] Health Maintenance Due Date Last Done Comments Zoster Vaccines (1 of 2) 10[birth year]10/1969 COLONOSCOPY-EVERY 5 YRS AGES 18-100 07/11/2021 07/11/2016, 07/11/2016 CKD PHOS USE SMARTSET 91377 05/30/2022 11/0 07/2020, 06/08/2020, 09/28/2017, Additional history exists COVID-19 Vaccine ( season) 2023 06/13/2022, 08/30/2021, 08/02/2021 Albumin/Creatinine Ratio 05/26/2023 022, 09/28/2017, 12/03/2015 GFR 06/07/2023 12/05/2022, 09/28, 05/26/2022, Additional history exists CKD HGB USE SMARTSET 16056 12/06/202312/05, 12/05/2022, 10/20/2022, Additional history exists Depression [...] this encounter Medical Devices Implanted Type Area Telephone Clerk Device Identifier Shelf Expiration Date Model / Serial / Lot Lens Intraoc 25.5 - [id number] - [id number] Implanted:Qty: 1 on 05/11/2022 by Ishmael Malcolm MD at OR [facility] Right: Eye [employer] 09/26/2026 [id number] / [id number] / [id number] Lens Intraoc 26.0 - [id number] - [id number] Implanted:Qty: 1 on 05/18/2022 by Ishmael Malcolm MD at OR [facility] Left: Eye [employer]OM[employer] 10/27/2025 [id number] / [id number] / [id number] documented as of this encounter Advance Directives [...] the patient have Health Care Power of Pillowcase Folder? No Code Status History Code Status Date Activated Date Inactivated Comments No Code 05/11/2022 11:54 AM 05/11/2022 6:22 PM Th is order reflects the patients wishes and were consensually agreed upon. Question Answer Comments Discussion of Advance Directives occurred with: Patient Does the patient have a Living Will? No Does the patient have Health Care Power of Pillowcase Folder? No Full Code 04/09/2020 1:05 PM 04/09/2020 7:00 PM This order reflects the patients wishes and were consensually agreed upon. Care Teams Piano Tuner Relationship Specialty Start Date End Date Roel Brown MD [address] [place] [address] [place] [address] PCP - General Family Medicine 12/03/15 documented as of this encounter
--- OUTSIDE RECORDS SUMMARY | 2023-09-15 13:46 | External Medical Summary | Summary of Care ---
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) Procedures CTA ABD/PELVIS Kelvin Harris PA-C [address] [place] [address] Referral ID Status Reason Start Date Expiration Date V isits Requested Visits Authorized [id number] Pending Review 05/10/2023 999 999 * Precert (Within 10 days (routine)) - Pending Review Specialty Diagnoses / Procedures Referred By Contac t Referred To Contact Radiology Diagnoses Carotid stenosis, non-symptomatic, bilateral Occlusion of left carotid artery 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) Procedures CTA CHEST NON-CORONARY W CONTRAST Kelvin Harris PA-C [address] [place] [address] Referral ID Status Reason Start Date Expiration Date V isits Requested Visits Authorized [id number] Pending Review 05/10/2023 999 999 Reason for Visit * Reason Comments Follow Up * Evaluate & Treat - Unlimited Visits (Within 10 days (routine)) - Authorized Specialty Diagnoses / Procedures Referred By Neymar garcia Referred To Contact Vascular Surgery / Cardiovascular Surgery Diagnoses Carotid occlusion, left Occlusion of left vertebral artery History of TIA (transient ischemic attack) Cerebrovascular accident (CVA), unspecified mechanism (HCC) Ulcer of aorta (HCC) Keyanna Kovacs PA-C [address] [place] [address] [place] [address] Referral ID Status Reason Start Date Expiration Date Visits Requested Visits Authorized [id number] Authorized Specialty Services Required 05/03/2023 999 999 Encounter Details Date Type Department Care Team Description 05/10/2023 Office Visit Vascular Surg [facility] [address] [place] [address] Gregorio Pradhan MD [address], [place] [id number] Carotid stenosis, non-symptomatic, bilateral*; Occlusion of left carotid artery; 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 Pt passes out and will be extremely exhausted for an hour DO NOT USE Evolocumab 05/14/2020 Dizziness documented as of this encounter (statuses as of 05/10/2023) Medications Medication Sig Dispensed Refills Start Date [...] Oral Tablet (Zetia)Indications:C oronary artery disease involving burns paiute coronary artery of burns paiute heart without angina pectoris,Hyperlipide nancy LDL goal [...] as of this encounter (statuses as of 05/10/2023) Active Problems Problem Noted Date H/O TIA [...] Cardiac pacemaker in situ 05/05/2022 History of TN (myocardial infarction) Primary hypertension 12/01/2021 SSS (sick sinus syndrome) 09/07/2021 First degree heart block 05/27/2021 Encounter for long-term (current) drug u se 08/20/2017 Rheumatoid arthritis involvi ng multiple sites with positive rheumatoid factor 05/08/2017 Sigmoid diverticulosis 07/11/2016 Overview: sigmoid and descending colon Coronary artery disease invo lving burns paiute coronary artery of burns paiute heart without angina pectoris 05/24/2016 ADVANCE DIRECTIVE INFORMATION 01/08/2006 Overview: No, Advance Directive brochure given to patient at prior appointment. Hyperlipidemia LDL goal <100 documented as of this encounter (statuses as of 05/10/2023) Resolved Problems Problem Noted Date Resolved Date [...] as of this encounter (statuses as of 05/10/2023) Immunizations Name Administration Dates Next Due COVID-19 [...] 01/26/1990 Pipe Cigars Smokeless Tobacco: Current Snuff Tobacco Cessation:Ready to Q uit: No; Counseling Given: No Comments:a can every 2 days Alcohol Use [...] Sign Reading Time Taken Comments Blood Pressure 138/84 05/10/2023 2:40 PM EDT Pulse 77 05/10/2023 2:40 PM EDT Temperature 36.2 C (97.1 F) 05/10/2023 2:40 PM ED T Respiratory Rate - - Oxygen Saturation - - Inhaled Oxygen Concentration - - Weight 94.6 kg (208 lb 8 oz) 05/10/2023 2:40 PM EDT Height - - Body Mass Index 29.92 04/03/2023 10:10 AM EDT documented in this encounter Progress Notes * Kelvin Harris PA-C - 05/10/2023 2:45 PM EDT Date of Service: 05/10/2023 2:45 PM Lukasz Palacios is a 72 year old male. Patient being seen in consultation at the request of Roel Brown MD Chief Complaint: Left hemispheric stroke HPI: Left hemispheric stroke 04/25/23 Admitted 04/27/23, discharged 04/30 Right arm and leg weakness, along with perioral numbness which has resolved. The weakness remains CTA at [facility] by report indicates left carotid occlusion Discharged on scow captain ASA and Plavix was started Patient has had muscle pain with statin and dizziness with Repatha SACCULAR THORACIC ANEURYSM and ILIAC ARTERY ECTASIA Previously seen for Saccular thoracic aneurysm Thoracic CT 2021 showed small focal outpouching Remote AAA screen showed right iliac artery ectasia FAMILY HISTORY: No family history of aortic aneurysms. Current Outpatient Medications Medication Sig Dispense Refill [...] BY MOUTH EVERY MORNING 100 Tablet 3 Losartan Potassium 50 MG Oral Tablet (Cozaar) Take 1 Tablet by mouth in the morning and 1 Tablet before bedtime. Gabapentin 100 MG Oral Capsule (Neurontin) Take 1 Capsule by mouth at bedtime. 90 Capsule 0 No current facility-administered medications for this visit. Review of patient's allergies indicates: Allergen Reactions Lidocaine Neuro complications (Please comment) Syncope. Pt passes out and will be extremely exhausted for an hour DO NOT USE Atorvastatin Muscle pain Codeine Repatha [Evolocumab] Dizziness Patient Active Problem List Diagnosis Code ADVANCE DIRECTIVE INFORMATION Coronary artery disease involving burns paiute coronary artery of burns paiute heart without angina pectoris I25.10 Hyperlipidemia LDL goal <100 E78.5 Sigmoid diverticulosis K57.30 Rheumatoid arthritis involving multiple sites with positive rheumatoid factor ([facility]) M05.79 Encounter for long-term (current) drug use Z79.899 First degree heart block I44.0 SSS (sick sinus syndrome) ([facility]) I49.5 Primary hypertension I10 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 ([facility]) I13.10, N18.31 Chronic heart failure with preserved ejection fraction ([facility]) I50.32 Carotid stenosis, bilateral I65.23 Enlarged aorta ([facility]) I77.89 Cardiac pacemaker in situ Z95.0 History of TN (myocardial infarction) I25.2 CKD (chronic kidney disease), stage II N18.2 H/O TIA (transient ischemic attack) and stroke Z86.73 Past Medical History: Diagnosis Date Bilateral asymmetric [...] Hyperlipidemia LDL goal <100 Left tennis elbow 2004 Myocardial infarction (HCC) 2012 [facility] - stent x1 Need for hepatitis C screening test 12/03/2015 negative Pacemaker Sigmoid diverticulitis 04/18/2020 [facility], Juan R Hyman Sigmoid diverticulosis 07/11/2016 sigmoid and descending colon SSS (sick sinus syndrome) (HCC) TIA (transient ischemic attack) 03/14/2018 [facility] TIA (transient ischemic attack) 12/20/2022 [facility] Vasovagal near syncope 03/14/2018 [facility] Past Surgical History: Procedure Laterality Date ARM/ELBOW DEEP TUMOR REMOVAL, 5 CM OR MORE Right 04/09/2020 EXCISION, TUMOR, SOFT TISSUE OF UPPER ARM OR ELBOW AREA, SUBFASCIAL (EG, INTRAMUSCULAR); 5 CM OR GREATER performed by Iftikhar Sargent DO at OR [facility] COLONOSCOPY, DIAGNOSTIC (RECTUM) 07/11/2016 adenomatous polyp, diverticulosis, repeat 5 yrs/COLONOSCOPY FLEXIBLE PROXIMAL DIAGNOSTIC performed by Xavier Small MD at ENDOSCOPY [facility] CT ABDOMEN WO IV AND W ORAL [...] performed by Evelyn Deleon DPM at OR [facility] FOOT/TOE SUBQ TUMOR REMOVAL, UNDER 1.5 CM Right 03/23/2023 EXCISION TUMOR FOOT SUBCUTANEOUS performed by Evelyn Deleon DPM at OR [facility] INSERT HEART ELECTRODE, DUAL CHAMBR 09/14/2021 Dr Thakur MRI BRAIN WITHOUT CONTRAST 03/14/2018 left vertebral artery occlusion, 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 REMOVAL OF TONSILS, AGE 12+ age 12 REMOVE CATARACT, INSERT LENS PROSTH Right 05/11/2022 right EXTRACAPSULAR CATARACT REMOVAL WITH INTRAOCULAR LENS performed by Ishmael Malcolm MD at OR [facility] REMOVE CATARACT, INSERT LENS PROSTH Left 05/18/2022 left EXTRACAPSULAR CATARACT REMOVAL WITH INTRAOCULAR LENS performed by Ishmael Malcolm MD at OR [facility] REMOVE TENDON SHEATH LESION, HAND Right 04/09/2020 EXCISION LESION TENDON SHEATH OR CAPSULE HAND OR FINGER performed by Iftikhar Sargent DO at OR [facility] THROMBOENDARECTOMY W/PATCH,NECK INCISION Left 09/07/2012 [facility] US AAA SCREEN, VASCULAR LAB N/A 06/13/2016 2.7 cm max diameter, iliac ectasia 1.6 cm, no AAA VASC DUPLEX CAROTID BILAT Bilateral 09/25/2016 <50% ICA stenosis bilaterally, vertebral flow antegrade VASC DUPLEX CAROTID BILAT Bilateral 11/18/2020 50-69% bilateral stenosis Family History Problem Relation Age of Onset Heart Disorder Mother at age 84 Cancer Father brain cancer at 36 Alcohol and Other Disorders Associated Brother at age 64 Social History Socioeconomic History Marital status: Spouse name: Not on file Number of children: 3 Years of education: Not on file Highest education level: Not on file Occupational History Not on file Tobacco Use Smoking status: Former Packs/day: 0.50 Years: 25.00 Pack years: 12.50 Types: Cigarettes, Pipe, Cigars Quit [...] on file Food Insecurity: No Food Insecurity Worried About Running Out of Food in the Last Year: Never true Ran Out of Food in the Last Year: Never true Transportation Needs: Not on file Physical Activity: Not on file Stress: Not on file Social Connections: Not on file Intimate Partner Violence: Not on file Housing Stability: Not on file COMPLETE REVIEW OF SYSTEMS: Cardiovascular: Negative for chest pain, shortness of breath, palpitations, angina or TN. Remote MIand PCI. Neurological: Negative for stroke, TIA, amaurosis fugax All other systems negative except for those noted above and in the history of present illness (HPI). GENERAL MULTI-SYSTEM PHYSICAL EXAM: VITAL SIGNS: BP 138/84 (BP Site: Left Arm, BP Position: Sitting, BP Cuff Size: Regular) | Pulse 77 | Temp 36.2 C (97.1 F) (Temporal Artery) | Wt 94.6 kg (208 lb 8 oz) | BMI 29.92 kg/m | BSA 2.16 m GENERAL MULTI-SYSTEM PHYSICAL EXAM:ADDITIONAL VS: pulse regular. GENERAL: Normal grooming habits, no acute distress and appears stated age. NECK: No masses and Normal Thyroid. RESPIRATORY: CTA, nl effort CARDIOVASCULAR: no heart murmurs, no edema and no varicosities. GASTROINTESTINAL: no tenderness, obese and abdominal aorta not palpable. LYMPHATIC: cervical lymph nodes normal and inguinial lymph nodes normal. SKIN: no ulcers, no rash, no induration, capillary refill normal and no dependent rubor. PSYCHIATRIC: orientation to time, place and person normal and recent and remote memory normal. EYES: conjunctivae normal, eye lids normal, pupils normal and irises normal. NEUROLOGIC: Cranial nerves intact, Motor function intact and Sensory exam intact. 5/5 UE and LE weakness PULSE SCALE: Carotid Right:----Bruit: No Left:----Bruit: No Radial Right: 3 Left: 3 Femoral Right: 3 Left: 3 Popliteal Right: 3 Left: 3 Dorsalis Pedis Right: 2 Left: 3 Posterior Tibial Right: 3 Left: 0 PULSE SCALE: 4=Aneurysmal; 3=Normal; 2=Diminished; 1=Barely Palpable; 0=Absent DIAGNOSTIC STUDIES: 05/10/2023 Carotid Duplex: GUY 104/25, LICA occluded, ante verts The above diagnostic images were directly visualized and independently interpreted by me on 05/10/2023 with results as above 03/06/22 CT chest: focal thoracic outpouching, bleb, radiology notes size to be 2.6 by 2.4 by 2.1 cm but my measurements seem smaller. 11/18/20 Carotid duplex less than 50% 06/13/16 AAA screen negative but right iliac ectasia 03/14/18 CTA neck [facility]: report no significant ICA stenosis, thoracic bleb LABS: Lab Results Component Value Date/Time CREATININE - [facility] 1.0 12/05/2022 01:33 PM CREATININE - [facility] 1.1 10/20/2022 03:47 PM CREATININE - [facility] 1.2 05/26/2022 01:33 PM CREATININE - [facility] 1.4 (H) 06/08/2020 08:26 AM CREATININE - [facility] 1.5 (H) 04/06/2020 03:30 PM CREATININE - [facility] 1.3 (H) 03/05/2020 01:25 PM CREATININE, RANDOM URINE - [facility] 58 05/26/2022 01:36 PM CREATININE, RANDOM URINE - [facility] 50 09/28/2017 02:59 PM CREATININE, RANDOM URINE - [facility] 154 12/03/2015 11:59 AM CREATININE-OUTSIDE LAB 1.28 07/19/2018 12:00 AM CREATININE-OUTSIDE LAB 1.19 03/15/2018 12:00 AM Lab Results Component Value Date/Time LDL (CALCULATED)-OUTSIDE LAB 81 03/14/2018 12:00 AM LDL CHOLESTEROL (CALCULATED) - [facility] 109 03/06/2022 09:22 AM LDL CHOLESTEROL (CALCULATED) - [facility] 107 05/05/2019 01:45 PM LDL CHOLESTEROL (DIRECT MEASURE) - [facility] 25 12/11/2019 11:17 AM LDL CHOLESTEROL-OUTSIDE LAB 81 03/14/2018 04:51 AM The above clinical lab tests were reviewed by me on 05/10/2023. IMPRESSIONS: Left hemispheric stroke, residual right hand and right LE numbness. LICA is occluded, by [facility] CTA Neck and [facility] duplex Thoracic aortic aneurysm Right iliac artery ectasia S/p left CEA at [facility] S/p TN with prior PCI PLAN: The patient was counseled regarding the pathophysiology and natural history of carotid disease, as well as the symptoms of CVA/TIA/amaurosis fugax. Continue ASA 81 mg for platelet inhibition Patient has had muscle pain with statin and dizziness with Repatha On Plavix 75 mg daily for stroke prevention RTC 1 year @ [facility] with carotid duplex and CT chest abd pelvis, 1-2 wks prior, to evaluate thoracic bleb and also right iliac ectasia seen on prior duplex Kelvin ROJAS I have reviewed the advanced practitioner documentation and agree. I saw and evaluated the patient on date of service referenced in note and have performed the following medically appropriate historyand/or exam: . Left hemishpheric stroke [facility] CTA report states left carotid occlusion [facility] Carotid duplex today shows left carotid occlusion \\ We will plan on seeing the patient again in [address] of chest to evaluate the thoracicsaccular aneurysm as well as repeat carotid duplex Have discussed the importance of medical management of his carotid disease Have encouraged them to discuss with the family doctor resuming either Repatha or a statin for his cholesterol management Gregorio Pradhan MD Section of Vascular [place] [address] [phone] documented in this encounter Plan of Treatment Upcoming Encounters Date Type Specialty Care Team Description 05/17/2023 Laboratory Laboratory [address] [place] [address] 05/22/2023 Office Visit Neurological Surgery Amarjit Conroy MD, PhD [address], [place] [id number] 05/24/2023 Imaging Radiology 06/06/2023 Telemedicine Family Medicine Roel Brown MD [address] [place] [address] [place] [address] 06/11/2023 Office Visit Family Medicine Roel Brown MD [address] [place] [address] [place] [address] 06/22/2023 Office Visit Rheumatology Andriy Cespedes MD [address] [place], [place] [address] [address] 11/28/2023 Office Visit Family Medicine Alejandro Pete MD [address] [place] [address] [place] [address] 12/18/2023 Cardiac Studies Cardiology Charito Germain [address] [place] [address] 04/04/2024 Nurse Only Ancillary Marcellus, Nurse [address] [place] [address] Pending Results Name Type Priority Associated Diagnoses Date /Time VASC DUPLEX CAROTID BILAT Medical Imaging Routine Carotid stenosis, non-symptomatic, bilateral 05/10/2023 3:39 PM EDT Scheduled Orders Name Type Priority Associated Diagnoses Orde r Schedule VASC DUPLEX CAROTID BILAT Medical Imaging Routine Carotid stenosis, non-symptomatic, bilateral Occlusion of left carotid artery 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) Ordered: 05/10/2023 CTA CHEST NON-CORONARY W CONTRAST Medical Imaging Routine Carotid stenosis, non-symptomatic, bilateral Occlusion of left carotid artery 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) Ordered: 05/10/2023 CREATININE Lab Routine Carotid stenosis, non-symptomatic, bilateral Occlusion of left carotid artery 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) 1 Occurrences starting 05/10/2023 until 06/10/2024 CTA ABD/PELVIS Medical Imaging Routine Carotid stenosis, non-symptomatic, bilateral Occlusion of left carotid artery 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) Ordered: 05/10/2023 Health Maintenance Due Date Last Done Comments Zoster Vaccines (1 of 2) 10[birth year]10/1969 COLONOSCOPY-EVERY 5 YRS AGES 18-100 07/11/2021 07/11/2016, 07/11/2016 CKD PHOS USE SMARTSET 61533 05/30/2022 11/0 07/2020, 06/08/2020, 09/28/2017, Additional history exists COVID-19 Vaccine ( season) 2023 06/13/2022, 08/30/2021, 08/02/2021 Albumin/Creatinine Ratio 05/26/2023 022, 09/28/2017, 12/03/2015 GFR 06/07/2023 12/05/2022, 09/28, 05/26/2022, Additional history exists CKD HGB USE SMARTSET 53378 12/06/202312/05, 12/05/2022, 10/20/2022, Additional history exists Depression [...] encounter Medical Devices Implanted Type Area Medical Assistant Dermatology Device Identifier Shelf Expiration Date Model / Serial / Lot Lens Intraoc 25.5 - [id number] - [id number] Implanted:Qty: 1 on 05/11/2022 by Ishmael Malcolm MD at OR [facility] Right: Eye [employer] 09/26/2026 [id number] / [id number] / [id number] Lens Intraoc 26.0 - [id number] - [id number] Implanted:Qty: 1 on 05/18/2022 by Ishmael Malcolm MD at OR [facility] Left: Eye [employer] 10/27/2025 [id number] / [id number] / [id number] documented as of this encounter Visit Diagnoses Diagnosis Carotid stenosis, non-symptomatic, bilateral- Primary Occlusion of left carotid artery Occlusion and stenosis of carotid artery without mention of cerebral infarction 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 No Code Status History Code Status Date Activated Date Inactivated Comments No Code 05/11/2022 11:54 AM 05/11/2022 6:22 PM Th is order reflects the patients wishes and were consensually agreed upon. Question Answer Comments Discussion of Advance Directives occurred with: Patient Does the patient have a Living Will? No Does the patient have Health Care Power of Paper Stripper? No Full Code 04/09/2020 1:05 PM 04/09/2020 7:00 PM This order reflects the patients wishes and were consensually agreed upon. Care Teams Continuity Director Relationship Specialty Start Date End Date Roel Brown MD [address] [place] [address] [place] [id number] PCP - General Family Medicine 12/03/15 documented as of this encounter"
--- OUTSIDE RECORDS SUMMARY | 2023-09-15 13:46 | External Medical Summary ---
Author Name Unknown Address Unknown Organization K01:[facility] - [address] [place] [address] Laboratory Report Ordering Provider Test Date Status ACE ORNELAS 05/17/2023 14:06:46 Final Observation Date Value Abnormality Reference (Units ) Status Phosphate 05/17/2023 14:06:46 3.5 2.5-4.8 (m g/dL) Final Performing Location [facility] - [address] [place] [address]
--- OUTSIDE RECORDS SUMMARY | 2023-09-15 13:46 | External Medical Summary | Summary of Care ---
Author Name Unknown Organization [facility] Address [address] [place] [address] Phone [phone] Care Team Providers Care Director Of Quality Improvement Name Role Phone Roel Brown MD Primary Care Provider [phone] Reason for Visit * Reason Onset Date Comments case management 05/04/2023 Encounter Details Date Type Department Care Team Description 05/04/2023 Telephone Care Coordination [address] [place] [address] Sharri Chatterjee LPN [address], [place] [id number] case management Allergies Active Allergy Reactions Severity [...] Active Clopidogrel Bisulfate 75 MG Oral Tablet (pLAVix)Indicatio ns:History of TIA (transient ischemic attack) TAKE ONE TABLET BY MOUTH EVERY DAY 100 Tablet 1 01/02/2023 01/02/2024 Active Leflunomide 10 MG Oral Tablet (Arava)Indication s:Rheumatoid arthritis involving multiple sites with positive rheumatoid factor (HCC) TAKE ONE TABLET BY MOUTH EVERY DAY IN THE MORNING 100 Tablet 1 12/05/2022 12/05/2023 Active Ezetimibe 10 MG Oral Tablet (Zetia)Indication s:Coronary artery disease involving [place] coronary artery of [place] heart without angina pectoris,Hyperlip idemia LDL goal <100 TAKE ONE TABLET BY MOUTH EVERY MORNING 100 Tablet 3 06/07/2022 07/08/2023 Active Losartan Potassium 50 MG Oral Tablet (Cozaar) Take 1 Tablet by mouth in the morning and 1 Tablet before bedtime. 0 04/30/2023 Active PredniSONE (DELTASONE) 20 MG TabletIndications :Viral URI with cough Take 2 Tabs by mouth daily for 5 days. 10 Tab 0 09/19/2016 05/04/2023 Discontinued PredniSONE (DELTASONE) 20 MG TabletIndications :Tenosynovitis of forearm two pills daily with food for 5 days, then one daily with food 15 Tab 0 11/28/2016 05/04/2023 Discontinued predniSONE (DELTASONE) 20 MG Tablet two pills daily with food for 5 days, then one daily with food 15 Tab 0 01/01/2019 05/04/2023 Discontinued Vitamin C 1000 MG Oral Tablet Take 1 Tablet by mouth in the morning. 0 05/04/2023 Discontinued Metoprolol Succinate ER 50 MG Oral Tablet Extended Release 24 Hour (toPROL XL)Indications:Co ronary artery disease involving [place] coronary artery of [place] heart without angina pectoris,Primary hypertension,Mixer Helper lele heart failure with preserved ejection fraction (HCC) TAKE ONE TABLET BY MOUTH EVERY MORNING 100 Tablet 1 01/02/2023 05/04/2023 Discontinued Losartan Potassium 25 MG Oral Tablet (Cozaar)Indicatio ns:Coronary artery disease involving [place] coronary artery of [place] heart without angina pectoris TAKE ONE TABLET BY MOUTH EVERY MORNING 100 Tablet 3 08/03/2022 05/04/2023 Discontinued HYDROcodone-Aceta minophen 5-325 MG Oral Tablet Take 1 Tablet by mouth every 4 hours as needed for Pain, Mild. 20 Tablet 0 03/23/2023 05/04/2023 Discontinued documented as of this encounter (statuses as [...] Cardiac pacemaker in situ 05/05/2022 History of [place] (myocardial infarction) Primary hypertension 12/01/2021 SSS (sick sinus syndrome) 09/07/2021 First degree heart block 05/27/2021 Encounter for long-term (current) drug u se 08/20/2017 Rheumatoid arthritis involvi ng multiple sites with positive rheumatoid factor 05/08/2017 Sigmoid diverticulosis 07/11/2016 Overview: sigmoid and descending colon Coronary artery disease invo lving [place] coronary artery of [place] heart without angina pectoris 05/24/2016 ADVANCE DIRECTIVE [...] Miscellaneous Notes * Telephone Encounter - Sharri Chatterjee LPN - 05/04/2023 2:02 PM EDT Is this call for a hospital, longterm or rehab facility discharge to home? Yes David Gregory 04/27-04/30 Summary of Call: Dx: Stroke ([facility]) Contacted Pt, states he is doing better with some things and the same with others. Says the facial drooping and the tongue swelling/numbness feeling went away. Still c/o right sided upper and lower extremity weakness. Says he had PT in today. Had PCP visit yesterday and f/u with vascular appt on 05/10. Pt c/o sciatic pain, says he skinner a stabbing pain that radiates down his entire leg and is havinga hard time getting comfortable. Sending message to PCP office to see if we can get him something to help with pain. Med rec completed and up to date. Denies any needs or concerns at this time. Red flag sx's reviewed and Pt placed in IVR. Red flags patient will report: Red Flag 1: increased weakness Red Flag 2: facial drooping Red Flag 3: slurring of speech Transition Plan: PCP or specialty appointment reviewed, Medication management follow-up, Follow-up (labs, DME, OT, OT), and IVR Enrollment Contact information provided and will follow-up in: As needed for IVR triggers documented in this encounter Plan of Treatment Upcoming Encounters Date Type Specialty Care Team Description 05/10/2023 Office Visit Vascular Surgery Gregorio Pradhan MD [address] [facility] [place] [address] 05/17/2023 Laboratory Laboratory [address] [place] [address] 05/24/2023 Imaging Radiology 06/06/2023 Telemedicine Family Medicine Roel Brown MD [address] [place] [address] [place] [address] 06/11/2023 Office Visit Family Medicine Roel Brown MD [address] [place] [address] [place] [address] 06/22/2023 Office Visit Rheumatology Andriy Cespedes MD [address] [place], [place] [address] [address] 11/28/2023 Office Visit Family Medicine Alejandro Pete MD [address] [place] [address] [place] [address] 12/18/2023 Cardiac Studies Cardiology [facility] [address] [address] 04/04/2024 Nurse Only Ancillary Movcory, Nurse Annual Wellness [address] [place] [address] [place] [address] Health Maintenance Due Date Last Done Comments Zoster Vaccines (1 of 2) 10[birth year]10/1969 COLONOSCOPY-EVERY 5 YRS AGES 18-100 07/11/2021 07/11/2016, 07/11/2016 CKD PHOS USE SMARTSET 65358 05/30/2022 11/0 07/2020, 06/08/2020, 09/28/2017, Additional history exists COVID-19 Vaccine ( season) 2023 06/13/2022, 08/30/2021, 08/02/2021 Albumin/Creatinine Ratio 05/26/2023 022, 09/28/2017, 12/03/2015 GFR 06/07/2023 12/05/2022, 09/28, 05/26/2022, Additional history exists CKD HGB USE SMARTSET 28976 12/06/202312/05, 12/05/2022, 10/20/2022, Additional history exists Depression [...] this encounter Medical Devices Implanted Type Area Dog Daycare Provider Device Identifier Shelf Expiration Date Model / Serial / Lot Lens Intraoc 25.5 - [id number] - [id number] Implanted:Qty: 1 on 05/11/2022 by Ishmael Malcolm MD at OR [facility] Right: Eye BAUSCH [employer] LOMB 09/26/2026 [id number] / [id number] / [id number] Lens Intraoc 26.0 - [id number] - [id number] Implanted:Qty: 1 on 05/18/2022 by Ishmael Malcolm MD at OR [facility] Left: Eye BAUSCH [employer] LOMB 10/27/2025 [id number] / [id number] / [id number] documented as of this encounter Advance Directives [...] the patient have Health Care Power of Safety Grooving Machine Operator? No Code Status History Code Status Date Activated Date Inactivated Comments No Code 05/11/2022 11:54 AM 05/11/2022 6:22 PM Th is order reflects the patients wishes and were consensually agreed upon. Question Answer Comments Discussion of Advance Directives occurred with: Patient Does the patient have a Living Will? No Does the patient have Health Care Power of Safety Grooving Machine Operator? No Full Code 04/09/2020 1:05 PM 04/09/2020 7:00 PM This order reflects the patients wishes and were consensually agreed upon. Care Teams Director Of Quality Improvement Relationship Specialty Start Date End Date Roel Brown MD [address] [place] [address] [place] [address] PCP - General Family Medicine 12/03/15 documented as of this encounter
--- OUTSIDE RECORDS SUMMARY | 2023-09-15 13:46 | External Medical Summary | Summary of Care ---
Author Name Unknown Organization [facility] Address [address] [place] [address] Phone [phone] Care Team Providers Care Carpet Or Rug Layer Helper Name Role Phone Roel Brown MD Primary Care Provider [phone] Reason for Visit * Reason Onset Date Comments case management 05/04/2023 Encounter Details Date Type Department Care Team Description 05/04/2023 Telephone Care Coordination [address] [place] [address] Sharri Chatterjee LPN [address], [place] [phone] case management Allergies Active Allergy Reactions Severity [...] Oral Tablet (Zetia)Indications:C oronary artery disease involving [place] coronary artery of [place] heart without angina pectoris,Hyperlipide nancy LDL goal [...] Cardiac pacemaker in situ 05/05/2022 History of [place] (myocardial infarction) Primary hypertension 12/01/2021 SSS (sick sinus syndrome) 09/07/2021 First degree heart block 05/27/2021 Encounter for long-term (current) drug u se 08/20/2017 Rheumatoid arthritis involvi ng multiple sites with positive rheumatoid factor 05/08/2017 Sigmoid diverticulosis 07/11/2016 Overview: sigmoid and descending colon Coronary artery disease invo lving [place] coronary artery of [place] heart without angina pectoris 05/24/2016 ADVANCE DIRECTIVE [...] Vascular Surgery [facility] [address] [facility] [address] 05/17/2023 Laboratory Laboratory [address] [place] [address] 05/24/2023 Imaging Radiology 06/06/2023 Telemedicine Family Medicine Roel Brown MD [address] [place] [address] [place] [address] 06/11/2023 Office Visit Family Medicine Roel Brown MD [address] [place] [address] [place] [address] 06/22/2023 Office Visit Rheumatology [facility]riy [facility]pedes [facility] [address] 11/28/2023 Office Visit Family Medicine Alejandro Pete MD [address] [place] [address] [place] [address] 12/18/2023 Cardiac Studies Cardiology [facility] [address] [facility] [place] [address] 04/04/2024 Nurse Only Ancillary [facility] Nurse Annual Wellness [address] [place] [address] [place] [address] Health Maintenance Due Date Last Done Comments Zoster Vaccines (1 of 2) 10[birth year]10/1969 COLONOSCOPY-EVERY 5 YRS AGES 18-100 07/11/2021 07/11/2016, 07/11/2016 CKD PHOS USE SMARTSET 38206 05/30/2022 11/0 07/2020, 06/08/2020, 09/28/2017, Additional history exists COVID-19 Vaccine ( season) 2023 06/13/2022, 08/30/2021, 08/02/2021 Albumin/Creatinine Ratio 05/26/2023 022, 09/28/2017, 12/03/2015 GFR 06/07/2023 12/05/2022, 09/28, 05/26/2022, Additional history exists CKD HGB USE SMARTSET 36062 12/06/202312/05, 12/05/2022, 10/20/2022, Additional history exists Depression [...] this encounter Medical Devices Implanted Type Area Physical Therapy Professor Device Identifier Shelf Expiration Date Model / Serial / Lot Lens Intraoc 25.5 - [id number] - [id number] Implanted:Qty: 1 on 05/11/2022 by Ishmael Malcolm MD at OR [facility] Right: Eye [employer]USCH [employer] LOMB 09/26/2026 [id number] / [id number] / [id number] Lens Intraoc 26.0 - [id number] - [id number] Implanted:Qty: 1 on 05/18/2022 by Ishmael Malcolm MD at OR [facility] Left: Eye BAUSCH [employer] LOMB 10/27/2025 [id number] / [id number] / [id number] documented as of this encounter Advance Directives [...] the patient have Health Care Power of Cane Loader? No Code Status History Code Status Date Activated Date Inactivated Comments No Code 05/11/2022 11:54 AM 05/11/2022 6:22 PM Th is order reflects the patients wishes and were consensually agreed upon. Question Answer Comments Discussion of Advance Directives occurred with: Patient Does the patient have a Living Will? No Does the patient have Health Care Power of Cane Loader? No Full Code 04/09/2020 1:05 PM 04/09/2020 7:00 PM This order reflects the patients wishes and were consensually agreed upon. Care Teams Carpet Or Rug Layer Helper Relationship Specialty Start Date End Date Roel Brown MD [address] [place] [address] [place] [address] PCP - General Family Medicine 12/03/15 documented as of this encounter
--- OUTSIDE RECORDS SUMMARY | 2023-09-15 13:46 | External Medical Summary | Summary of Care ---
Author Name Unknown Organization [facility] Address [address] [place] [address] Phone [phone] Care Team Providers Care Dot Etcher Name Role Phone Roel Brown MD Primary Care Provider [phone] Reason for Visit * Reason Comments Outpatient Testing Encounter Details Date Type Department Care Team Description 05/17/2023 Laboratory Laboratory [address] [place] [address] [facility] [address] [place] [address] Rheumatoid arthritis involving multiple sites with positive rheumatoid factor (HCC); Encounter for long-term (current) drug use; Primary hypertension; Carotid stenosis, non-symptomatic, bilateral; Occlusion of left carotid artery; 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) Allergies Active Allergy Reactions Severity Noted Date Comments Atorvastatin Muscle pain 04/02/2018 Codeine 02/17/2022 Lidocaine Neuro complications (Please comment) High 06/30/2016 Syncope. Pt passes out and will be extremely exhausted for an hour DO NOT USE Evolocumab 05/14/2020 Dizziness documented as of this encounter (statuses as of 05/17/2023) Medications Medication Sig Dispensed Refills Start Date [...] Oral Tablet (Zetia)Indications:C oronary artery disease involving [place] coronary artery of [place] heart without angina pectoris,Hyperlipide nancy LDL goal [...] as of this encounter (statuses as of 05/17/2023) Active Problems Problem Noted Date H/O TIA [...] Cardiac pacemaker in situ 05/05/2022 History of [place] (myocardial infarction) Primary hypertension 12/01/2021 SSS (sick sinus syndrome) 09/07/2021 First degree heart block 05/27/2021 Encounter for long-term (current) drug u se 08/20/2017 Rheumatoid arthritis involvi ng multiple sites with positive rheumatoid factor 05/08/2017 Sigmoid diverticulosis 07/11/2016 Overview: sigmoid and descending colon Coronary artery disease invo lving [place] coronary artery of [place] heart without angina pectoris 05/24/2016 ADVANCE DIRECTIVE INFORMATION 01/08/2006 Overview: No, Advance Directive brochure given to patient at prior appointment. Hyperlipidemia LDL goal <100 documented as of this encounter (statuses as of 05/17/2023) Resolved Problems Problem Noted Date Resolved Date [...] as of this encounter (statuses as of 05/17/2023) Immunizations Name Administration Dates Next Due COVID-19 [...] Encounters Date Type Specialty Care Team Description 05/24/2023 Imaging Radiology 06/06/2023 Telemedicine Family Medicine Roel Brown MD [address] [place] [address] [place] [address] 06/11/2023 Office Visit Family Medicine Roel Brown MD [address] [place] [address] [place] [address] 06/22/2023 Office Visit Rheumatology Andriy Cespedes MD [facility] [address] 11/28/2023 Office Visit Family Medicine Alejandro Pete MD [address] [place] [address] [place] [address] 12/18/2023 Cardiac Studies Cardiology [facility] [address] [place] [address] 04/04/2024 Nurse Only Ancillary Movcory, Nurse Annual Wellness [address] [place] [address] [place] [address] Pending Results Name Type Priority Associated Diagnoses Date /Time CBC WITH WBC DIFFERENTIAL Lab Routine Rheumatoid arthritis involving multiple sites with positive rheumatoid factor (HCC) Encounter for long-term (current) drug use 05/17/2023 2:06 PM EDT COMPREHENSIVE METABOLIC PANEL Lab Routine Rheumatoid arthritis involving multiple sites with positive rheumatoid factor (HCC) Encounter for long-term (current) drug use 05/17/2023 2:06 PM EDT CBC Lab Routine Rheumatoid arthritis involving multiple sites with positive rheumatoid factor (HCC) Encounter for long-term (current) drug use 05/17/2023 2:06 PM EDT DIFFERENTIAL, AUTOMATED Lab Routine Rheumatoid arthritis involving multiple sites with positive rheumatoid factor (HCC) Encounter for long-term (current) drug use 05/17/2023 2:06 PM EDT Health Maintenance Due Date Last Done Comments Zoster Vaccines (1 of 2) 10/10/1969 COLONOSCOPY-EVERY 5 YRS AGES 18-100 07/11/2021 07/11/2016, 07/11/2016 CKD PHOS USE SMARTSET 25027 05/30/2022 11/0 07/2020, 06/08/2020, 09/28/2017, Additional history exists COVID-19 Vaccine ( season) 2023 06/13/2022, 08/30/2021, 08/02/2021 Albumin/Creatinine Ratio 05/26/2023 022, 09/28/2017, 12/03/2015 GFR 06/07/2023 12/05/2022, 09/28, 05/26/2022, Additional history exists CKD HGB USE SMARTSET 59555 12/06/202312/05, 12/05/2022, 10/20/2022, Additional history exists Depression [...] encounter Medical Devices Implanted Type Area Band Salvager Device Identifier Shelf Expiration Date Model / Serial / Lot Lens Intraoc 25.5 - [id number] - [id number] Implanted:Qty: 1 on 05/11/2022 by Ishmael Malcolm MD at OR [facility] Right: Eye BAUSCH [employer] LOMB 09/26/2026 [id number] / [id number] / [id number] Lens Intraoc 26.0 - [id number] - [id number] Implanted:Qty: 1 on 05/18/2022 by Ishmael Malcolm MD at OR [facility] Left: Eye BAUSCH & LOMB 10/27/2025 [id number] / [id number] / [id number] documented as of this encounter Visit Diagnoses Diagnosis Rheumatoid arthritis involving multiple sites with positive rheumatoid factor (HCC) Encounter for long-term (current) drug use Encounter for long-term (current) use of other medications Primary hypertension Unspecified essential hypertension Carotid stenosis, non-symptomatic, bilateral Occlusion of left carotid artery Occlusion and [...] the patient have Health Care Power of [place] Bander Operator? No Code Status History Code Status Date Activated Date Inactivated Comments No Code 05/11/2022 11:54 AM 05/11/2022 6:22 PM Th is order reflects the patients wishes and were consensually agreed upon. Question Answer Comments Discussion of Advance Directives occurred with: Patient Does the patient have a Living Will? No Does the patient have Health Care Power of Can Bander Operator? No Full Code 04/09/2020 1:05 PM 04/09/2020 7:00 PM This order reflects the patients wishes and were consensually agreed upon. Care Teams Dot Etcher Relationship Specialty Start Date End Date Roel Brown MD [address] [place] [address] [place] [address] PCP - General Family Medicine 12/03/15 documented as of this encounter
--- OUTSIDE RECORDS SUMMARY | 2023-09-15 13:46 | External Medical Summary ---
Author Name Unknown Address Unknown Organization K01:LABORATORY [facility] - [address] [facility] [address] Laboratory Report Ordering Provider Test Date Status WILLICHACHA 05/17/2023 14:06:46 Final Observation Date Value Abnormality Reference (Units ) Status WBC, Total 05/17/2023 14:06:46 8.83 4.00-10.80 (K/uL) Final RBC 05/17/2023 14:06:46 5.20 4.50-5.25 (M/uL) Final Hemoglobin 05/17/2023 14:06:46 15.4 14.0-16.8 (g/dL) Final HCT 05/17/2023 14:06:46 49.3 Above high normal 40.0-48.4 (%) Final MCV 05/17/2023 14:06:46 94.8 82.0-99.5 (fL) Final MCH 05/17/2023 14:06:46 29.6 27.0-34.0 (pg) Final MCHC 05/17/2023 14:06:46 31.2 32.0-36.0 (g/dL) Final RDW 05/17/2023 14:06:46 14.5 11.5-15.5 (%) Final Platelets 05/17/2023 14:06:46 270 140-400 (K/uL) Final MPV 05/17/2023 14:06:46 9.5 6.6-11.1 (fL) Final Nucleated erythrocytes/100 leukocytes [Ratio] in Blood by Automated count 05/17/2023 14:06:46 0 <=0 (/100 WBCs) Final Performing Location LABORATORY [facility] - [address] [facility] [address]
--- OUTSIDE RECORDS SUMMARY | 2023-09-15 13:46 | External Medical Summary | Summary of Care ---
Author Name Unknown Organization [facility] Address [address] [place] [address] Phone [phone] Care Team Providers Care Escapement Maker Name Role Phone Roel Brown MD Primary Care Provider [phone] Reason for Referral * Precert (Within 10 days (routine)) - Pending Review Specialty Diagnoses / Procedures Referred By Contac t Referred To Contact Radiology Diagnoses Ulcer of aorta (HCC) Pulmonary nodule Procedures CTA CHEST NON-CORONARY W CONTRAST Keyanna Kovacs PA-C [address] [place] [address] [place] [id number] Referral ID Status Reason Start Date Expiration Date V isits Requested Visits Authorized [id number] Pending Review 08/03/2023 999 999 * Evaluate & Treat - Unlimited Visits (Within 30 days (routine)) - Authorized Specialty Diagnoses / Procedures Referred By Contac t Referred To Contact Neurological Surgery Diagnoses Carotid occlusion, left Occlusion of left vertebral artery History of TIA (transient ischemic attack) Cerebrovascular accident (CVA), unspecified mechanism (HCC) Keyanna Kovacs PA-C [address] [place] [address] [place] [id number] Referral ID Status Reason Start Date Expiration Date Visits Requested Visits Authorized [id number] Authorized Specialty Services Required 05/03/2023 999 999 Question Answer Referral Priority Within 30 days (routine) Where should this appointment be scheduled? [facility] What condition is the patient being seen for? Cerebrovascular * Evaluate & Treat - Unlimited Visits (Within 10 days (routine)) - Authorized Specialty Diagnoses / Procedures Referred By Neymar garcia Referred To Contact Vascular Surgery / Cardiovascular Surgery Diagnoses Carotid occlusion, left Occlusion of left vertebral artery History of TIA (transient ischemic attack) Cerebrovascular accident (CVA), unspecified mechanism (HCC) Ulcer of aorta (HCC) Keyanna Kovacs PA-C [address] [place] [address] [place] [id number] Referral ID Status Reason Start Date Expiration Date Visits Requested Visits Authorized [id number] Authorized Specialty Services Required 05/03/2023 999 999 Question Answer Referral Priority Within 10 days (routine) Where should this appointment be scheduled? [facility] What condition is the patient being seen for? 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 Pt passes out and will be extremely exhausted for an hour DO NOT USE Evolocumab 05/14/2020 Dizziness documented as of this encounter (statuses as of 05/03/2023) Medications Medication Sig Dispensed Refills Start Date End Date Status Multiple Vitamins-Minerals (CENTRUM SILVER) Tablet Take 1 Tablet by mouth in the morning. 0 12/03/2015 Active fish oil concentrate (OMEGA-3) 1000 MG CAPS Take 1,200 mg by mouth 2 times a day. 60 Cap 5 09/19/2016 Active PredniSONE (DELTASONE) 20 MG TabletIndications: Viral URI with cough Take 2 Tabs by mouth daily for 5 days. 10 Tab 0 09/19/2016 Active PredniSONE (DELTASONE) 20 MG TabletIndications: Tenosynovitis of forearm two pills daily with food for 5 days, then one daily with food 15 Tab 0 11/28/2016 Active predniSONE (DELTASONE) 20 MG Tablet two pills daily with food for 5 days, then one daily with food 15 Tab 0 01/01/2019 Active Vitamin E 100 units Tablet Take [...] Oral Tablet Extended Release 24 Hour (toPROL XL)Indications:Cor onary artery disease involving [place] coronary artery of [place] heart without angina pectoris,Primary hypertension,Chron ic heart failure with preserved ejection fraction (HCC) TAKE ONE TABLET BY MOUTH EVERY MORNING 100 Tablet 1 01/02/2023 01/02/2024 Active Leflunomide 10 MG Oral Tablet (Arava)Indications :Rheumatoid arthritis involving multiple sites with positive rheumatoid factor (HCC) TAKE ONE TABLET BY MOUTH EVERY DAY IN THE MORNING 100 Tablet 1 12/05/2022 12/05/2023 Active Losartan Potassium 25 MG Oral Tablet (Cozaar)Indication s:Coronary artery disease involving [place] coronary artery of [place] heart without angina pectoris TAKE ONE TABLET BY MOUTH EVERY MORNING 100 Tablet 3 08/03/2022 08/03/2023 Active Additional Information Patient taking differently: 50 mg BID (.AM/PM), Reported on 05/03/2023 Ezetimibe 10 MG Oral Tablet (Zetia)Indications :Coronary artery disease involving [place] coronary artery of [place] heart without angina pectoris,Hyperlipi demia LDL goal <100 TAKE ONE TABLET BY MOUTH EVERY MORNING 100 Tablet 3 06/07/2022 07/08/2023 Active HYDROcodone-Acetam inophen 5-325 MG Oral Tablet Take 1 Tablet by mouth every 4 hours as needed for Pain, Mild. 20 Tablet 0 03/23/2023 Active documented as of this encounter (statuses as of 05/03/2023) Active Problems Problem Noted Date H/O TIA [...] situ 05/05/2022 History of IN (myocardial infarction) Primary hypertension 12/01/2021 SSS (sick [...] as of this encounter (statuses as of 05/03/2023) Resolved Problems Problem Noted Date Resolved Date [...] as of this encounter (statuses as of 05/03/2023) Immunizations Name Administration Dates Next Due COVID-19 [...] Sign Reading Time Taken Comments Blood Pressure 132/74 05/03/2023 1:48 PM EDT Pulse 82 05/03/2023 1:48 PM EDT Temperature 36.1 C (97 F) 05/03/2023 1:48 PM EDT Respiratory Rate - - Oxygen Saturation 96% 05/03/2023 1:48 PM EDT Inhaled Oxygen Concentration - - Weight 93.9 kg (207 lb) 05/03/2023 1:48 PM EDT Height - - Body Mass Index 29.7 04/03/2023 10:10 AM EDT documented in this encounter Progress Notes * Keyanna Kovacs PA-C - 05/03/2023 1:51 PM EDT SUBJECTIVE: Lukasz Palacios is a 72 year old male. Chief Complaint Patient presents with Hospital Follow-Up Hospital Follow-Up Recent Admission: Patient was recently admitted to [facility]. The date of discharge was 04/30/23. Discharge report receivedand reviewed. HPI: Patient was admitted to [facility] with concern of right sided paresthesias x 3 days in his right forearm and hand. He also had right lower leg and foot and the side of his face. He was having dizziness, unsteadiness, and difficult walking some because of it. He had multiple imaging studies. CTA Head: IMPRESSION: Occluded left proximal intracranial vertebral artery with retrograde filling of the left distal intracranial vertebral artery. This arterial occlusion is of indeterminate age. CTA Neck: IMPRESSION: 1. Complete occlusion of the left internal carotid artery, 1 cm beyond its origin 2. Hypoplastic left vertebral artery 3. 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 A CTA chest is suggested for further assessment. Head CT WO: IMPRESSION: 1. No acute intracranial hemorrhage or mass effect 2. No change in appearance of the small left basal ganglia infarcts. Although probably chronic, these are technically age indeterminate. CTA Chest: IMPRESSION: 1. Normal caliber thoracic aorta. No thoracic aortic dissection or intramural hematoma. 2. Extensive irregular plaque of the aortic arch. This favors ulcerated plaque. A penetrating ulcercould appear similar although is considered less likely, particularly in the absence of chest pain.This finding is probably chronic. A follow-up CTA of the chest in 3 months could be obtained to ensure stability. 3. Several pulmonary nodules which measure up to 6 mm. Although likely benign, these are indeterminate and should be assessed on follow-up exam. 4. Prominent mediastinal and bilateral hilar lymph nodes which can be assessed on follow-up exams to ensure stability. MRI Brain: IMPRESSION: A few tiny foci of restricted diffusion are seen in the left basal ganglia and periventricular white matter. Neuro saw the patient while inpatient. The Neuro consult noted "acute CVA" with small ischemic vessel disease though D/C mentioned TIA. Patient still has residual symptoms so seems more consistent with CVA that did not show up on imaging. Neuro recommended continued ASA 81 mg and Plavix daily along with better BP control. Losartan was increased to 50 mg BID. He was not started on a statin per Neuro because he has had problems with statins in the past. He has continued Zetia. He was even on Repatha at one time and follows with Cardiology. He continues to have tingling in his hand and wrist, and he still feels slightly swollen on the right foot as well. The tingling in his foot is gone. 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 He has been having problems with his right sciatica since coming home. The PT is expected to work on this, too. He cut his arm yesterday on a tree limb outside and it was bleeding a lot. He changed the bandaid this morning, but would like it looked at. 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 2 tabs a day . Vitamin C 1000 MG Oral Tablet Take 1 Tablet by mouth in the morning. QC Aspirin Low Dose 81 MG Oral Tablet Delayed Release daily. Clopidogrel Bisulfate 75 MG Oral Tablet (pLAVix) TAKE ONE TABLET BY MOUTH EVERY DAY 100 Tablet 1 Metoprolol Succinate ER 50 MG Oral Tablet Extended Release 24 Hour (toPROL XL) TAKE ONE TABLET BY MOUTH EVERY MORNING 100 Tablet 1 Leflunomide 10 MG Oral Tablet (Arava) TAKE ONE TABLET BY MOUTH EVERY DAY IN THE MORNING 100 Tablet 1 Losartan Potassium 25 MG Oral Tablet (Cozaar) TAKE ONE TABLET BY MOUTH EVERY MORNING (Patient taking differently: 2 Tablets in the morning and 2 Tablets before bedtime.) 100 Tablet 3 Ezetimibe 10 MG Oral Tablet (Zetia) TAKE ONE TABLET BY MOUTH EVERY MORNING 100 Tablet 3 HYDROcodone-Acetaminophen 5-325 MG Oral Tablet Take 1 Tablet by mouth every 4 hours as needed for Pain, Mild. 20 Tablet 0 PredniSONE (DELTASONE) 20 MG Tablet Take 2 Tabs by mouth daily for 5 days. 10 Tab 0 PredniSONE (DELTASONE) 20 MG Tablet two pills daily with food for 5 days, then one daily with food 15 Tab 0 predniSONE (DELTASONE) 20 MG Tablet two pills daily with food for 5 days, then one daily with food 15 Tab 0 No current facility-administered medications for this visit. Current and discharge medications have been reconciled. Review of patient's allergies indicates: Allergen Reactions Lidocaine Neuro complications (Please comment) Syncope. Pt passes out and will be extremely exhausted for an hour DO NOT USE Atorvastatin Muscle pain Codeine Repatha [Evolocumab] Dizziness OBJECTIVE: BP 132/74 | Pulse 82 | Temp 36.1 C (97 F) (Tympanic) | Wt 93.9 kg (207 lb) | SpO2 96% | BMI 29.70 kg/m | BSA 2.15 m REVIEW OF SYSTEMS: Brief ROS per HPI PHYSICAL EXAM: BP 132/74 | Pulse 82 | Temp 36.1 C (97 F) (Tympanic) | Wt 93.9 kg (207 lb) | SpO2 96% | BMI 29.70 kg/m | BSA 2.15 m Physical exam: General: Well-Developed. Well appearing. No acute distress. HENT: Normocephalic. Atraumatic. Hearing normal. Eyes: EOMI. Sclera without erythema or icterus. No discharge. Pupils equal, round, reactive to light. Neck: No tracheal deviation. ROM intact. No stridor. Cardiovascular: RRR. Normal S1/S2 noted. No murmur, rub or gallop appreciated. Pulmonary: No respiratory distress. No accessory muscle use. No adventitious sounds appreciated. Normal breath sounds. Musculoskeletal: ROM intact and appears normal. Slow gait. No edema or cyanosis. No calf tenderness. Neurologic: Alert. Oriented x 3. Appears stated age. CN 2-12 grossly intact. Skin: Warm and dry. No apparent rashes or ecchymoses. No jaundice or pallor noted. Psych: Mood and affect normal. ASSESSMENT: Hospital discharge follow-up (Primary) - DISCH MED RECON CUR MED LIS Carotid occlusion, left - VASCULAR SURGERY REFERRAL OP - NEUROSURGERY ADULT REFERRAL OP Occlusion of left vertebral artery - VASCULAR SURGERY REFERRAL OP - NEUROSURGERY ADULT REFERRAL OP History of TIA (transient ischemic attack) - VASCULAR SURGERY REFERRAL OP - NEUROSURGERY ADULT REFERRAL OP Cerebrovascular accident (CVA), unspecified mechanism (HCC) - VASCULAR SURGERY REFERRAL OP - NEUROSURGERY ADULT REFERRAL OP Ulcer of aorta (HCC) - VASCULAR SURGERY REFERRAL OP - CTA CHEST NON-CORONARY W CONTRAST; Future; Expected date: 08/03/2023 Pulmonary nodule - CTA CHEST NON-CORONARY W CONTRAST; Future; Expected date: 08/03/2023 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 Keep Cardiology and PCP F/U in 1 month. F/U sooner with any problems. 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 Keyanna Kovacs PA-C documented in this encounter Nursing Notes * Evie Gee LPN - 05/03/2023 1:47 PM EDT [facility] Hospital follow up No concerns from hospital stay Losartan was changed to 50 MG BID Also cut left forearm yesterday- has a pretty bad cut from tree branch documented in this encounter Plan of Treatment Upcoming Encounters Date Type Specialty Care Team Description 05/17/2023 Laboratory Laboratory [address] [place] [id number] 05/24/2023 Imaging Radiology 05/31/2023 Office Visit Cardiology Kartik Bray O, DO [address] [place] [address] 06/06/2023 Telemedicine Family Medicine Roel Brown MD [address] [place] [address] [place] [address] 06/11/2023 Office Visit Family Medicine Roel Brown MD [address] [place] [address] [place] [address] 06/22/2023 Office Visit Rheumatology Andriy Cespedes MD [address] [place] [address] 11/28/2023 Office Visit Family Medicine Alejandro Pete MD [address] [place] [address] [place] [address] 12/18/2023 Cardiac Studies Cardiology [facility] [address] [facility] [place] [address] 04/04/2024 Nurse Only Ancillary [place] Nurse Annual Wellness [address] [place] [address] [place] [address] Scheduled Orders Name Type Priority Associated Diagnoses Orde r Schedule CTA CHEST NON-CORONARY W CONTRAST Medical Imaging Routine Ulcer of aorta (HCC) Pulmonary nodule Expected: 08/03/2023, Expires: 06/03/2024 BASIC METABOLIC PANEL Lab Routine Primary hypertension Expected: 05/03/2023 (Approximate), Expires: 05/02/2024 PHOSPHORUS Lab Routine CKD (chronic kidney disease), stage II Ordered: 05/03/2023 ALBUMIN / CREATININE RATIO, URINE Lab Routine 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) Expected: 05/03/2023 (Approximate), Expires: 05/03/2024 Scheduled Referrals Name Type Priority Associated Diagnoses Orde r Schedule VASCULAR SURGERY REFERRAL OP Referral Within 10 days (routine) Carotid occlusion, left Occlusion of left vertebral artery History of TIA (transient ischemic attack) Cerebrovascular accident (CVA), unspecified mechanism (HCC) Ulcer of aorta (HCC) Ordered: 05/03/2023 NEUROSURGERY ADULT REFERRAL OP Referral Within 30 days (routine) Carotid occlusion, left Occlusion of left vertebral artery History of TIA (transient ischemic attack) Cerebrovascular accident (CVA), unspecified mechanism (HCC) Ordered: 05/03/2023 Health Maintenance Due Date Last Done Comments Zoster Vaccines (1 of 2) 10[birth year]10/1969 COLONOSCOPY-EVERY 5 YRS AGES 18-100 07/11/2021 07/11/2016, 07/11/2016 CKD PHOS USE SMARTSET [id number] 05/30/2022 11/0 07/2020, 06/08/2020, 09/28/2017, Additional history exists COVID-19 Vaccine ( season) 2023 06/13/2022, 08/30/2021, 08/02/2021 Albumin/Creatinine Ratio 05/26/2023 022, 09/28/2017, 12/03/2015 GFR 06/07/2023 12/05/2022, 09/28, 05/26/2022, Additional history exists CKD HGB USE SMARTSET [id number] 12/06/202312/05, 12/05/2022, 10/20/2022, Additional history exists Depression [...] this encounter Medical Devices Implanted Type Area Business Intelligence Reporting Analyst Device Identifier Shelf Expiration Date Model / Serial / Lot Lens Intraoc 25.5 - [id number] - [id number] Implanted:Qty: 1 on 05/11/2022 by Ishmael Malcolm MD at [facility] Right: Eye [employer] 09/26/2026 [id number] / [id number] / [id number] Lens Intraoc 26.0 - [id number] - [id number] Implanted:Qty: 1 on 05/18/2022 by Ishmael Malcolm MD at OR [facility] Left: Eye [employer] 10/27/2025 [id number] / [id number] / [id number] documented as of this encounter Visit Diagnoses Diagnosis Hospital discharge follow-up- Primary Other follow-up examination Carotid occlusion, left Occlusion and stenosis of carotid artery without mention of cerebral infarction Occlusion of left vertebral artery History of TIA (transient ischemic attack) Transient ischemic attack (TIA), and cerebral infarction without residual deficits Cerebrovascular accident (CVA), unspecified mechanism (HCC) Ulcer of aorta (HCC) Pulmonary nodule Solitary pulmonary nodule 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 No Code Status History Code Status Date Activated Date Inactivated Comments No Code 05/11/2022 11:54 AM 05/11/2022 6:22 PM Th is order reflects the patients wishes and were consensually agreed upon. Question Answer Comments Discussion of Advance Directives occurred with: Patient Does the patient have a Living Will? No Does the patient have Health Care Power of Sports Medicine Coordinator? No Full Code 04/09/2020 1:05 PM 04/09/2020 7:00 PM This order reflects the patients wishes and were consensually agreed upon. Care Teams Escapement Maker Relationship Specialty Start Date End Date Roel Brown MD [address] [place] [address] [place] [id number] PCP - General Family Medicine 12/03/15 documented as of this encounter
--- OUTSIDE RECORDS SUMMARY | 2023-09-15 13:46 | External Medical Summary | Summary of Care ---
Author Name Unknown Organization [facility] Address [address] [place] [address] Phone [phone] Care Team Providers Care Foundry Superintendant Name Role Phone Roel Brown MD Primary Care Provider [phone] Encounter Details Date Type Department Care Team Description 04/16/2023 Result Scan Unspecified Department Kartik Bray, DO [address] [place] [address] <No scans attached> Allergies Active Allergy Reactions Severity Noted Date Comments Atorvastatin Muscle pain 04/02/2018 Codeine 02/17/2022 Lidocaine Neuro complications (Please comment) High 06/30/2016 Syncope. Pt passes out and will be extremely exhausted for an hour DO NOT USE Evolocumab 05/14/2020 Dizziness documented as of this encounter (statuses as of 04/16/2023) Medications Medication Sig Dispensed Refills Start Date End Date Status Multiple Vitamins-Minerals (CENTRUM SILVER) Tablet Take 1 Tablet by mouth in the morning. 0 12/03/2015 Active fish oil concentrate (OMEGA-3) 1000 MG CAPS Take 1,200 mg by mouth 2 times a day. 60 Cap 5 09/19/2016 Active PredniSONE (DELTASONE) 20 MG TabletIndications:Vi ral URI with cough Take 2 Tabs by mouth daily for 5 days. 10 Tab 0 09/19/2016 Active PredniSONE (DELTASONE) 20 MG TabletIndications:Te nosynovitis of forearm two pills daily with food [...] Hour (toPROL XL)Indications:Coron dylan artery disease involving [place] coronary artery of [place] heart without angina pectoris,Primary hypertension,Chronic heart failure [...] Oral Tablet (Cozaar)Indications: Coronary artery disease involving [place] coronary artery of [place] heart without angina pectoris TAKE ONE TABLET BY MOUTH EVERY MORNING 100 Tablet 3 08/03/2022 08/03/2023 Active Ezetimibe 10 MG Oral Tablet (Zetia)Indications:C oronary artery disease involving [place] coronary artery of [place] heart without angina pectoris,Hyperlipide nancy LDL goal <100 TAKE ONE TABLET BY MOUTH EVERY MORNING 100 Tablet 3 06/07/2022 07/08/2023 Active HYDROcodone-Acetamin ophen 5-325 MG Oral Tablet Take 1 Tablet by mouth every 4 hours as needed for Pain, Mild. 20 Tablet 0 03/23/2023 Active documented as of this encounter (statuses as of 04/16/2023) Active Problems Problem Noted Date H/O TIA [...] Cardiac pacemaker in situ 05/05/2022 History of [place] (myocardial infarction) Primary hypertension 12/01/2021 SSS (sick sinus syndrome) 09/07/2021 First degree heart block 05/27/2021 Encounter for long-term (current) drug u se 08/20/2017 Rheumatoid arthritis involvi ng multiple sites with positive rheumatoid factor 05/08/2017 Sigmoid diverticulosis 07/11/2016 Overview: sigmoid and descending colon Coronary artery disease invo lving [place] coronary artery of [place] heart without angina pectoris 05/24/2016 ADVANCE DIRECTIVE INFORMATION 01/08/2006 Overview: No, Advance Directive brochure given to patient at prior appointment. Hyperlipidemia LDL goal <100 documented as of this encounter (statuses as of 04/16/2023) Resolved Problems Problem Noted Date Resolved Date [...] as of this encounter (statuses as of 04/16/2023) Immunizations Name Administration Dates Next Due COVID-19 [...] Unspecified Formulation 07/03/2019,07/03/2018,08/20/2017 Seasonal Influenza, PF, 6 mo ns & Above, IM , (Flulaval) 06/01/2021,07/03/2019,07/03/2018,08/20 Seasonal Influenza, Quadriva lent Hd (Fluzone [...] Encounters Date Type Specialty Care Team Description 05/31/2023 Office Visit Cardiology Kartik Bray O, DO [address] [place] [address] 06/11/2023 Office Visit Family Medicine Roel Brown MD [address] [place] [address] [place] [address] 06/22/2023 Office Visit Rheumatology Andriy Cespedes MD [address] [place] [address] 11/28/2023 Office Visit Family Medicine Alejandro Pete MD [address] [place] [address] [place] [address] 12/18/2023 Cardiac Studies Cardiology Charito Germain [address] [place] [address] 04/04/2024 Nurse Only Ancillary Marcellus Nurse Annual Wellness [address] [place] [address] [place] [address] Health Maintenance Due Date Last Done Comments Zoster Vaccines (1 of 2) 10[birth year]10/1969 COLONOSCOPY-EVERY 5 YRS AGES 18-100 07/11/2021 07/11/2016, 07/11/2016 CKD PHOS USE SMARTSET 58026 05/30/2022 11/0 07/2020, 06/08/2020, 09/28/2017, Additional history exists Albumin/Creatinine Ratio 05/26/2023 022, 09/28/2017, 12/03/2015 GFR 06/07/2023 12/05/2022, 09/28, 05/26/2022, Additional history exists CKD HGB USE SMARTSET 35942 12/06/202312/05, 12/05/2022, 10/20/2022, Additional history exists Depression [...] this encounter Medical Devices Implanted Type Area Drafter Automotive Design Layout Device Identifier Shelf Expiration Date Model / Serial / Lot Lens Intraoc 25.5 - [id number] - [id number] Implanted:Qty: 1 on 05/11/2022 by Ishmael Malcolm MD at OR [facility] Right: Eye [employer]OM[employer] 09/26/2026 [id number] / [id number] / [id number] Lens Intraoc 26.0 - [id number] - [id number] Implanted:Qty: 1 on 05/18/2022 by Ishmael Malcolm MD at OR [facility] Left: Eye BAUSCH [employer] LOMB 10/27/2025 [id number] / [id number] / [id number] documented as of this encounter Procedures Procedure Name Priority Date/Time Associated Diagnosis Comments CARDIOLOGY SCANNED RESULT 04/16/2023 documented in this encounter Results * CARDIOLOGY SCANNED RESULT (04/16/2023) 04/16/2023 Kartik MOSHER documented in this encounter Advance [...] the patient have Health Care Power of Forestry Biology Specialist? No Code Status History Code Status Date Activated Date Inactivated Comments No Code 05/11/2022 11:54 AM 05/11/2022 6:22 PM Th is order reflects the patients wishes and were consensually agreed upon. Question Answer Comments Discussion of Advance Directives occurred with: Patient Does the patient have a Living Will? No Does the patient have Health Care Power of Forestry Biology Specialist? No Full Code 04/09/2020 1:05 PM 04/09/2020 7:00 PM This order reflects the patients wishes and were consensually agreed upon. Care Teams Foundry Superintendant Relationship Specialty Start Date End Date Roel Brown MD [address] [place] [address] [place] [phone] PCP - General Family Medicine 12/03/15 documented as of this encounter
--- OUTSIDE RECORDS SUMMARY | 2023-09-15 13:46 | External Medical Summary | Summary of Care ---
Author Name Unknown Organization [facility] Address [address] [place] [address] Phone [phone] Care Team Providers Care Medicaid Billing Clerk Name Role Phone Roel Brown MD Primary Care Provider [phone] Encounter Details Date Type Department Care Team Description 05/10/2023 Hospital Encounter Vascular Lab [facility] [address] [place] [address] Arrived Allergies Active Allergy Reactions Severity Noted Date Comments Atorvastatin Muscle pain 04/02/2018 Codeine 02/17/2022 Lidocaine Neuro complications (Please comment) High 06/30/2016 Syncope. Pt passes out and will be extremely exhausted for an hour DO NOT USE Evolocumab 05/14/2020 Dizziness documented as of this encounter (statuses as of 05/11/2023) Medications Medication Sig Dispensed Refills Start Date [...] Oral Tablet (Zetia)Indications:C oronary artery disease involving [place] coronary artery of [place] heart without angina pectoris,Hyperlipide nancy LDL goal [...] as of this encounter (statuses as of 05/11/2023) Active Problems Problem Noted Date H/O TIA [...] Cardiac pacemaker in situ 05/05/2022 History of [place] (myocardial infarction) Primary hypertension 12/01/2021 SSS (sick sinus syndrome) 09/07/2021 First degree heart block 05/27/2021 Encounter for long-term (current) drug u se 08/20/2017 Rheumatoid arthritis involvi ng multiple sites with positive rheumatoid factor 05/08/2017 Sigmoid diverticulosis 07/11/2016 Overview: sigmoid and descending colon Coronary artery disease invo lving [place] coronary artery of [place] heart without angina pectoris 05/24/2016 ADVANCE DIRECTIVE INFORMATION 01/08/2006 Overview: No, Advance Directive brochure given to patient at prior appointment. Hyperlipidemia LDL goal <100 documented as of this encounter (statuses as of 05/11/2023) Resolved Problems Problem Noted Date Resolved Date [...] as of this encounter (statuses as of 05/11/2023) Immunizations Name Administration Dates Next Due COVID-19 [...] Specialty Care Team Description 05/17/2023 Laboratory Laboratory [address] [place] [address] 05/24/2023 Imaging Radiology 06/06/2023 Telemedicine Family Medicine Roel Brown MD [address] [place] [address] [place] [address] 06/11/2023 Office Visit Family Medicine Roel Brown MD [address] [place] [address] [place] [address] 06/22/2023 Office Visit Rheumatology Andriy Cespedes MD [facility], [place] [address] 11/28/2023 Office Visit Family Medicine Alejandro Pete MD [address] [place] [address] [place] [address] 12/18/2023 [facility] [address] [place] [address] 04/04/2024 Nurse Only Ancillary Marcellus Nurse Annual [facility] [address] [place] [address] [place] [address] Health Maintenance Due Date Last Done Comments Zoster Vaccines (1 of 2) 10/10/1969 COLONOSCOPY-EVERY 5 YRS AGES 18-100 07/11/2021 07/11/2016, 07/11/2016 CKD PHOS USE SMARTSET 30857 05/30/2022 11/0 07/2020, 06/08/2020, 09/28/2017, Additional history exists COVID-19 Vaccine ( season) 2023 06/13/2022, 08/30/2021, 08/02/2021 Albumin/Creatinine Ratio 05/26/2023 022, 09/28/2017, 12/03/2015 GFR 06/07/2023 12/05/2022, 09/28, 05/26/2022, Additional history exists CKD HGB USE SMARTSET 40572 12/06/202312/05, 12/05/2022, 10/20/2022, Additional history exists Depression [...] this encounter Medical Devices Implanted Type Area Hvac Lead Device Identifier Shelf Expiration Date Model / Serial / Lot Lens Intraoc 25.5 - [id number] - [id number] Implanted:Qty: 1 on 05/11/2022 by Ishmael Malcolm MD at OR [facility] Right: Eye [employer]OM[employer] 09/26/2026 [id number] / [id number] / [id number] Lens Intraoc 26.0 - [id number] - [id number] Implanted:Qty: 1 on 05/18/2022 by Ishmael Malcolm MD at OR [facility] Left: Eye [employer]CH [employer] LOMB 10/27/2025 [id number] / [id number] / [id number] documented as of this encounter Procedures Procedure Name Priority Date/Time Associated Diagnosis Comments [facility] DUPLEX CAROTID BILAT Routine 05/10/2023 3:39 PM EDT Carotid stenosis, non-symptomatic, bilateral documented in this encounter Results * [facility] DUPLEX CAROTID BILAT (05/10/2023 3:39 PM EDT) Anatomical Region Laterality Modality Neck, Vascular Ultrasound Narrative 05/10/2023 5:34 PM EDT VASCULAR LAB RESULTS DATE OF EXAM: 05/10/23 PRESENTING CONDITIONS: R/O LICA occlusion & left vent stenosis PHYSICIAN REPORT Carotid Artery Duplex Examination Immediately before proceeding with the vascular lab procedure reported below, the identity of the patient, the correct exam and the correct procedural site were verified. Dyson scale and color flow Doppler imaging was performed for evaluation of the right carotid artery. Duplex examination of the right carotid artery identifies atherosclerotic plaque at the carotid bifurcation. The plaque is echogenic and appears to have an irregular surface. Color Doppler imaging was performed for evaluation of the right carotid bifurcation. Spectral analysis of the right internal carotid artery demonstrates peak systolic velocities of 104 cm/sec. Maximum end diastolic velocities are 26 cm/sec.. Peak right common carotid velocity is 98 cm/sec. The right internal carotid to common carotid ratio is 1.06. The right external carotid artery has a peak velocity of 100 centimeters per second. Dyson scale and color flow Doppler imaging was performed for the evaluation of the left carotid artery. Duplex examination of the left carotid artery identifies atherosclerotic plaque at the carotid bifurcation. The plaque is echogenic and appears to have an irregular surface. Color Doppler imaging was performed for the evaluation of the left carotid bifurcation. Spectral analysis of the left internal carotid artery demonstrates no flow. Duplex ultrasound was performed of the left carotid bifurcation demonstrating extensive plaque with no detectable Doppler flow in the left internal carotid artery . The left external carotid artery has a peak velocity of 63 centimeters per second. The right vertebral artery demonstrates antegrade flow. The left vertebral artery demonstrates antegrade flow. Impression: Right carotid artery duplex examination indicates evidence of less than 50% stenosis of the internal carotid artery. Left carotid artery duplex examination indicates evidence of an occlusion of the internal carotid artery. Kelvin Harris PA-C RAD VASCULAR documented in this encounter Advance Directives Latest [...] the patient have Health Care Power of Recruiting Manager? No Code Status History Code Status Date Activated Date Inactivated Comments No Code 05/11/2022 11:54 AM 05/11/2022 6:22 PM Th is order reflects the patients wishes and were consensually agreed upon. Question Answer Comments Discussion of Advance Directives occurred with: Patient Does the patient have a Living Will? No Does the patient have Health Care Power of Recruiting Manager? No Full Code 04/09/2020 1:05 PM 04/09/2020 7:00 PM This order reflects the patients wishes and were consensually agreed upon. Care Teams Medicaid Billing Clerk Relationship Specialty Start Date End Date Roel Brown MD [address] [place] [address] [place] [address] PCP - General Family Medicine 12/03/15 documented as of this encounter
--- OUTSIDE RECORDS SUMMARY | 2023-09-15 13:46 | External Medical Summary ---
Author Name Unknown Address Unknown Organization [id number][place] [place] [address] [facility] [address] Laboratory Report Ordering Provider Test Date Status WILLICHACHA 05/17/2023 14:06:46 Final Observation Date Value Abnormality Reference (Units ) Status SYNC LEUKOCYTES IN BLOOD BY AUTOMATED COUNT 05/17/2023 14:06:46 8.83 4.00-10.80 (K/uL) Final Segs 05/17/2023 14:06:46 63.0 40.0-75.0 (%) Final Lymphs % 05/17/2023 14:06:46 19.0 18.0-42.0 (%) Final Monos 05/17/2023 14:06:46 13.3 Above high normal 1.0-11.0 (%) Final Eosinophils 05/17/2023 14:06:46 3.1 0.0-6.0 (%) Final Basos 05/17/2023 14:06:46 1.1 0.0-2.0 (%) Final Immature Granulocyte, Percent 05/17/2023 14:06:46 0.5 0.0-2.0 (%) Final Absolute Segs 05/17/2023 14:06:46 5.57 1.80-7.70 (K/uL) Final Lymphs, absolute 05/17/2023 14:06:46 1.68 1.00-4.80 (K/ul) Final Monos, Abs 05/17/2023 14:06:46 1.17 Above high normal 0.00-1.10 (K/uL) Final Eos, Abs 05/17/2023 14:06:46 0.27 0.00-0.70 (K/uL) Final Basos, Abs 05/17/2023 14:06:46 0.10 0.00-0.20 (K/uL) Final Immature Granulocytes, Number 05/17/2023 14:06:46 0.04 0.00-0.20 (K/uL) Final Performing Location [facility] [place] [facility] [place] [address]
--- OUTSIDE RECORDS SUMMARY | 2023-09-15 13:46 | External Medical Summary | Summary of Care ---
Author Name Unknown Organization [facility] Address [address] [place] [address] Phone [phone] Care Team Providers Care Dowel Sticker Operator Name Role Phone Roel Brown MD Primary Care Provider [phone] Encounter Details Date Type Department Care Team Description 05/01/2023 Orders Only Family Medicine [address] [address] Roel Brown MD [address] [place] [address] [place] [address] Allergies Active Allergy Reactions Severity Noted Date [...] Hour (toPROL XL)Indications:Coron dylan artery disease involving [place] coronary artery of [place] heart without angina pectoris,Primary hypertension,Chronic heart failure [...] Oral Tablet (Cozaar)Indications: Coronary artery disease involving [place] coronary artery of [place] heart without angina pectoris TAKE ONE TABLET BY MOUTH EVERY MORNING 100 Tablet 3 08/03/2022 08/03/2023 Active Ezetimibe 10 MG Oral Tablet (Zetia)Indications:C oronary artery disease involving [place] coronary artery of [place] heart without angina pectoris,Hyperlipide nancy LDL goal [...] Cardiac pacemaker in situ 05/05/2022 History of [place] (myocardial infarction) Primary hypertension 12/01/2021 SSS (sick sinus syndrome) 09/07/2021 First degree heart block 05/27/2021 Encounter for long-term (current) drug u se 08/20/2017 Rheumatoid arthritis involvi ng multiple sites with positive rheumatoid factor 05/08/2017 Sigmoid diverticulosis 07/11/2016 Overview: sigmoid and descending colon Coronary artery disease invo lving [place] coronary artery of [place] heart without angina pectoris 05/24/2016 ADVANCE DIRECTIVE [...] 05/03/2023 Office Visit Family Medicine Keyanna Kovacs PAIvyC [address] [place] [address] [place] [address] 05/31/2023 Office Visit Cardiology Kartik Bray DO [address] [place] [address] 06/06/2023 Telemedicine Family Medicine Roel Brown MD [address] [place] [address] [place] [address] 06/11/2023 Office Visit Family Medicine Roel Brown MD [address] [place] [address] [place] [address] 06/22/2023 Office Visit Rheumatology Andriy Cespedes MD [address] [place] [address] [place] [address] 11/28/2023 Office Visit Family Medicine Alejandro Pete MD [address] [place] [address] [place] [address] 12/18/2023 Cardiac Studies Cardiology Charito Germain [facility] [address] [place] [address] 04/04/2024 Nurse Only Ancillary Marcellus Nurse Annual Wellness [address] [place] [address] [place] [address] Health Maintenance Due Date Last Done Comments Zoster Vaccines (1 of 2) 10/10/1969 COLONOSCOPY-EVERY 5 YRS AGES 18-100 07/11/2021 07/11/2016, 07/11/2016 CKD PHOS USE SMARTSET 74505 05/30/2022 11/0 07/2020, 06/08/2020, 09/28/2017, Additional history exists Albumin/Creatinine Ratio 05/26/2023 022, 09/28/2017, 12/03/2015 GFR 06/07/2023 12/05/2022, 09/28, 05/26/2022, Additional history exists CKD HGB USE SMARTSET 99430 12/06/202312/05, 12/05/2022, 10/20/2022, Additional history exists Depression [...] this encounter Medical Devices Implanted Type Area Technologist Development Device Identifier Shelf Expiration Date Model / Serial / Lot Lens Intraoc 25.5 - [id number] - [id number] Implanted:Qty: 1 on 05/11/2022 by Ishmael Malcolm MD at OR [facility] Right: Eye [employer]OM[employer] 09/26/2026 [id number] / [id number] / [id number] Lens Intraoc 26.0 - [id number] - [id number] Implanted:Qty: 1 on 05/18/2022 by Ishmael Malcolm MD at OR [facility] Left: Eye BAUSCH [employer] LOMB 10/27/2025 [id number] / [id number] / [id number] documented as of this encounter Procedures Procedure Name Priority Date/Time Associated Diagnosis Comments CTA CHEST NON-CORONARY W CONTRAST Routine 04/29/2023 documented in this encounter Results * CTA CHEST NON-CORONARY W CONTRAST (04/29/2023) Anatomical Region Laterality Modality Chest, Cardio, Body Other 04/29/2023 History Per Patient RAD CT documented in this encounter Advance Directives Latest [...] the patient have Health Care Power of Field Property Loss Specialist? No Code Status History Code Status Date Activated Date Inactivated Comments No Code 05/11/2022 11:54 AM 05/11/2022 6:22 PM Th is order reflects the patients wishes and were consensually agreed upon. Question Answer Comments Discussion of Advance Directives occurred with: Patient Does the patient have a Living Will? No Does the patient have Health Care Power of Field Property Loss Specialist? No Full Code 04/09/2020 1:05 PM 04/09/2020 7:00 PM This order reflects the patients wishes and were consensually agreed upon. Care Teams Dowel Sticker Operator Relationship Specialty Start Date End Date Roel Brown MD [address] [place] [address] [place] [address] PCP - General Family Medicine 12/03/15 documented as of this encounter
--- OUTSIDE RECORDS SUMMARY | 2023-09-15 13:47 | External Medical Summary | Summary of Care ---
Author Name Unknown Organization [facility] Address [address] [place] [address] Phone [phone] Care Team Providers Care Ward Maid Name Role Phone Roel Brown MD Primary Care Provider Reason for Visit * Reason Onset Date Comments Adult Annual Wellness Visit, Subsequent Visit Medication Administration 04/03/2023 Flu an d/or Pneumo Inj Encounter Details Date Type Department Care Team Description 04/03/2023 Nurse Only Ancillary [address] [place] Daniels [id number] [facility], Nurse [facility] [address] [place] [address] ED[place] Daniels [id number] Adult Annual Wellness Visit, Subsequent Vi... Allergies Active Allergy Reactions Severity Noted Date Comments Atorvastatin Muscle pain 04/02/2018 Codeine 02/17/2022 Lidocaine Neuro complications (Please comment) High 06/30/2016 Syncope. Pt passes out and will be extremely exhausted for an hour DO NOT USE Evolocumab 05/14/2020 Dizziness documented as of this encounter (statuses as of 04/03/2023) Medications Medication Sig Dispensed Refills Start Date [...] Hour (toPROL XL)Indications:Cor onary artery disease involving table mountain coronary artery of [place] heart without angina pectoris,Primary hypertension,Chron ic heart [...] Oral Tablet (Cozaar)Indication s:Coronary artery disease involving [place] coronary artery of [place] heart without angina pectoris TAKE ONE TABLET BY MOUTH EVERY MORNING 100 Tablet 3 08/03/2022 08/03/2023 Active Ezetimibe 10 MG Oral Tablet (Zetia)Indications :Coronary artery disease involving table mountain coronary artery of table mountain heart without angina pectoris,Hyperlipi demia LDL goal <100 TAKE ONE TABLET BY MOUTH EVERY MORNING 100 Tablet 3 06/07/2022 07/08/2023 Active HYDROcodone-Acetam inophen 5-325 MG Oral Tablet Take 1 Tablet by mouth every 4 hours as needed for Pain, Mild. 20 Tablet 0 03/23/2023 Active Additional Information Patient not taking.Reported on 04/03/2023 documented as of this encounter (statuses as of 04/03/2023) Active Problems Problem Noted Date H/O TIA [...] descending colon Coronary artery disease invo lving table mountain coronary artery of table mountain heart without angina pectoris 05/24/2016 ADVANCE DIRECTIVE INFORMATION 01/08/2006 Overview: No, Advance Directive brochure given to patient at prior appointment. Hyperlipidemia LDL goal <100 documented as of this encounter (statuses as of 04/03/2023) Resolved Problems Problem Noted Date Resolved Date [...] as of this encounter (statuses as of 04/03/2023) Immunizations Name Administration Dates Next Due COVID-19 [...] Current Snuff Tobacco Cessation:Ready to Q uit: Not Asked; Counseling Given: Not Answered Comments:a can every 2 days Alcohol Use [...] Taken Comments Blood Pressure - - Pulse 82 04/03/2023 10:10 AM EDT Temperature - - Respiratory Rate - - Oxygen Saturation 97% 04/03/2023 10:10 AM EDT Inhaled Oxygen Concentration - - Weight 96.2 kg (212 lb) 04/03/2023 10:10 AM EDT Height 177.8 cm (5' 10") 04/03/2023 10:10 AM EDT Body Mass Index 30.42 04/03/2023 10:10 AM EDT documented in this encounter Patient Instructions * Patient Instructions* Nati Fernandez RN - 04/03/2023 10:03 AM EDT Patient Instructions - Fall Prevention (This education is for all patients over 65 regardless of symptoms) Remember to take your current medications as prescribed. In order to prevent falls, you are encouraged to: Exercise Utilize assistive/adaptive devices Avoid multifocal lenses when walking Avoid hazards in home Maintain a regular toileting schedule Any questions please contact our office. Preventing Falls in the Home (This education is for all patients over 65 regardless of symptoms) As you get older, falls are more likely. Thats because your reaction time slows. Your muscles and joints may also get stiffer, making them less flexible. Illness, medications, and vision changes can also affect your balance. A fall could leave you unable to live on your own. To make your home safer, follow these tips: Floors Put nonskid pads under area rugs Remove throw rugs Replace worn floor coverings Tack carpets firmly to each step on carpeted stairs. Put nonskid strips on the edges of uncarpeted stairs Keep floors and stairs free of clutter and cords Arrange furniture so there are clear pathways Clean up any spills right away Bathrooms Install grab bars in the tub or shower Apply nonskid strips or put a nonskid rubber mat in the tub or shower Sit on a bath chair to bathe Use bathmats with nonskid backing Lighting Keep a flashlight in each room Put a nightlight along the pathway between the bedroom and the bathroom Kael Patient Education Copyright 2009 - 2010 Kael except where otherwise noted Preventing Falls: Exercises to Improve Balance, Flexibility, Strength, and Staying Power (This education is for all patients over 65 regardless of symptoms) Certain types of exercises may help make you less likely to fall. Try the ones below. Or do other exercises that your healthcare provider suggests. Depending on your health, you may need to start slowly. Dont let that stop you. Even small amounts of exercise can help you. Be sure to talk to yourhealthcare provider before starting any exercise program. Improve Balance Many types of exercise can help improve balance. Alexey chi and yoga are good examples. Heres another one to try. You can do it anytime and almost anywhere. Stand next to a counter or solid support. Push yourself up onto your tiptoes. Hold for 5 seconds. If you start to lose your balance, hold on to the counter. Rest and repeat 5 times. Work up to holding for 20 to 30 seconds, if you can. Increase Flexibility Being more flexible makes it easier for you to move around safely. Try exercises like the seated hamstring stretch. Sit in a chair and put one foot on a stool. Straighten your leg and reach with both hands down either side of your leg. Reach as far down your leg as you can. Hold for about 20 seconds. Go back to the starting position. Then repeat 5 times. Switch legs. Build Strength Resistance exercises help build strength. You can do them without equipment. Or you can use weights, elastic bands, or special machines. One such exercise is called the biceps curl. You can hold a 1 pound weight or even a can of soup. Do this exercise at least 3 times a week. Strive for everyday. Sit up straight in a chair. Keep your elbow close to your body and your wrist straight. Bend your arm, moving your hand up to your shoulder. Then slowly lower your arm. Repeat 5 times. Switch to the other arm. Build Your Staying Power Aerobic exercises make your heart and lungs stronger so you can keep moving longer. Walking and swimming are two of the best types of exercises you can do. Using a stationary bike is great, too. Find an aerobic exercise that you enjoy. Start slowly and build up. Even 5 minutes is helpful. Aimfor a goal of 30 minutes, at least 3 times a week. You dont have to do 30 minutes in one session. Break it up and walk a little throughout the day. More Helpful Tips Start easy. Slowly work up to doing more. Talk with your healthcare provider about the best exercises for you. Call senior centers or health clubs about exercise programs. If needed, have a family member watch you walk every so often to check your stability. Exercise with a friend. Choose an activity you both enjoy. Try exercises that you can do anytime, anywhere. Here are two examples. Have someone with you when you first try these: Practice walking by placing one foot right in front of the other. Stand up and sit down 10 times. Repeat this throughout the day. Trendabl Patient Education Copyright 2008 Trendabl except where otherwise noted. Preventing Falls: Moving Safely Using a Cane or Walker (This education is for all patients over 65 regardless of symptoms) Keep the cane away from your feet so you dont trip. A walking aid, such as a cane or walker, can help you stay more independent and avoid falls. Remember to keep your walking aid within easy reach when youre in a chair or in bed. And learn how to use it safely so you dont injure yourself. Using a Cane If you have a stronger side, hold the cane on that side. Get your balance. Move the cane and your weaker leg forward. Support your weight on both the cane and your weaker side. Step with your stronger leg. Start again from step 1. If youre using a folding walker, be sure you know how to lock it open. Check that its locked open before each use. Using a Walker Roll the walker (or lift it, if youre using one without wheels) forward about 12 inches. Step forward with your weaker leg first. Use the walker to help keep your balance. Bring your other foot forward to the center of the walker. Start again from step 1. Helpful Tips Check with your healthcare provider about the right walking aid to use. Ask about a walker with a seat attached. Check the tips of your cane or walker to make sure they have nonskid covers. Move slowly from room to room. Dont jang. Sit down to get dressed. Use a ramon pack or backpack to keep your hands free. Get help for jobs that mean climbing, even on a stepstool. Trendabl Patient Education Copyright 2008 Trendabl except where otherwise noted. Treating Urinary Incontinence in Men (This education is for all patients over 65 regardless of symptoms) You can't always control the release of urine. You may leak urine. Or you may not be able to hold your urine until you can get to a bathroom. This is called urinary incontinence. The problem can be managed. Talk to your doctor about your treatment options. Taking Medications Prescription medications may help you. They may: Help the sphincter to work better. (This is the muscle that closes to keep urine from leaking out of the bladder.) Help stop the bladder from stephanie too often to push urine out. Help the bladder muscles contract with more force. Help relax the sphincter muscle and allow urine to flow more freely. Making Changes to Your Routine Certain changes in your daily routine may help. These include: Avoiding caffeine and alcohol. Using timed voiding. This is following a schedule for drinking fluids and urinating. Doing Kegel exercises daily. These exercises involve tightening the muscles in your sphincter and around your bladder to help strengthen them. Your doctor can explain how to do them. Using a Catheter A catheter is a narrow tube that is inserted through the urethra into the bladder. It drains urine.A condom catheter covers the penis. It channels urine into a collection bag. It is worn most of thetime. Intermittent catheterization means inserting a catheter to drain the bladder, then removing it. This is done on a regular schedule. Having Surgery If other options don't work, surgery may be recommended. If surgery is an option, your healthcare provider can discuss it with you and explain its risks and benefits. Healing After Prostate Surgery Surgery on the prostate gland can cause incontinence. Most often, the incontinence is only for a short time. It clears up when healing is complete. Very rarely, prostate surgery can result in permanent incontinence. Hi Mr. Palacios, As your primary care physician, I know that regular visits with my patients who have several chronic conditions can go a long way in helping you stay healthy. Many times, the clinic team and I are in touch with you and/or other care team members between office visits to adjust medications, discuss any changes in your health, and review our care plan to make sure it is still meeting your needs. I am dedicated to helping you take a more active role in your overall care. It is important that there are resources available to you, so I created a personalized plan of care with a Health Calendar for you, which is included on the next page of this letter. Below is a list that summarizes your electronic health record: Health Maintenance Due: Health Maintenance Due Topic Date Due Zoster Vaccines (1 of 2) Never done COLONOSCOPY-EVERY 5 YRS AGES 18-100 07/11/2021 CKD PHOS USE SMARTSET 65096 05/30/2022 Influenza Vaccine (FLU shot) (1) 03/30/2023 Depression Screening, Annual for Pts 12 and Over 03/30/2023 Albumin/Creatinine Ratio 05/26/2023 Current Medication List: (as of Visit date not found (in office), Visit date not found (telemedicine) ) Current Outpatient Medications Medication Sig Dispense Refill [...] ONE TABLET BY MOUTH EVERY MORNING 100 Tablet3 Ezetimibe 10 MG Oral Tablet (Zetia) TAKE ONE TABLET BY MOUTH EVERY MORNING 100 Tablet 3 PredniSONE (DELTASONE) 20 MG Tablet Take 2 Tabs by mouth daily for 5 days. 10 Tab 0 PredniSONE (DELTASONE) 20 MG Tablet two pills daily with food for 5 days, then one daily with food 15 Tab 0 predniSONE (DELTASONE) 20 MG Tablet two pills daily with food for 5 days, then one daily with food 15 Tab 0 HYDROcodone-Acetaminophen 5-325 MG Oral Tablet Take 1 Tablet by mouth every 4 hours as needed for Pain, Mild. (Patient not taking: Reported on 04/03/2023) 20 Tablet 0 No current facility-administered medications for this visit. Current List of Allergies: (as of Visit date not found (in office), Visit date not found (telemedicine) ) Review of patient's allergies indicates: Allergen Reactions Lidocaine Neuro complications (Please comment) Syncope. Pt passes out and will be extremely exhausted for an hour DO NOT USE Atorvastatin Muscle pain Codeine Repatha [Evolocumab] Dizziness Most Recent Lab Results: Results for orders placed or performed during the hospital encounter of 03/23/23 SURGICAL PATHOLOGY Result Value Ref Range Final Diagnosis A. Foot, Right, Tissue Mass, Right foot, excision: Rheumatoid nodule, with adjacent soft tissue inflammation and reactive changes Order Comments Tissue Mass, Right foot Gross Description A. Foot, Right. Soft tissue mass, simple excision Received in formalin with a container labeled with "Lukasz Palacios", "[id number]", "1950" and " tissue mass right foot". Received is a cho-woodard irregular unoriented rubbery fragment of soft tissue, 3.5 x 2.0 x 2.0 cm. The fragment is inked blue and serially sectioned demonstrating cho-woodard rubbery cut surface without areas of discoloration or induration. Transport Company Manager sections are submittedin 2 cassettes. Gross By: AY Sign Out Location Pathologist sign out performed at [facility] ([facility] [address] [place] [address]. Photographic images and diagrams represent rivera findings in this case; they are not intended to replace a complete review of the final diagnostic report. The following statement applies to Flow Cytometry, Histology, In situ Hybridization Assays and Molecular Genetics. This test was developed and performed at [facility] and its performance characteristics determined by [employer]. It has not been cleared or approved by the U.S. Food and Drug Administration. The FDA has determined that such clearance or approval is not necessary. This test is used for clinical purposes. It should not be regarded as investigationalor for research. Special stains, including histochemical stains, and studies using immunologic and BEVERLY methodology (where applicable) are performed with appropriate positive and negative control reactions. Sincerely, Roel Brown MD 04/03/2023 [employer] Calendar (as of Visit date not found (in office), Visit date not found (telemedicine) ) Care needs Care needs Last completed Due next Zoster (Shingles) Vaccine (1 of 2) --- Never done Colonoscopy - every 5 years 07/11/2016 07/11/2021 Flu vaccine (recommended) (1) 03/30/2022 03/30/2023 Urine albumin/creatinine test 05/26/2022 05/26/2023 Kidney Function Test 12/05/2022 06/07/2023 Diphtheria, tetanus & pertussis vaccines (3 - Td or Tdap) 12/03/2015 12/02/2025 As you look over the recommended services, be sure to check with your insurance company to determine what's covered. [employer] is a great tool that helps you review your medical record online, including test results, doctor notes and your health summary. You can also schedule appointments with me and other members of your care team, request prescription refills and ask for advice related to your medical conditions at [employer]. documented in this encounter Progress Notes * Nati Fernandez RN - 04/03/2023 10:03 AM EDT Fall Risk Plan of Care Documentation: - Current medications reconciled Patient encouraged to: - Exercise - Provide education materials for Core strengthening - Utilize assistive/adaptive devices - Provide education materials - Avoid multifocal lenses when walking - Avoid hazards in home - Provide education materials - Maintain a regular toileting schedule Nati Fernandez RN 04/03/2023 PRE - ADMINISTRATION DOCUMENTATION Are you experiencing any cold symptoms or fever? No Have you had Guillain-Olney Syndrome (an illness that causes paralysis) within the last 6 weeks? No Have you had the flu shot in the past? YES Have you ever had a reaction to the flu shot? No Nati Fernandez RN, 04/03/2023 10:09 AM Immunization Administration Documentation Time Out Procedure Performed: Yes Patient Identified (Ask Name/Date of ): Yes Does the patient have a fever greater than 101 degrees today? No Patient allergic to latex? No VFC Stock: No Immunization(s) verified: Yes, Immunization Name: Flu, VIS Sheet(s) given: Yes Verified Side and Site: Yes Verified Shot(s) with Parent(s)/Patient: Yes AD8 Dementia Screening Interview Person answering questions: patient Remember, "Yes, a change" indicates that there has been a change in the last several years caused by cognitive (thinking and memory) problems 1. Problems with judgement (eg: problems making decisions, bad financial decisions, problems with thinking). No (0) 2. Less interest in hobbies/activities. No (0) 3. Repeats the same things over and over (questions, stories, or statements). No (0) 4. Trouble learning how to use a tool, appliance, or gadget (eg: VCR, computer, microwave, remote control). No (0) 5. Forgets correct month or year. No (0) 6. Trouble handling complicated financial affairs (eg: balancing checkbook, income taxes, paying bills). No (0) 7. Trouble remembering appointments. No (0) 8. Daily problems with thinking and/or memory. No (0) TOTAL AD8: 0 - AD8 Dementia Screening Score The final score is a sum of the number items marked "Yes, A Change". 0 - 1: Normal cognition; 2 or greater: Cognitive impairments is likely to be present - further testing required Adult Annual Wellness Visit: Lukasz Palacios is a 72 year old male who presents for an Adult Annual Wellness Visit. Depression Screening: Did the patient complete the screening questionnaire for Depression? Yes Is the patient's total score for Depression 15 or greater? No, no further intervention needed, unless requested by patient. Did the patient answer positively to the suicide question? No, no further intervention needed, unless requested by patient. In general, compared to other people your age, what would you say that your health is? Fair Ht Readings from Last 1 Encounters: 04/03/23 1.778 m (5' 10") Wt Readings from Last 1 Encounters: 04/03/23 96.2 kg (212 lb) Body Mass Index: BMI Greater than 30 Body mass index is 30.42 kg/m. BP Readings from Last 1 Encounters: 03/23/23 150/89 Medical/Surgical/Family History Reviewed: Yes Past Medical History: Diagnosis Date Bilateral asymmetric [...] Left tennis elbow 2005 Myocardial infarction (HCC) 2012 [facility] - stent x1 Need for hepatitis C screening test 12/03/2015 negative Pacemaker Sigmoid diverticulitis 04/18/2020 [place], Yenni, Juan R Sigmoid diverticulosis 07/11/2016 sigmoid and descending colon SSS (sick sinus syndrome) (HCC) TIA (transient ischemic attack) 03/14/2018 [place] TIA (transient ischemic attack) 12/20/2022 [place] Vasovagal near syncope 03/14/2018 [place] Past Surgical History: Procedure Laterality Date ARM/ELBOW DEEP TUMOR REMOVAL, 5 CM OR MORE Right 04/09/2020 EXCISION, TUMOR, SOFT TISSUE OF UPPER ARM OR ELBOW AREA, SUBFASCIAL (EG, INTRAMUSCULAR); 5 CM OR GREATER performed by Iftikhar Sargent DO at OR [facility] COLONOSCOPY, DIAGNOSTIC (RECTUM) 07/11/2016 adenomatous polyp, diverticulosis, repeat 5 yrs/COLONOSCOPY FLEXIBLE PROXIMAL DIAGNOSTIC performed by Xavier Small MD at ENDOSCOPY [facility] CT ABDOMEN WO IV AND W ORAL [...] performed by Evelyn Deleon DPM at OR [facility] FOOT/TOE SUBQ TUMOR REMOVAL, UNDER 1.5 CM Right 03/23/2023 EXCISION TUMOR FOOT SUBCUTANEOUS performed by Evelyn Deleon DPM at OR [facility] INSERT HEART ELECTRODE, DUAL CHAMBR 09/14/2021 Dr Thakur MRI BRAIN WITHOUT CONTRAST 03/14/2018 left vertebral artery occlusion, 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 REMOVAL OF TONSILS, AGE 12+ age 12 REMOVE CATARACT, INSERT LENS PROSTH Right 05/11/2022 right EXTRACAPSULAR CATARACT REMOVAL WITH INTRAOCULAR LENS performed by Ishmael Malcolm MD at OR [facility] REMOVE CATARACT, INSERT LENS PROSTH Left 05/18/2022 left EXTRACAPSULAR CATARACT REMOVAL WITH INTRAOCULAR LENS performed by Ishmael Malcolm MD at OR [facility] REMOVE TENDON SHEATH LESION, HAND Right 04/09/2020 EXCISION LESION TENDON SHEATH OR CAPSULE HAND OR FINGER performed by Iftikhar Sargent DO at OR [facility] THROMBOENDARECTOMY W/PATCH,NECK INCISION Left 09/07/2012 [facility] AAA SCREEN, VASCULAR LAB N/A 06/13/2016 2.7 [...] Other Disorders Associated Brother at age 64 Has patient ever had cancer? No Social History Tobacco Use Smoking status: Former Packs/day: 0.50 Years: 25.00 Pack years: 12.50 Types: Cigarettes, Pipe, Cigars Quit date: 01/26/1990 Years since quittin.2 Smokeless tobacco: Current Types: Snuff Tobacco comments: a can every 2 days Substance Use Topics Alcohol use: No Vaping/E-Cigarette Use Vaping/E-Cigarette Use Never User Vaping/E-Cigarette Substances Vaping/E-Cigarette Devices Tobacco/Alcohol screening completed today? Yes Hospital Care: Admissions (within the last year): Hospital, Location: [facility] 11/2022 ER within 30 days: No Does the patient have an Advance Directives/Living Will? No. Does the patient want information? Yes. Information given to patient Last Physical Exam: Last physical exam: 03/19/23 Does patient see primary provider regularly? Yes Does patient see other providers? Yes, Specialist Patient Care Team updated? Yes Review of patient's allergies indicates: Allergen Reactions Lidocaine Neuro complications (Please comment) Syncope. Pt passes out and will be extremely exhausted for an hour DO NOT USE Atorvastatin Muscle pain Codeine Repatha [Evolocumab] Dizziness Immunization History Administered Date(s) Administered COVID-19 mRNA, LNP-s, No Preserve, 2-Dose Series (Moderna) 08/02/2021, 08/30/2021 Covid-19, Mrna, Lnp-s, Pf, Bivalent, 30 Mcg, IM, 12 yrs and above (Pfizer) 06/13/2022 Pneumococcal Conjugate Vacc, 13 Valent (Prevnar) 12/03/2015 Pneumococcal Polysaccharide PPV23 (Pneumovax) 11/28/2016 Season Influenza, Quad, PF, Adjuvanted, 65+ Yrs, IM (FLUAD) 04/26/2020 Seasonal Influenza Virus Vaccine, Unspecified Formulation 08/20/2017, 07/03/2018, 07/03/2019 Seasonal Influenza, PF, 6 mons & Above, IM , (Flulaval) 08/20/2017, 07/03/2018, 07/03/2019, 06/01/2021 Seasonal Influenza, Quadrivalent Hd (Fluzone Hd) 03/30/2022, 04/03/2023 TDAP (age 10 and older)(Boostrix) 12/29/2010, 12/03/2015 Current Outpatient Medications Medication Sig Dispense Refill [...] BY MOUTH EVERY MORNING 100 Tablet 3 Ezetimibe 10 MG Oral Tablet (Zetia) TAKE ONE TABLET BY MOUTH EVERY MORNING 100 Tablet 3 PredniSONE (DELTASONE) 20 MG Tablet Take 2 Tabs by mouth daily for 5 days. 10 Tab 0 PredniSONE (DELTASONE) 20 MG Tablet two pills daily with food for 5 days, then one daily with food 15 Tab 0 predniSONE (DELTASONE) 20 MG Tablet two pills daily with food for 5 days, then one daily with food 15 Tab 0 HYDROcodone-Acetaminophen 5-325 MG Oral Tablet Take 1 Tablet by mouth every 4 hours as needed for Pain, Mild. (Patient not taking: Reported on 04/03/2023) 20 Tablet 0 No current facility-administered medications for this visit. 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 Yes Patient takes medications as prescribed? Yes Patient manages own medications: Yes Patient uses a pill box? Yes, refill(s) completed by self Dental Exam: No full dentures Eye Screening: Yes: Every yearly Are you having trouble with hearing? Yes Do you use an assistive device to help your hearing? Yes Exercise Screening: does not exercise regularly, pt does keep active Nutrition Assessment: Eats three meals a day Pain Screening: Are you having any pain? No Sleep Screening Tool 'STOP': Do you snore? No Do you feel fatigued during the day? Yes Do you wake up feeling like you haven't slept? Yes Have you been told you stop breathing at night? No Do you gasp for air or choke while sleeping? No Have you been told you have Sleep Apnea? No Do you have high blood pressure or are on medication(s) to control high blood pressure? Yes SCORE: If you check YES to two or more questions, make a referral for Obstructive Sleep Apnea Patient and Caregiver Support System: Patient lives with non-relative bette Means of Transportation: Drives. Not a concern. Patient lives in One Story 5 steps Community Resources: Not Applicable Functional Status and ADL Skills: Has patient ever had an amputation? No Functional Assessment: 90- Able to carry on normal activity, minor symptoms of disease Ambulation: Patient ambulates without assistive device. Independent Dressing: Gets clothes and dresses without any assistance: Independent Able to move freely in chair or bed including turning over: Independent Repositioning (bed or chair): Not applicable Transfers: Independent Toileting: Goes to bathroom, uses toilet, arranges clothes and returns without any assistance: Independent Toileting: continent of bladder and continent of bowel Feeding: Self Bathing: Self; tub and shower, enc grab bars Requires none assistance with ADLs. Instrumental ADL's: Shopping: Independent Housekeeping: Independent Handling Finances: Independent DME Vendor Name: Not Applicable Fall Risk Assessment: Can the patient demonstrate that he can stand from a sitting position? Yes Has the patient had a fall within the last 6 months? Yes Does the patient have a problem with his gait or balance? Yes Does the patient take 4 or more prescription medicines? Yes Does the patient use sedatives or narcotics? No Fall Risk Factors Present: Uses more than 4 medications Balance or gait disturbances Lower extremity weakness Visually impaired Older than age 70 Sws-Il-mkn-Go Test: Time began at 10. Patient stood from sitting position and walked approximately 10 feet, returned and sat down. Total time for czx-zy-hzw-go test was 11 seconds. Acl-Dm-aee-Go Test completed? Yes Gender Specific Preventative Plan: Health Maintenance Topic Date Due Zoster Vaccines (1 of 2) Never done COLONOSCOPY-EVERY 5 YRS AGES 18-100 07/11/2021 CKD PHOS USE SMARTSET 43575 05/30/2022 Depression Screening, Annual for Pts 12 and Over 03/30/2023 Albumin/Creatinine Ratio 05/26/2023 GFR 06/07/2023 CKD HGB USE SMARTSET 91031 12/06/2023 DTaP,Tdap,and Td Vaccines (3 - Td or Tdap) 12/02/2025 Influenza Vaccine (FLU shot) Completed AAA Screening Completed Pneumococcal Vaccine: 65+ Years Completed COVID-19 Vaccine Completed Hepatitis B Aged Out MENINGOCOCCAL (MENACTRA/MENVEO) Aged Out GARDASIL-HPV IMMUNIZATION SERIES Aged Out Follow Up/ Referrals/Handouts: Depression screening - completed Functional assessment - doing well, SO Bette does have dementia Falls Risk screening - discussed, encouraged grab bars Exercise screening - encouraged to keep active Nutrition assessment -. Education Provided and Handouts Provided Pt has done very well losing wt, his SO is diabetic Wt Readings from Last 8 Encounters: 04/03/23 96.2 kg (212 lb) 03/23/23 97.5 kg (214 lb 15.2 oz) 03/19/23 97.5 kg (215 lb) 01/02/23 101.2 kg (223 lb) 12/05/22 101.7 kg (224 lb 2 oz) 10/20/22 103.9 kg (229 lb) 10/04/22 103.4 kg (228 lb) 06/07/22 104.9 kg (231 lb 4 oz) Pain screening - discussed left arm discomfort, not pain Incontinence screening - discussed Routine general medical examination at a health care facility (Primary) Risk and functional assessment Special screening for malignant neoplasms, colon - COLOGUARD -discussed importance of screening, pt declined a colonoscopy due to having complications and developing incontinent stool for mths after procedure. Pt states he no longer has that problem but he is never getting another colonoscopy done. Pt was willing to do a cologuard so that was ordered. Need for prophylactic vaccination and inoculation against influenza - INFLUENZA VACC, QUAD, HIGH DOSE (FLUZONE HD) Cardiac pacemaker in situ -pt does follow up with cardiology and pacer clinic Chronic heart failure with preserved ejection fraction (HCC) - Med reconciliation completed and compliance discussed. - pt to continue present medications. CKD (chronic kidney disease), stage II Component Latest Ref Rng 12/05/2022 BUN 6 - 20 mg/dL 18 Creatinine 0.6 - 1.2 mg/dL 1.0 Estimated Glomerular Filtration Rate >=60 mL/min 77 H/O TIA (transient ischemic attack) and stroke - Med reconciliation completed and compliance discussed. - pt to continue present medications. Hyperlipidemia LDL goal <100 - Med reconciliation completed and compliance discussed. - pt to continue present medications. Lab Results Component Value Date/Time LDL (CALCULATED)-[facility] 81 03/14/2018 12:00 AM LDL CHOLESTEROL (CALCULATED) - [facility] 109 03/06/2022 09:22 AM LDL [facility] 05/05/2019 01:45 PM LDL CHOLESTEROL (DIRECT MEASURE) - [facility] 12/11/2019 11:17 AM LDL CHOLESTEROL-OUTSIDE LAB 81 03/14/2018 04:51 AM Primary hypertension - Med reconciliation completed and compliance discussed. - pt to continue present medications. BP Readings from Last 3 Encounters: 03/23/23 150/89 03/19/23 130/78 01/02/23 136/70 Rheumatoid arthritis involving multiple sites with positive rheumatoid factor (HCC) - Med reconciliation completed and compliance discussed. - pt to continue present medications. Discussed Living Will info and given to pt. Follow Up: Return in 1 year (on 04/03/2024) for 12 month Subsequent Adult Wellness Visit. | For: 12 month Subsequent Adult Wellness Visit | Check-out note: 12 month Subsequent Adult Wellness Visit Would patient like to schedule next AWV visit? Yes Nati Fernandez RN documented in this encounter Miscellaneous Notes * Pt Handout (on AVS) - Nati Fernandez RN - 04/03/2023 10:43 AM EDT Images from the original note were not included. [id number] 5 Steps for Eating Healthier Changing the way you eat can improve your health. It can lower your cholesterol and blood pressure,and help you stay at a healthy weight. Your diet doesn?t have to be bland and boring to be healthy.Just watch your calories and follow these steps: Step 1. Eat fewer unhealthy fats Choose more fish and lean meats instead of fatty cuts of meat. Skip butter and lard, and use less margarine. Replace these with healthier fats, such as olive, canola, or avocado oils. Pass on foods that have palm, coconut, or partially hydrogenated oils. Eat fewer high-fat dairy foods like cheese, ice cream, and whole milk. Get a heart-healthy cookbook and try some new recipes. Step 2. Go light on salt Keep the saltshaker off the table. Limit high-salt ingredients, such as soy sauce, bouillon, and garlic salt. Instead of adding salt when cooking, season your food with herbs, spices, and other flavorings. Try lemon, garlic, onion, vinegar, or salt-free herb seasonings. Limit convenience foods, such as boxed or canned foods and restaurant food. Read food labels and choose lower-sodium options. Buy fresh, frozen, or canned vegetables that don't have added salt. Step 3. Limit sugar Pause before you add sugars to pancakes, cereal, coffee, or tea. This includes white and brown table sugar, syrup, honey, and molasses. Cut your usual amount by half. Swap out sugar-filled soda and other drinks. Buy sugar-free or low-calorie beverages. Remember, water is always the best choice. Try adding lemon juice to water for extra flavor. Read labels and choose foods with less added sugar. Keep in mind that dairy foods and foods withfruit will have some natural sugar. Cut the sugar in recipes by 1/3 to 1/2. Boost the flavor with extracts like almond, vanilla, or orange. Or add spices such as cinnamon or nutmeg. Step 4. Eat more fiber Eat fresh fruits and vegetables every day. Boost your diet with whole grains. Go for oats, whole-grain rice, and bran. Add beans and lentils to your meals. Drink more water to match your fiber increase to help prevent constipation. Step 5. Pay attention to serving sizes Remember that a serving size is a standard measurement. It will let you track the amount of fat,calories, and other nutrients in the food you eat. Read the Nutrition Facts label on packaged foods to learn their serving sizes. Use serving sizes to assess how much food you put on your plate. Pay attention to your portions.How many servings are you eating? Keep in mind that your needs may change if you?re more active or less active, or if you have other factors that change your calorie needs. Use your hand to help you measure serving sizes. For example: o 1 teaspoon: This is about the size of the first joint of your thumb. o 1 tablespoon: This is about the size of the first 2 joints of your thumb. o 1 ounce: This is about what you can fit in your cupped hand. o 2 to 3 ounces: This is about the size of the palm of your hand. o cup: This is also about what you can fit in your cupped hand. o 1 cup: This is about the size of your fist. Last Reviewed Date: 06/29/202219990343-1664 [employer]. All rights reserved. This information is not intended as a substitute for professional medical care. Always follow your healthcare professional's instructions. * Pt Handout (on AVS) - Nati Fernandez RN - 04/03/2023 10:42 AM EDT 35582 Understanding DNR Orders Do not resuscitate (DNR) orders tell hospital staff not to do potentially life- restoring measures, such as CPR, if you or your loved one's heart and lungs stop working. It allows a natural . Andit prevents healthcare staff from artificially reviving a person and placing them on life support. In many states, a DNR order also applies to staff outside the hospital. This includes in nursing homes and emergency medical services. A DNR order must be written by a healthcare provider. Or in some cases, certain other healthcare workers write it. This can only be done with the person?s or family?s consent. An advance medical directive is a form that lets a person plan ahead for the care they'd w ant if they no longer can express their wishes. If a person has not written an advance medical directive, their family will decide on a DNR with the help of the healthcare team. The person can cancel a DNR order at any time. The healthcare team can answer questions about the DNR form. Have copies of a DNR form readily available so that your wishes can be faithfully followed. Writing a DNR order When might a DNR order be written? When the person?s health condition is such that CPR and other resuscitation methods are not desired. This is true in the case of cardiac arrest. This could be because the chance of successful resuscitation is very low. Or it could be because the care plan now focuses on comfort measures instead of life-sustaining measures. Coma and terminal illness are instanceswhen a DNR order might be used. Irreversible coma A person does not respond to sight, sound, or touch in a coma. The heart and lungs could be working, but brain function is damaged due to trauma or disease. Terminal illness In the last stages of heart disease, AIDS, cancer, and other illnesses, some people don?t want to prolong their suffering. A person or their family may agree to a DNR order if recovery isn?t likely and quality of life is poor or getting worse. DNR orders and hospice care A hospice program can offer care during the final weeks of life. Hospice programs provide dignity, pain control, and comfort care in the home or at special facilities. Hospice does not provide aggressive treatment. In fact, a DNR order will likely be discussed before a person is admitted to hospice. A social service director or outpatient case manager may be able to help you arrange for hospice support. Documenting end-of-life wishes A person with a serious, life-limiting illness may wish to document their treatment wishes in addition to DNR orders. This is called a POST form or by different names. It depends on the state. It's meant to provide a portable medical order to help guide healthcare providers on the specific medical t reatments a person wants during a medical emergency. It's meant to complement a DNR order, not replace it. Your healthcare provider can tell you more and help you complete the forms. The form may be called one of these: MOLST (medical orders for life-sustaining treatment) POLST (physician orders for life-sustaining treatment) MOST (medical orders for scope of treatment) POST (physician orders for scope of treatment) TPOPP (transportable physician orders for patient preferences) Last Reviewed Date: 02/27/202319996647-7478 [employer]. All rights reserved. This information is not intended as a substitute for professional medical care. Always follow your healthcare professional's instructions. documented in this encounter Plan of Treatment Upcoming Encounters Date Type Specialty Care Team Description 04/05/2023 Office Visit Podiatry Evelyn Deleon DPM [address] [place] [id number] 05/31/2023 Office Visit Cardiology Kartik Bray DO [address] [place] [phone] 06/11/2023 Office Visit Family Medicine Roel Brown MD [address] [place] [address] [place] [id number] 06/22/2023 Office Visit Rheumatology Andriy Cespedes MD [address] [place] [address] 11/28/2023 Office Visit Family Medicine Alejandro Pete MD [address] [place] [address] [place] [id number] 12/18/2023 Cardiac Studies Cardiology [address]ito Germain [address] [address] 04/04/2024 Nurse Only Ancillary [facility] Nurse Annual [facility] [address] [place] [address] [place] [id number] Scheduled Orders Name Type Priority Associated Diagnoses Orde r Schedule COLOGUARD Lab Unrestricted Lab Special screening for malignant neoplasms, colon Ordered: 04/03/2023 Health Maintenance Due Date Last Done Comments Zoster Vaccines (1 of 2) 10/10/1969 COLONOSCOPY-EVERY 5 YRS AGES 18-100 07/11/2021 07/11/2016, 07/11/2016 CKD PHOS USE SMARTSET 19014 05/30/2022 11/0 07/2020, 06/08/2020, 09/28/2017, Additional history exists Depression Screening, Annual for Pts 12 and Over 03/30/2023 03/30/2022 Albumin/Creatinine Ratio 05/26/2023 022, 09/28/2017, 12/03/2015 GFR 06/07/2023 12/05/2022, 09/28, 05/26/2022, Additional history exists CKD HGB USE SMARTSET 31746 12/06/202312/05, 12/05/2022, 10/20/2022, Additional history exists DTaP,Tdap,and Td Vaccines (3 [...] this encounter Medical Devices Implanted Type Area Slurry Tank Tender Device Identifier Shelf Expiration Date Model / Serial / Lot Lens Intraoc 25.5 - [id number] - [id number] Implanted:Qty: 1 on 05/11/2022 by Ishmael Malcolm MD at OR [facility] Right: Eye [employer] 09/26/2026 [id number] / [id number] / [id number] Lens Intraoc 26.0 - [id number] - [id number] Implanted:Qty: 1 on 05/18/2022 by Ishmael Malcolm MD at OR [facility] Left: Eye [employer] 10/27/2025 [id number] / [id number] / [id number] documented as of this encounter Visit Diagnoses Diagnosis Routine general medical examination at a health care facility- Primary Risk and functional assessment Screening for unspecified condition Special screening for malignant neoplasms, colon Need for prophylactic vaccination and inoculation against influenza Cardiac pacemaker in situ Chronic heart failure with preserved ejection fraction (HCC) CKD (chronic kidney disease), stage II Chronic kidney disease, Stage II (mild) H/O TIA (transient ischemic attack) and stroke Transient ischemic attack (TIA), and cerebral infarction without residual deficits Hyperlipidemia LDL goal <100 Other and unspecified hyperlipidemia Primary hypertension Unspecified essential hypertension Rheumatoid arthritis involving multiple sites with positive [...] the patient have Health Care Power of Messaging Architect? No Code Status History Code Status Date Activated Date Inactivated Comments No Code 05/11/2022 11:54 AM 05/11/2022 6:22 PM Th is order reflects the patients wishes and were consensually agreed upon. Question Answer Comments Discussion of Advance Directives occurred with: Patient Does the patient have a Living Will? No Does the patient have Health Care Power of Messaging Architect? No Full Code 04/09/2020 1:05 PM 04/09/2020 7:00 PM This order reflects the patients wishes and were consensually agreed upon. Care Teams Ward Maid Relationship Specialty Start Date End Date Roel Brown MD [address] [place] [address] [place] [id number] PCP - General Family Medicine 12/03/15 documented as of this encounter
--- OUTSIDE RECORDS SUMMARY | 2023-09-15 13:47 | External Medical Summary | Summary of Care ---
Author Name Unknown Organization [facility] Address [address] [place] [address] Phone [phone] Care Team Providers Care Roller Cleaner Name Role Phone Roel Brown MD Primary Care Provider [phone] Reason for Visit * Auth/Cert Specialty Diagnoses / Procedures Referred By Neymar t Referred To Contact Diagnoses Rheumatoid arthritis involving multiple sites with positive rheumatoid factor (HCC) Rheumatoid arthritis involving multiple sites with positive rheumatoid factor (HCC) [M05.79] Procedures FOOT/TOE SUBQ TUMOR REMOVAL, UNDER 1.5 CM EXCISION TUMOR FOOT SUBCUTANEOUS Referral ID Status Reason Start Date Expiration Date Visits Re quested Visits Authorized [id number] Encounter Details Date Type Department Care Team Description 03/23/2023 Hospital Encounter [facility], Operating Room, [facility] - 4th Floor [address] [place] [address] Evelyn Deleon DPM [address] [facility] [address] Allergies Active Allergy Reactions Severity Noted Date Comments Atorvastatin Muscle pain 04/02/2018 Codeine 02/17/2022 Lidocaine Neuro complications (Please comment) High 06/30/2016 Syncope. Pt passes out and will be extremely exhausted for an hour DO NOT USE Evolocumab 05/14/2020 Dizziness documented as of this encounter (statuses as of 03/24/2023) Medications Medication Sig Dispensed Refills Start Date End Date Status Multiple Vitamins-Mineral s (CENTRUM SILVER) Tablet Take 1 Tablet by mouth in the morning. 0 12/03/2015 Active fish oil concentrate (OMEGA-3) 1000 MG CAPS Take 1,200 mg by mouth 2 times a day. 60 Cap 5 09/19/2016 Active PredniSONE (DELTASONE) 20 MG TabletIndication s:Viral URI with cough Take 2 Tabs by mouth daily for 5 days. 10 Tab 0 09/19/2016 Active PredniSONE (DELTASONE) 20 MG TabletIndication s:Tenosynovitis of forearm two pills daily with food [...] Active Clopidogrel Bisulfate 75 MG Oral Tablet (pLAVix)[place] ons:History of TIA (transient ischemic attack) TAKE ONE TABLET BY MOUTH EVERY DAY 100 Tablet 1 01/02/2023 4 Active Metoprolol Succinate ER 50 MG Oral Tablet Extended Release 24 Hour (toPROL XL)Indications:C oronary artery disease involving jamul coronary artery of jamul heart without angina pectoris,Primary hypertension,Chr onic heart failure with preserved ejection fraction (HCC) TAKE ONE TABLET BY MOUTH EVERY MORNING 100 Tablet 1 01/02/2023 4 Active Leflunomide 10 MG Oral Tablet (Arava)[place]ingo ns:Rheumatoid arthritis involving multiple sites with positive rheumatoid factor (HCC) TAKE ONE TABLET BY MOUTH EVERY DAY IN THE MORNING 100 Tablet 1 12/05/2022 4 Active Losartan Potassium 25 MG Oral Tablet (Cozaar)[place] ons:Coronary artery disease involving jamul coronary artery of jamul heart without angina pectoris TAKE ONE TABLET BY MOUTH EVERY MORNING 100 Tablet 3 08/03/2022 4 Active Ezetimibe 10 MG Oral Tablet (Zetia)[place]ingo ns:Coronary artery disease involving jamul coronary artery of jamul heart without angina pectoris,Hyperli pidemia LDL goal <100 TAKE ONE TABLET BY MOUTH EVERY MORNING 100 Tablet 3 06/07/2022 3 Active HYDROcodone-Acet aminophen 5-325 MG Oral Tablet Take 1 Tablet by mouth every 4 hours as needed for Pain, Mild. 20 Tablet 0 03/23/2023 Active Folic Acid 1 MG Oral TabletIndication s:Rheumatoid arthritis involving multiple sites with positive rheumatoid factor (HCC) TAKE TWO TABLETS BY MOUTH EVERY DAY IN THE MORNING 200 Tablet 1 12/05/2022 3 Discontinued(Medi cation List Clean Up) amLODIPine Besylate 5 MG Oral Tablet (Norvasc)Indicat ions:Coronary artery disease involving jamul coronary artery of jamul heart without angina pectoris TAKE ONE TABLET BY MOUTH EVERY DAY IN THE MORNING 100 Tablet 2 10/04/2022 3 Discontinued(Medi cation List Clean Up) predniSONE 5 MG Oral Tablet (Deltasone) TAKE ONE TABLET BY MOUTH TWICE A DAY 180 Tablet 4 06/01/2022 3 Discontinued documented as of this encounter (statuses as of 03/24/2023) Active Problems Problem Noted Date H/O TIA [...] Cardiac pacemaker in situ 05/05/2022 History of OR (myocardial infarction) Primary hypertension 12/01/2021 SSS (sick sinus syndrome) 09/07/2021 First degree heart block 05/27/2021 Encounter for long-term (current) drug u se 08/20/2017 Rheumatoid arthritis involvi ng multiple sites with positive rheumatoid factor 05/08/2017 Sigmoid diverticulosis 07/11/2016 Overview: sigmoid and descending colon Coronary artery disease invo lving jamul coronary artery of jamul heart without angina pectoris 05/24/2016 ADVANCE DIRECTIVE INFORMATION 01/08/2006 Overview: No, Advance Directive brochure given to patient at prior appointment. Hyperlipidemia LDL goal <100 documented as of this encounter (statuses as of 03/24/2023) Resolved Problems Problem Noted Date Resolved Date [...] as of this encounter (statuses as of 03/24/2023) Immunizations Name Administration Dates Next Due COVID-19 [...] Seasonal Influenza, Quadriva lent Hd (Fluzone Hd) 03/30/2022 TDAP (age 10 and older)(Boostrix) 12/03/2015,08/2010 documented as of this encounter Social History Tobacco Use Types Packs/Day Years Used Date Smoking Tobacco: Former Cigarettes 0.5 Q uit: 01/26/1990 Pipe Cigars Smokeless Tobacco: Current Snuff Comments:a can every 2 days Alcohol Use Standard Drinks/Week Comments No 0 (1 standard drink = 0.6 oz pur e alcohol) Food Insecurity Answer Date Recorded Within the past 12 months, y ou worried that your food would run out before you got money to buy more. Never true 03/30/2022 Within the past 12 months, t he food you bought just didn't last and you didn't have money to get more. Never true 03/30/2022 Sex Assigned at Date Recorded Male 03/29/2021 10:13 AM EDT Job Start Date Occupation Industry Not on file Not on file Not on file documented as of this encounter Last Filed Vital Signs Vital Sign Reading Time Taken Comments Blood Pressure 150/89 03/23/2023 3:05 PM EDT Pulse 69 03/23/2023 3:05 PM EDT Temperature 36 C (96.8 F) 03/23/2023 3:05 PM EDT Respiratory Rate 16 03/23/2023 3:05 PM EDT Oxygen Saturation 95% 03/23/2023 3:05 PM EDT Inhaled Oxygen Concentration - - Weight 97.5 kg (214 lb 15.2 oz) 023 11:36 AM EDT Height 180.3 cm (5' 10.98") 03/23/2023 11:36 AM EDT Body Mass Index 29.99 03/23/2023 11:36 AM EDT documented in this encounter Discharge Instructions * Discharge Instr - AVS* Evelyn Deleon DPM - 03/23/2023 1:37 PM EDT Discharge Date: 03/23/2023 Your attending physician at the time of your discharge was: Evelyn Deleon DPM [address] [place] [address] The information below provides you with the instructions and the list of medications you need to betaking following discharge from the hospital. If you have any questions, please ask before leaving.Please carry this letter with you when you see your doctor in the clinic. Diet: Previous diet Activity: As tolerated Follow Up - Return appointment(s): As scheduled Special Instructions: Keep your foot elevated as much as possible in a lying or sitting position. This will reduce swelling. Keep your cast and/or bandages clean and dry. Ok to remove dressing on Sunday. Ok to shower, no soaking. Pat incision dry and dress with dry dressing or large bandaid to cover sutures. Continue to use HERMINIO bandage. Wear your post-operative shoe and/or cast boot as instructed, always. Ok to remove for sleeping. You will wear this until the sutures are removed. Call your doctor for any of the following: Pain not relieved by pain medication Numbness or tingling sensation in foot Fever 101 degrees or chills Persistent swelling of foot/feet Bandages get soiled, wet or fall off Foul smell from dressing, redness of ankle or foot above dressing Blueness or other discoloration of toes Excessive bleeding Inability to move toes Call your doctor with any questions or unusual occurrences. documented in this encounter Progress Notes * Evelyn Deleon DPM - 03/23/2023 1:35 PM EDT [address] [address] OUTPATIENT SURGERY DISCHARGE SUMMARY NOTE Name: Lukasz Palacios Location: [facility] Date: 03/23/2023 Time: 1:35 PM Surgery Date: 03/23/2023 Procedure: Procedure(s): EXCISION TUMOR FOOT SUBCUTANEOUS Right Surgeon: Surgeon(s): CASSIDY Rankin DPM Discharge Diagnosis: Right foot pain RA nodule, right foot After examination of this patient, I have determined he is ready for discharge to home when the patient meets criteria. Discharge instructions were given to the patient. * Evelyn Deleon DPM - 03/23/2023 12:27 PM EDT Pt seen and examined. Pt pulmonology physician to OR for excision RA nodule, right foot. All questions answered. Discussed risks of procedure including but not limited to loss of limb, loss of life, infection, allergic reaction, rejection of material such as implant, suture or other, chronic swelling (such as chronic lymphedema), damage of blood supply, blood clots, emboli, delayed healing or poor healing, scar (such as costmetic poor, painful , keloid, or functional restrictive scar), poor healing of bone (avascular necrosis, delayed, non , or mal union), failure of procedure, failure with incision or repair of soft tissue or bone, loss or failure of hardware or implant, bleeding, hematoma, seroma, condition or disability could (stay same , change, or get worse), enlargement of (toe, foot, or ankle), condition may come back or come back different, transfer lesion, stress fracture, paralysis/paraplegia/quadriplegia, stroke/heart attack/, chronic or permanent disability, brain damage, reactionto medication or anesthesia, need for additional surgery or treatment, permanent pain such as CRPS or RSD, neuroma, callous or other developed lesion or condition, fracture or dislocation of bone or joint, swollen/stiff/shorter/elevated/limited function (toe, foot, ankle), difficulty in walking/wearing shoes/other activity, infection and or osteo, over or under correction, floppy or stiff toe, sausage toe, lack of toe purchase or extension, varus or other deformity, nerve damage or numbness. Exp lained that I cannot guarantee time with recovery as well as effect with job, life or other, need for brace or other device, need for therapy or consultation and or treatment with other specialist orpain management. documented in this encounter H&P Notes * Gurpreet Clinton MD - 03/23/2023 12:34 PM EDT HISTORY & PHYSICAL INTERVAL NOTE [facility]-[address] [address] History and Physical Update: Name: Lukasz Palacios Location: OR [facility]/[place] Date: 03/23/2023 Time: 12:35 PM DATE OF HISTORY AND PHYSICAL: 2023-03-19 BP: 171 mmHg/93 mmHg (03/23/23 1136) Pulse: 62 (03/23/23 1136) Temp: 36.28 C (03/23/23 1136) Resp: 16 (03/23/23 1136) SpO2: 99 % (03/23/23 1136) Does patient take a beta archana? Yes - medication: metoprolol; date and time of last dose: 2023-03-23 07:30 Did patient stop anticoagulants? Yes, Plavix Heart Exam: regular rate and rhythm, no murmurs or gallops Lung Exam: clear to auscultation bilaterally Other Pertinent Physical Exam: None I have reviewed the H&P previously performed and examined the patient today. There are no new findings noted. Nursing Notes: Maribel [place] RN 03/19/23 1531 Sign at exiting of workspace Pre-op visit. Pt is having a tumor removed form his foot on 03/22/[address] Deleon, [facility]ry [facility] This pt does have a Pacemaker, last checked in November, had labs in November also Lukasz is here at the request of Dr Deleon for surgery on the right 5th MTP. He has pain, can'twear his shoes. He has a cardiac history but has been stable for years and gets pacemaker checks. Last one in November was good. He has bilatera hearing aids, is hard of hearing. No complaints of headache, trouble with vision. Eating well, with no bowel or bladder complaints. Denies nausea, vomiting, ordiarrhea. Denies fevers, chills or sweats. Denies chest pain or palpitations. Denies shortness of breath, PND, or orthopnea. No skin rashes or breakdown. No changes in mentation. No syncope or falls. All others negative other than those noted in HPI. Past Medical History: Diagnosis Date Bilateral asymmetric [...] tennis elbow 2004 Myocardial infarction (HCC) 2012 [facility] Need for hepatitis C screening test 12/03/2015 negative Sigmoid diverticulitis 04/18/2020 [facility], [facility] Sigmoid diverticulosis 07/11/2016 sigmoid and descending colon TIA (transient ischemic attack) 03/14/2018 [facility] TIA (transient ischemic attack) 12/20/2022 [facility] Vasovagal near syncope 03/14/2018 [facility] Past Surgical History: Procedure Laterality Date ARM/ELBOW DEEP TUMOR REMOVAL, 5 CM OR MORE Right 04/09/2020 EXCISION, TUMOR, SOFT TISSUE OF UPPER ARM OR ELBOW AREA, SUBFASCIAL (EG, INTRAMUSCULAR); 5 CM OR GREATER performed by Iftikhar Sargent DO at OR [facility] COLONOSCOPY, DIAGNOSTIC (RECTUM) 07/11/2016 adenomatous polyp, diverticulosis, repeat 5 yrs/COLONOSCOPY FLEXIBLE PROXIMAL DIAGNOSTIC performed by Xavier Small MD at ENDOSCOPY [facility] CT ABDOMEN WO IV AND W [...] performed by Evelyn Deleon DPM at OR [facility] INSERT HEART ELECTRODE, DUAL CHAMBR 09/14/2021 Dr Thakur MRI BRAIN WITHOUT CONTRAST 03/14/2018 left vertebral artery occlusion, 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 REMOVAL OF TONSILS, AGE 12+ age 12 REMOVE CATARACT, INSERT LENS PROSTH Right 05/11/2022 right EXTRACAPSULAR CATARACT REMOVAL WITH INTRAOCULAR LENS performed by Ishmael Malcolm MD at OR [facility] REMOVE CATARACT, INSERT LENS PROSTH Left 05/18/2022 left EXTRACAPSULAR CATARACT REMOVAL WITH INTRAOCULAR LENS performed by Ishmael Malcolm MD at OR [facility] REMOVE TENDON SHEATH LESION, HAND Right 04/09/2020 EXCISION LESION TENDON SHEATH OR CAPSULE HAND OR FINGER performed by Iftikhar Sargent DO at OR [facility] THROMBOENDARECTOMY W/PATCH,NECK INCISION Left 09/07/2012 [facility] US AAA SCREEN, VASCULAR LAB N/A 06/13/2016 [...] Tobacco Use Smoking status: Former Packs/day: 0.50 Types: Cigarettes, Pipe, Cigars Quit date: 01/26/1990 Years since quittin.1 Smokeless tobacco: Current Types: Snuff Tobacco comments: a can every 2 days Vaping Use Vaping Use: Never used Substance and Sexual Activity Alcohol use: No Drug use: No Sexual activity: Not Currently Partners: Female Other Topics Concern Not on file Social History Narrative Not on file Social Determinants of Health Financial Resource Strain: [...] BY MOUTH EVERY MORNING 100 Tablet 1 Folic Acid 1 MG Oral Tablet TAKE TWO TABLETS BY MOUTH EVERY DAY IN THE MORNING 200 Tablet 1 Leflunomide 10 MG Oral Tablet (Arava) TAKE ONE TABLET BY MOUTH EVERY DAY IN THE MORNING 100 Tablet 1 amLODIPine Besylate 5 MG Oral Tablet (Norvasc) TAKE ONE TABLET BY MOUTH EVERY DAY IN THE MORNING 100 Tablet 2 Losartan Potassium 25 MG Oral Tablet (Cozaar) TAKE ONE TABLET BY MOUTH EVERY MORNING 100 Tablet 3 Ezetimibe 10 MG Oral Tablet (Zetia) TAKE ONE TABLET BY MOUTH EVERY MORNING 100 Tablet 3 predniSONE 5 MG Oral Tablet (Deltasone) TAKE ONE TABLET BY MOUTH TWICE A DAY 180 Tablet 4 PredniSONE (DELTASONE) 20 MG Tablet Take 2 [...] 06/01/2021 Seasonal Influenza, Quadrivalent Hd (Fluzone Hd) 03/30/2022 TDAP (age 10 and older)(Boostrix) 12/29/2010, 12/03/2015 Results for orders placed or performed in visit on 03/06/22 LIPID PANEL WITH DIRECT LDL IF TG IS HIGH Result Value Ref Range Triglycerides 168 <=174 mg/dL Cholesterol 184 <200 mg/dL HDL Cholesterol 41 >39 mg/dL Non-HDL Cholesterol 143 <=159 mg/dL LDL Cholesterol 109 <=129 mg/dL Results for orders placed or performed in visit on 04/11/18 BASIC METAB PANEL, BMP Result Value Ref Range BUN 16 6 - 20 mg/dL Creatinine 1.3 (H) 0.6 - 1.2 mg/dL Estimated Glomerular Filtration Rate 56.2 (L) >60 Sodium 143 135 - 146 mmol/L Potassium 4.7 3.5 - 5.1 mmol/L Chloride 104 98 - 107 mmol/L CO2 25 22 - 32 mmol/L Anion Gap 14 7 - 15 mmol/L Glucose 100 70 - 120 mg/dL Calcium 9.4 8.4 - 10.2 mg/dL CBC Results: Results for orders placed or performed in visit on 12/05/22 CBC Result Value Ref Range WBC 11.56 (H) 4.00 - 10.80 K/uL RBC 4.99 4.50 - 5.25 M/uL HGB 15.0 14.0 - 16.8 g/dL HCT 48.9 (H) 40.0 - 48.4 % MCV 98.0 82.0 - 99.5 fL MCH 30.1 27.0 - 34.0 pg MCHC 30.7 32.0 - 36.0 g/dL RDW 14.7 11.5 - 15.5 % PLT 231 140 - 400 K/uL MPV 10.2 6.6 - 11.1 fL nRBCs 0 <=0 /100 WBCs O: Blood pressure 130/78, pulse 76, temperature 36.6 C (97.8 F), resp. rate 16, height 1.797 m (5' 10.75"), weight 97.5 kg (215 lb). General appearance: well developed, well nourished and in no acute distress. Bilateral hearing aids. TMs and canals normal. No wax. Head normocephalic and atraumatic. No facial asymmetry. Eye exam; PEERLA, EOMI. No scleral icterus or nystagmus. Conjunctiva are pink and not injected. Oropharynx: no exudate, dentures and no pharyngeal inflammation. . Trachea is in the midline. Neck supple with no adenopathy or thyromegaly. No carotid bruits. Chest expands equally and is symmetrical with normal AP diameter. Pacemaker in left upper chest. Lungs clear, with no wheezes, rales, or rhonchi. Heart: S1 and S2 normal. PMI not obviously displaced. Heart regular, no murmurs, gallops, clicks or rubs. No CVA tenderness. No calf swelling or tenderness. No pedal edema.No skin rashes. Extremities unremarkable. A: Rheumatoid arthritis involving multiple sites with positive rheumatoid factor (HCC) (Primary) and nodules SSS (sick sinus syndrome) (HCC) Primary hypertension Hyperlipidemia LDL goal <100 Coronary artery disease involving jamul coronary artery of jamul heart without angina pectoris CKD (chronic kidney disease), stage II Cardiac pacemaker in situ He is going to hold his Plavix starting now which will be helpful He is cleared medically for the proposed procedure. Follow Up: Return if symptoms worsen or fail to improve. documented in this encounter Nursing Notes * Gunner May RN - 03/23/2023 3:09 PM EDT [address] [address] [facility] Discharge Note Name: Lukasz Palacios Date: 03/23/2023 Time: 3:10 PM Discharge Disposition: Home Responsible adult as escort home: Step daughter and Transport Mode: Wheelchair Accompanied by: Lynette Navarro RN To: Car Belongings with patient: Yes Patient meets criteria to be transferred or discharged. * Jacey Harrison RN - 03/21/2023 3:30 PM EDT Patient identified by: name/birthdate Person taught: Patient Optime case procedure confirmed with surgical consent Laterality confirmed as Right Surgery date at time of Pre-Surgery Center Encounter: 03/23/2023 What procedure is patient having? Procedure: EXCISION TUMOR FOOT SUBCUTANEOUS (87415) In an emergency, is patient willing to accept blood products or blood transfusion? unknown Do you need to place a blood bank order? No Anesthesia consent pool notified? N/A Anesthesia evaluation requested per case documentation? No Preop Evaluation Requested? Yes, follow-up will be documented on Anesthesia note - PCP completed. PATIENT EDUCATION SCREENING Person taught: Patient Motivation Level: Asks Questions and Eager to Learn Language Barrier: No Physical Barrier: N/A METHOD: Lecture-telephone interview Patient Preferred Learning Methods: Lecture-Telephone interview Health History interview completed, questions answered, and the following patient instructions provided via telephone interview: Preoperative bathing instructions General preoperative instructions Medication instructions NPO instructions - If your normal morning routine take metoprolol the morning of surgery. No tobacco products after midnight. OUTCOME: State / Describe / Explain and Needs Reinforcement documented in this encounter OR Notes * Operative Report Brief - Evelyn Deleon DPM - 03/23/2023 1:34 PM EDT [facility] [id number] OPERATIVE REPORT - BRIEF Name: Lukasz Palacios Date: 03/23/2023 Time: 1:34 PM Location: OR [facility] Service: Podiatry Date of Operation: 03/23/2023 Pre-op Diagnosis: Right foot pain RA nodule, right foot Post-op Diagnosis: Same Operation: Excision soft tissue mass, right foot measuring 3.0 cm x 3.0 cm Surgeon: Evelyn Deleon DPM Assistants: Kezia Padron DPM, PGY3 Anesthesia: General LMA anesthesia Drains: none Estimated Blood Loss: 5 ml. IV Fluids: As per anesthesia. Urine Output: N/A Specimens/Disposition: Soft tissue mass, right foot- path Apparent Intraoperative Complications: NONE Patient Condition: stable Disposition: Post Anesthesia Care Unit Attestation: I performed the procedure documented in this encounter Plan of Treatment Upcoming Encounters Date Type Specialty Care Team Description 04/03/2023 Nurse Only Ancillary Nurse [facility] [address] [place] [address] [place] [id number] 04/05/2023 Office Visit Podiatry Evelyn Deleon, DPLeslie [address] [place] [address] 05/31/2023 Office Visit Cardiology Kartik rBay DO [address] [place] [address] 06/11/2023 Office Visit Family Medicine Roel Brown MD [address] [place] [address] [place] [address] 06/22/2023 Office Visit Rheumatology Andriy Cespedes MD [address] [place] [address], [place] [address] 12/18/2023 Cardiac Studies Cardiology Charito Germain [facility] [address] [place] [address] Pending Results Name Type Priority Associated Diagnoses Date /Time SURGICAL PATHOLOGY Pathology Routine Rheumatoid arthritis involving multiple sites with positive rheumatoid factor (HCC) 03/23/2023 1:22 PM EDT Scheduled Orders Name Type Priority Associated Diagnoses Orde r Schedule SURGICAL PATHOLOGY Pathology Routine Rheumatoid arthritis involving multiple sites with positive rheumatoid factor (HCC) Release Upon Ordering for 1 Occurrences starting 03/23/2023, 1 completed Health Maintenance Due Date Last Done Comments Zoster Vaccines (1 of 2) 10[birth year]10/1969 COLONOSCOPY-EVERY 5 YRS AGES 18-100 07/11/2021 07/11/2016, 07/11/2016 CKD PHOS USE SMARTSET 23827 05/30/2022 11/0 07/2020, 06/08/2020, 09/28/2017, Additional history exists Depression Screening, Annual for Pts 12 and Over 03/30/2023 03/30/2022 Influenza Vaccine (FLU shot) (#1) 2023 03/30/2022, 06/01/2021, 04/26/2020, Additional history exists Albumin/Creatinine Ratio 05/26/2023 022, 09/28/2017, 12/03/2015 GFR 06/07/2023 12/05/2022, 09/28, 05/26/2022, Additional history exists CKD HGB USE SMARTSET 69166 12/06/202312/05, 12/05/2022, 10/20/2022, Additional history exists DTaP,Tdap,and Td Vaccines (3 - Td or Tdap) 12/02/2025 12/03/2015, 12/29/2010 AAA Screening Completed 06/13/2016 Pneumococcal Vaccine: 65+ Years Completed 11/28/2016, 12/03/2015 COVID-19 Vaccine Completed 06/13/2022, 07/2021, 08/02/2021 GARDASIL-HPV IMMUNIZATION SERIES Aged Out No longer eligible based on patient's age to complete this topic Hepatitis B Aged Out No longer eligi ble based on patient's age to complete this topic MENINGOCOCCAL (MENACTRA/MENVEO) Aged Out No longer eligible based on patient's age to complete this topic documented as of this encounter Medical Devices Implanted Type Area Technical Support Manager Device Identifier Shelf Expiration Date Model / Serial / Lot Lens Intraoc 25.5 - [id number] - [id number] Implanted:Qty: 1 on 05/11/2022 by Ishmael Malcolm MD at OR [facility] Right: Eye [employer] 09/26/2026 [id number] / [id number] / [id number] Lens Intraoc 26.0 - [id number] - [id number] Implanted:Qty: 1 on 05/18/2022 by Ishmael Malcolm MD at OR [facility] Left: Eye [employer] 10/27/2025 [id number] / [id number] / [id number] documented as of this encounter Visit Diagnoses Diagnosis Rheumatoid arthritis involving multiple sites with positive rheumatoid factor (HCC)- Primary documented in this encounter Administered Medications Inactive Administered Medications - up to 3 most recent administrations Medication Order MAR Action Action Date Dose Rate Site isolyte-S pH 7.4 infusion Intravenous, at 100 mL/hr, Plasma-LYTE 148, isolyte-S, and isolyte-S pH 7.4 are considered equivalent - including for MAR barcode scanning., CONTINUOUS, Starting on Sun03/23/23 at 1200, Until Sun03/23/23 at 1913, Pre-Op Rate Change 03/23/2023 12:55 PM EDT 75 mL/hr Continue from Pre-Op 03/23/2023 12:53 PM EDT 10 0 mL/hr New Bag 03/23/2023 12:06 PM EDT 100 mL/hr sodium chloride 0.9 % flush peripheral kemi 3 mL 3 mL, IV Push, QSHIFT, First dose on Sun03/23/23 at 1600, Until Discontinued, Do not flush if lock, PICC, or central line not in place; IV infusing or unable to flush., Pre-Op documented in this encounter Active and Recently Administered Medications Times are shown in EDT. Scheduled Medication Order 03/21/2023 03/22/2023 03/23/2023 ceFAZolin in dextrose (Ancef) ivpb 2 g (COMPLETED) 2 g, IV Piggyback, PREOP, 1 dose, First dose on Sun03/23/23 at 1200, Administer 60 minutes prior to skin incision, Pre-Op 1302 (Given - Provid er: Malachi Eli, JENNIFER) sodium chloride 0.9 % flush peripheral kemi 3 mL 3 mL, IV Push, QSHIFT, First dose on Sun03/23/23 at 1600, Until Discontinued, Do not flush if lock, PICC, or central line not in place; IV infusing or unable to flush., Pre-Op Continuous Medication Order 03/21/2023 03/22/2023 03/23/2023 isolyte-S pH 7.4 infusion Intravenous, at 100 mL/hr, Plasma-LYTE 148, isolyte-S, and isolyte-S pH 7.4 are considered equivalent - including for MAR barcode scanning., CONTINUOUS, Starting on Sun03/23/23 at 1200, Until Sun03/23/23 at 1913, Pre-Op 1206 (New Bag - Prov ider: Jessica Thurman RN)1253 (Continue from Pre-Op - Provider: JENNIFER Lyn)1255 (Rate Change - Provider: JENNIFER Lyn)1340 (Anes Intra-Op Fluid - Provider: JENNIFER Lyn) documented in this encounter Advance Directives Latest [...] the patient have Health Care Power of Diabetologist? No Code Status History Code Status Date Activated Date Inactivated Comments No Code 05/11/2022 11:54 AM 05/11/2022 6:22 PM Th is order reflects the patients wishes and were consensually agreed upon. Question Answer Comments Discussion of Advance Directives occurred with: Patient Does the patient have a Living Will? No Does the patient have Health Care Power of Diabetologist? No Full Code 04/09/2020 1:05 PM 04/09/2020 7:00 PM This order reflects the patients wishes and were consensually agreed upon. Care Teams Roller Cleaner Relationship Specialty Start Date End Date Roel Brown MD [address] [place] [address] [place] [phone] PCP - General Family Medicine 12/03/15 documented as of this encounter
--- OUTSIDE RECORDS SUMMARY | 2023-09-15 13:47 | External Medical Summary | Summary of Care ---
Author Name Unknown Organization [facility] Address [address] [place] [address] Phone [phone] Care Team Providers Care Woodwind Instrument Repairer Name Role Phone Roel Brown MD Primary Care Provider [phone] Reason for Visit * Reason Comments Post-Op R foot Encounter Details Date Type Department Care Team Description 04/05/[address] [facility] [address] [facility] [place] [address] Evelyn Deleon DPM [address] [facility] [place] [address] Examination following surgery*; Right foot pain; Rheumatoid arthritis involving multiple sites with positive rheumatoid factor (HCC); Rheumatoid nodule (HCC) Allergies Active Allergy Reactions Severity Noted Date Comments Atorvastatin Muscle pain 04/02/2018 Codeine 02/17/2022 Lidocaine Neuro complications (Please comment) High 06/30/2016 Syncope. Pt passes out and will be extremely exhausted for an hour DO NOT USE Evolocumab 05/14/2020 Dizziness documented as of this encounter (statuses as of 04/05/2023) Medications Medication Sig Dispensed Refills Start Date [...] as of this encounter (statuses as of 04/05/2023) Active Problems Problem Noted Date H/O TIA [...] Cardiac pacemaker in situ 05/05/2022 History of RI (myocardial infarction) Primary hypertension 12/01/2021 SSS (sick [...] as of this encounter (statuses as of 04/05/2023) Resolved Problems Problem Noted Date Resolved Date [...] as of this encounter (statuses as of 04/05/2023) Immunizations Name Administration Dates Next Due COVID-19 [...] Progress Notes * Evelyn Deleon DPM - 04/05/2023 12:44 PM EDT Podiatry Post-Op Note [facility] Name: Lukasz Palacios : 1950 Date: 04/05/2023 POST-OP VISIT: #1 DATE OF SURGERY: 03/23/2023 PROCEDURE: Excision RA nodule, right foot SUBJECTIVE: Patient presents today for follow up of the above mentioned procedure. He is doing well. Wearing his post-op shoe. No pain. Happy with his results. present. States he did not have to take any pain pills. Denies any other complaints. Weightbearing Status: Left Lower Extremity: weightbearing Right Lower Extremity: weightbearing Assistive Device: None Post-Op Related Medications: pain medications: OTC PRN OBJECTIVE: Dressing: clean dry intact removed Incision is well coapted with sutures noted and removed. AROM of the digits noted. Minimal edema and ecchymosis noted. No pain. No active signs of infection noted. DIAGNOSTIC STUDIES: None PATH: RA nodule ASSESSMENT: S/p excision RA nodule, right foot PLAN: - Pt doing well. Incision is well healed with sutures noted and removed. - Ok to shower, no soaking for another week. - Activity to tolerance in normal shoes. - OTC pain medication as needed. - Pt to RTC PRN. Instructed to call with any problems or questions. Evelyn Deleon DPM documented in this encounter Nursing Notes * Cady Wilkerson LPN - 04/05/2023 12:33 PM EDT Pt presents for post op visit #1, excision RA nodule R foot 03/23/2023. Wearing HERMINIO wrap, post op shoe. States doesn't hurt, is a little sore yet. documented in this encounter Plan of Treatment Upcoming Encounters Date Type Specialty Care Team Description 05/31/2023 Office Visit Cardiology Kartik Bray DO [address] [place] [address] 06/11/2023 Office Visit Family Medicine Roel Brown MD [address] [place] [address] [place] [address] 06/22/2023 Office Visit Rheumatology Andriy Cespedes MD [address] [place], [place] [address] [address] 11/28/2023 Office Visit Family Medicine Alejandro Pete MD [address] [place] [address] [place] [address] 12/18/2023 Cardiac Studies Cardiology Charito Germain [facility] [address] [place] [address] 04/04/2024 Nurse Only Ancillary Marcellus, Nurse Annual [facility] [address] [place] [address] [place] [id number] Health Maintenance Due Date Last Done Comments Zoster Vaccines (1 of 2) 10/10/1969 COLONOSCOPY-EVERY 5 YRS AGES 18-100 07/11/2021 07/11/2016, 07/11/2016 CKD PHOS USE SMARTSET 66648 05/30/2022 11/0 07/2020, 06/08/2020, 09/28/2017, Additional history exists Albumin/Creatinine Ratio 05/26/2023 022, 09/28/2017, 12/03/2015 GFR 06/07/2023 12/05/2022, 09/28, 05/26/2022, Additional history exists CKD HGB USE SMARTSET 51174 12/06/202312/05, 12/05/2022, 10/20/2022, Additional history exists Depression Screening, Annual for Pts 12 and Over 04/03/2024 04/03/2023 DTaP,Tdap,and Td Vaccines (3 - [...] this encounter Medical Devices Implanted Type Area Reimbursement Consultant Device Identifier Shelf Expiration Date Model / Serial / Lot Lens Intraoc 25.5 - [id number] - [id number] Implanted:Qty: 1 on 05/11/2022 by Ishmael Malcolm MD at [facility] Right: Eye [employer] 09/26/2026 [id number] / [id number] / [id number] Lens Intraoc 26.0 - [id number] - [id number] Implanted:Qty: 1 on 05/18/2022 by Ishmael Malcolm MD at OR [facility] Left: Eye [employer] 10/27/2025 [id number] / [id number] / [id number] documented as of this encounter Visit Diagnoses Diagnosis Examination following surgery- Primary Follow-up examination, following unspecified surgery Right foot pain Pain in limb Rheumatoid arthritis involving multiple sites with positive rheumatoid factor (HCC) Rheumatoid nodule (HCC) Rheumatoid arthritis documented in this encounter Advance Directives Latest [...] the patient have Health Care Power of Shop Service Technician? No Code Status History Code Status Date Activated Date Inactivated Comments No Code 05/11/2022 11:54 AM 05/11/2022 6:22 PM Th is order reflects the patients wishes and were consensually agreed upon. Question Answer Comments Discussion of Advance Directives occurred with: Patient Does the patient have a Living Will? No Does the patient have Health Care Power of Shop Service Technician? No Full Code 04/09/2020 1:05 PM 04/09/2020 7:00 PM This order reflects the patients wishes and were consensually agreed upon. Care Teams Woodwind Instrument Repairer Relationship Specialty Start Date End Date Roel Brown MD [address] [place] [address] [place] [phone] PCP - General Family Medicine 12/03/15 documented as of this encounter
--- OUTSIDE RECORDS SUMMARY | 2023-09-15 13:47 | External Medical Summary | Summary of Care ---
Author Name Unknown Organization [facility] Address [address] [place] [address] Phone [phone] Care Team Providers Care Beveling Machine Operator Name Role Phone Roel Brown MD Primary Care Provider [phone] Encounter Details Date Type Department Care Team Description 03/21/2023 Telephone Podiatry [facility] [address] [place] [address] Evelyn Deleon DPM [address] [place] [address] Allergies Active Allergy Reactions Severity Noted Date Comments Atorvastatin Muscle pain 04/02/2018 Codeine 02/17/2022 Lidocaine Neuro complications (Please comment) High 06/30/2016 Syncope. Pt passes out and will be extremely exhausted for an hour DO NOT USE Evolocumab 05/14/2020 Dizziness documented as of this encounter (statuses as of 03/21/2023) Medications Medication Sig Dispensed Refills Start Date [...] Hour (toPROL XL)Indications:Cor onary artery disease involving [place] coronary artery of [place] heart without angina pectoris,Primary hypertension,Chron ic heart failure with preserved ejection fraction (HCC) TAKE ONE TABLET BY MOUTH EVERY MORNING 100 Tablet 1 01/02/2023 01/02/2024 Active Folic Acid 1 MG Oral TabletIndications: Rheumatoid arthritis involving multiple sites with positive rheumatoid factor (HCC) TAKE TWO TABLETS BY MOUTH EVERY DAY IN THE MORNING 200 Tablet 1 12/05/2022 12/05/2023 Active Leflunomide 10 MG Oral Tablet (Arava)Indications :Rheumatoid arthritis involving multiple sites with positive rheumatoid factor (HCC) TAKE ONE TABLET BY MOUTH EVERY DAY IN THE MORNING 100 Tablet 1 12/05/2022 12/05/2023 Active amLODIPine Besylate 5 MG Oral Tablet (Norvasc)Indicatio ns:Coronary artery disease involving [place] coronary artery of [place]osh[place] heart without angina pectoris TAKE ONE TABLET BY MOUTH EVERY DAY IN THE MORNING 100 Tablet 2 10/04/2022 10/04/2023 Active Additional Information Patient not taking.Reported on 03/20/2023 Losartan Potassium 25 MG Oral Tablet (Cozaar)Indication s:Coronary artery disease involving [place]osh[place] coronary artery of [place] shosh[place] heart without angina pectoris TAKE ONE TABLET BY MOUTH EVERY MORNING 100 Tablet 3 08/03/2022 08/03/2023 Active Ezetimibe 10 MG Oral Tablet (Zetia)Indications :Coronary artery disease involving [place]osh[place] coronary artery of [place] shosh[place] heart without angina pectoris,Hyperlipi demia LDL goal <100 TAKE ONE TABLET BY MOUTH EVERY MORNING 100 Tablet 3 06/07/2022 06/07/2023 Active predniSONE 5 MG Oral Tablet (Deltasone) TAKE ONE TABLET BY MOUTH TWICE A DAY 180 Tablet 4 06/01/2022 06/01/2023 Active Additional Information Patient not taking.Reported on 03/20/2023 documented as of this encounter (statuses as of 03/21/2023) Active Problems Problem Noted Date H/O TIA [...] descending colon Coronary artery disease invo lving [place] shosh[place] coronary artery of [place] shoshone heart without angina pectoris 05/24/2016 ADVANCE DIRECTIVE INFORMATION 01/08/2006 Overview: No, Advance Directive brochure given to patient at prior appointment. Hyperlipidemia LDL goal <100 documented as of this encounter (statuses as of 03/21/2023) Resolved Problems Problem Noted Date Resolved Date [...] as of this encounter (statuses as of 03/21/2023) Immunizations Name Administration Dates Next Due COVID-19 [...] encounter Miscellaneous Notes * Telephone Encounter - RAÚL León - 03/21/2023 2:30 PM EDT [facility] reached out to me to advise that due to medical history patient could not be done at [facility]. Patient has been rescheduled to [place] on 03/23/23. I called patient to advise. Patient verbalized understanding. documented in this encounter Plan of Treatment Upcoming Encounters Date Type Specialty Care Team Description 03/23/2023 Hospital Encounter Surgery Evelyn Deleon DPM [address] [place] [address] 03/23/2023 Surgery Surgery Evelyn Deleon DPM [address] [place] [address] EXCISION TUMOR FOOT SUBCUTANEOUS 04/03/2023 Nurse Only Ancillary Marcellus, Nurse Annual Wellness [address] [place] [address] [place] [phone] 04/05/2023 Office Visit Podiatry Evelyn Deleon DPM [address] [place] [address] 05/31/2023 Office Visit Cardiology Kartik Bray DO [address] [place] [address] 06/11/2023 Office Visit Family Medicine Roel Brown MD [address] [place] [address] [place] [phone] 06/22/2023 Office Visit Rheumatology Andriy Cespedes [facility] [address] [facility] [place] [address] 12/18/2023 Cardiac Studies Cardiology [address] [place] [address] Scheduled Procedures Name Priority Associated Diagnoses Date/Ti me EXCISION TUMOR FOOT SUBCUTANEOUS Rheumatoid arthritis involving multiple sites with positive rheumatoid factor (HCC) 03/23/2023 12:50 PM EDT Health Maintenance Due Date Last Done Comments Zoster Vaccines (1 of 2) 10/10/1969 COLONOSCOPY-EVERY 5 YRS AGES 18-100 07/11/2021 07/11/2016, 07/11/2016 CKD PHOS USE SMARTSET 78294 05/30/2022 11/0 07/2020, 06/08/2020, 09/28/2017, Additional history exists Depression Screening, Annual for Pts 12 and Over 03/30/2023 03/30/2022 Influenza Vaccine (FLU shot) (#1) 2023 03/30/2022, 06/01/2021, 04/26/2020, Additional history exists Albumin/Creatinine Ratio 05/26/2023 022, 09/28/2017, 12/03/2015 GFR 06/07/2023 12/05/2022, 09/28, 05/26/2022, Additional history exists CKD HGB USE SMARTSET 23214 12/06/202312/05, 12/05/2022, 10/20/2022, Additional history exists DTaP,Tdap,and [...] this encounter Medical Devices Implanted Type Area Bread Racker Device Identifier Shelf Expiration Date Model / Serial / Lot Lens Intraoc 25.5 - [id number] - [id number] Implanted:Qty: 1 on 05/11/2022 by Ishmael Malcolm MD at OR [facility] Right: Eye [employer] 09/26/2026 [id number] / [id number] / [id number] Lens Intraoc 26.0 - [id number] - [id number] Implanted:Qty: 1 on 05/18/2022 by Ishmael Malcolm MD at OR [facility] Left: Eye [employer]OM[employer] 10/27/2025 [id number] / [id number] / [id number] documented as of this encounter Advance Directives [...] the patient have Health Care Power of Classer? No Code Status History Code Status Date Activated Date Inactivated Comments No Code 05/11/2022 11:54 AM 05/11/2022 6:22 PM Th is order reflects the patients wishes and were consensually agreed upon. Question Answer Comments Discussion of Advance Directives occurred with: Patient Does the patient have a Living Will? No Does the patient have Health Care Power of Classer? No Full Code 04/09/2020 1:05 PM 04/09/2020 7:00 PM This order reflects the patients wishes and were consensually agreed upon. Care Teams Beveling Machine Operator Relationship Specialty Start Date End Date Roel Brown MD [address] [place] [address] [place] [id number] PCP - General Family Medicine 12/03/15 documented as of this encounter
--- OUTSIDE RECORDS SUMMARY | 2023-09-15 13:47 | External Medical Summary | Summary of Care ---
Author Name Unknown Organization [facility] Address [address] [place] [address] Phone [phone] Care Team Providers Care Revenue Specialist Name Role Phone Roel Brown MD Primary Care Provider + [phone] Reason for Visit * Reason Comments Pre-op Clearance Encounter Details Date Type Department Care Team Description 03/19/2023 Office Visit [facility] Medicine [address] [id number] Roel Brown MD [address] [place] [address] [place] [address] Rheumatoid arthritis involving multiple sites with positive rheumatoid factor ([facility])*; SSS (sick sinus syndrome) ([facility]); Primary hypertension; Hyperlipidemia LDL goal <100; Coronary artery disease involving [place] coronary artery of [place] heart without angina pectoris; CKD (chronic kidney disease), stage II; Cardiac pacemaker in situ Allergies Active Allergy Reactions Severity Noted Date Comments Atorvastatin Muscle pain 04/02/2018 Codeine 02/17/2022 Lidocaine Neuro complications (Please comment) High 06/30/2016 Syncope. Pt passes out and will be extremely exhausted for an hour DO NOT USE Evolocumab 05/14/2020 Dizziness documented as of this encounter (statuses as of 03/19/2023) Medications Medication Sig Dispensed Refills Start Date [...] Hour (toPROL XL)Indications:Coron dylan artery disease involving [place] coronary artery of [place] heart without angina pectoris,Primary hypertension,Chronic heart failure with preserved ejection fraction (HCC) TAKE ONE TABLET BY MOUTH EVERY MORNING 100 Tablet 1 01/02/2023 01/02/2024 Active Folic Acid 1 MG Oral TabletIndications:Rh eumatoid arthritis involving multiple sites with positive rheumatoid factor (HCC) TAKE TWO TABLETS BY MOUTH EVERY DAY IN THE MORNING 200 Tablet 1 12/05/2022 12/05/2023 Active Leflunomide 10 MG Oral Tablet (Arava)Indications:R heumatoid arthritis involving multiple sites with positive rheumatoid factor (HCC) TAKE ONE TABLET BY MOUTH EVERY DAY IN THE MORNING 100 Tablet 1 12/05/2022 12/05/2023 Active amLODIPine Besylate 5 MG Oral Tablet (Norvasc)Indications :Coronary artery disease involving [place] coronary artery of [place] heart without angina pectoris TAKE ONE TABLET BY MOUTH EVERY DAY IN THE MORNING 100 Tablet 2 10/04/2022 10/04/2023 Active Losartan Potassium 25 MG Oral Tablet (Cozaar)Indications: Coronary artery disease involving [place] coronary artery of [place] heart without angina pectoris TAKE ONE TABLET BY MOUTH EVERY MORNING 100 Tablet 3 08/03/2022 08/03/2023 Active Ezetimibe 10 MG Oral Tablet (Zetia)Indications:C oronary artery disease involving [place] coronary artery of [place] heart without angina pectoris,Hyperlipide nancy LDL goal <100 TAKE ONE TABLET BY MOUTH EVERY MORNING 100 Tablet 3 06/07/2022 06/07/2023 Active predniSONE 5 MG Oral Tablet (Deltasone) TAKE ONE TABLET BY MOUTH TWICE A DAY 180 Tablet 4 06/01/2022 06/01/2023 Active documented as of this encounter (statuses as of 03/19/2023) Active Problems Problem Noted Date H/O TIA [...] situ 05/05/2022 History of CO (myocardial infarction) Primary hypertension 12/01/2021 SSS (sick sinus syndrome) 09/07/2021 First degree heart block 05/27/2021 Encounter for long-term (current) drug u se 08/20/2017 Rheumatoid arthritis involvi ng multiple sites with positive rheumatoid factor 05/08/2017 Sigmoid diverticulosis 07/11/2016 Overview: sigmoid and descending colon Coronary artery disease invo lving [place] coronary artery of [place] heart without angina pectoris 05/24/2016 ADVANCE DIRECTIVE INFORMATION 01/08/2006 Overview: No, Advance Directive brochure given to patient at prior appointment. Hyperlipidemia LDL goal <100 documented as of this encounter (statuses as of 03/19/2023) Resolved Problems Problem Noted Date Resolved Date [...] as of this encounter (statuses as of 03/19/2023) Immunizations Name Administration Dates Next Due COVID-19 [...] Sign Reading Time Taken Comments Blood Pressure 130/78 03/19/2023 3:54 PM EDT Pulse 76 03/19/2023 3:54 PM EDT Temperature 36.6 C (97.8 F) 03/19/2023 3:54 PM ED T Respiratory Rate 16 03/19/2023 3:54 PM EDT Oxygen Saturation - - Inhaled Oxygen Concentration - - Weight 97.5 kg (215 lb) 03/19/2023 3:54 PM EDT Height 179.7 cm (5' 10.75") 03/19/2023 3:54 PM E DT Body Mass Index 30.2 03/19/2023 3:54 PM EDT documented in this encounter Progress Notes * Roel Brown MD - 03/19/2023 4:05 PM EDT Nursing Notes: Maribel Bradford RN 03/19/23 0058 Sign at exiting of workspace Pre-op visit. [...] No changes in mentation. No syncope or falls.All others negative other than those noted in [...] tennis elbow 2004 Myocardial infarction (HCC) 2012 [facility] Need for hepatitis C screening test 12/03/2015 negative Sigmoid diverticulitis 04/18/2020 [facility], Juan R Hyman Sigmoid diverticulosis 07/11/2016 sigmoid and descending colon TIA (transient ischemic attack) 03/14/2018 [place] TIA (transient ischemic attack) 12/20/2022 [place] Vasovagal near syncope 03/14/2018 [place] Past Surgical History: Procedure Laterality Date ARM/ELBOW [...] [facility] TH[facility]BO[facility] W/PATCH,NECK INCISION Left 09/07/2012 [place] US AAA SCREEN, VASCULAR LAB N/A 06/13/2016 [...] LDL goal <100 Coronary artery disease involving [place] coronary artery of [place] heart without angina pectoris CKD (chronic kidney disease), stage II Cardiac pacemaker in situ He is going to hold his Plavix starting now which will be helpful He is cleared medically for the proposed procedure. Follow Up: Return if symptoms worsen or fail to improve. documented in this encounter Nursing Notes * Maribel Bradford RN - 03/19/2023 3:53 PM EDT Pre-op visit. Pt is having a tumor removed form his foot on 03/22/[address] Deleon, [facility] This pt does have a Pacemaker, last checked in November, had labs in November also documented in this encounter Plan of Treatment Upcoming Encounters Date Type Specialty Care Team Description 03/22/2023 Hospital Encounter Surgery Evelyn Deleon DPM [address] [place] [id number] 03/22/2023 Surgery Surgery Evelyn Deleon DPM [address] [place] [address] EXCISION TUMOR FOOT SUBCUTANEOUS 04/03/2023 Nurse Only Ancillary Nurse Marcellus Annual [address] [place] [address] 04/05/2023 Office Visit Podiatry Evelyn Deleon DPM [address] [place] [id number] 05/31/2023 Office Visit Cardiology Kartik Bray DO [address] [place] [address] 06/11/2023 Office Visit Family Medicine Roel Brown MD [address] [place] [address] [place] [address] 06/22/2023 Office Visit Rheumatology Andriy Cespedes MD [address] [place] [address], [place] [address] 12/18/2023 Cardiac Studies Cardiology [facility] [address] [place] [address] Scheduled Procedures Name Priority Associated Diagnoses Date/Ti me EXCISION TUMOR FOOT SUBCUTANEOUS Rheumatoid arthritis involving multiple sites with positive rheumatoid factor (HCC) 03/22/2023 12:15 PM EDT Health Maintenance Due Date Last Done Comments Zoster Vaccines (1 of 2) 10/10/1969 COLONOSCOPY-EVERY 5 YRS AGES 18-100 07/11/2021 07/11/2016, 07/11/2016 CKD PHOS USE SMARTSET [id number] 05/30/2022 11/0 07/2020, 06/08/2020, 09/28/2017, Additional history exists Depression Screening, Annual for Pts 12 and Over 03/30/2023 03/30/2022 Influenza Vaccine (FLU shot) (#1) 2023 03/30/2022, 06/01/2021, 04/26/2020, Additional history exists Albumin/Creatinine Ratio 05/26/2023 022, 09/28/2017, 12/03/2015 GFR 06/07/2023 12/05/2022, 09/28, 05/26/2022, Additional history exists CKD HGB USE SMARTSET 95163 12/06/202312/05, 12/05/2022, 10/20/2022, Additional history exists DTaP,Tdap,and [...] encounter Medical Devices Implanted Type [employer] Device Identifier Shelf Expiration Date Model / Serial / Lot Lens Intraoc 25.5 - [id number] - [id number] Implanted:Qty: 1 on 05/11/2022 by Ishmael Malcolm MD at OR [facility] Right: Eye [employer] 09/26/2026 [id number] / [id number] / [id number] Lens Intraoc 26.0 - [id number] - [id number] Implanted:Qty: 1 on 05/18/2022 by Ishmael Malcolm MD at OR [facility] Left: Eye [employer] 10/27/2025 [id number] / [id number] / [id number] documented as of this encounter Visit Diagnoses Diagnosis Rheumatoid arthritis involving multiple sites with positive rheumatoid factor (HCC)- Primary SSS (sick sinus syndrome) (HCC) Sinoatrial node dysfunction Primary hypertension Unspecified essential hypertension Hyperlipidemia LDL goal <100 Other and unspecified hyperlipidemia Coronary artery disease involving [place] coronary artery of [place] heart without angina pectoris CKD (chronic kidney disease), stage II Chronic kidney disease, Stage II (mild) Cardiac pacemaker in situ Rheumatoid arthritis involving multiple sites with positive [...] the patient have Health Care Power of Shock Absorber Installer? No Code Status History Code Status Date Activated Date Inactivated Comments No Code 05/11/2022 11:54 AM 05/11/2022 6:22 PM Th is order reflects the patients wishes and were consensually agreed upon. Question Answer Comments Discussion of Advance Directives occurred with: Patient Does the patient have a Living Will? No Does the patient have Health Care Power of Shock Absorber Installer? No Full Code 04/09/2020 1:05 PM 04/09/2020 7:00 PM This order reflects the patients wishes and were consensually agreed upon. Care Teams Revenue Specialist Relationship Specialty Start Date End Date Roel Brown MD [address] [place] [address] [place] [address] PCP - General Family Medicine 12/03/15 documented as of this encounter
[2023-09-15 13:52] LABS: Albumin Globulin Ratio 1.3 (0.9-2); Albumin Level 3.9 gm/dl (3.4-5.0); BUN Creatinine Ratio 18.7 (10-20); Bilirubin,Total 0.4 mg/dl (0.2-1.0); Calcium 9.7 mg/dl (8.6-10.3); Creatinine Clr Calc Pharmacy 70.8 ml/min; Est GFR (African American) 78.8 ml/min; Globulin 3.1 gm/dl (2.5-4.0); Magnesium 2.2 mg/dl (1.7-2.4); Potassium 4.4 mmol/L (3.5-5.1)
[2023-09-15 13:57] LABS: Troponin I High Sensitivity 12.7 pg/ml (0-20)
[2023-09-15 14:02] LABS: Partial Thromboplastin Ratio 1.1; Partial Thromboplastin Time 32 Seconds (21-31); Prothrombin Time 10.5 Seconds (9.0-12.0)
[2023-09-15] MEDS: OPTIRAY 320 125ml IV ONE (14:05)
[2023-09-15 14:45] LABS: Appearance Urine Clear (Clear); Bilirubin Urine Negative (Negative); Blood Urine Negative (Negative); Color Urine Yellow; Glucose Urine UA Negative (Negative); Ketones Urine Negative (Negative); Leukocyte Esterase Urine Negative (Negative); Nitrite Urine Negative (Negative); Protein Urine Negative (Negative); Specific Gravity Urine 1.011 (1.000-1.030); Urobilinogen Urine Negative (Negative)
--- NOTE | 2023-09-15 14:46 | CT Scan Report ---
CT angio head w con, CT head/brain wo con, CT angio neck with con CLINICAL HISTORY: 72 years-old Male with CRAO. Acute strokelike symptoms with left eye vision loss COMPARISON STUDY: 04/30/2023, CTA head and neck 04/27/2023. TECHNIQUE: Unenhanced axial CT scan of the brain is performed. Subsequently, following the IV adminis tration of 112 cc of Optiray, CT angiogram of the head and neck was performed from the aortic arch to skull apex. Images are reviewed in the axial, sagittal, and coronal planes. 3-D MIPS images are crea bobby and assessed. IV contrast was administered without complication. All measurements were obtained a ccording to NASCET criteria. A dose lowering technique was utilized adhering to the principles of ALA RA. CT DOSE: 1165.64 mGy.cm FINDINGS: CT BRAIN: There is no acute intracranial hemorrhage, midline shift, hydrocephalus, intracranial mass, territori al ischemia or abnormal extra-axial collections. Involutional changes with suggestion of mild chronic microvascular ischemic disease. Encephalomalacia related to the subacute to chronic left frontal lob e hewitt radiata, left basal ganglia and thalamic lacunar infarcts. No abnormal intra-axial or extra- axial enhancement. Mastoid air cells are clear. There is mild mucosal thickening of the ethmoid air c ells. No calvarial fracture. Paranasal sinuses are clear. CT ANGIOGRAM OF THE HEAD AND NECK: There is chronic irregular atherosclerosis/ulcerative plaque of the thoracic aortic arch which measur es up to 3.7 cm transversely on image 25. Partially imaged left subclavian pacer leads. Patency of th e innominate and imaged subclavian arteries. Moderate atherosclerosis of the patent common carotid ar teries. Atherosclerosis of the right carotid bulb and proximal cervical segment right ICA results in less than 50% stenosis. Unchanged appearance of the chronic occlusion of the left ICA beginning at th e origin of the cervical segment. There is reconstitution within the supraclinoid segment secondary t o the [place] with irregular diminutive flow seen within the ophthalmic branch. Mostly mild multifocal stenoses of the middle and anterior cerebral arteries which are patent. The do minant and widely patent right vertebral artery. Developmentally diminutive left vertebral artery dem onstrates multifocal areas of high-grade stenoses which are unchanged prior study. The basilar and po sterior cerebral arteries are patent. Dural sinuses appear patent. Lung apices are clear. Unremarkable soft tissues. No acute fracture. IMPRESSION: 1. No acute intracranial abnormality. 2. Encephalomalacia related to the subacute to chronic left frontal lobe hewitt radiata, left basal g anglia and thalamic lacunar infarcts which were acute on the brain MRI from 04/30/2023. 3. Unchanged appearance of the chronic occlusion of the left internal carotid artery. 4. Unchanged appearance of the multifocal high-grade stenoses throughout the left vertebral artery. ACT 112: Negative or not required by law. The above report was generated using voice recognition software. It may contain grammatical, syntax o r spelling errors. Electronically signed by: Herberth Broussard M.D. 09/15/2023 2:44 PM
--- NOTE | 2023-09-15 15:30 | History & Physical Report ---
Date of Service September 15, 2023 Assessment & Plan (1) CRAO (central retinal artery occlusion): Plan: This patient has an increased risk for stroke and other vascular accidents as a result of chronic inflammation from underlying RA, already having a h/o CVA, ca rotid disease and heart disease, and an intolerance of statins. CRAO today is seen on retinal scans which were reviewed by ophthalmology percussion instrument repairer. Pt is not in distress with ongoing visual field cuts. Peripheral eye discomfort around the left eye has resolved. He is at higher risk for this given history of cerebrovascular and peripheral vascular disease known and his inability to tolerate a statin. Cont current DAPT and review case with neurology for any additional recommendations. Pacemaker is MRI compatible. Would defer the need for additional MRI imaging to neurology. 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 Creat at baseline. (5) Rheumatoid arthritis: Plan: chronic, stable. Continues on Arava therapy daily. No evidence of flare at this time. Pain managed with Aleve, however, patient has also been taking full dose ASA twice daily which is hard on his stomach lining. Would try to hold off on this and would also add a once daily PPI if patient is planning to continue full dose aspirin and chronic NSAIDs. 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 Will cont with only ASA 81mg here and he is fine with that. (6) Neuropathy: Plan: related to prior stroke, managed with gabapentin which will be continued. (7) Hyperlipidemia: Plan: Using lipid panel from Mar 2023, current ASCVD risk is 47% and lipid lowering therapy is recommended. As he is unable to tolerate statins or PCSK9 inhibitor (Repatha), cont with Zetia. Would defer additional lipid lowering agent trials to PCP. DVT proph: Lovenox Full Code Dispo-telemetry I spent a total [id number] coordinating, documenting, and providing care for this patient excluding time spent in the performance of separately billed services Sol Heck DO [facility] Hospitalist History of Present Illness Chief Complaint: eye problems Primary Care Provider: Roel Brown MD Patient is a 72-year-old man with a history of coronary artery disease, carotid artery stenosis and history of stroke on full dose aspirin twice daily and Plavix who presents with acute onset left vision changes that occurred afternoon when he was watching TV. 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 He specifically reports visual field cuts in his left eye. He otherwise denies any difficulty with balance, trouble speaking, extremity weakness or other strokelike symptoms. He reported some transient peripheral discomfort around his left eye previously but this has resolved. He does have a history of cataract removal and bilateral lens replacement through [facility] ophthalmology. Case was discussed with the on-call program support assistant Dr. Clark who was able to review the retinal images that were taken and sent by [facility]. It appeared there were several areas of central retinal artery occlusion present that may explain the vision changes. He was admitted to the hospital for further stroke evaluation minimizing stroke risk factors. Per outpatient record review he is a rheumatoid arthritis patient on leflunomide. He did see vascular surgery at [facility] in April 2023 after a left hemispheric stroke for which he was admitted. Right arm and leg weakness remained. During the hospital stay the CTA at [facility] reported left carotid occlusion. He was started on dual antiplatelet therapy with aspirin and Plavix and notably has had muscle pain with statin and dizziness with Repatha. 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 Continue dual antiplatelet therapy with aspirin 81 and Plavix 75 daily was recommended. Repeat carotid duplex and CT chest abdomen pelvis in 1 year was recommended by vascular specialist for ongoing observation of carotid disease and right iliac ectasia, respectively. Allergies Allergy/AdvReac Type Severity Reaction Status Date / Time evolocumab AdvReac Severe Dizziness Unverified 09/15/23 15:18 [From Repatha SureClick] icosapent ethyl AdvReac Severe Dizziness Unverified 09/15/23 15:18 [From Vascepa] lidocaine AdvReac Severe patient Verified 09/15/23 15:18 "dies" [id number] Reductase AdvReac Severe arthritis Unverified 09/15/23 15:18 Inhibitor [Pffyifo-Zzq-Uvw Reductase Inhibitor] Home Medications Medication Instructions Recorded Confirmed Type ascorbic acid (vitamin C) 500 mg 500 mg PO DAILY 04/18/20 09/15/23 History tablet (Vitamin C) ervxlnpf-cu-lqens 300 mcg-K 60 1 tab PO QAM 04/18/20 09/15/23 History mcg-lycop 600 mcg-lutein 300 mcg tablet (Centrum Silver Ultra Men's) omega 4-tsl-gyz-fish oil 1,000 mg 1 cap PO DAILY 04/18/20 09/15/23 History (120 mg-180 mg) capsule (Fish Oil) clopidogrel 75 mg tablet 75 mg PO DAILY 04/27/23 09/15/23 History ezetimibe 10 mg tablet 10 mg PO DAILY 04/27/23 09/15/23 History leflunomide 10 mg tablet 10 mg PO DAILY 04/27/23 09/15/23 History losartan 50 mg tablet 50 mg PO BID #60 tabs 04/30/23 09/15/23 Rx aspirin 325 mg tablet 325 mg PO BID 09/15/23 09/15/23 History gabapentin 100 mg capsule 100 mg PO BID 09/15/23 09/15/23 History naproxen sodium 220 mg tablet 220 mg PO HS 09/15/23 09/15/23 History (Aleve) Past Med/Surg History Medical History Neuropathy Left-sided carotid artery occlusion without cerebral infarction Carotid stenosis, bilateral First degree heart block Occlusion of left vertebral artery History of TIA (transient ischemic attack) Pacemaker SSS (sick sinus syndrome) CAD (coronary artery disease) Sigmoid diverticulitis CKD (chronic kidney disease), stage III Hyperlipidemia High cholesterol Hypertension History of heart attack Rheumatoid arthritis Surgical History Status post cardiac pacemaker procedure S/P cataract extraction and insertion of intraocular lens Status post surgical removal of neoplasm of skin S/P tonsillectomy H/O carotid endarterectomy s/p thromboendarterectomy with patch, neck excision (left) 09/07/2012 Family History Mother , age 89 Coronary heart disease Father , age 36 of brain tumor Cancer Brain- at age 36 Social History Smoking Status: Never smoker Age Started Using Tobacco: 12; Age Quit Using Tobacco: 48; packs per day: 0.2; Second Hand Exposure: No; Do You Dip or Chew Tobacco: No; Hx Alcohol Use: No Hx Substance Use: No Preferred Language: Mongolian Communication Ability: Effective Donkey Ride Operator Required: No Beliefs That Will Affect Care: None Current Living Situation: Significant Other Current Living Situation Comment: 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 current occupational status: retired 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62 Feels Safe at Home: Yes Assistive Devices: Hearing Aid - Bilateral and Walker Physical Exam Physical Exam: CONSTITUTIONAL: WNWD, vitals as above, generally well-appearing, NAD EYES: EOMI bilaterally, PERRL, normal conjunctivae, no scleral icterus, no funduscopic abnormality ENT: external ear and nose normal, oropharynx clear, MMM NECK: trachea midline RESPIRATORY: clear to auscultation bilaterally, no crackles, rales or wheezes, normal respiratory effort CARDIOVASCULAR: regular rate and rhythm, S1 and 2 heard without murmurs, gallops or rubs, no JVD, no peripheral edema CHEST: inspection of chest was normal GASTROINTESTINAL: soft, nontender, ND, no guarding MUSCULOSKELETAL: strength 5/5 throughout, head is normocephalic and atraumatic, neck supple, normal palpation of chest wall without tenderness SKIN: warm and dry NEUROLOGIC: CN 2-12 grossly intact, no sensory deficit, normal cognition, normal speech, no tremor PSYCHIATRIC: alert cooperative and oriented to person, place and time. Euthymic mood, makes good eye contact, language grossly intact, recent and remote memory grossly intact. Results & Data Results & Data Vital Signs (Past 12 Hours) Vital Signs Temp Pulse Pulse Resp BP BP Pulse Ox 09/15/23 14:31 60 09/15/23 13:04 60 18 154/78 H 98 09/15/23 10:40 36.6 C 84 20 181/77 H 98 O2 Del Method 09/15/23 14:31 09/15/23 13:04 Room Air 09/15/23 10:40 Room Air Laboratory Results Short CBC 09/15/23 Range/Units 13:15 WBC 8.45 (4.8-10.8) K/ul Hgb 14.5 (14.0-18.0) g/dl Hct 44.7 (42.0-52.0) % Plt Count 240 (130-400) K/uL BMP 09/15/23 13:15 Sodium 139 Potassium 4.4 Chloride 107 Carbon Dioxide 25 BUN 20 Creatinine 1.07 Glucose 86 Calcium 9.7 Liver Function 09/15/23 Range/Units 13:15 Total Bilirubin 0.4 (0.2-1.0) mg/dl AST 13 (13-39) U/L ALT 9 (7-52) U/L Alkaline Phosphatase 77 (34-104) U/L Albumin 3.9 (3.4-5.0) gm/dl Urine 09/15/23 Range/Units 13:30 Urine Color Yellow Urine Appearance Clear (Clear) Urine pH 6.0 (4.5-7.5) Ur Specific [place] 1.011 (1.000-1.030) Urine Protein Negative (Negative) Urine Glucose (UA) Negative (Negative) Diagnostic Findings Chest X-Ray 09/15/23 13:03 XR chest 1V portable HISTORY: 72 years-old Male neuro deficit, acute stroke suspected COMPARISON: CTA chest 04/29/2023 TECHNIQUE: AP view of the chest FINDINGS: Left subclavian pacer. Pulmonary nodules are better seen on the comparison CTA of the chest. No pneumothorax, pleural effusion or airspace consolidation. Chronic interstitial coarsening. A surgical clip projects over the left neck. Bones appear grossly intact. IMPRESSION: No acute process. ACT 112: Negative or not required by law. The above report was generated using voice recognition software. It may contain grammatical, syntax or spelling errors. Electronically signed by: Herberth Broussard M.D. 09/15/2023 1:[address] 09/15/23 13:03 CT angio head w con, CT head/brain wo con, CT angio neck with con CLINICAL HISTORY: 72 years-old Male with CRAO. Acute strokelike symptoms with left eye vision loss COMPARISON STUDY: 04/30/2023, CTA head and neck 04/27/2023. TECHNIQUE: Unenhanced axial CT scan of the brain is performed. Subsequently, following the IV administration of 112 cc of Optiray, CT angiogram of the head and neck was performed from the aortic arch to skull apex. Images are reviewed in the axial, sagittal, and coronal planes. 3-D MIPS images are created and assessed. IV contrast was administered without complication. All measurements were obtained according to NASCET criteria. A dose lowering technique was utilized adhering to the principles of ALARA. CT DOSE: 1165.64 mGy.cm FINDINGS: CT BRAIN: There is no acute intracranial hemorrhage, midline shift, hydrocephalus, intracranial mass, territorial ischemia or abnormal extra-axial collections. Involutional changes with suggestion of mild chronic microvascular ischemic disease. Encephalomalacia related to the subacute to chronic left frontal lobe hewitt radiata, left basal ganglia and thalamic lacunar infarcts. No abnormal intra-axial or extra-axial enhancement. Mastoid air cells are clear. There is mild mucosal thickening of the ethmoid air cells. No calvarial fracture. Paranasal sinuses are clear. CT ANGIOGRAM OF THE HEAD AND NECK: There is chronic irregular atherosclerosis/ulcerative plaque of the thoracic aortic arch which measures up to 3.7 cm transversely on image 25. Partially imaged left subclavian pacer leads. Patency of the innominate and imaged subclavian arteries. Moderate atherosclerosis of the patent common carotid arteries. Atherosclerosis of the right carotid bulb and proximal cervical segment right ICA results in less than 50% stenosis. Unchanged appearance of the chronic occlusion of the left ICA beginning at the origin of the cervical segment. There is reconstitution within the supraclinoid segment secondary to the [place] of [place] with irregular diminutive flow seen within the ophthalmic branch. Mostly mild multifocal stenoses of the middle and anterior cerebral arteries which are patent. The dominant and widely patent right vertebral artery. Developmentally diminutive left vertebral artery demonstrates multifocal areas of high-grade stenoses which are unchanged prior study. The basilar and posterior cerebral arteries are patent. Dural sinuses appear patent. Lung apices are clear. Unremarkable soft tissues. No acute fracture. IMPRESSION: 1. No acute intracranial abnormality. 2. Encephalomalacia related to the subacute to chronic left frontal lobe hewitt radiata, left basal ganglia and thalamic lacunar infarcts which were acute on the brain MRI from 04/30/2023. 3. Unchanged appearance of the chronic occlusion of the left internal carotid artery. 4. Unchanged appearance of the multifocal high-grade stenoses throughout the left vertebral artery. ACT 112: Negative or not required by law. The above report was generated using voice recognition software. It may contain grammatical, syntax or spelling errors. Electronically signed by: Herberth Broussard M.D. 09/15/2023 2:44 PM Head CTA 09/15/23 13:03 CT angio head w con, CT head/brain wo con, CT angio neck with con CLINICAL HISTORY: 72 years-old Male with CRAO. Acute strokelike symptoms with left eye vision loss COMPARISON STUDY: 04/30/2023, CTA head and neck 04/27/2023. TECHNIQUE: Unenhanced axial CT scan of the brain is performed. Subsequently, following the IV administration of 112 cc of Optiray, CT angiogram of the head and neck was performed from the aortic arch to skull apex. Images are reviewed in the axial, sagittal, and coronal planes. 3-D MIPS images are created and assessed. IV contrast was administered without complication. All measurements were obtained according to NASCET criteria. A dose lowering technique was utilized adhering to the principles of ALARA. CT DOSE: 1165.64 mGy.cm FINDINGS: CT BRAIN: There is no acute intracranial hemorrhage, midline shift, hydrocephalus, intracranial mass, territorial ischemia or abnormal extra-axial collections. Involutional changes with suggestion of mild chronic microvascular ischemic disease. Encephalomalacia related to the subacute to chronic left frontal lobe hewitt radiata, left basal ganglia and thalamic lacunar infarcts. No abnormal intra-axial or extra-axial enhancement. Mastoid air cells are clear. There is mild mucosal thickening of the ethmoid air cells. No calvarial fracture. Paranasal sinuses are clear. CT ANGIOGRAM OF THE HEAD AND NECK: There is chronic irregular atherosclerosis/ulcerative plaque of the thoracic aortic arch which measures up to 3.7 cm transversely on image 25. Partially imaged left subclavian pacer leads. Patency of the innominate and imaged subclavian arteries. Moderate atherosclerosis of the patent common carotid arteries. Atherosclerosis of the right carotid bulb and proximal cervical segment right ICA results in less than 50% stenosis. Unchanged appearance of the chronic occlusion of the left ICA beginning at the origin of the cervical segment. There is reconstitution within the supraclinoid segment secondary to the [place] of [place] with irregular diminutive flow seen within the ophthalmic branch. Mostly mild multifocal stenoses of the middle and anterior cerebral arteries which are patent. The dominant and widely patent right vertebral artery. Developmentally diminutive left vertebral artery demonstrates multifocal areas of high-grade stenoses which are unchanged prior study. The basilar and posterior cerebral arteries are patent. Dural sinuses appear patent. Lung apices are clear. Unremarkable soft tissues. No acute fracture. IMPRESSION: 1. No acute intracranial abnormality. 2. Encephalomalacia related to the subacute to chronic left frontal lobe hewitt radiata, left basal ganglia and thalamic lacunar infarcts which were acute on the brain MRI from 04/30/2023. 3. Unchanged appearance of the chronic occlusion of the left internal carotid artery. 4. Unchanged appearance of the multifocal high-grade stenoses throughout the left vertebral artery. ACT 112: Negative or not required by law. The above report was generated using voice recognition software. It may contain grammatical, syntax or spelling errors. Electronically signed by: Herberth Broussard M.D. 09/15/2023 2:44 PM Neck CTA 09/15/23 13:03 CT angio head w con, CT head/brain wo con, CT angio neck with con CLINICAL HISTORY: 72 years-old Male with CRAO. Acute strokelike symptoms with left eye vision loss COMPARISON STUDY: 04/30/2023, CTA head and neck 04/27/2023. TECHNIQUE: Unenhanced axial CT scan of the brain is performed. Subsequently, following the IV administration of 112 cc of Optiray, CT angiogram of the head and neck was performed from the aortic arch to skull apex. Images are reviewed in the axial, sagittal, and coronal planes. 3-D MIPS images are created and assessed. IV contrast was administered without complication. All measurements were obtained according to NASCET criteria. A dose lowering technique was utilized adhering to the principles of ALARA. CT DOSE: 1165.64 mGy.cm FINDINGS: CT BRAIN: There is no acute intracranial hemorrhage, midline shift, hydrocephalus, intracranial mass, territorial ischemia or abnormal extra-axial collections. Involutional changes with suggestion of mild chronic microvascular ischemic disease. Encephalomalacia related to the subacute to chronic left frontal lobe hewitt radiata, left basal ganglia and thalamic lacunar infarcts. No abnormal intra-axial or extra-axial enhancement. Mastoid air cells are clear. There is mild mucosal thickening of the ethmoid air cells. No calvarial fracture. Paranasal sinuses are clear. CT ANGIOGRAM OF THE HEAD AND NECK: There is chronic irregular atherosclerosis/ulcerative plaque of the thoracic aortic arch which measures up to 3.7 cm transversely on image 25. Partially imaged left subclavian pacer leads. Patency of the innominate and imaged subclavian arteries. Moderate atherosclerosis of the patent common carotid arteries. Atherosclerosis of the right carotid bulb and proximal cervical segment right ICA results in less than 50% stenosis. Unchanged appearance of the chronic occlusion of the left ICA beginning at the origin of the cervical segment. There is reconstitution within the supraclinoid segment secondary to the [place] of [place] with irregular diminutive flow seen within the ophthalmic branch. Mostly mild multifocal stenoses of the middle and anterior cerebral arteries which are patent. The dominant and widely patent right vertebral artery. Developmentally diminutive left vertebral artery demonstrates multifocal areas of high-grade stenoses which are unchanged prior study. The basilar and posterior cerebral arteries are patent. Dural sinuses appear patent. Lung apices are clear. Unremarkable soft tissues. No acute fracture. IMPRESSION: 1. No acute intracranial abnormality. 2. Encephalomalacia related to the subacute to chronic left frontal lobe hewitt radiata, left basal ganglia and thalamic lacunar infarcts which were acute on the brain MRI from 04/30/2023. 3. Unchanged appearance of the chronic occlusion of the left internal carotid artery. 4. Unchanged appearance of the multifocal high-grade stenoses throughout the left vertebral artery. ACT 112: Negative or not required by law. The above report was generated using voice recognition software. It may contain grammatical, syntax or spelling errors. Electronically signed by: Herberth Broussard M.D. 09/15/2023 2:44 PM Code Status & VTE Plan VTE Prophylaxis Plan VTE Prophylaxis will be ordered: Yes
[2023-09-15] MEDS ORDERED: POLYETHYLENE (MIRALAX) 17 GM PACK PO PRN (18:40)
[2023-09-15] MEDS ORDERED: LABETALOL HCL IV 5 MG/ML 20ML IV PRN (19:54)
[2023-09-15] MEDS: LOSARTAN POTASSIUM 50 MG TAB PO STA (20:18)
[2023-09-15] MEDS: TICAGRELOR 90 MG TAB PO SCH (20:18)
[2023-09-15] MEDS: GABAPENTIN 100 MG CAP PO SCH (20:18)
[2023-09-15] MEDS: ACETAMINOPHEN 325 MG TAB PO PRN (20:21)
[2023-09-16 06:16] LABS: Hematocrit (blood only) 43.2 % (42.0-52.0); Hemoglobin 14.1 g/dl (14.0-18.0); Mean Corpuscular Hemoglobin 29.1 pg (25.0-34.0); Mean Corpuscular Hgb Conc 32.6 g/dL (32.0-36.0); Mean Corpuscular Volume 89.1 fL (80.0-100.0); Mean Platelet Volume 9.6 fL (9.4-12.4); Platelet Count 251 K/uL (130-400); RDW Coefficient of Variation 13.7 % (11.5-14.5); RDW Standard Deviation 44.4 fL (36.4-46.3); Red Blood Count 4.85 M/uL (4.70-6.10); White Blood Count 6.81 K/ul (4.8-10.8)
[2023-09-16 06:29] LABS: BUN Creatinine Ratio 16.2 (10-20); Calcium 9.6 mg/dl (8.6-10.3); Creatinine Clr Calc Pharmacy 65.7 ml/min; Est GFR (African American) 80.7 ml/min; Est GFR (Non-African American) 69.6 ml/min; Potassium 4.2 mmol/L (3.5-5.1)
[2023-09-16] MEDS: ASCORBIC ACID 500 MG TAB PO SCH (08:31)
[2023-09-16] MEDS: EZETIMIBE 10 MG TAB PO SCH (08:31)
[2023-09-16] MEDS: LEFLUNOMIDE 10 MG TAB PO SCH (08:31)
[2023-09-16] MEDS: LOSARTAN POTASSIUM 50 MG TAB PO SCH (08:32)
[2023-09-16] MEDS ORDERED: CLOPIDOGREL BISULFATE 75 MG TAB PO SCH (09:00)
[2023-09-16] MEDS: NIFEdipine EXTENDED REL 30 MG TABCR PO SCH (09:30)
--- NOTE | 2023-09-16 11:29 | Neurology Consultation ---
Date of Consultation September 16, 2023 Assessment & Plan (1) Central retinal artery occlusion of left eye: CRAO= Agree with ophthalmology recommendations 72yo male suffering stroke equivalent, unfortunately suffers from significant cerebrovascular disease including left carotid artery occlusion He has demonstrated intolerance od statin therapy in the past as there is documented allergy Recommend consider restart low dose statin therapy with pravastatin or rosuvastatin Recommend continue ASA and switch to ticagrelor 90mg BID Await MRI brain to eval for further incidence of stroke Continue frequent neurological assessments Obtain stat CT brain without contrast for any acute neurological decline Echocardiogram as part of complete stroke workup Continue to monitor/control blood pressure & blood glucose Metabolic workup should include hgbA1c, fasting lipids, homocysteine, TSH, D Dimer Ok from neurology perspective for VTE prophylaxis PT/OT/SLT to eval and treat Telehealth Consultation Telehealth Information Telehealth Information: I performed this visit using a real-time telehealth connection between my location and the patients location ([facility]). After connecting through interactive tele-video, patient was identified by name and date of and/or wristband check.Patient (or authorized healthcare jewelry sales representative) was informed that this was a telemedicine visit and it was being conducted confidentially over secure lines. My office door was closed and no one else was present in the room with me.Patient (or authorized healthcare jewelry sales representative) provided consent to proceed with the visit, expressed an understanding of privacy and security of the telemedicine visit, and gave permission to have a hospital jewelry sales representative in the room in order to assist with the visit and to conduct portions of the visit, as needed. I informed the patient (or authorized healthcare jewelry sales representative) that I reviewed their record and presented the opportunity for them to ask any questions regarding the visit today. The patient agreed to participate. History of Present Illness Reason for Consultation: CRAO Requesting Physician: Dr. Heck Attending Physician: Bi Gaston MD History of Present Illness 72yo male with significant past medical hx of stroke CAD carotid stenosis/occlusion stroke HTN CKD RA and SSS with pacer implantation presented with acute onset vision changes in left eye. Symptom onset was several days prior to presentation reportedly noticed while watching TV. He reports visual field deficit in left eye. 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 He notably has a history of cataract removal and bilateral lens replacement with [facility] ophthalmology. Unfortunately he is unable to tolerate statin therapy. CT brain without contrast reveals no evidence of hemorrhage or acute intracranial pathology. He has undergone CTA head and neck revealing stable chronic ICAD and Left ICA occlusion. I have performed televideo consultation. Appreciate continued left visual field deficit. Patient otherwise in no apparent distress or discomfort. Able to answer all questions appropriately and follow commands without difficulty. Neurological exam nonlateralizing/nonfocal in terms of motor strength and coordination. At this time no reported cephalgia or cervicalgia. Denies chest pain/palpitations or shortness of breath. No reported changes in hearing dizziness syncope seizure like activity or paresthesia. Denies recent fevers chills nausea vomiting changes in bowels or bladder. Denies recent medication changes, recent illness or sick contacts, no reported recent travel. He states he is willing to retry low dose statin therapy. He is agreeable to MRI and to continue dual antiplatelet therapy with ticagrelor to replace clopidogrel. Allergies Allergy/AdvReac Type Severity Reaction Status Date / Time evolocumab AdvReac Severe Dizziness Unverified 09/15/23 15:18 [From Repatha SureClick] icosapent ethyl AdvReac Severe Dizziness Unverified 09/15/23 15:18 [From Vascepa] lidocaine AdvReac Severe patient Verified 09/15/23 15:18 "dies" Cwtqkpy-BSM-AbJ Reductase AdvReac Severe arthritis Unverified 09/15/23 15:18 Inhibitor [Uztjvqz-Gmq-Qbo Reductase Inhibitor] Home Medications Medication Instructions Recorded Confirmed Type ascorbic acid (vitamin C) 500 mg 500 mg PO DAILY 04/18/20 09/15/23 History tablet (Vitamin C) wrrtewtq-up-pyrtq 300 mcg-K 60 1 tab PO QAM 04/18/20 09/15/23 History mcg-lycop 600 mcg-lutein 300 mcg tablet (Centrum Silver Ultra Men's) omega 3-nef-gov-fish oil 1,000 mg 1 cap PO DAILY 04/18/20 09/15/23 History (120 mg-180 mg) capsule (Fish Oil) clopidogrel 75 mg tablet 75 mg PO DAILY 04/27/23 09/15/23 History ezetimibe 10 mg tablet 10 mg PO DAILY 04/27/23 09/15/23 History leflunomide 10 mg tablet 10 mg PO DAILY 04/27/23 09/15/23 History losartan 50 mg tablet 50 mg PO BID #60 tabs 04/30/23 09/15/23 Rx aspirin 325 mg tablet 325 mg PO BID 09/15/23 09/15/23 History gabapentin 100 mg capsule 100 mg PO BID 09/15/23 09/15/23 History naproxen sodium 220 mg tablet 220 mg PO HS 09/15/23 09/15/23 History (Aleve) Patient History Medical History Neuropathy Left-sided carotid artery occlusion without cerebral infarction Carotid stenosis, bilateral First degree heart block Occlusion of left vertebral artery History of TIA (transient ischemic attack) Pacemaker SSS (sick sinus syndrome) CAD (coronary artery disease) Sigmoid diverticulitis CKD (chronic kidney disease), stage III Hyperlipidemia High cholesterol Hypertension History of heart attack Rheumatoid arthritis Surgical History Status post cardiac pacemaker procedure S/P cataract extraction and insertion of intraocular lens Status post surgical removal of neoplasm of skin S/P tonsillectomy H/O carotid endarterectomy s/p thromboendarterectomy with patch, neck excision (left) 09/07/2012 Family History Mother , age 89 Coronary heart disease Father , age 36 of brain tumor Cancer Brain- at age 36 Social History Smoking Status: Never smoker Age Started Using Tobacco: 12; Age Quit Using Tobacco: 48; packs per day: 0.2; Second Hand Exposure: No; Do You Dip or Chew Tobacco: No; Hx Alcohol Use: No Hx Substance Use: No Preferred Language: Slovak Communication Ability: Effective Covered Button Maker Required: No Beliefs That Will Affect Care: None Current Living Situation: Spouse and Other Current Living Situation Comment: Lives with wifem, 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 Oriented to person, place, and time. Fluency naming repetition and comprehension appear grossly intact. Affect remains appropriate. CN testing: I: Denies changes in ability to smell II:Reports changes in left eye visual robles III/IV/: No evidence of gaze preference, hippus, nystagmus or roving eye movements V: Facial sensation reportedly grossly intact to light touch bilaterally VII: Facial movements appear without evidence of asymmetry VIII: Hearing appears grossly intact to loud voice bilaterally IX/X: Palate appears to elevate symmetrically XI: Shoulder shrug appears symmetric/ grossly intact bilaterally XII: Tongue protrudes midline without evidence of biting Motor exam: Strength appears grossly intact/symmetric in all extremities Sensory: Sensation is reportedly grossly intact throughout Coordination: Finger to nose and heel to ye were intact. No apparent evidence of dysmetria or dysdiadochokinesia Reflexes: Deferred Gait: Deferred Results & Data Vital Signs (Past 12 Hours) Vital Signs Temp Pulse Pulse Resp BP Pulse Ox O2 Del Method 09/16/23 07:59 36.6 C 98 H 16 165/78 H 97 Room Air 09/16/23 07:47 64 09/16/23 02:56 36.4 C L 61 15 131/59 L 96 Room Air Laboratory Results Abnormal lab results 09/15/23 09/16/23 Range/Units 13:15 05:36 MPV 9.3 L (9.4-12.4) fL Cook # (Auto) 0.82 H (0.11-0.59) K/uL APTT 32 H (21-31) Seconds Chloride 108 H (98-107) mmol/L Diagnostic Findings Chest X-Ray 09/15/23 13:03 XR chest 1V portable HISTORY: 72 years-old Male neuro deficit, acute stroke suspected COMPARISON: CTA chest 04/29/2023 TECHNIQUE: AP view of the chest FINDINGS: Left subclavian pacer. Pulmonary nodules are better seen on the comparison CTA of the chest. No pneumothorax, pleural effusion or airspace consolidation. Chron ic interstitial coarsening. A surgical clip projects over the left neck. Bones appear grossly intact. IMPRESSION: No acute process. ACT 112: Negative or not required by law. The above report was generated using voice recognition software. It may contain grammatical, syntax or spelling errors. Electronically signed by: Herberth Broussard M.D. 09/15/2023 1:[address] 09/15/23 13:03 CT angio head w con, CT head/brain wo con, CT angio neck with con CLINICAL HISTORY: 72 years-old Male with CRAO. Acute strokelike symptoms with left eye vision loss COMPARISON STUDY: 04/30/2023, CTA head and neck 04/27/2023. TECHNIQUE: Unenhanced axial CT scan of the brain is performed. Subsequently, following the IV administration of 112 cc of Optiray, CT angiogram of the head and neck was performed from the aortic arch to skull apex. Images are reviewed in the axial, sagittal, and coronal planes. 3-D MIPS images are created and assessed. IV contrast was administered without complication. All measurements were obtained according to NASCET criteria. A dose lowering technique was utilized adhering to the principles of ALARA. CT DOSE: 1165.64 mGy.cm FINDINGS: CT BRAIN: There is no acute intracranial hemorrhage, midline shift, hydrocephalus, intracranial mass, territorial ischemia or abnormal extra-axial collections. Involutional changes with suggestion of mild chronic microvascular ischemic disease. Encephalomalacia related to the subacute to chronic left frontal lobe hewitt radiata, left basal ganglia and thalamic lacunar infarcts. No abnormal intra-axial or extra-axial enhancement. Mastoid air cells are clear. There is mild mucosal thickening of the ethmoid air cells. No calvarial fracture. Paranasal sinuses are clear. CT ANGIOGRAM OF THE HEAD AND NECK: There is chronic irregular atherosclerosis/ulcerative plaque of the thoracic aortic arch which measures up to 3.7 cm transversely on image 25. Partially imaged left subclavian pacer leads. Patency of the innominate and imaged subclavian arteries. Moderate atherosclerosis of the patent common carotid arteries. Atherosclerosis of the right carotid bulb and proximal cervical segment right ICA results in less than 50% stenosis. Unchanged appearance of the chronic occlusion of the left ICA beginning at the origin of the cervical segment. There is reconstitution within the supraclinoid segment secondary to the [place] with irregular diminutive flow seen within the ophthalmic branch. Mostly mild multifocal stenoses of the middle and anterior cerebral arteries which are patent. The dominant and widely patent right vertebral artery. Developmentally diminutive left vertebral artery demonstrates multifocal areas of high-grade stenoses which are unchanged prior study. The basilar and posterior cerebral arteries are patent. Dural sinuses appear patent. Lung apices are clear. Unremarkable soft tissues. No acute fracture. IMPRESSION: 1. No acute intracranial abnormality. 2. Encephalomalacia related to the subacute to chronic left frontal lobe hewitt radiata, left basal ganglia and thalamic lacunar infarcts which were acute on the brain MRI from 04/30/2023. 3. Unchanged appearance of the chronic occlusion of the left internal carotid artery. 4. Unchanged appearance of the multifocal high-grade stenoses throughout the left vertebral artery. ACT 112: Negative or not required by law. The above report was generated using voice recognition software. It may contain grammatical, syntax or spelling errors. Electronically signed by: Herberth Broussard M.D. 09/15/2023 2:44 PM Head CTA 09/15/23 13:03 CT angio head w con, CT head/brain wo con, CT angio neck with con CLINICAL HISTORY: 72 years-old Male with CRAO. Acute strokelike symptoms with left eye vision loss COMPARISON STUDY: 04/30/2023, CTA head and neck 04/27/2023. TECHNIQUE: Unenhanced axial CT scan of the brain is performed. Subsequently, following the IV administration of 112 cc of Optiray, CT angiogram of the head and neck was performed from the aortic arch to skull apex. Images are reviewed in the axial, sagittal, and coronal planes. 3-D MIPS images are created and assessed. IV contrast was administered without complication. All measurements were obtained according to NASCET criteria. A dose lowering technique was util ized adhering to the principles of ALARA. CT DOSE: 1165.64 mGy.cm FINDINGS: CT BRAIN: There is no acute intracranial hemorrhage, midline shift, hydrocephalus, intracranial mass, territorial ischemia or abnormal extra-axial collections. Involutional changes with suggestion of mild chronic microvascular ischemic disease. Encephalomalacia related to the subacute to chronic left frontal lobe hewitt radiata, left basal ganglia and thalamic lacunar infarcts. No abnormal intra-axial or extra-axial enhancement. Mastoid air cells are clear. There is mild mucosal thickening of the ethmoid air cells. No calvarial fracture. Paranasal sinuses are clear. CT ANGIOGRAM OF THE HEAD AND NECK: There is chronic irregular atherosclerosis/ulcerative plaque of the thoracic aortic arch which measures up to 3.7 cm transversely on image 25. Partially imaged left subclavian pacer leads. Patency of the innominate and imaged subclavian arteries. Moderate atherosclerosis of the patent common carotid ar teries. Atherosclerosis of the right carotid bulb and proximal cervical segment right ICA results in less than 50% stenosis. Unchanged appearance of the chronic occlusion of the left ICA beginning at the origin of the cervical segment. There is reconstitution within the supraclinoid segment secondary to the [place] with irregular diminutive flow seen within the ophthalmic branch. Mostly mild multifocal stenoses of the middle and anterior cerebral arteries which are patent. The dominant and widely patent right vertebral artery. Developmentally diminutive left vertebral artery demonstrates multifocal areas of high-grade stenoses which are unchanged prior study. The basilar and posterior cerebral arteries are patent. Dural sinuses appear patent. Lung apices are clear. Unremarkable soft tissues. No acute fracture. IMPRESSION: 1. No acute intracranial abnormality. 2. Encephalomalacia related to the subacute to chronic left frontal lobe hewitt radiata, left basal ganglia and thalamic lacunar infarcts which were acute on the brain MRI from 04/30/2023. 3. Unchanged appearance of the chronic occlusion of the left internal carotid artery. 4. Unchanged appearance of the multifocal high-grade stenoses throughout the left vertebral artery. ACT 112: Negative or not required by law. The above report was generated using voice recognition software. It may contain grammatical, syntax or spelling errors. Electronically signed by: Herberth Broussard M.D. 09/15/2023 2:44 PM Neck CTA 09/15/23 13:03 CT angio head w con, CT head/brain wo con, CT angio neck with con CLINICAL HISTORY: 72 years-old Male with CRAO. Acute strokelike symptoms with left eye vision loss COMPARISON STUDY: 04/30/2023, CTA head and neck 04/27/2023. TECHNIQUE: Unenhanced axial CT scan of the brain is performed. Subsequently, following the IV administration of 112 cc of Optiray, CT angiogram of the head and neck was performed from the aortic arch to skull apex. Images are reviewed in the axial, sagittal, and coronal planes. 3-D MIPS images are created and assessed. IV contrast was administered without complication. All measurements were obtained according to NASCET criteria. A dose lowering technique was utilized adhering to the principles of ALARA. CT DOSE: 1165.64 mGy.cm FINDINGS: CT BRAIN: There is no acute intracranial hemorrhage, midline shift, hydrocephalus, intracranial mass, territorial ischemia or abnormal extra-axial collections. Involutional changes with suggestion of mild chronic microvascular ischemic disease. Encephalomalacia related to the subacute to chronic left frontal lobe hewitt radiata, left basal ganglia and thalamic lacunar infarcts. No abnormal intra-axial or extra-axial enhancement. Mastoid air cells are clear. There is mild mucosal thickening of the ethmoid air cells. No calvarial fracture. Paranasal sinuses are clear. CT ANGIOGRAM OF THE HEAD AND NECK: There is chronic irregular atherosclerosis/ulcerative plaque of the thoracic aortic arch which measures up to 3.7 cm transversely on image 25. Partially imaged left subclavian pacer leads. Patency of the innominate and imaged subclavian arteries. Moderate atherosclerosis of the patent common carotid arteries. Atherosclerosis of the right carotid bulb and proximal cervical segment right ICA results in less than 50% stenosis. Unchanged appearance of the chronic occlusion of the left ICA beginning at the origin of the cervical segment. There is reconstitution within the supraclinoid segment secondary to the [place] with irregular diminutive flow seen within the ophthalmic branch. Mostly mild multifocal stenoses of the middle and anterior cerebral arteries which are patent. The dominant and widely patent right vertebral artery. Developmentally diminutive left vertebral artery demonstrates multifocal areas of high-grade stenoses which are unchanged prior study. The basilar and posterior cerebral arteries are patent. Dural sinuses appear patent. Lung apices are clear. Unremarkable soft tissues. No acute fracture. IMPRESSION: 1. No acute intracranial abnormality. 2. Encephalomalacia related to the subacute to chronic left frontal lobe hewitt radiata, left basal ganglia and thalamic lacunar infarcts which were acute on the brain MRI from 04/30/2023. 3. Unchanged appearance of the chronic occlusion of the left internal carotid artery. 4. Unchanged appearance of the multifocal high-grade stenoses throughout the left vertebral artery. ACT 112: Negative or not required by law. The above report was generated using voice recognition software. It may contain grammatical, syntax or spelling errors. Electronically signed by: Herberth Broussard M.D. 09/15/2023 2:44 PM Medications Administered Home Medications Medication Instructions Recorded Confirmed Last Taken ascorbic acid (vitamin C) 500 mg 500 mg PO DAILY 04/18/20 09/15/23 09/15/23 tablet (Vitamin C) zelxfasc-zo-lqpqg 300 mcg-K 60 1 tab PO QAM 04/18/20 09/15/23 09/15/23 mcg-lycop 600 mcg-lutein 300 mcg tablet (Centrum Silver Ultra Men's) omega 0-veg-hww-fish oil 1,000 mg 1 cap PO DAILY 04/18/20 09/15/23 09/15/23 (120 mg-180 mg) capsule (Fish Oil) clopidogrel 75 mg tablet 75 mg PO DAILY 04/27/23 09/15/23 09/15/23 ezetimibe 10 mg tablet 10 mg PO DAILY 04/27/23 09/15/23 09/15/23 leflunomide 10 mg tablet 10 mg PO DAILY 04/27/23 09/15/23 09/15/23 losartan 50 mg tablet 50 mg PO BID #60 tabs 04/30/23 09/15/23 09/15/23 aspirin 325 mg tablet 325 mg PO BID 09/15/23 09/15/23 Unknown gabapentin 100 mg capsule 100 mg PO BID 09/15/23 09/15/23 09/15/23 naproxen sodium 220 mg tablet 220 mg PO HS 09/15/23 09/15/23 09/14/23 (Aleve) Active Medications Generic Name Dose Route Start Last Admin Trade Name Freq PRN Reason Stop Dose Admin Acetaminophen 650 mg 09/15/23 18:40 09/15/23 20:21 Acetaminophen 325 Mg Tab PO 10/15/23 18:39 650 mg Q4H PRN Administration Pain or Fever Ascorbic Acid 500 mg 09/16/23 09:00 09/16/23 08:31 Ascorbic Acid 500 Mg Tab PO 10/16/23 08:59 500 mg DAILY MARC Administration Ezetimibe 10 mg 09/16/23 09:00 09/16/23 08:31 Ezetimibe 10 Mg Tab PO 10/16/23 08:59 10 mg DAILY MARC Administration Gabapentin 100 mg 09/15/23 21:00 09/16/23 08:30 Gabapentin 100 Mg Cap PO 10/15/23 20:59 100 mg BID MARC Administration Leflunomide 10 mg 09/16/23 09:00 09/16/23 08:31 Leflunomide 10 Mg Tab PO 10/16/23 08:59 10 mg DAILY MARC Administration Losartan Potassium 50 mg 09/16/23 09:00 09/16/23 08:32 Losartan Potassium 50 Mg Tab PO 10/16/23 08:59 50 mg [id number] MARC Administration Nifedipine 60 mg 09/16/23 09:00 09/16/23 09:30 Nifedipine Extended Rel 30 Mg Tabcr PO 10/16/23 08:59 60 mg QAM MARC Administration Ticagrelor 90 mg 09/15/23 21:00 09/16/23 08:31 Ticagrelor 90 Mg Tab PO 10/15/23 20:59 90 mg BID MARC Administration
[2023-09-16] MEDS: ATORVASTATIN 20 MG TAB PO SCH (12:56)
--- NOTE | 2023-09-16 14:38 | Hospitalist Progress Note ---
Date of Service September 16, 2023 Assessment & Plan (1) CRAO (central retinal artery occlusion): Plan: Patient presented with loss of vision on left eye. Decreased visual acuity on left nasal inferior and superior aspect History of rheumatoid arthritis, CVA and carotid disease CT head, CTA head and neck was done; no acute intracranial abnormality. Encephalomalacia related to subacute to chronic left frontal lobe coronary radiata, left basal ganglia and thalamic lacunar infarct which were acute on brain MRI done in April 2023. Unchanged appearance of chronic occlusion of left ICA Unchanged appearance of multifocal high-grade stenosis throughout the left vertebral artery ED physician had discussed with ophthalmology on-call (Dr. Clark); he reviewed retinal scan images seen by Vinicio sullivan. Central retinal artery occlusion possible several area noted. Admitted to the hospital for stroke evaluation Seen by neurology; recommended to continue aspirin, switch to ticagrelor 90 mg twice daily from Plavix Restarted on statin. Patient had previously reported dizziness on it. 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 Creat at baseline. (5) Rheumatoid arthritis: Plan: chronic, stable. Continues on Arava therapy daily. No evidence of flare at this time. (6) Neuropathy: Plan: related to prior stroke, managed with gabapentin which will be continued. (7) Hyperlipidemia: Plan: Statin started while inpatient DVT proph: Lovenox Full Code Dispo-telemetry Time spent evaluating patient, direct bedside care, chart review, placing orders, interpretation of diagnostic studies, discussion with consultants, patient, and family members, as well as other required patient management activities is 55-minute Please note the above document was generated using voice recognition software. It may contain grammatical, syntax or spelling errors. Any formal questions or concerns about the content, text or information contained within the body of this dictation should be directly addressed to the provider for clarification Admission and Anticipated Discharge Date Admission Date: September 15, 2023 Subjective Patient seen and examined at bedside. Comfortable; not in distress. Denies fever, chills, chest pain, shortness of breath, abdominal pain or urinary symptoms. No significant overnight events Review of Systems Review of Systems: All systems reviewed & are unremarkable except as noted in Subjective Physical Exam Physical Exam: Constitutional: WD/WN, vitals as above, NAD, sitting up in bed, pleasant, conversing easily Respiratory: normal respiratory effort, lungs clear to auscultation, no wheeze, rales, rhonchi. Normal insp/exp effort, no accessory muscle use Cardiovascular: RRR, no murmur, no edema Vessels: no JVD or carotid bruit Chest: normal inspection of chest Abdomen: normal bowel sounds, soft, nontender, no hepatosplenomegaly Musculoskeletal: no cyanosis or clubbing, extremities motor strength 5/5 Skin: no rashes, warm and dry normal turgor Neurologic: PERRL, EOMI. visual acuity is diminished on the left side with complete loss of acuity on the left eye nasal superior and inferior field of vision. No other gross neurological abnormality. Psychiatric: A+Ox3, euthymic affect Results & Data Results & Data Vital Signs (Past 12 Hours) Vital Signs Temp Pulse Pulse Pulse Resp BP Pulse Ox 09/16/23 14:00 36.7 C 68 20 139/69 96 09/16/23 08:30 09/16/23 07:59 36.6 C 98 H 16 165/78 H 97 09/16/23 07:47 64 09/16/23 02:56 36.4 C L 61 15 131/59 L 96 O2 Del Method 09/16/23 14:00 Room Air 09/16/23 08:30 Room Air 09/16/23 07:59 Room Air 09/16/23 07:47 09/16/23 02:56 Room Air
[2023-09-16] MEDS: HEPARIN SOD 5,000 UNIT/0.5 ML VIAL SQ SCH (19:50)
--- NOTE | 2023-09-16 22:24 | Electrocardiogram Report ---
Test Reason : Blood Pressure : / mmHG Vent. Rate : 062 BPM Atrial Rate : 062 BPM P-R Int : 212 ms QRS Dur : 092 ms QT Int : 412 ms P-R-T Axes : 017 -26 061 degrees QTc Int : 418 ms Sinus rhythm with 1st degree A-V block early transition Otherwise normal ECG When compared with ECG of 27-APR-2023 16:54, Sinus rhythm has replaced Electronic atrial pacemaker Confirmed by Rafael Dominguez ([id number]) on 09/16/2023 10:23:51 PM Referred By: Roel Brown Confirmed By:Rafael Dominguez
[2023-09-17 07:14] LABS: Chol HDL Ratio 4.7 (0-5)
[2023-09-17 07:28] LABS: Thyroid Stimulating Hormone 1.819 uIu/ml (0.300-4.500)
[2023-09-17 08:56] LABS: Estimated Average Glucose 120 mg/dl; Hemoglobin A1C 5.8 % (4.5-5.6)
[2023-09-17] MEDS ORDERED: ROSUVASTATIN CALCIUM 20 MG TAB PO SCH (09:00)
--- NOTE | 2023-09-17 09:29 | Communication Note ---
Date of Service: September 17, 2023 EMR reviewed, Echocardiogram completed Proceed with stroke workup MRI Recommend discontinue clopidogrel in favor of ticagrelor Agree with reattempting low dose statin therapy, monitor for intolerance VTE prophylaxis
--- NOTE | 2023-09-17 12:21 | Discharge Summary ---
Date of Service September 17, 2023 Admission HPI Per Admitting Provider Patient is a 72-year-old man with a history of coronary artery disease, carotid artery stenosis and history of stroke on full dose aspirin twice daily and Plavix who presents with acute onset left vision changes that occurred afternoon when he was watching TV. 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 He specifically reports visual field cuts in his left eye. He otherwise denies any difficulty with balance, trouble speaking, extremity weakness or other strokelike symptoms. He reported some transient peripheral discomfort around his left eye previously but this has resolved. He does have a history of cataract removal and bilateral lens replacement through [facility] ophthalmology. Case was discussed with the on-call physical therapy assistant Dr. Clark who was able to review the retinal images that were taken and sent by [facility]. It appeared there were several areas of central retinal artery occlusion present that may explain the vision changes. He was admitted to the hospital for further stroke evaluation minimizing stroke risk factors. Per outpatient record review he is a rheumatoid arthritis patient on leflunomide. He did see vascular surgery at [facility] in April 2023 after a left hemispheric stroke for which he was admitted. Right arm and leg weakness remained. During the hospital stay the CTA at [facility] reported left carotid occlusion. He was started on dual antiplatelet therapy with aspirin and Plavix and notably has had muscle pain with statin and dizziness with Repatha. 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 Continue dual antiplatelet therapy with aspirin 81 and Plavix 75 daily was recommended. Repeat carotid duplex and CT chest abdomen pelvis in 1 year was recommended by vascular specialist for ongoing observation of carotid disease and right iliac ectasia, respectively. Admission Exam Per Admitting Provider CONSTITUTIONAL: WNWD, vitals as above, generally well-appearing, NAD EYES: EOMI bilaterally, PERRL, normal conjunctivae, no scleral icterus, no funduscopic abnormality ENT: external ear and nose normal, oropharynx clear, MMM NECK: trachea midline RESPIRATORY: clear to auscultation bilaterally, no crackles, rales or wheezes, normal respiratory effort CARDIOVASCULAR: regular rate and rhythm, S1 and 2 heard without murmurs, gallops or rubs, no JVD, no peripheral edema CHEST: inspection of chest was normal GASTROINTESTINAL: soft, nontender, ND, no guarding MUSCULOSKELETAL: strength 5/5 throughout, head is normocephalic and atraumatic, neck supple, normal palpation of chest wall without tenderness SKIN: warm and dry NEUROLOGIC: CN 2-12 grossly intact, no sensory deficit, normal cognition, normal speech, no tremor PSYCHIATRIC: alert cooperative and oriented to person, place and time. Euthymic mood, makes good eye contact, language grossly intact, recent and remote memory grossly intact. Principal Diagnosis CRAO (central retinal artery occlusion): Discharge Exam Constitutional: WD/WN, vitals as above, NAD, sitting up in bed, pleasant, conversing easily Respiratory: normal respiratory effort, lungs clear to auscultation, no wheeze, rales, rhonchi. Normal insp/exp effort, no accessory muscle use Cardiovascular: RRR, no murmur, no edema Vessels: no JVD or carotid bruit Chest: normal inspection of chest Abdomen: normal bowel sounds, soft, nontender, no hepatosplenomegaly Musculoskeletal: no cyanosis or clubbing, extremities motor strength 5/5 Skin: no rashes, warm and dry normal turgor Neurologic: PERRL, EOMI. visual acuity is diminished on the left side with complete loss of acuity on the left eye nasal superior and inferior field of vision. No other gross neurological abnormality. Psychiatric: A+Ox3, euthymic affect Discharge Data Allergies Allergy/AdvReac Type Severity Reaction Status Date / Time evolocumab AdvReac Severe Dizziness Unverified 09/15/23 15:18 [From Repatha SureClick] icosapent ethyl AdvReac Severe Dizziness Unverified 09/15/23 15:18 [From Vascepa] lidocaine AdvReac Severe patient Verified 09/15/23 15:18 "dies" Qjjofbt-XNF-RsP Reductase AdvReac Severe arthritis Unverified 09/15/23 15:18 Inhibitor [Qgkjvak-Icj-Xtf Reductase Inhibitor] Consultations 09/15/23 18:40 Consult Neurology Routine Ordered Studies 09/15/23 13:03 CT angio head w con Stat CT angio neck with con Stat CT head/brain wo con Stat 09/17/23 07:00 MR brain wo con Routine Hospital Course (1) CRAO (central retinal artery occlusion): (2) Occlusion of left vertebral artery: (3) Left carotid artery occlusion: (4) CKD (chronic kidney disease), stage III: (5) Rheumatoid arthritis: (6) Neuropathy: (7) Hyperlipidemia: Plan Patient presented with loss of vision on left eye. Decreased visual acuity on left nasal inferior and superior aspect History of rheumatoid arthritis, CVA and carotid disease CT head, CTA head and neck was done; no acute intracranial abnormality. Encephalomalacia related to subacute to chronic left frontal lobe coronary radiata, left basal ganglia and thalamic lacunar infarct which were acute on brain MRI done in April 2023. Unchanged appearance of chronic occlusion of left ICA Unchanged appearance of multifocal high-grade stenosis throughout the left vertebral artery ED physician had discussed with ophthalmology on-call (Dr. Clark); he reviewed retinal scan images seen by Vinicio sullivan. Central retinal artery occlusion possible several area noted. Admitted to the hospital for stroke evaluation Seen by neurology; recommended to continue aspirin, switch to ticagrelor 90 mg twice daily from Plavix Started on trial with statin(Pravastatin); patient tolerated well MRI brain without contrast ordered; did not show any acute findings Nifedipine 60mg added for better blood pressure control Follow up with PCP and ophthalmology. Please note the above document was generated using voice recognition software. It may contain grammatical, syntax or spelling errors. Any formal questions or concerns about the content, text or information contained within the body of this dictation should be directly addressed to the provider for clarification Total Time Total Time Spent Total Time Spent (In Minutes): 45 Total Time Includes: Examination of the Patient, Discharge Planning, Medication Reconciliation, Communication With Other Providers and Other Discharge Plan Discharge Items Patient Disposition: Home - Self-Care Reason For Visit: ACUTE CENTRAL RETINAL ARTERY OCCLUSION Discharge Diagnosis: Central renal artery occlusion Activity: Resume your previous activity Non-emergency contact: Primary Care Provider Call non-emergency contact if: you have any medication questions and your symptoms worsen Follow-up/Referrals: Roel Brown MD [Primary Care Provider] - (Date & Time 09/20/2023 9:00 AM Provider Roel Brown MD Department Family Medicine [facility] ) Diet: Regular Addtl Attending Provider Instructions: You were admitted to the hospital due to vision loss on your left eye. The cause for it is likely due to blockage of the vessels of the retina. Following medication changes are recommended by the neurologist; 1) Stop Plavix. You are prescribed Brilinta 90 mg to be taken twice daily. 2) Start taking aspirin 81 mg once a day 3) Pravastatin 20 mg once a day You were also prescribed nifedipine 60 mg once a day for better blood pressure control. Your blood pressure during the hospitalization and past record reviews shows that your blood pressure has been on the higher side; so addition of this new medication has been done. Pending Studies at Discharge: No Stand-Alone Forms: My [facility], Smoking Cessation Medications and DC Order Prescriptions: New Brilinta 90 mg Tablet 90 mg PO BID Qty: 60 0RF nifedipine [Procardia XL] 30 mg Tablet Extended Release 24hr 60 mg PO QAM Qty: 30 0RF pravastatin 20 mg Tablet 20 mg PO DAILY@1700 Qty: 30 0RF aspirin 81 mg capsule 81 mg PO DAILY Qty: 30 0RF pantoprazole [Protonix] 40 mg tablet,delayed release (DR/EC) 40 mg PO DAILY 28 Days Qty: 28 0RF Continued omega 1-euk-mxl-fish oil [Fish Oil] 1,000 mg (120 mg-180 mg) Capsule 1 cap PO DAILY Centrum Silver Ultra Men's 300-600-300 mcg Tablet 1 tab PO QAM ascorbic acid (vitamin C) [Vitamin C] 500 mg Tablet 500 mg PO DAILY leflunomide 10 mg tablet 10 mg PO DAILY ezetimibe 10 mg tablet 10 mg PO DAILY losartan 50 mg Tablet 50 mg PO BID Qty: 60 0RF naproxen sodium [Aleve] 220 mg Tablet 220 mg PO HS gabapentin 100 mg capsule 100 mg PO BID Discontinued clopidogrel 75 mg tablet 75 mg PO DAILY aspirin 325 mg Tablet 325 mg PO BID Discharge Orders: Discharge Order (Routine); Ordered 09/17/23 Ordered By: Bi Gaston Admission Data Admit Date/Time: 09/15/23 15:28 Attending Provider: Bi Gaston Admit Provider: Sol Heck Primary Care Provider: Roel Brown Other Providers: Kd Mccloud Other Interventions: Discharge Summary Assessment (RN) Last Done: 09/17/23 16:38
[2023-09-17] MEDS: ASPIRIN 81 MG ECTAB PO SCH (13:03)
[2023-09-17] MEDS: PRAVASTATIN SOD 20 MG TAB PO SCH (16:02)
--- NOTE | 2023-09-17 16:14 | Magnetic Resonance Report ---
MR brain wo con HISTORY: 72 years-old Male rule out stroke, acute vision loss 2/ CRAO Acute stroke-like symptoms wi th transient vision loss. COMPARISON: Head CT 09/15/2023, brain MRI 04/30/2023. TECHNIQUE: Multiplanar and multisequence MRI of the brain was obtained without the use of IV contrast . FINDINGS: No restricted diffusion. Midline structures appear unremarkable. Degenerative changes of the imaged c ervical spine. Riley cisterna magna. Mildly motion degraded exam. No acute intracranial hemorrhage, mi dline shift, abnormal extra-axial collection, hydrocephalus or intra-axial mass. Involutional changes with mild chronic microvascular ischemic disease. Chronic lacunar infarcts of the left cerebellum, l eft frontal lobe hewitt radiata, left thalamus and lentiform nuclei. Chronic occlusion of the left in ternal carotid artery. Prior bilateral lens repair. Mild mucosal thickening of the paranasal sinuses. Cerebral venous sinuse s are patent. IMPRESSION: 1. No acute intracranial abnormality. No acute or subacute infarct. 2. Involutional changes with mild chronic microvascular ischemic disease and chronic lacunar infarcts as above. 3. Chronic occlusion of the left internal carotid artery. ACT 112: Negative or not required by law. The above report was generated using voice recognition software. It may contain grammatical, syntax o r spelling errors. Dictated: 09/17/2023 1:03 PM Transcribed: 09/17/2023 1:23 PM Frankie [id number] [email or web address] Electronically signed by: Herberth Broussard M.D. 09/17/2023 4:13 PM
== END 2023-09-17 16:52 | disposition home or self-care (01) | DRG 125 ==
LOC: ED 10:38 → SUATTDRO 15:28 → 2N 15:28
DX: G62.9 Polyneuropathy, unspecified; I65.22 Occlusion and stenosis of left carotid artery; I25.2 Old myocardial infarction; Z79.69 Long term (current) use of other immunomodulators and immunosuppressants; Z79.82 Long term (current) use of aspirin; N18.30 Chronic kidney disease, stage 3 unspecified; Z82.49 Family history of ischemic heart disease and other diseases of the circulatory system; I49.5 Sick sinus syndrome; Z79.899 Other long term (current) drug therapy; H34.12 Central retinal artery occlusion, left eye; Z88.8 Allergy status to other drugs, medicaments and biological substances; Z88.4 Allergy status to anesthetic agent; I25.10 Atherosclerotic heart disease of native coronary artery without angina pectoris; Z95.0 Presence of cardiac pacemaker; I69.398 Other sequelae of cerebral infarction; Z79.02 Long term (current) use of antithrombotics/antiplatelets; E78.5 Hyperlipidemia, unspecified; I12.9 Hypertensive chronic kidney disease with stage 1 through stage 4 chronic kidney disease, or unspecified chronic kidney disease; M06.9 Rheumatoid arthritis, unspecified